=== PATIENT | female | born 1955 | race Caucasian/White ===

== ENCOUNTER 2022-10-10 07:54 | Inpatient (IN) ==
[2022-10-10] MEDS ORDERED: ONDANSETRON INJ 2 MG/ML 2 ML VIAL IV STA (08:27)
[2022-10-10] MEDS ORDERED: SODIUM CHLORIDE 0.9% 500 ML IV SCH (08:30)
--- NOTE | 2022-10-10 08:35 | Emergency Department Note ---
Impression & Plan Fall, Head injury, Weakness, Chronic right hip pain ED Provider Note INFORMANT: Patient and EMS ED PROVIDER(S): Sreekanth Begum DO CHIEF COMPLAINT: Fall, head injury, vomiting PLAN: Disposition: Admit Outpatient prescription management: none Discussion with: I spoke with the hospitalist, who will see the patient for admission/observation and further evaluation and consultation. MEDICAL DECISION MAKING: This is a 59-year-old female who presents to the ED with a chief complaint of a fall. The patient states that she fell a couple of times this morning. She states just prior to arrival. The patient reports hitting her head. She feels like she slipped on the floor while she was using her walker. She hit the back of her head. She vomited once in the emergency department. The patient did admit to drinking alcohol yesterday. She states that she drank about a half a liter of alcohol. She is using this for her chronic pain issues including her right hip. The patient is due to have surgery on her right hip later in the week. EMS reported that the patient's house was in disarray with pill bottles and pills all over the floor. Vital signs reveal a blood pressure of 90/45. The patient has a history of previous craniotomy with hematoma evacuation, total left hip arthroplasty, depression and anxiety, hypertension, seizures. Currently taking atenolol, escitalopram, Lunesta, hydrochlorothiazide/losartan, lamotrigine, omeprazole and tramadol. An EKG shows a sinus rhythm at a rate of 72. Chest x-ray was negative for acute disease. CT scan of the head and cervical spine did not show acute process. CT scan of the abdomen pelvis shows a compression fracture of T12 and a right posterior rib fracture. COVID test was negative. Troponin was negative. TSH was normal. Procalcitonin was negative. CBC did not show anemia or leukocytosis. Chemistry panel showed no electrolyte abnormality. Because of the patient's injuries, chronic pain and likelihood of more difficulty getting around and overall generalized weakness, she will be seen by the hospitalist for further evaluation and care. Likely will need to go to rehab perhaps after her hip surgery that is scheduled for later this week. Triage Nursing notes reviewed. Vital Signs: reviewed Prior /Outside records reviewed: Orthopedic note from 10/04/2022 Differential diagnosis: Skull fracture, intracranial hemorrhage, cervical spine injury, pelvis fracture, hip fracture, alcohol withdrawal, dehydration, generalized weakness, soft tissue injury, other Diagnostics, as interpreted by me: 12 lead ECG: Normal sinus rhythm rate of 72. No ST elevation. No PVCs. Normal QTc. Cardiac Monitoring ordered: Sinus rhythm in the 70s. Medical decision rules: [none] Imaging studies: Chest x-ray: No acute disease. CT scan of the brain: No intracranial hemorrhage Procedures: none. Critical care: none. HPI: See MDM above. PAST MEDICAL HISTORY: See Below PAST SURGICAL HISTORY: See Below SOCIAL HISTORY: See Below HOME MEDICATIONS: See Below ALLERGIES: See Below VITALS: See Below PHYSICAL EXAMINATION: See MDM for positive findings otherwise unremarkable. CONSTITUTIONAL/VITAL SIGNS: Reviewed GENERAL:done as appropriate INTEGUMENTARY: done as appropriate HEAD: done as appropriate EYES: done as appropriate RESPIRATORY: done as appropriate CARDIOVASCULAR:done as appropriate GI/ABDOMEN:done as appropriate EXTREMITIES: done as appropriate NEUROLOGICAL: done as appropriate PSYCHIATRIC:done as appropriate MUSCULOSKELETAL:done as appropriate TRIAGE NURSING DOCUMENTATION REVIEWED. Past Med/Surg History Medical History Anxiety and depression GERD (gastroesophageal reflux disease) controlled, stable per pt History of blood transfusion pt denies, she plans to re-check her home records Hx of subdural hematoma 2020 (s/p fall) Hypertension controlled, stable per pt Mild aortic regurgitation Mild mitral regurgitation Mild pulmonary hypertension 30 mmHg Mild pulmonary valve regurgitation Mild tricuspid regurgitation Seizure Grand mal, most recent 2000 Surgical History H/O craniotomy Hematoma evacuation (2020) History of colonoscopy History of esophagogastroduodenoscopy (EGD) History of laparoscopy History of total hip arthroplasty Left [place] teeth removed Family History Other No family history of adverse response to anesthesia Social History Smoking Status: Unknown if ever smoked Cigarettes Per Day: 1-2 CIG DAILY>ADVISED; Second Hand Exposure: Yes (IN THE PAST>15+ YEARS AGO); Hx Alcohol Use: Yes Alcohol type: wine Preferred Language: [place] Hotel Reservationist Required: No Beliefs That Will Affect Care: None Current Living Situation: Alone Feels Safe at Home: Yes Assistive Devices: Cane and Glasses Allergies Allergies Allergy/AdvReac Type Severity Reaction Status Date / Time No Known Allergies Allergy Verified 10/04/22 10:18 Home Meds Home Medications Medication Instructions Recorded Confirmed atenolol 50 mg tablet 50 mg PO BID 10/04/22 10/04/22 escitalopram oxalate 20 mg tablet 20 mg PO QAM 10/04/22 10/04/22 (Lexapro) eszopiclone 2 mg tablet (Lunesta) 2 mg PO HS 10/04/22 10/04/22 lamotrigine 150 mg tablet 150 mg PO BID 10/04/22 10/04/22 losartan 100 1 tab PO QA 10/04/22 10/04/22 mg-hydrochlorothiazide 12.5 mg tablet omeprazole 40 mg capsule,delayed 40 mg PO [facility] 10/04/22 10/04/22 release Results & Data (ED) Vital Signs Vital Signs - 24 hr 10/10/22 08:21 10/10/22 08:26 10/10/22 08:29 Temperature 36.8 C Temperature Source Axillary Pulse Rate 74 75 Pulse Rate [Apical] 68 Respiratory Rate 15 16 Blood Pressure 90/45 L Blood Pressure Mean 60 Pulse Oximetry 95 95 Oxygen Delivery Method Room Air Room Air Sepsis Recent Fever Within 48 Hours No Sepsis New/Unexplained Change in Mental Status No Sepsis Action Taken by Nursing No Action Required Laboratory Data 10/10/22 08:00 10/10/22 08:00 Lab Results 10/10/22 10/10/22 10/10/22 Range/Units 08:00 08:00 08:00 WBC 7.67 (4.8-10.8) K/ul RBC 4.31 (4.20-5.40) M/uL Hgb 13.5 (12.0-16.0) g/dl Hct 39.4 (37.0-47.0) % MCV 91.4 (80.0-100.0) fL MCH 31.3 (25.0-34.0) pg MCHC 34.3 (32.0-36.0) g/dL RDW Std Deviation 46.5 H (36.4-46.3) fL RDW Coeff of [place] 13.8 (11.5-14.5) % Plt Count 193 (130-400) K/uL MPV 9.9 (9.4-12.4) fL Immature Gran % (Auto) 0.3 % Neut % (Auto) 88.0 % Lymph % (Auto) 8.7 % [place] % (Auto) 2.5 % Eos % (Auto) 0.1 % Baso % (Auto) 0.4 % Neut # (Auto) 6.75 H (1.40-6.50) K/uL Lymph # (Auto) 0.67 L (1.2-3.4) K/uL [place] # (Auto) 0.19 (0.11-0.59) K/uL Eos # (Auto) 0.01 (0-0.50) K/uL Baso # (Auto) 0.03 (0-0.2) K/uL Immature Gran # (Auto) 0.02 (0.01-0.20) K/uL PT (9.0-12.0) Seconds INR (0.9-1.1) Sodium 140 (136-145) mmol/L Potassium 3.8 (3.5-5.1) mmol/L Chloride 102 (98-107) mmol/L Carbon Dioxide 25 (21-32) mmol/L Anion Gap 13 H (3-11) BUN 20 (6-23) mg/dl Creatinine 0.95 (0.6-1.2) mg/dl Est Cr Clr Drug Dosing 57.3 ml/min Est GFR ( Amer) 71.3 ml/min Est GFR (Non-Af Amer) 61.5 ml/min BUN/Creatinine Ratio 21.1 H (10-20) Glucose 123 H (70-99(Fasting)) mg/dl POC Glucose (70-99) mg/dl Calcium 10.0 (8.6-10.3) mg/dl Magnesium 1.6 L (1.7-2.4) mg/dl Total Bilirubin 0.5 (0.2-1.0) mg/dl AST 18 (13-39) U/L ALT 9 (7-52) U/L Alkaline Phosphatase 123 H (34-104) U/L Total Creatine Kinase 218 H (26-192) U/L Troponin I High Sens 3.6 (0-14) pg/ml Total Protein 7.0 (6.0-8.3) gm/dl Albumin 4.4 (3.4-5.0) gm/dl Globulin 2.6 (2.5-4.0) gm/dl Albumin/Globulin Ratio 1.7 (0.9-2) Lipase 5 L (11-82) U/L Procalcitonin < 0.05 (0-0.5) ng/ml TSH (0.300-4.500) uIu/ml SARS-CoV-2, RNA, NAAT (NEGATIVE) 10/10/22 10/10/22 10/10/22 Range/Units 08:00 08:00 08:07 WBC (4.8-10.8) K/ul RBC (4.20-5.40) M/uL Hgb (12.0-16.0) g/dl Hct (37.0-47.0) % MCV (80.0-100.0) fL MCH (25.0-34.0) pg MCHC (32.0-36.0) g/dL RDW Std Deviation (36.4-46.3) fL RDW Coeff of [place] (11.5-14.5) % Plt Count (130-400) K/uL MPV (9.4-12.4) fL Immature Gran % (Auto) % Neut % (Auto) % Lymph % (Auto) % [place] % (Auto) % Eos % (Auto) % Baso % (Auto) % Neut # (Auto) (1.40-6.50) K/uL Lymph # (Auto) (1.2-3.4) K/uL [place] # (Auto) (0.11-0.59) K/uL Eos # (Auto) (0-0.50) K/uL Baso # (Auto) (0-0.2) K/uL Immature Gran # (Auto) (0.01-0.20) K/uL PT 11.1 (9.0-12.0) Seconds INR 1.0 (0.9-1.1) Sodium (136-145) mmol/L Potassium (3.5-5.1) mmol/L Chloride (98-107) mmol/L Carbon Dioxide (21-32) mmol/L Anion Gap (3-11) BUN (6-23) mg/dl Creatinine (0.6-1.2) mg/dl Est Cr Clr Drug Dosing ml/min Est GFR ( Amer) ml/min Est GFR (Non-Af Amer) ml/min BUN/Creatinine Ratio (10-20) Glucose (70-99(Fasting)) mg/dl POC Glucose 134 H (70-99) mg/dl Calcium (8.6-10.3) mg/dl Magnesium (1.7-2.4) mg/dl Total Bilirubin (0.2-1.0) mg/dl AST (13-39) U/L ALT (7-52) U/L Alkaline Phosphatase (34-104) U/L Total Creatine Kinase (26-192) U/L Troponin I High Sens (0-14) pg/ml Total Protein (6.0-8.3) gm/dl Albumin (3.4-5.0) gm/dl Globulin (2.5-4.0) gm/dl Albumin/Globulin Ratio (0.9-2) Lipase (11-82) U/L Procalcitonin (0-0.5) ng/ml TSH 0.870 (0.300-4.500) uIu/ml SARS-CoV-2, RNA, NAAT (NEGATIVE) 10/10/22 Range/Units 08:30 WBC (4.8-10.8) K/ul RBC (4.20-5.40) M/uL Hgb (12.0-16.0) g/dl Hct (37.0-47.0) % MCV (80.0-100.0) fL MCH (25.0-34.0) pg MCHC (32.0-36.0) g/dL RDW Std Deviation (36.4-46.3) fL RDW Coeff of [place] (11.5-14.5) % Plt Count (130-400) K/uL MPV (9.4-12.4) fL Immature Gran % (Auto) % Neut % (Auto) % Lymph % (Auto) % [place] % (Auto) % Eos % (Auto) % Baso % (Auto) % Neut # (Auto) (1.40-6.50) K/uL Lymph # (Auto) (1.2-3.4) K/uL [place] # (Auto) (0.11-0.59) K/uL Eos # (Auto) (0-0.50) K/uL Baso # (Auto) (0-0.2) K/uL Immature Gran # (Auto) (0.01-0.20) K/uL PT (9.0-12.0) Seconds INR (0.9-1.1) Sodium (136-145) mmol/L Potassium (3.5-5.1) mmol/L Chloride (98-107) mmol/L Carbon Dioxide (21-32) mmol/L Anion Gap (3-11) BUN (6-23) mg/dl Creatinine (0.6-1.2) mg/dl Est Cr Clr Drug Dosing ml/min Est GFR ( Amer) ml/min Est GFR (Non-Af Amer) ml/min BUN/Creatinine Ratio (10-20) Glucose (70-99(Fasting)) mg/dl POC Glucose (70-99) mg/dl Calcium (8.6-10.3) mg/dl Magnesium (1.7-2.4) mg/dl Total Bilirubin (0.2-1.0) mg/dl AST (13-39) U/L ALT (7-52) U/L Alkaline Phosphatase (34-104) U/L Total Creatine Kinase (26-192) U/L Troponin I High Sens (0-14) pg/ml Total Protein (6.0-8.3) gm/dl Albumin (3.4-5.0) gm/dl Globulin (2.5-4.0) gm/dl Albumin/Globulin Ratio (0.9-2) Lipase (11-82) U/L Procalcitonin (0-0.5) ng/ml TSH (0.300-4.500) uIu/ml SARS-CoV-2, RNA, NAAT NEGATIVE (NEGATIVE) Administered Medications Discontinued Medications Sodium Chloride (Nss) 500 mls @ 999 mls/hr IV .Q31M GISELE Stop: 10/10/22 09:00 Last Admin: 10/10/22 08:38 Dose: 999 mls/hr Documented By: KV Ondansetron HCl (Ondansetron Inj 2 Mg/Ml 2 Ml Vial) 4 mg IV NOW STA Stop: 10/10/22 08:28 Last Admin: 10/10/22 08:38 Dose: 4 mg Documented By: KV Imaging Data Radiologist's Impression: Abdomen/Pelvis CT 10/10/22 08:27 CT abd pelvis wo con CLINICAL HISTORY: FALL TECHNIQUE: Helical axial images of the abdomen and pelvis were obtained. Automated dose lowering techniques and/or adjustment according to patient size were utilized for this exam. This exam was performed without intravenous contrast. COMPARISON: None available at the time of this dictation. FINDINGS: Lower chest: Bibasilar atelectasis versus scarring is seen. Liver: Unremarkable. No focal lesions are seen. Gallbladder and biliary tree: No calcified gallstones. Normal caliber wall. No intra- or extrahepatic biliary ductal dilation. Pancreas: Unremarkable, no focal lesions. Spleen: Unremarkable. Adrenals: Right lipid rich adenoma is seen. Kidneys and ureters: Unremarkable. Bladder: Unremarkable. Reproductive organs: Unremarkable. Bowel: The appendix is normal. A small hiatal hernia is seen. Lymph nodes Retroperitoneal: Unremarkable. Pelvic: Unremarkable. Mesenteric: Unremarkable. Peritoneum: Normal. Vessels: Atherosclerotic calcifications are seen. Abdominal wall: Unremarkable. Bones: Left hip total arthroplasty is seen. IMPRESSION: 1. Compression fracture of the T12 vertebral body. There is a right posterior rib fracture which also appears acute. Additional rib fractures of various chronicity is are seen as above. 2. Additional findings as above. No acute intra-abdominal injury is seen. ACT 112: Negative or not required by law. Electronically signed by: Jordan Stephen M.D. 10/10/2022 9:[address] 10/10/22 08:27 CT SCAN OF THE CERVICAL SPINE CLINICAL HISTORY: Fall. COMPARISON STUDY: No priors. TECHNIQUE: CT scan of the cervical spine is performed from the skull base to the upper thoracic spine. Images are reviewed in the axial, sagittal, and coronal planes. IV contrast was not administered for this examination. A dose lowering technique was utilized adhering to the principles of ALARA. CT DOSE: 2309.18 mGy.cm FINDINGS: Skeletal structures: The skeletal structures are osteopenic. There is no evidence of fracture or subluxation involving the cervical spine. Vertebral body height is maintained. There is minimal anterolisthesis at C3-C4 and C7-T1. Alignment is otherwise preserved. There is straightening of the cervical lordosis. Anterior osteophytes are seen throughout. There is multilevel degenerative endplate sclerosis. The odontoid process and lateral masses are intact. The atlantoaxial articulation is preserved nothing productive degenerative change. The spinous processes appear intact. There is moderate multilevel cervical spondylosis. Uncovertebral and facet arthropathy contribute to neural foraminal narrowing at several levels. Intervertebral discs: There is moderate to severe disc space narrowing at C4-C5, C5-C6, and C6-C7. Mild/moderate narrowing is seen at the remaining cervical l evels. Central canal: Posterior disc osteophyte complexes are seen at all levels between C3-C4 and C7-T1. This likely contributes to multilevel acquired compromise of the central canal. Soft tissues: The prevertebral and paraspinous soft tissues are within normal limits. Calvarium: The visualized calvarium at the skull base appears intact. Brain parenchyma: Partially visualized brain parenchyma at the skull base is within normal limits. Sinuses and mastoids: The visualized paranasal sinuses are clear. The mastoid air cells are well pneumatized. Lung apices: Clear as visualized. IMPRESSION: 1. There is no evidence of fracture or subluxation involving the cervical spine. 2. Osteopenia and spondylotic change as above. ACT 112: Negative or not required by law. Electronically signed by: Fabian Castellanos M.D. 10/10/2022 9:16 AM Chest X-Ray 10/10/22 08:27 XR chest 1V portable CLINICAL HISTORY: weakness TECHNIQUE: Single frontal radiograph of the chest was obtained. Comparison: None available at the time of this dictation. FINDINGS: No lines and tubes are seen. The cardiomediastinal silhouette is normal. The lungs are clear. No evidence of pleural effusion or pneumothorax. IMPRESSION: No acute chest disease. ACT 112: Negative or not required by law. Electronically signed by: Jordan Stephen M.D. 10/10/2022 8:[address] 10/10/22 08:27 CT SCAN OF THE BRAIN WITHOUT IV CONTRAST CLINICAL HISTORY: Fall. Head injury. COMPARISON STUDY: No priors. TECHNIQUE: Unenhanced axial CT scan of the brain is performed from the vertex to the skull base. A dose lowering technique was utilized adhering to the principles of ALARA. The patient was scanned twice due to motion artifact. FINDINGS: Brain parenchyma: The brain parenchyma is normal in appearance. There is no hemorrhage, mass effect, or evidence of acute territorial ischemia by CT criteria. Wade-white matter differentiation is preserved. No extra-axial fluid collection is seen. Ventricles, sulci, cisterns: Normal in configuration. Intracranial vasculature: There is atherosclerotic calcification of the cavernous carotid arteries. Calvarium: The skeletal structures are osteopenic. There is postsurgical change from right-sided craniotomy. No depressed calvarial fracture is identified. Sinuses and mastoids: The paranasal sinuses are clear. The mastoid air cells are well pneumatized. Orbits: The bony orbits are grossly intact. IMPRESSION: There is no hemorrhage, mass effect, or evidence of acute terr itorial ischemia by CT criteria. ACT 112: Negative or not required by law. Electronically signed by: Fabian Castellanos M.D. 10/10/2022 9:12 AM Discharge Plan Visit Data Chief Complaint: Illness Stated Complaint: DIFF. AMBULATING ED Provider: Sreekanth Begum Discharge Problem: Fall, Head injury, Weakness, Chronic right hip pain Patient Disposition: Admitted As Inpatient Forms Stand Alone Forms: [facility] Prescriptions Prescriptions: No Action lamotrigine 150 mg Tablet 150 mg PO BID omeprazole 40 mg Capsule,Delayed Release(Dr/Ec) 40 mg PO QAM atenolol 50 mg Tablet 50 mg PO BID escitalopram oxalate [Lexapro] 20 mg Tablet 20 mg PO QAM eszopiclone [Lunesta] 2 mg Tablet 2 mg PO HS losartan-hydrochlorothiazide 100-12.5 mg Tablet 1 tab PO QAM Referrals Referrals: Ashley Kay PA-C [Primary Care Provider] -
--- NOTE | 2022-10-10 08:55 | XRay Report ---
XR chest 1V portable CLINICAL HISTORY: weakness TECHNIQUE: Single frontal radiograph of the chest was obtained. Comparison: None available at the time of this dictation. FINDINGS: No lines and tubes are seen. The cardiomediastinal silhouette is normal. The lungs are clear. No evid ence of pleural effusion or pneumothorax. IMPRESSION: No acute chest disease. ACT 112: Negative or not required by law. Electronically signed by: Jordan Stephen M.D. 10/10/2022 8:53 AM
[2022-10-10 09:10] LABS: Albumin Globulin Ratio 1.7 (0.9-2); Albumin Level 4.4 gm/dl (3.4-5.0); BUN Creatinine Ratio 21.1 (10-20); Bilirubin,Total 0.5 mg/dl (0.2-1.0); Creatinine Clr Calc Pharmacy 57.3 ml/min; Est GFR (African American) 71.3 ml/min; Est GFR (Non-African American) 61.5 ml/min; Globulin 2.6 gm/dl (2.5-4.0); Magnesium 1.6 mg/dl (1.7-2.4); Potassium 3.8 mmol/L (3.5-5.1)
[2022-10-10 09:11] LABS: Basophils # (auto) 0.03 K/uL (0-0.2); Basophils % (auto) 0.4 %; Eosinophils # (auto) 0.01 K/uL (0-0.50); Eosinophils % (auto) 0.1 %; Hematocrit (blood only) 39.4 % (37.0-47.0); Hemoglobin 13.5 g/dl (12.0-16.0); Immature Granulocytes # (auto) 0.02 K/uL (0.01-0.20); Immature Granulocytes % (auto) 0.3 %; Lymphocytes # (auto) 0.67 K/uL (1.2-3.4); Lymphocytes % (auto) 8.7 %; Mean Corpuscular Hemoglobin 31.3 pg (25.0-34.0); Mean Corpuscular Hgb Conc 34.3 g/dL (32.0-36.0); Mean Corpuscular Volume 91.4 fL (80.0-100.0); Mean Platelet Volume 9.9 fL (9.4-12.4); Monocytes # (auto) 0.19 K/uL (0.11-0.59); Monocytes % (auto) 2.5 %; Neutrophils # (auto) 6.75 K/uL (1.40-6.50); Platelet Count 193 K/uL (130-400); RDW Coefficient of Variation 13.8 % (11.5-14.5); RDW Standard Deviation 46.5 fL (36.4-46.3); Red Blood Count 4.31 M/uL (4.20-5.40); White Blood Count 7.67 K/ul (4.8-10.8)
--- NOTE | 2022-10-10 09:14 | CT Scan Report ---
CT SCAN OF THE BRAIN WITHOUT IV CONTRAST CLINICAL HISTORY: Fall. Head injury. COMPARISON STUDY: No priors. TECHNIQUE: Unenhanced axial CT scan of the brain is performed from the vertex to the skull base. A d ose lowering technique was utilized adhering to the principles of ALARA. The patient was scanned twic e due to motion artifact. FINDINGS: Brain parenchyma: The brain parenchyma is normal in appearance. There is no hemorrhage, mass effect, or evidence of acute territorial ischemia by CT criteria. Wade-white matter differentiation is preser naz. No extra-axial fluid collection is seen. Ventricles, sulci, cisterns: Normal in configuration. Intracranial vasculature: There is atherosclerotic calcification of the cavernous carotid arteries. Calvarium: The skeletal structures are osteopenic. There is postsurgical change from right-sided cran iotomy. No depressed calvarial fracture is identified. Sinuses and mastoids: The paranasal sinuses are clear. The mastoid air cells are well pneumatized. Orbits: The bony orbits are grossly intact. IMPRESSION: There is no hemorrhage, mass effect, or evidence of acute territorial ischemia by CT [place] aguilar. ACT 112: Negative or not required by law. Electronically signed by: Fabian Castellanos M.D. 10/10/2022 9:12 AM
[2022-10-10 09:16] LABS: Troponin I High Sensitivity 3.6 pg/ml (0-14)
[2022-10-10 09:19] LABS: Prothrombin Time 11.1 Seconds (9.0-12.0)
--- NOTE | 2022-10-10 09:19 | CT Scan Report ---
CT SCAN OF THE CERVICAL SPINE CLINICAL HISTORY: Fall. COMPARISON STUDY: No priors. TECHNIQUE: CT scan of the cervical spine is performed from the skull base to the upper thoracic spine . Images are reviewed in the axial, sagittal, and coronal planes. IV contrast was not administered fo r this examination. A dose lowering technique was utilized adhering to the principles of ALARA. CT DOSE: 2309.18 mGy.cm FINDINGS: Skeletal structures: The skeletal structures are osteopenic. There is no evidence of fracture or subl uxation involving the cervical spine. Vertebral body height is maintained. There is minimal anterolis thesis at C3-C4 and C7-T1. Alignment is otherwise preserved. There is straightening of the cervical l ordosis. Anterior osteophytes are seen throughout. There is multilevel degenerative endplate sclerosi s. The odontoid process and lateral masses are intact. The atlantoaxial articulation is preserved not deepali productive degenerative change. The spinous processes appear intact. There is moderate multileve l cervical spondylosis. Uncovertebral and facet arthropathy contribute to neural foraminal narrowing at several levels. Intervertebral discs: There is moderate to severe disc space narrowing at C4-C5, C5-C6, and C6-C7. Mi ld/moderate narrowing is seen at the remaining cervical levels. Central canal: Posterior disc osteophyte complexes are seen at all levels between C3-C4 and C7-T1. Th is likely contributes to multilevel acquired compromise of the central canal. Soft tissues: The prevertebral and paraspinous soft tissues are within normal limits. Calvarium: The visualized calvarium at the skull base appears intact. Brain parenchyma: Partially visualized brain parenchyma at the skull base is within normal limits. Sinuses and mastoids: The visualized paranasal sinuses are clear. The mastoid air cells are well pneu matized. Lung apices: Clear as visualized. IMPRESSION: 1. There is no evidence of fracture or subluxation involving the cervical spine. 2. Osteopenia and spondylotic change as above. ACT 112: Negative or not required by law. Electronically signed by: Fabain Castellanos M.D. 10/10/2022 9:16 AM
--- NOTE | 2022-10-10 09:41 | CT Scan Report ---
CT abd pelvis wo con CLINICAL HISTORY: FALL TECHNIQUE: Helical axial images of the abdomen and pelvis were obtained. Automated dose lowering tech niques and/or adjustment according to patient size were utilized for this exam. This exam was perfor med without intravenous contrast. COMPARISON: None available at the time of this dictation. FINDINGS: Lower chest: Bibasilar atelectasis versus scarring is seen. Liver: Unremarkable. No focal lesions are seen. Gallbladder and biliary tree: No calcified gallstones. Normal caliber wall. No intra- or extrahepatic biliary ductal dilation. Pancreas: Unremarkable, no focal lesions. Spleen: Unremarkable. Adrenals: Right lipid rich adenoma is seen. Kidneys and ureters: Unremarkable. Bladder: Unremarkable. Reproductive organs: Unremarkable. Bowel: The appendix is normal. A small hiatal hernia is seen. Lymph nodes Retroperitoneal: Unremarkable. Pelvic: Unremarkable. Mesenteric: Unremarkable. Peritoneum: Normal. Vessels: Atherosclerotic calcifications are seen. Abdominal wall: Unremarkable. Bones: Left hip total arthroplasty is seen. IMPRESSION: 1. Compression fracture of the T12 vertebral body. There is a right posterior rib fracture which als o appears acute. Additional rib fractures of various chronicity is are seen as above. 2. Additional findings as above. No acute intra-abdominal injury is seen. ACT 112: Negative or not required by law. Electronically signed by: Jordan Stephen M.D. 10/10/2022 9:38 AM
[2022-10-10] MEDS: MAGNESIUM SULFATE / D5W 1 GM/100 ML BAG IV SCH ×2 (10:25→11:09)
--- NOTE | 2022-10-10 10:27 | History & Physical Report ---
Date of Service October 10, 2022 Assessment & Plan (1) Fall: Plan: reportedly fall at home, suspected 2nd to chronic hip pain in combination with alcohol use for pain control at home. CK mildly elevated, Anion gap 13 on labs, likely from alcohol use CT head/cervical spine negative on admit (hx fall/subdural hematoma/craniotomy/evacuation). CTAP without acute intraabdominal process but does note T12 compression fracture 1/2 liter vodka drinker at home for pain control, denied seizures/withdrawal history but per PCP notes listed alcohol withdrawal. TSH wnl Admit to PCU actively tremulous in ER --> checking UA/Drug profile/Ammonia/B1/B12/Folate/tylenol levels/ Checking lactic given anion gap --> elevated to 2.2, monitor on repeat Banana bag ordered x 1 NOW, continue IVF NS +20K x 1 L following. Daily B12/folate/thiamine supplementation AWSS protocol ordered, seizure precautions Mag replacement IV Checking hip imaging/pelvis to ensure no fracture -- has significant bruising to her LEFT hip (upcoming surgery for repair RIGHT hip for severe OA). Prior LEFT hip repair in 2019 in [place]. Consult w/ orthopedics pending Checking UA. CXR w/o acute process but patient does have multiple old rib fractures various stages of healing Orthotics consulted for brace/pain control Checking ECHO given murmur on exam for further eval. Trop undetectable on admission PT/OT consulted, CM to follow Monitor labs in AM/electrolyte replacement (2) T12 compression fracture: Plan: as noted on imaging, 2nd to fall checking vit d level given prior hypercalcemia pain control, will see about orthotics for brace for additional pain control utilize incentive spirometer as well given rib fractures, however nothing acute/no flail chest PT/OT consulted (3) Rib fractures: Plan: noted on imaging, likely from fall pain control/lidocaine patches/incentive spirometer no O2 use continue to monitor (4) Alcohol use: Plan: reported using for hip pain AWSS to be ordered, monitor on telemetry for any evidence for DTs (5) Weakness: Plan: 2nd to above (6) Osteoarthritis of right hip: Plan: will consult orthopedics for any possible sooner surgery, vs continued outpatient as planned pain control plan for PT/OT consultations (7) Chronic right hip pain: Plan: pain control/ortho/xrays/pt/ot consultations (8) Hypomagnesemia: Plan: 1.6-- IV replacement ordered, repeat level in AM monitor on telemetry for any arrhythmia contributing to falls, ?holiday heart/paroxysmal afib w/ her alcohol use at home contributing to falls (9) Hypertension: Plan: On Losartan-HCTZ 100mg-12.5mg daily, atenolol 50mg BID --> holding given hypotension on arrival IVF bolus 500cc in ER, placed on maintenance fluids after banana bag complete Hx SVT/PACs/palpitations per cards outpatient note, on atenolol --> continue w/ hold parameters monitor vitals/resume atenolol if needed but monitor for when able to resume diuretics. may need adjustment if issues w/ hydration status at baseline however kidney function stable at present (10) Seizure: Plan: hx grand mal, last 2000 continue home lamotrigine seizure precautions, AWSS as above given alcohol use holding her home lunesta to prevent respiratory depression, she is currently maintaining her own airway at present (11) Closed head injury: Plan: CT head negative on admission, not on blood thinners alert/oriented to person/place/time, but intermittent confusion -- likely alcohol/withdrawal suspected (12) Hx of subdural hematoma: Plan: 2020 (s/p fall) (13) GERD (gastroesophageal reflux disease): Plan: continue PPI (14) Anxiety and depression: Plan: continue home meds with lamotrigine, escitalopram Will hold fluoxetine 60mg, home lunesta 2mg for now (15) Left hip pain: Plan: s/p fall, repair/replacement in 2019 in [place] Obtaining xrays given bruising/ecchyomosis s/p fall as above History of Present Illness Chief Complaint: fall, alcohol use Primary Care Provider: Ashley Rahul 67yo female with PMHx significant for HTN, Seizure, prior craniotomy/evacuation of hematoma, anxiety/depression, GERD presented after fall at home with associated vomiting and striking the back of her head. Of note, has been seeing orthopedics and recent imaging for severe osteoarthritis for her right hip and supposed to have upcoming surgery for repair with Dr Grider this upcoming week. Patient evaluated in B9, actively attempting to get out of bed, tremulous and agitated but alert to person, knows in hospital, year 2022. Denies having any lightheaded/dizziness/syncope/BARKLEY prior to fall at present. Lab at bedside to draw labs -- overdose labs ordered/ammonia/b1/b12/folate. States tylenol/ibuprofen have done nothing for her pain and she has been using alcohol for pain control, reportedly last drink day before yesterday. Did not take any medications this morning. Denied any prior history of withdrawal seizures and reports last seizure was in 2000. She reports falling backwards but exact etiology is unknown. She denies any recent fevers/chills, chest pain, shortness of breath, abdominal pain, nausea or vomiting (however reported vomiting to ER providers/given zofran). She appears disheveled/unkept, reports working up for hip repair with Dr Grider this upcoming week. She states she has been ambulating with a walker at home. Currently able to move all extremities, follow commands. No focal deficits at present. Asked RN to provide patient with 1mg Ativan IV x 1 now, will order AWSS for active withdrawal. Will admit to monitored bed to observe for any DTs, pain control/PT/OT consultations and electrolyte replacement and further investigation of falls. ER Course: BP low on admit, given 500cc NSS by ER staff, zofran 4mg IV x 1. CT head/cervical spine negative. CT abdomen/pelvis without acute intra-abdominal injury, but does note compression fracture of T12 vertebral body as well as additional rib fractures of various chronicity. CXR without acute chest disease/consolidative process. WBC 7.6k, hgb 13.5, electrolytes acceptable, anion gap slightly elevated to 13, suspected from alcohol use. Mag low at 1.6. CK elevated to 218, ALP 123. TB wnl 0.5. Lipase 5. Procal <0.05. TSH 0.870 COVID testing negative. UA ordered but not yet obtained. Allergies Allergy/AdvReac Type Severity Reaction Status Date / Time No Known Allergies Allergy Verified 10/10/22 11:00 Home Medications Medication Instructions Recorded Confirmed Type atenolol 50 mg tablet 50 mg PO BID 10/04/22 10/10/22 History escitalopram oxalate 20 mg tablet 20 mg PO QAM 10/04/22 10/10/22 History (Lexapro) eszopiclone 2 mg tablet (Lunesta) 2 mg PO HS 10/04/22 10/10/22 History lamotrigine 150 mg tablet 150 mg PO BID 10/04/22 10/10/22 History losartan 100 1 tab PO QAM 10/04/22 10/10/22 History mg-hydrochlorothiazide 12.5 mg tablet omeprazole 40 mg capsule,delayed 40 mg PO QAM 10/04/22 10/10/22 History release Past Med/Surg History Medical History Anxiety and depression GERD (gastroesophageal reflux disease) controlled, stable per pt History of blood transfusion pt denies, she plans to re-check her home records Hx of subdural hematoma 2020 (s/p fall) Hypertension controlled, stable per pt Mild aortic regurgitation Mild mitral regurgitation Mild pulmonary hypertension 30 mmHg Mild pulmonary valve regurgitation Mild tricuspid regurgitation Seizure Grand mal, most recent 2000 Surgical History H/O craniotomy Hematoma evacuation (2020) History of colonoscopy History of esophagogastroduodenoscopy (EGD) History of laparoscopy History of total hip arthroplasty Left [place] teeth removed Family History Other No family history of adverse response to anesthesia Social History Smoking Status: Current every day smoker Cigarettes Per Day: 1-2 CIG DAILY>ADVISED; Second Hand Exposure: Yes; Hx Alcohol Use: Yes Alcohol type: wine and hard liquor Preferred Language: Burkinan Communication Ability: Unable 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 Beliefs That Will Affect Care: None Current Living Situation: Alone Feels Safe at Home: Yes Assistive Devices: Cane and Walker Physical Exam Physical Exam: General: disheveled, agitated and attempting to get out of bed initially, appear ed confused somewhat initially but answering orientation questions for name/place/year/time at present and following commands but obvious tremor noted at rest/with movement, ?asterixis HEENT: mm dry, trachea midline, pupils equal in size Chest: no obvious tenderness to palpation Resp: poor effort at times, but clear to auscultation with exception diminished in the bases, no wheezing, on room air 95% CV: regular rate/rhythm, +murmur, no rub/gallop, no pitting edema/calf tenderness, cap refill wnl : no lee MSK/Neuro: moves all extremities, able to follow commands, no facial droop. CN intact grossly Left hip with ecchymosis from fall/no large hematoma but tender to palpation, able to take through ROM without increased pain reported at present R hip w/ slight reddened appearance but no obvious bony step off appreciated sensation intact, dorsiflexion/plantar flexion intact bilaterally ?+asterixis Skin: scattered scabs/lesions from falls to LE has small area to her left posterior flank with covered by crusted bandaid, no obvious drainage at present/tenderness reported but does appear to have some fluctuance Psych: alert to person/place/time, but intermittent confusion noted at times Results & Data Results & Data Vital Signs (Past 12 Hours) Vital Signs Temp Pulse Pulse Resp BP Pulse Ox O2 Del Method 10/10/22 08:29 68 16 95 Room Air 10/10/22 08:26 75 10/10/22 08:21 36.8 C 74 15 90/45 L 95 Room Air Laboratory Results 10/10/22 10/10/22 10/10/22 Range/Units 08:30 08:07 08:00 WBC (4.8-10.8) K/ul RBC (4.20-5.40) M/uL Hgb (12.0-16.0) g/dl Hct (37.0-47.0) % MCV (80.0-100.0) fL MCH (25.0-34.0) pg MCHC (32.0-36.0) g/dL RDW Std Deviation (36.4-46.3) fL RDW Coeff of [place] (11.5-14.5) % Plt Count (130-400) K/uL MPV (9.4-12.4) fL Immature Gran % (Auto) % Neut % (Auto) % Lymph % (Auto) % [place] % (Auto) % Eos % (Auto) % Baso % (Auto) % Neut # (Auto) (1.40-6.50) K/uL Lymph # (Auto) (1.2-3.4) K/uL [place] # (Auto) (0.11-0.59) K/uL Eos # (Auto) (0-0.50) K/uL Baso # (Auto) (0-0.2) K/uL Immature Gran # (Auto) (0.01-0.20) K/uL PT (9.0-12.0) Seconds INR (0.9-1.1) Sodium (136-145) mmol/L Potassium (3.5-5.1) mmol/L Chloride (98-107) mmol/L Carbon Dioxide (21-32) mmol/L Anion Gap (3-11) BUN (6-23) mg/dl Creatinine (0.6-1.2) mg/dl Est Cr Clr Drug Dosing ml/min Est GFR ( Amer) ml/min Est GFR (Non-Af Amer) ml/min BUN/Creatinine Ratio (10-20) Glucose (70-99(Fasting)) mg/dl POC Glucose 134 H (70-99) mg/dl Calcium (8.6-10.3) mg/dl Magnesium (1.7-2.4) mg/dl Total Bilirubin (0.2-1.0) mg/dl AST (13-39) U/L ALT (7-52) U/L Alkaline Phosphatase (34-104) U/L Total Creatine Kinase (26-192) U/L Troponin I High Sens (0-14) pg/ml Total Protein (6.0-8.3) gm/dl Albumin (3.4-5.0) gm/dl Globulin (2.5-4.0) gm/dl Albumin/Globulin Ratio (0.9-2) Lipase (11-82) U/L Procalcitonin (0-0.5) ng/ml TSH 0.870 (0.300-4.500) uIu/ml SARS-CoV-2, RNA, NAAT NEGATIVE (NEGATIVE) 10/10/22 10/10/22 10/10/22 Range/Units 08:00 08:00 08:00 WBC 7.67 (4.8-10.8) K/ul RBC 4.31 (4.20-5.40) M/uL Hgb 13.5 (12.0-16.0) g/dl Hct 39.4 (37.0-47.0) % MCV 91.4 (80.0-100.0) fL MCH 31.3 (25.0-34.0) pg MCHC 34.3 (32.0-36.0) g/dL RDW Std Deviation 46.5 H (36.4-46.3) fL RDW Coeff of [place] 13.8 (11.5-14.5) % Plt Count 193 (130-400) K/uL MPV 9.9 (9.4-12.4) fL Immature Gran % (Auto) 0.3 % Neut % (Auto) 88.0 % Lymph % (Auto) 8.7 % [place] % (Auto) 2.5 % Eos % (Auto) 0.1 % Baso % (Auto) 0.4 % Neut # (Auto) 6.75 H (1.40-6.50) K/uL Lymph # (Auto) 0.67 L (1.2-3.4) K/uL [place] # (Auto) 0.19 (0.11-0.59) K/uL Eos # (Auto) 0.01 (0-0.50) K/uL Baso # (Auto) 0.03 (0-0.2) K/uL Immature Gran # (Auto) 0.02 (0.01-0.20) K/uL PT 11.1 (9.0-12.0) Seconds INR 1.0 (0.9-1.1) Sodium (136-145) mmol/L Potassium (3.5-5.1) mmol/L Chloride (98-107) mmol/L Carbon Dioxide (21-32) mmol/L Anion Gap (3-11) BUN (6-23) mg/dl Creatinine (0.6-1.2) mg/dl Est Cr Clr Drug Dosing ml/min Est GFR ( Amer) ml/min Est GFR (Non-Af Amer) ml/min BUN/Creatinine Ratio (10-20) Glucose (70-99(Fasting)) mg/dl POC Glucose (70-99) mg/dl Calcium (8.6-10.3) mg/dl Magnesium (1.7-2.4) mg/dl Total Bilirubin (0.2-1.0) mg/dl AST (13-39) U/L ALT (7-52) U/L Alkaline Phosphatase (34-104) U/L Total Creatine Kinase (26-192) U/L Troponin I High Sens (0-14) pg/ml Total Protein (6.0-8.3) gm/dl Albumin (3.4-5.0) gm/dl Globulin (2.5-4.0) gm/dl Albumin/Globulin Ratio (0.9-2) Lipase (11-82) U/L Procalcitonin < 0.05 (0-0.5) ng/ml TSH (0.300-4.500) uIu/ml SARS-CoV-2, RNA, NAAT (NEGATIVE) 10/10/22 Range/Units 08:00 WBC (4.8-10.8) K/ul RBC (4.20-5.40) M/uL Hgb (12.0-16.0) g/dl Hct (37.0-47.0) % MCV (80.0-100.0) fL MCH (25.0-34.0) pg MCHC (32.0-36.0) g/dL RDW Std Deviation (36.4-46.3) fL RDW Coeff of [place] (11.5-14.5) % Plt Count (130-400) K/uL MPV (9.4-12.4) fL Immature Gran % (Auto) % Neut % (Auto) % Lymph % (Auto) % [place] % (Auto) % Eos % (Auto) % Baso % (Auto) % Neut # (Auto) (1.40-6.50) K/uL Lymph # (Auto) (1.2-3.4) K/uL [place] # (Auto) (0.11-0.59) K/uL Eos # (Auto) (0-0.50) K/uL Baso # (Auto) (0-0.2) K/uL Immature Gran # (Auto) (0.01-0.20) K/uL PT (9.0-12.0) Seconds INR (0.9-1.1) Sodium 140 (136-145) mmol/L Potassium 3.8 (3.5-5.1) mmol/L Chloride 102 (98-107) mmol/L Carbon Dioxide 25 (21-32) mmol/L Anion Gap 13 H (3-11) BUN 20 (6-23) mg/dl Creatinine 0.95 (0.6-1.2) mg/dl Est Cr Clr Drug Dosing 57.3 ml/min Est GFR ( Amer) 71.3 ml/min Est GFR (Non-Af Amer) 61.5 ml/min BUN/Creatinine Ratio 21.1 H (10-20) Glucose 123 H (70-99(Fasting)) mg/dl POC Glucose (70-99) mg/dl Calcium 10.0 (8.6-10.3) mg/dl Magnesium 1.6 L (1.7-2.4) mg/dl Total Bilirubin 0.5 (0.2-1.0) mg/dl AST 18 (13-39) U/L ALT 9 (7-52) U/L Alkaline Phosphatase 123 H (34-104) U/L Total Creatine Kinase 218 H (26-192) U/L Troponin I High Sens 3.6 (0-14) pg/ml Total Protein 7.0 (6.0-8.3) gm/dl Albumin 4.4 (3.4-5.0) gm/dl Globulin 2.6 (2.5-4.0) gm/dl Albumin/Globulin Ratio 1.7 (0.9-2) Lipase 5 L (11-82) U/L Procalcitonin (0-0.5) ng/ml TSH (0.300-4.500) uIu/ml SARS-CoV-2, RNA, NAAT (NEGATIVE) Diagnostic Findings Abdomen/Pelvis CT 10/10/22 08:27 CT abd pelvis wo con CLINICAL HISTORY: FALL TECHNIQUE: Helical axial images of the abdomen and pelvis were obtained. Automated dose lowering techniques and/or adjustment according to patient size were utilized for this exam. This exam was performed without intravenous contrast. COMPARISON: None available at the time of this dictation. FINDINGS: Lower chest: Bibasilar atelectasis versus scarring is seen. Liver: Unremarkable. No focal lesions are seen. Gallbladder and biliary tree: No calcified gallstones. Normal caliber wall. No intra- or extrahepatic biliary ductal dilation. Pancreas: Unremarkable, no focal lesions. Spleen: Unremarkable. Adrenals: Right lipid rich adenoma is seen. Kidneys and ureters: Unremarkable. Bladder: Unremarkable. Reproductive organs: Unremarkable. Bowel: The appendix is normal. A small hiatal hernia is seen. Lymph nodes Retroperitoneal: Unremarkable. Pelvic: Unremarkable. Mesenteric: Unremarkable. Peritoneum: Normal. Vessels: Atherosclerotic calcifications are seen. Abdominal wall: Unremarkable. Bones: Left hip total arthroplasty is seen. IMPRESSION: 1. Compression fracture of the T12 vertebral body. There is a right posterior rib fracture which also appears acute. Additional rib fractures of various chronicity is are seen as above. 2. Additional findings as above. No acute intra-abdominal injury is seen. ACT 112: Negative or not required by law. Electronically signed by: Jordan Stephen M.D. 10/10/2022 9:[address] 10/10/22 08:27 CT SCAN OF THE CERVICAL SPINE CLINICAL HISTORY: Fall. COMPARISON STUDY: No priors. TECHNIQUE: CT scan of the cervical spine is performed from the skull base to the upper thoracic spine. Images are reviewed in the axial, sagittal, and coronal planes. IV contrast was not administered for this examination. A dose lowering technique was utilized adhering to the principles of ALARA. CT DOSE: 2309.18 mGy.cm FINDINGS: Skeletal structures: The skeletal structures are osteopenic. There is no evidence of fracture or subluxation involving the cervical spine. Vertebral body height is maintained. There is minimal anterolisthesis at C3-C4 and C7-T1. Alignment is otherwise preserved. There is straightening of the cervical lordosis. Anterior osteophytes are seen throughout. There is multilevel degenerative endplate sclerosis. The odontoid process and lateral masses are intact. The atlantoaxial articulation is preserved nothing productive degenerative change. The spinous processes appear intact. There is moderate multilevel cervical spondylosis. Uncovertebral and facet arthropathy contribute to neural foraminal narrowing at several levels. Intervertebral discs: There is moderate to severe disc space narrowing at C4-C5, C5-C6, and C6-C7. Mild/moderate narrowing is seen at the remaining cervical levels. Central canal: Posterior disc osteophyte complexes are seen at all levels between C3-C4 and C7-T1. This likely contributes to multilevel acquired compromise of the central canal. Soft tissues: The prevertebral and paraspinous soft tissues are within normal limits. Calvarium: The visualized calvarium at the skull base appears intact. Brain parenchyma: Partially visualized brain parenchyma at the skull base is within normal limits. Sinuses and mastoids: The visualized paranasal sinuses are clear. The mastoid air cells are well pneumatized. Lung apices: Clear as visualized. IMPRESSION: 1. There is no evidence of fracture or subluxation involving the cervical spine. 2. Osteopenia and spondylotic change as above. ACT 112: Negative or not required by law. Electronically signed by: Fabian Castellanos M.D. 10/10/2022 9:16 AM Chest X-Ray 10/10/22 08:27 XR chest 1V portable CLINICAL HISTORY: weakness TECHNIQUE: Single frontal radiograph of the chest was obtained. Comparison: None available at the time of this dictation. FINDINGS: No lines and tubes are seen. The cardiomediastinal silhouette is normal. The lungs are clear. No evidence of pleural effusion or pneumothorax. IMPRESSION: No acute chest disease. ACT 112: Negative or not required by law. Electronically signed by: Jordan Stephen M.D. 10/10/2022 8:[address] 10/10/22 08:27 CT SCAN OF THE BRAIN WITHOUT IV CONTRAST CLINICAL HISTORY: Fall. Head injury. COMPARISON STUDY: No priors. TECHNIQUE: Unenhanced axial CT scan of the brain is performed from the vertex to the skull base. A dose lowering technique was utilized adhering to the principles of ALARA. The patient was scanned twice due to motion artifact. FINDINGS: Brain parenchyma: The brain parenchyma is normal in appearance. There is no hemorrhage, mass effect, or evidence of acute territorial ischemia by CT criteria. Wade-white matter differentiation is preserved. No extra-axial fluid collection is seen. Ventricles, sulci, cisterns: Normal in configuration. Intracranial vasculature: There is atherosclerotic calcification of the cavernous carotid arteries. Calvarium: The skeletal structures are osteopenic. There is postsurgical change from right-sided craniotomy. No depressed calvarial fracture is identified. Sinuses and mastoids: The paranasal sinuses are clear. The mastoid air cells are well pneumatized. Orbits: The bony orbits are grossly intact. IMPRESSION: There is no hemorrhage, mass effect, or evidence of acute territorial ischemia by CT criteria. ACT 112: Negative or not required by law. Electronically signed by: Fabian Castellanos M.D. 10/10/2022 9:12 AM Supervising Physician Co-Signing Physician Notes I personally saw and examined the patient. I verified all reeves points and agree with Palma Davis, PA-C with the following exceptions and/or additions: 67 year old female presents to the ER with altered mental state following a fall and vomiting. Unable to get any history from the patient - just reports she wants to go home and then falls back to sleep quickly. O/E Alert to voice, not orientated x3, HS RRR, no murmurs, Chest CTAB, Abdo SNT, multiple areas of ecchymosis at varying stages of healing without any large hematoma, moving all 4 extremities equally, bilateral action tremors A/P Altered mental state - suspect alcohol withdrawal, see below, B1 level taken and thiamine treatment dose started as impossible to rule out Wernicke's encep halopathy Alcohol withdrawal - AWSS with lorazepam 1-3mg IV PRN, PA discussed with ICU [facility] and plan to continue on PCU currently unless clinically getting worse. PG Care Time/CCT Total # of Minutes Spent Total Time Spent with Patient: Total time spent is greater than 50% in coordination of care (as documented) at patient's floor/unit and/or counseling patient: Coding Level of Care Code 19313 INT INP/OBS CARE 375MIN Diagnoses Fall W19.XXXA T12 compression fracture S22.080A Rib fractures S22.49XA Alcohol use Z78.9 Weakness R53.1 Osteoarthritis of right hip M16.11 Chronic right hip pain M25.551; G89.29 Hypomagnesemia E83.42 Hypertension I10 Seizure R56.9 Closed head injury S09.90XA Hx of subdural hematoma Z86.79 GERD (gastroesophageal reflux disease) K21.9 Anxiety and depression F41.9; F32.A Left hip pain M25.552
[2022-10-10] MEDS ORDERED: LORazepam 2 MG/1 ML VIAL IV STA (10:46)
[2022-10-10 11:03] LABS: Appearance Urine Clear (Clear); Bilirubin Urine Negative (Negative); Blood Urine Negative (Negative); Color Urine Yellow; Glucose Urine UA Negative (Negative); Ketones Urine Negative (Negative); Leukocyte Esterase Urine Negative (Negative); Nitrite Urine Negative (Negative); Protein Urine Negative (Negative); Specific Gravity Urine 1.015 (1.000-1.030); Urobilinogen Urine Negative (Negative); pH Urine 6.5 (4.5-7.5)
[2022-10-10 11:25] LABS: Acetaminophen < 3 ug/ml (10-30); Salicylate < 3.0 mg/dl (3.0-30)
[2022-10-10 11:58] LABS: Amphetamines+Metham, Urine Neg (Neg); Barbiturates, Urine Neg (Neg); Benzodiazepine, Urine Neg (Neg); Cocaine, Urine Neg (Neg); MDMA (Ecstacy), Urine Neg (Neg); Methadone, Urine Neg (Neg); Opiate, Urine Neg (Neg); Phencyclidine, Urine Neg (Neg)
--- NOTE | 2022-10-10 13:36 | XRay Report ---
XR hip NATALIA 2v w pelvis CLINICAL HISTORY: fall ?# TECHNIQUE: 2 views of the bilateral hips and single frontal view of the pelvis were obtained. Comparison: None available at the time of this dictation. FINDINGS: Left hip total arthroplasty is seen. Severe right hip osteoarthritis is noted with [id number] morph ology. No acute fracture is seen. No soft tissue abnormality is seen. IMPRESSION: No evidence of acute fracture. Severe degenerative changes are seen in the right hip. ACT 112: Negative or not required by law. Electronically signed by: Jordan Stephen M.D. 10/10/2022 1:34 PM
--- NOTE | 2022-10-10 14:04 | CT Scan Report ---
CT SCAN OF THE CHEST WITHOUT IV CONTRAST CLINICAL HISTORY: Trauma. Fall. Intoxication. COMPARISON STUDY: Chest x-ray dated 10/10/2022. TECHNIQUE: CT scan of the thorax was performed from the thoracic inlet to the upper abdomen. Images are reviewed in the axial, sagittal, and coronal planes. IV contrast was not administered for this ex amination as per the referring clinician. A dose lowering technique was utilized adhering to the oskar nciallison of [place]. The skeletal structures are osteopenic. The examination is compromised by motion ar tifact, as well as by streak artifact from the arms which could not be elevated above the chest. CT DOSE: 366.88 mGycm FINDINGS: Thyroid: Imaged portions of the thyroid gland are normal in size and attenuation. Thoracic aorta: The thoracic aorta is normal in caliber and demonstrates bovine variant arch anatomy. Heart: The heart is enlargement and without pericardial effusion. Lungs and pleural spaces: Evaluation of the lung parenchyma is compromised by motion artifact. The tr achea and central airways are clear. No airspace consolidation, pleural effusion, or pneumothorax is identified. Dependent scarring/atelectasis is seen bilaterally. Mediastinum: There is no mediastinal hematoma or lymphadenopathy. Carlie: Not well assessed without IV contrast. Axillae: There is no axillary lymphadenopathy. Upper abdomen: A 2.3 cm right adrenal nodule meets criteria for a fat-containing adenoma. Partially v isualized upper abdominal viscera is within normal limits. Skeletal structures: The skeletal structures are osteopenic. There is a mild and acute to subacute ap pearing superior endplate compression fracture of T12 with associated paravertebral edema. There is a mild and age indeterminate superior endplate compression deformity of T11. There a subacute appearin g fractures of the left anterior 4th and the right anterior 7th ribs. No lytic or blastic bony lesion s are seen. There is a chronic nonunited right posterior 11th rib fracture. Additional healed rib fra ctures are seen bilaterally. IMPRESSION: 1. Significantly streak and motion degraded examination. 2. There is an acute to subacute appearing superior endplate compression fracture of T12. Correlate f or point tenderness. 3. There is a mild and age indeterminant superior plate compression deformity of T11. 4. There are subacute-appearing bilateral rib fractures as above. 5. There is no airspace consolidation, pleural effusion, or pneumothorax. 6. Cardiomegaly. 7. Additional findings as above. ACT 112: Negative or not required by law. Electronically signed by: Fabian Castellanos M.D. 10/10/2022 2:03 PM
[2022-10-10] MEDS ORDERED: CEROVITE ADV FORMULA TAB PO STA (14:44)
[2022-10-10] MEDS ORDERED: LORazepam 2 MG/1 ML VIAL IV PRN (14:44)
[2022-10-10] MEDS ORDERED: ACETAMINOPHEN 325 MG TAB PO PRN (14:44)
[2022-10-10] MEDS ORDERED: Ativan IV Alcohol Withdrawal--Active Protocol IV PRN (14:44)
[2022-10-10] MEDS ORDERED: ONDANSETRON INJ 2 MG/ML 2 ML VIAL IV PRN (14:44)
[2022-10-10] MEDS ORDERED: THIAMINE HCL 100 MG, FOLIC ACID 1 MG in SODIUM CHLORIDE 0.9% 1000ML 1,000 ML IV SCH (15:00)
--- NOTE | 2022-10-10 16:04 | Orthopedic Consultation ---
Date of Consultation October 10, 2022 Assessment & Plan (1) Osteoarthritis of right hip: -Patient is scheduled for right total hip arthroplasty on October 12, [address] Grider. After discussion of her findings with Dr. Grider and due to her recent admission, acute rib fractures and T12 compression fractures and current alcohol withdrawal we will plan to postpone her total hip arthroplasty at this time. Operating room has been notified. I can communicate with this with her tomorrow or the next day once she is more alert and coherent. She may be out of bed, weight-bear as tolerated with the assistance of a walker on her right hip. Again once more coherent may benefit from OT or PT. She can do full range of motion of her right hip as tolerated. -Continue treatment as per primary service for pain management and alcohol withdrawal. -May consider wound care consult for evaluation of left hip buttock/ wound. Will re-eval in a.m. to check on status and update her of plan for her upcoming procedure. Supervising Physician Co-Signing Physician Notes I saw and examined the patient, reviewed her chart and formulated the above plan, constituting the substantive portion of the visit. She is being treated for alcohol withdrawl. Patient was taken off the operating room schedule. She will not be placed back on the operating room schedule until she has undergone counseling and rehabilitation for her alcohol abuse. Medical management of her arthritis recommended in the interim. History of Present Illness Reason for Consultation: Post multiple falls, severe osteoarthritis right hip, plans for total hip arthroplasty on October 12, [address] Grider Attending Physician: Rivas Bella MD History of Present Illness Patient is a 67-year-old female who was admitted to [facility] after presenting to the emergency room after multiple falls at home. She states that she has had severe right hip pain. She is scheduled as an outpatient for right total hip arthroplasty with Dr. Grider on October 12, 2022. She has been self-medicating with a half a liter of vodka per day. Orthopedic consultation was placed for consideration of potentially moving up her procedure. CT scans of her brain, spine, pelvis, chest show a new right sided rib fracture and T12 compression fracture. TLSO brace has been ordered by medicine. X-rays of her pelvis were also obtained and show no acute bony abnormality or fracture. She does have end-stage osteoarthritis with [id number] changes, osteophyte formation, subchondral sclerosis of her right hip. She does have history of having a left total hip arthroplasty in the past. There is also some mention of a wound on the left buttock/thigh area suggestive of a burn or "embedded Band-Aid ". Reported by nursing. This was evaluated and shows no sign of infection. Nontender to palpation. Mildly necrotic skin. No active drainage. Patient was seen at bedside today. She is agitated and shaking. She does tell me her name. She states that she has pain in her right hip. She is moving with spastic movements and sitting up, lying down and trying to get out of bed. She is being treated for alcohol withdrawal symptoms currently. Nursing was at bedside for exam today. Allergies Allergy/AdvReac Type Severity Reaction Status Date / Time No Known Allergies Allergy Verified 10/10/22 11:00 Home Medications Medication Instructions Recorded Confirmed Type atenolol 50 mg tablet 50 mg PO BID 10/04/22 10/10/22 History escitalopram oxalate 20 mg tablet 20 mg PO QAM 10/04/22 10/10/22 History (Lexapro) eszopiclone 2 mg tablet (Lunesta) 2 mg PO HS 10/04/22 10/10/22 History lamotrigine 150 mg tablet 150 mg PO BID 10/04/22 10/10/22 History losartan 100 1 tab PO QAM 10/04/22 10/10/22 History mg-hydrochlorothiazide 12.5 mg tablet omeprazole 40 mg capsule,delayed 40 mg PO QAM 10/04/22 10/10/22 History release Patient History Medical History Anxiety and depression GERD (gastroesophageal reflux disease) controlled, stable per pt History of blood transfusion pt denies, she plans to re-check her home records Hx of subdural hematoma 2020 (s/p fall) Hypertension controlled, stable per pt Mild aortic regurgitation Mild mitral regurgitation Mild pulmonary hypertension 30 mmHg Mild pulmonary valve regurgitation Mild tricuspid regurgitation Seizure Grand mal, most recent 2000 Surgical History H/O craniotomy Hematoma evacuation (2020) History of colonoscopy History of esophagogastroduodenoscopy (EGD) History of laparoscopy History of total hip arthroplasty Left [place] teeth removed Family History Other No family history of adverse response to anesthesia Social History Smoking Status: Current every day smoker Cigarettes Per Day: 1-2 CIG DAILY>ADVISED; Second Hand Exposure: Yes; Hx Alcohol Use: Yes Alcohol type: wine and hard liquor Preferred Language: [place]ar[place] Communication Ability: Unable 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 No evidence of infection. No effusion to either knee. She tolerates active flexion and extension of both of her legs. I am unable to get her to follow commands for any type of ankle dorsiflexion, plantarflexion, inversion or eversion. Her feet are warm. Occasionally I am able to feel a pulse at the posterior tib and dorsalis pedis although difficult due to the spastic movements of her feet constantly. Her feet are nontender with palpation. No distal edema. No erythema. When asked to lift her right leg she did do that bilaterally. She was able to hold mildly against resistance. She also tolerates flexion of both of her hips without discomfort. No increased discomfort or grimacing with logrolling of either hip. No leg length discrepancy. She tolerates rolling in bed. She is able to move her left arm and does actively. She keeps her right arm straightened and stiff against her side. Her skin is healthy around her right hip. On the left buttock upper thigh area she does have a dried open wound. There is no surrounding erythema. Nontender to palpation. No active drainage. Does appear to be in the shape of a Band-Aid edge or possibly a burn. There is no blistering. No visualized or palpable foreign body. She is shaky, restless, moves with spastic movements. Occasionally opens her eyes, puffs air from her mouth. Results & Data Vital Signs (Past 12 Hours) Vital Signs Temp Pulse Pulse Resp BP BP Pulse Ox 10/10/22 13:06 70 16 99/54 L 96 10/10/22 12:16 74 16 130/70 100 10/10/22 11:27 72 16 122/66 100 10/10/22 11:18 72 20 113/63 10/10/22 08:29 68 16 95 10/10/22 08:26 75 10/10/22 08:21 36.8 C 74 15 90/45 L 95 O2 Del Method 10/10/22 13:06 Room Air 10/10/22 12:16 Room Air 10/10/22 11:27 Room Air 10/10/22 11:18 Room Air 10/10/22 08:29 Room Air 10/10/22 08:26 10/10/22 08:21 Room Air Laboratory Results 10/10/22 10/10/22 10/10/22 Range/Units Unknown 13:05 11:18 WBC (4.8-10.8) K/ul RBC (4.20-5.40) M/uL Hgb (12.0-16.0) g/dl Hct (37.0-47.0) % MCV (80.0-100.0) fL MCH (25.0-34.0) pg MCHC (32.0-36.0) g/dL RDW Std Deviation (36.4-46.3) fL RDW Coeff of [place] (11.5-14.5) % Plt Count (130-400) K/uL MPV (9.4-12.4) fL Immature Gran % (Auto) % Neut % (Auto) % Lymph % (Auto) % [place] % (Auto) % Eos % (Auto) % Baso % (Auto) % Neut # (Auto) (1.40-6.50) K/uL Lymph # (Auto) (1.2-3.4) K/uL [place] # (Auto) (0.11-0.59) K/uL Eos # (Auto) (0-0.50) K/uL Baso # (Auto) (0-0.2) K/uL Immature Gran # (Auto) (0.01-0.20) K/uL PT (9.0-12.0) Seconds INR (0.9-1.1) Sodium (136-145) mmol/L Potassium (3.5-5.1) mmol/L Chloride (98-107) mmol/L Carbon Dioxide (21-32) mmol/L Anion Gap (3-11) BUN (6-23) mg/dl Creatinine (0.6-1.2) mg/dl Est Cr Clr Drug Dosing ml/min Est GFR ( Amer) ml/min Est GFR (Non-Af Amer) ml/min BUN/Creatinine Ratio (10-20) Glucose (70-99(Fasting)) mg/dl POC Glucose (70-99) mg/dl Lactate 1.0 (0.4-2.0) mmol/L Calcium (8.6-10.3) mg/dl Phosphorus (2.5-4.9) mg/dl Magnesium (1.7-2.4) mg/dl Total Bilirubin (0.2-1.0) mg/dl AST (13-39) U/L ALT (7-52) U/L Alkaline Phosphatase (34-104) U/L Ammonia (18-72) umol/L Total Creatine Kinase (26-192) U/L Troponin I High Sens (0-14) pg/ml Total Protein (6.0-8.3) gm/dl Albumin (3.4-5.0) gm/dl Globulin (2.5-4.0) gm/dl Albumin/Globulin Ratio (0.9-2) Lipase (11-82) U/L Whole Bld Vitamin B1 Vitamin B12 (180-914) pg/ml 25-OH Vitamin D Total (30-100) ng/ml Folate (>5.38) ng/ml Procalcitonin (0-0.5) ng/ml TSH (0.300-4.500) uIu/ml Urine Color Yellow Urine Appearance Clear (Clear) Urine pH 6.5 (4.5-7.5) Ur Specific [place] 1.015 (1.000-1.030) Urine Protein Negative (Negative) Urine Glucose (UA) Negative (Negative) Urine Ketones Negative (Negative) Urine Blood Negative (Negative) Urine Nitrite Negative (Negative) Urine Bilirubin Negative (Negative) Urine Urobilinogen Negative (Negative) Ur Leukocyte Esterase Negative (Negative) Salicylates (3.0-30) mg/dl Urine Opiates Screen Neg (Neg) Ur Methadone, Qual Neg (Neg) Acetaminophen (10-30) ug/ml Urine Barbiturates Neg (Neg) Ur Phencyclidine (PCP) Neg (Neg) U Amphetamin/Meth Scrn Neg (Neg) MDMA (Ecstasy) Screen Neg (Neg) U Benzodiazepines Scrn Neg (Neg) Ur Cocaine Metabolite Neg (Neg) U Marijuana (THC) Screen Neg (Neg) Ethyl Alcohol mg/dL (<10.0) mg/dl SARS-CoV-2, RNA, NAAT (NEGATIVE) 10/10/22 10/10/22 10/10/22 Range/Units 10:56 10:50 10:49 WBC (4.8-10.8) K/ul RBC (4.20-5.40) M/uL Hgb (12.0-16.0) g/dl Hct (37.0-47.0) % MCV (80.0-100.0) fL MCH (25.0-34.0) pg MCHC (32.0-36.0) g/dL RDW Std Deviation (36.4-46.3) fL RDW Coeff of [place] (11.5-14.5) % Plt Count (130-400) K/uL MPV (9.4-12.4) fL Immature Gran % (Auto) % Neut % (Auto) % Lymph % (Auto) % [place] % (Auto) % Eos % (Auto) % Baso % (Auto) % Neut # (Auto) (1.40-6.50) K/uL Lymph # (Auto) (1.2-3.4) K/uL [place] # (Auto) (0.11-0.59) K/uL Eos # (Auto) (0-0.50) K/uL Baso # (Auto) (0-0.2) K/uL Immature Gran # (Auto) (0.01-0.20) K/uL PT (9.0-12.0) Seconds INR (0.9-1.1) Sodium (136-145) mmol/L Potassium (3.5-5.1) mmol/L Chloride (98-107) mmol/L Carbon Dioxide (21-32) mmol/L Anion Gap (3-11) BUN (6-23) mg/dl Creatinine (0.6-1.2) mg/dl Est Cr Clr Drug Dosing ml/min Est GFR ( Amer) ml/min Est GFR (Non-Af Amer) ml/min BUN/Creatinine Ratio (10-20) Glucose (70-99(Fasting)) mg/dl POC Glucose (70-99) mg/dl Lactate 2.2 H* (0.4-2.0) mmol/L Calcium (8.6-10.3) mg/dl Phosphorus (2.5-4.9) mg/dl Magnesium (1.7-2.4) mg/dl Total Bilirubin (0.2-1.0) mg/dl AST (13-39) U/L ALT (7-52) U/L Alkaline Phosphatase (34-104) U/L Ammonia 42.0 (18-72) umol/L Total Creatine Kinase (26-192) U/L Troponin I High Sens (0-14) pg/ml Total Protein (6.0-8.3) gm/dl Albumin (3.4-5.0) gm/dl Globulin (2.5-4.0) gm/dl Albumin/Globulin Ratio (0.9-2) Lipase (11-82) U/L Whole Bld Vitamin B1 Vitamin B12 273 (180-914) pg/ml 25-OH Vitamin D Total (30-100) ng/ml Folate 9.71 (>5.38) ng/ml Procalcitonin (0-0.5) ng/ml TSH (0.300-4.500) uIu/ml Urine Color Urine Appearance (Clear) Urine pH (4.5-7.5) Ur Specific [place] (1.000-1.030) Urine Protein (Negative) Urine Glucose (UA) (Negative) Urine Ketones (Negative) Urine Blood (Negative) Urine Nitrite (Negative) Urine Bilirubin (Negative) Urine Urobilinogen (Negative) Ur Leukocyte Esterase (Negative) Salicylates (3.0-30) mg/dl Urine Opiates Screen (Neg) Ur Methadone, Qual (Neg) Acetaminophen (10-30) ug/ml Urine Barbiturates (Neg) Ur Phencyclidine (PCP) (Neg) U Amphetamin/Meth Scrn (Neg) MDMA (Ecstasy) Screen (Neg) U Benzodiazepines Scrn (Neg) Ur Cocaine Metabolite (Neg) U Marijuana (THC) Screen (Neg) Ethyl Alcohol mg/dL (<10.0) mg/dl SARS-CoV-2, RNA, NAAT (NEGATIVE) 10/10/22 10/10/22 10/10/22 Range/Units 10:41 10:41 10:41 WBC (4.8-10.8) K/ul RBC (4.20-5.40) M/uL Hgb (12.0-16.0) g/dl Hct (37.0-47.0) % MCV (80.0-100.0) fL MCH (25.0-34.0) pg MCHC (32.0-36.0) g/dL RDW Std Deviation (36.4-46.3) fL RDW Coeff of [place] (11.5-14.5) % Plt Count (130-400) K/uL MPV (9.4-12.4) fL Immature Gran % (Auto) % Neut % (Auto) % Lymph % (Auto) % [place] % (Auto) % Eos % (Auto) % Baso % (Auto) % Neut # (Auto) (1.40-6.50) K/uL Lymph # (Auto) (1.2-3.4) K/uL [place] # (Auto) (0.11-0.59) K/uL Eos # (Auto) (0-0.50) K/uL Baso # (Auto) (0-0.2) K/uL Immature Gran # (Auto) (0.01-0.20) K/uL PT (9.0-12.0) Seconds INR (0.9-1.1) Sodium (136-145) mmol/L Potassium (3.5-5.1) mmol/L Chloride (98-107) mmol/L Carbon Dioxide (21-32) mmol/L Anion Gap (3-11) BUN (6-23) mg/dl Creatinine (0.6-1.2) mg/dl Est Cr Clr Drug Dosing ml/min Est GFR ( Amer) ml/min Est GFR (Non-Af Amer) ml/min BUN/Creatinine Ratio (10-20) Glucose (70-99(Fasting)) mg/dl POC Glucose (70-99) mg/dl Lactate (0.4-2.0) mmol/L Calcium (8.6-10.3) mg/dl Phosphorus (2.5-4.9) mg/dl Magnesium (1.7-2.4) mg/dl Total Bilirubin (0.2-1.0) mg/dl AST (13-39) U/L ALT (7-52) U/L Alkaline Phosphatase (34-104) U/L Ammonia (18-72) umol/L Total Creatine Kinase (26-192) U/L Troponin I High Sens (0-14) pg/ml Total Protein (6.0-8.3) gm/dl Albumin (3.4-5.0) gm/dl Globulin (2.5-4.0) gm/dl Albumin/Globulin Ratio (0.9-2) Lipase (11-82) U/L Whole Bld Vitamin B1 Pending Vitamin B12 (180-914) pg/ml 25-OH Vitamin D Total (30-100) ng/ml Folate (>5.38) ng/ml Procalcitonin (0-0.5) ng/ml TSH (0.300-4.500) uIu/ml Urine Color Urine Appearance (Clear) Urine pH (4.5-7.5) Ur Specific [place] (1.000-1.030) Urine Protein (Negative) Urine Glucose (UA) (Negative) Urine Ketones (Negative) Urine Blood (Negative) Urine Nitrite (Negative) Urine Bilirubin (Negative) Urine Urobilinogen (Negative) Ur Leukocyte Esterase (Negative) Salicylates < 3.0 L (3.0-30) mg/dl Urine Opiates Screen (Neg) Ur Methadone, Qual (Neg) Acetaminophen < 3 L (10-30) ug/ml Urine Barbiturates (Neg) Ur Phencyclidine (PCP) (Neg) U Amphetamin/Meth Scrn (Neg) MDMA (Ecstasy) Screen (Neg) U Benzodiazepines Scrn (Neg) Ur Cocaine Metabolite (Neg) U Marijuana (THC) Screen (Neg) Ethyl Alcohol mg/dL < 10.0 (<10.0) mg/dl SARS-CoV-2, RNA, NAAT (NEGATIVE) 10/10/22 10/10/22 10/10/22 Range/Units 08:30 08:07 08:00 WBC (4.8-10.8) K/ul RBC (4.20-5.40) M/uL Hgb (12.0-16.0) g/dl Hct (37.0-47.0) % MCV (80.0-100.0) fL MCH (25.0-34.0) pg MCHC (32.0-36.0) g/dL RDW Std Deviation (36.4-46.3) fL RDW Coeff of [place] (11.5-14.5) % Plt Count (130-400) K/uL MPV (9.4-12.4) fL Immature Gran % (Auto) % Neut % (Auto) % Lymph % (Auto) % [place] % (Auto) % Eos % (Auto) % Baso % (Auto) % Neut # (Auto) (1.40-6.50) K/uL Lymph # (Auto) (1.2-3.4) K/uL [place] # (Auto) (0.11-0.59) K/uL Eos # (Auto) (0-0.50) K/uL Baso # (Auto) (0-0.2) K/uL Immature Gran # (Auto) (0.01-0.20) K/uL PT (9.0-12.0) Seconds INR (0.9-1.1) Sodium (136-145) mmol/L Potassium (3.5-5.1) mmol/L Chloride (98-107) mmol/L Carbon Dioxide (21-32) mmol/L Anion Gap (3-11) BUN (6-23) mg/dl Creatinine (0.6-1.2) mg/dl Est Cr Clr Drug Dosing ml/min Est GFR ( Amer) ml/min Est GFR (Non-Af Amer) ml/min BUN/Creatinine Ratio (10-20) Glucose (70-99(Fasting)) mg/dl POC Glucose 134 H (70-99) mg/dl Lactate (0.4-2.0) mmol/L Calcium (8.6-10.3) mg/dl Phosphorus (2.5-4.9) mg/dl Magnesium (1.7-2.4) mg/dl Total Bilirubin (0.2-1.0) mg/dl AST (13-39) U/L ALT (7-52) U/L Alkaline Phosphatase (34-104) U/L Ammonia (18-72) umol/L Total Creatine Kinase (26-192) U/L Troponin I High Sens (0-14) pg/ml Total Protein (6.0-8.3) gm/dl Albumin (3.4-5.0) gm/dl Globulin (2.5-4.0) gm/dl Albumin/Globulin Ratio (0.9-2) Lipase (11-82) U/L Whole Bld Vitamin B1 Vitamin B12 (180-914) pg/ml 25-OH Vitamin D Total 40.9 (30-100) ng/ml Folate (>5.38) ng/ml Procalcitonin (0-0.5) ng/ml TSH (0.300-4.500) uIu/ml Urine Color Urine Appearance (Clear) Urine pH (4.5-7.5) Ur Specific [place] (1.000-1.030) Urine Protein (Negative) Urine Glucose (UA) (Negative) Urine Ketones (Negative) Urine Blood (Negative) Urine Nitrite (Negative) Urine Bilirubin (Negative) Urine Urobilinogen (Negative) Ur Leukocyte Esterase (Negative) Salicylates (3.0-30) mg/dl Urine Opiates Screen (Neg) Ur Methadone, Qual (Neg) Acetaminophen (10-30) ug/ml Urine Barbiturates (Neg) Ur Phencyclidine (PCP) (Neg) U Amphetamin/Meth Scrn (Neg) MDMA (Ecstasy) Screen (Neg) U Benzodiazepines Scrn (Neg) Ur Cocaine Metabolite (Neg) U Marijuana (THC) Screen (Neg) Ethyl Alcohol mg/dL (<10.0) mg/dl SARS-CoV-2, RNA, NAAT NEGATIVE (NEGATIVE) 10/10/22 10/10/22 10/10/22 Range/Units 08:00 08:00 08:00 WBC 7.67 (4.8-10.8) K/ul RBC 4.31 (4.20-5.40) M/uL Hgb 13.5 (12.0-16.0) g/dl Hct 39.4 (37.0-47.0) % MCV 91.4 (80.0-100.0) fL MCH 31.3 (25.0-34.0) pg MCHC 34.3 (32.0-36.0) g/dL RDW Std Deviation 46.5 H (36.4-46.3) fL RDW Coeff of [place] 13.8 (11.5-14.5) % Plt Count 193 (130-400) K/uL MPV 9.9 (9.4-12.4) fL Immature Gran % (Auto) 0.3 % Neut % (Auto) 88.0 % Lymph % (Auto) 8.7 % [place] % (Auto) 2.5 % Eos % (Auto) 0.1 % Baso % (Auto) 0.4 % Neut # (Auto) 6.75 H (1.40-6.50) K/uL Lymph # (Auto) 0.67 L (1.2-3.4) K/uL [place] # (Auto) 0.19 (0.11-0.59) K/uL Eos # (Auto) 0.01 (0-0.50) K/uL Baso # (Auto) 0.03 (0-0.2) K/uL Immature Gran # (Auto) 0.02 (0.01-0.20) K/uL PT 11.1 (9.0-12.0) Seconds INR 1.0 (0.9-1.1) Sodium (136-145) mmol/L Potassium (3.5-5.1) mmol/L Chloride (98-107) mmol/L Carbon Dioxide (21-32) mmol/L Anion Gap (3-11) BUN (6-23) mg/dl Creatinine (0.6-1.2) mg/dl Est Cr Clr Drug Dosing ml/min Est GFR ( Amer) ml/min Est GFR (Non-Af Amer) ml/min BUN/Creatinine Ratio (10-20) Glucose (70-99(Fasting)) mg/dl POC Glucose (70-99) mg/dl Lactate (0.4-2.0) mmol/L Calcium (8.6-10.3) mg/dl Phosphorus (2.5-4.9) mg/dl Magnesium (1.7-2.4) mg/dl Total Bilirubin (0.2-1.0) mg/dl AST (13-39) U/L ALT (7-52) U/L Alkaline Phosphatase (34-104) U/L Ammonia (18-72) umol/L Total Creatine Kinase (26-192) U/L Troponin I High Sens (0-14) pg/ml Total Protein (6.0-8.3) gm/dl Albumin (3.4-5.0) gm/dl Globulin (2.5-4.0) gm/dl Albumin/Globulin Ratio (0.9-2) Lipase (11-82) U/L Whole Bld Vitamin B1 Vitamin B12 (180-914) pg/ml 25-OH Vitamin D Total (30-100) ng/ml Folate (>5.38) ng/ml Procalcitonin (0-0.5) ng/ml TSH 0.870 (0.300-4.500) uIu/ml Urine Color Urine Appearance (Clear) Urine pH (4.5-7.5) Ur Specific [place] (1.000-1.030) Urine Protein (Negative) Urine Glucose (UA) (Negative) Urine Ketones (Negative) Urine Blood (Negative) Urine Nitrite (Negative) Urine Bilirubin (Negative) Urine Urobilinogen (Negative) Ur Leukocyte Esterase (Negative) Salicylates (3.0-30) mg/dl Urine Opiates Screen (Neg) Ur Methadone, Qual (Neg) Acetaminophen (10-30) ug/ml Urine Barbiturates (Neg) Ur Phencyclidine (PCP) (Neg) U Amphetamin/Meth Scrn (Neg) MDMA (Ecstasy) Screen (Neg) U Benzodiazepines Scrn (Neg) Ur Cocaine Metabolite (Neg) U Marijuana (THC) Screen (Neg) Ethyl Alcohol mg/dL (<10.0) mg/dl SARS-CoV-2, RNA, NAAT (NEGATIVE) 10/10/22 10/10/22 Range/Units 08:00 08:00 WBC (4.8-10.8) K/ul RBC (4.20-5.40) M/uL Hgb (12.0-16.0) g/dl Hct (37.0-47.0) % MCV (80.0-100.0) fL MCH (25.0-34.0) pg MCHC (32.0-36.0) g/dL RDW Std Deviation (36.4-46.3) fL RDW Coeff of [place] (11.5-14.5) % Plt Count (130-400) K/uL MPV (9.4-12.4) fL Immature Gran % (Auto) % Neut % (Auto) % Lymph % (Auto) % [place] % (Auto) % Eos % (Auto) % Baso % (Auto) % Neut # (Auto) (1.40-6.50) K/uL Lymph # (Auto) (1.2-3.4) K/uL [place] # (Auto) (0.11-0.59) K/uL Eos # (Auto) (0-0.50) K/uL Baso # (Auto) (0-0.2) K/uL Immature Gran # (Auto) (0.01-0.20) K/uL PT (9.0-12.0) Seconds INR (0.9-1.1) Sodium 140 (136-145) mmol/L Potassium 3.8 (3.5-5.1) mmol/L Chloride 102 (98-107) mmol/L Carbon Dioxide 25 (21-32) mmol/L Anion Gap 13 H (3-11) BUN 20 (6-23) mg/dl Creatinine 0.95 (0.6-1.2) mg/dl Est Cr Clr Drug Dosing 57.3 ml/min Est GFR ( Amer) 71.3 ml/min Est GFR (Non-Af Amer) 61.5 ml/min BUN/Creatinine Ratio 21.1 H (10-20) Glucose 123 H (70-99(Fasting)) mg/dl POC Glucose (70-99) mg/dl Lactate (0.4-2.0) mmol/L Calcium 10.0 (8.6-10.3) mg/dl Phosphorus 3.0 (2.5-4.9) mg/dl Magnesium 1.6 L (1.7-2.4) mg/dl Total Bilirubin 0.5 (0.2-1.0) mg/dl AST 18 (13-39) U/L ALT 9 (7-52) U/L Alkaline Phosphatase 123 H (34-104) U/L Ammonia (18-72) umol/L Total Creatine Kinase 218 H (26-192) U/L Troponin I High Sens 3.6 (0-14) pg/ml Total Protein 7.0 (6.0-8.3) gm/dl Albumin 4.4 (3.4-5.0) gm/dl Globulin 2.6 (2.5-4.0) gm/dl Albumin/Globulin Ratio 1.7 (0.9-2) Lipase 5 L (11-82) U/L Whole Bld Vitamin B1 Vitamin B12 (180-914) pg/ml 25-OH Vitamin D Total (30-100) ng/ml Folate (>5.38) ng/ml Procalcitonin < 0.05 (0-0.5) ng/ml TSH (0.300-4.500) uIu/ml Urine Color Urine Appearance (Clear) Urine pH (4.5-7.5) Ur Specific [place] (1.000-1.030) Urine Protein (Negative) Urine Glucose (UA) (Negative) Urine Ketones (Negative) Urine Blood (Negative) Urine Nitrite (Negative) Urine Bilirubin (Negative) Urine Urobilinogen (Negative) Ur Leukocyte Esterase (Negative) Salicylates (3.0-30) mg/dl Urine Opiates Screen (Neg) Ur Methadone, Qual (Neg) Acetaminophen (10-30) ug/ml Urine Barbiturates (Neg) Ur Phencyclidine (PCP) (Neg) U Amphetamin/Meth Scrn (Neg) MDMA (Ecstasy) Screen (Neg) U Benzodiazepines Scrn (Neg) Ur Cocaine Metabolite (Neg) U Marijuana (THC) Screen (Neg) Ethyl Alcohol mg/dL (<10.0) mg/dl SARS-CoV-2, RNA, NAAT (NEGATIVE) Diagnostic Findings CT SCAN OF THE CHEST WITHOUT IV CONTRAST: IMPRESSION: 1. Significantly streak and motion degraded examination. 2. There is an acute to subacute appearing superior endplate compression fracture of T12. Correlate for point tenderness. 3. There is a mild and age indeterminant superior plate compression deformity of T11. 4. There are subacute-appearing bilateral rib fractures as above. 5. There is no airspace consolidation, pleural effusion, or pneumothorax. 6. Cardiomegaly. 7. Additional findings as above. XR hip NATALIA 2v w pelvis: IMPRESSION: No evidence of acute fracture. Severe degenerative changes are seen in the right hip. CT SCAN OF THE BRAIN WITHOUT IV CONTRAST: IMPRESSION: There is no hemorrhage, mass effect, or evidence of acute territorial ischemia by CT criteria. XR chest 1V portable: IMPRESSION: No acute chest disease. CT SCAN OF THE CERVICAL SPINE: IMPRESSION: 1. There is no evidence of fracture or subluxation involving the cervical spine. 2. Osteopenia and spondylotic change as above. CT abd pelvis wo con: IMPRESSION: 1. Compression fracture of the T12 vertebral body. There is a right posterior rib fracture which also appears acute. Additional rib fractures of various chronicity is are seen as above. 2. Additional findings as above. No acute intra-abdominal injury is seen.
[2022-10-10] MEDS: LORazepam 2 MG/1 ML VIAL IV PRN ×4 (16:39→20:38)
[2022-10-10] MEDS: NSS + 20MEQ KCL 20 MEQ/1,000 ML BAG IV SCH (16:59)
--- NOTE | 2022-10-10 18:36 | Communication Note ---
Date of Service: October 10, 2022 Yusef this afternoon, remains agitated but maintaining airway at present. Has been given 4mg IV Ativan in the past hour and remains agitated at times. Contacting ICU to alert for possible need to transfer to ICU -- will discuss w/ Alan per discussion w/ Dr Hoang. Of note, RN spoke w/ her son -- from in March, moved here from [place]. Lives in [facility]. He will be coming in to see her tomorrow -- thought had stopped drinking in the past. Not much information able to be provided. Will also change the PO thiamine to start tomorrow 200mg PO BID to 200mg IV TID for wernicke's dosing as well as change her folate to IV daily. Already scheduled B12 IM injections daily for low levels of both, likely 2nd to alcohol use.
--- NOTE | 2022-10-10 18:59 | Communication Note ---
Date of Service: October 10, 2022 Discussed w ICU [employer], to continue IV ativan active withdrawal protocol. RN giving another 2mg IV ativan for AWSS score 8. 3mg IV available for score >10 If continued decline/airway compromise, would accept in transfer to ICU/precedex gtt Is now on thiamine 200mg IV TID for wernecke's encephalopathy tx, B1 pending from admission.
[2022-10-10] MEDS: THIAMINE HCL 200 MG in SODIUM CHLORIDE 0.9% 50 ML IV SCH (20:50)
[2022-10-10] MEDS ORDERED: THIAMINE HCL 100 MG TAB PO SCH (21:00)
[2022-10-11] MEDS: ATENOLOL 50 MG TABLET PO SCH ×2 (00:39→09:42)
[2022-10-11] MEDS: lamoTRIgine 100 MG TAB PO SCH ×3 (00:40→20:37)
[2022-10-11] MEDS: LORazepam 2 MG/1 ML VIAL IV PRN ×5 (02:10→20:50)
[2022-10-11] MEDS ORDERED: OLANZapine 10 MG/2.1 ML SDV IM STA (04:09)
[2022-10-11] MEDS: NSS + 20MEQ KCL 20 MEQ/1,000 ML BAG IV SCH (07:19)
[2022-10-11 07:49] LABS: Hematocrit (blood only) 35.4 % (37.0-47.0); Mean Corpuscular Hemoglobin 31.3 pg (25.0-34.0); Mean Corpuscular Hgb Conc 33.9 g/dL (32.0-36.0); Mean Corpuscular Volume 92.4 fL (80.0-100.0); Mean Platelet Volume 9.6 fL (9.4-12.4); Platelet Count 164 K/uL (130-400); RDW Standard Deviation 47.3 fL (36.4-46.3); Red Blood Count 3.83 M/uL (4.20-5.40); White Blood Count 6.18 K/ul (4.8-10.8)
[2022-10-11 08:07] LABS: Albumin Globulin Ratio 1.7 (0.9-2); Albumin Level 3.8 gm/dl (3.4-5.0); Bilirubin,Total 0.7 mg/dl (0.2-1.0); Calcium 9.7 mg/dl (8.6-10.3); Est GFR (African American) 77.2 ml/min; Est GFR (Non-African American) 66.6 ml/min; Globulin 2.2 gm/dl (2.5-4.0); Magnesium 1.9 mg/dl (1.7-2.4); Phosphorus 2.6 mg/dl (2.5-4.9); Potassium 3.8 mmol/L (3.5-5.1)
[2022-10-11 08:14] LABS: Estimated Average Glucose 105 mg/dl; Hemoglobin A1C 5.3 % (4.5-5.6)
[2022-10-11] MEDS ORDERED: STAT IV Infusion **Titration per Protocol STA (08:25)
--- NOTE | 2022-10-11 08:25 | Hospitalist Progress Note ---
Date of Service October 11, 2022 Assessment & Plan (1) Alcohol use: Plan: With severe withdrawal, with a h/o seizures 1/2 liter vodka drinker at home for pain control has received 14 mg of IV ativan and IM Zyprexa overnight for high AWSS scores, remains agitated, is having sonorous breath sounds and periods of apnea, with ET CO2 monitor on with elevations of 42 at times EtOH level 0 in ER, UDS neg, ASA and APAP levels negative Ammonia 42 B1 pending B12 low and replacing, Folate normal Lactic acidosis now resolved -continue IV ativan and consider precedex gtt--> transfer to ICU for airway management given apnea and possible need for precedex-d/w Wrestling Coach -continue IV thiamine, folic acid, IV protonix, and IVFs with KCl -continue AWSS monitoring (2) Acute respiratory failure with hypoxia: Plan: secondary to IV ativan for EtOH withdrawal with periods of apnea, sonorous respirations, elevated ET CO2 -now on 2LNC -continues supplemental O2 prn -check ABG -transfer to ICU (3) Fall: Plan: reportedly fall at home, suspected 2nd to chronic hip pain in combination with alcohol use for pain control at home. CK mildly elevated, Anion gap 13 on labs, likely from alcohol use CT head/cervical spine negative on admit (hx fall/subdural hematoma/craniotomy/evacuation). CTAP without acute intraabdominal process but does note T12 compression fracture Hip/pelvix xrays show left EUGENIO and Right severe OA---has significant bruising to her LEFT hip (upcoming surgery for repair RIGHT hip for severe OA on 10/12- cancelled by Ortho). Prior LEFT hip repair in 2019 in [place]. Consult w/ orthopedics appreciated UA neg for infection CXR w/o acute process but patient does have multiple old rib fractures various stages of healing CT Chest confirms right sided acute rib fracture Orthotics consulted for brace/pain control Checking ECHO given murmur on exam for further eval. Trop undetectable on admission PT/OT consulted, but not able to participate today -order CK for this AM in follow up (4) T12 compression fracture: Plan: as noted on imaging, 2nd to fall, unsure if symptomatic as is altered mentation vit d level normal pain control prn, will see about orthotics for brace for additional pain control once EtOH withdrawal improved ICS PT/OT consulted (5) Rib fractures: Plan: noted on imaging, likely from fall pain control/lidocaine patches/incentive spirometer continue to monitor (6) Osteoarthritis of right hip: Plan: will consult orthopedics for any possible sooner surgery, vs continued outpatient as planned pain control plan for PT/OT consultations once stable from EtOH withdrawal (7) Hypomagnesemia: Plan: replaced, repeat level pending (8) Hypertension: Plan: On Losartan-HCTZ 100mg-12.5mg daily, atenolol 50mg BID --> holding losartan/HCTZ but continue atenolol Hx SVT/PACs/palpitations per cards outpatient note, on atenolol --> continue w/ hold parameters (9) Seizure: Plan: hx grand mal, last 2000 may be EtOH related? 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 She would not wake up for me, was restless and moving all extremities in the bed, RR 9 at times, ETCO2 40-42, periods of apnea witnessed and loud snoring. Not responding to commands or vocalizing. Tele with NSR, 70s Physical Exam Constitutional: + ill appearing, + altered mental status and + lethargic Eyes: PERRL, conjunctivae normal, anicteric sclerae ENMT: external ear and nose normal, oropharynx normal Respiratory: + abnormal respiratory effort (periods of apnea, sonorous) Cardiovascular: RRR, no murmur, no edema Gastrointestinal (Abdomen): normal bowel sounds, soft, nontender, no hepatosplenomegaly Musculoskeletal: Extremities: + muscle atrophy Skin: a few abrasions on knees bilat, no erythema or drainage Neurologic: moves all extremities and + obtunded; + not awake Results & Data Results & Data Vital Signs (Past 12 Hours) Vital Signs Temp Pulse Resp BP Pulse Ox O2 Del Method O2 Flow Rate 10/11/22 07:29 36.8 C 73 22 155/80 H 96 Nasal Cannula 2 10/11/22 05:47 Nasal Cannula 2 10/11/22 03:17 36.6 C 77 20 150/72 H 93 Room Air 10/10/22 23:30 37.1 C 78 18 136/76 92 Room Air Laboratory Results CBC, CMP, Magnesium reviewed PG Care Time/CCT Total # of Minutes Spent Total Time Spent with Patient: Total time spent is greater than 50% in coordination of care (as documented) at patient's floor/unit and/or counseling patient: Coding Level of Care Code 20831 SUB INP/OBS CARE 3/50MIN Diagnoses Alcohol use Z78.9 Acute respiratory failure with hypoxia J96.01 Fall W19.XXXA T12 compression fracture S22.080A Rib fractures S22.49XA Osteoarthritis of right hip M16.11 Hypomagnesemia E83.42 Hypertension I10 Seizure R56.9 Closed head injury S09.90XA Hx of subdural hematoma Z86.79 GERD (gastroesophageal reflux disease) K21.9 Anxiety and depression F41.9; F32.A Left hip pain M25.552
--- NOTE | 2022-10-11 08:25 | Critical Care Consultation ---
Date of Consultation October 11, 2022 Assessment & Plan (1) Acute respiratory failure with hypoxia: (2) Rib fractures: (3) T12 compression fracture: (4) Delirium tremens: (5) Hx of subdural hematoma: (6) Hypertension: (7) GERD (gastroesophageal reflux disease): (8) Anxiety and depression: (9) Seizure: (10) Alcohol use: Plan CT chest 10/10/2022 personally reviewed: Motion degraded study with minimal dependent atelectasis bilateral lower lobes Cardiomegaly No mediastinal lymphadenopathy Reason Critically Ill: 67-year-old female past medical history of hypertension, seizure, anxiety/depression, GERD was admitted to hospital s/p fall. Patient a lso has history of alcohol use. She was withdrawing on the floor. Transferred to ICU for alcohol withdrawal. Neuro - [facility]: Positive --Delirium tremens Continue with CIWA protocol Keep RASS -1 Precedex will be started for the patient TSH within normal limit --History of seizure disorder On lamotrigine 150 mg twice daily --History of anxiety/depression On escitalopram at home We will hold whilst in the hospital Cardiac - -- Prolonged QTc Keep magnesium greater than 2, phosphorus greater than 3, potassium greater than 4 And QT prolonging medication Respiratory - -- Acute hypercapnic hypoxic respiratory failure Hypercapnia is likely secondary to benzodiazepine use along with JESUS Hypoxia could be from dependent atelectasis ABG 10/11/2022: 7.31/50/47 on 2 L GI - -- History of GERD Continue with pantoprazole RENAL/LYTES - No acute kidney issues Monitor BUNs/creatinine ENDO - Continue with ICU hypoglycemia protocol HEME - Normocytic anemia Monitor H&H ID - No clear signs of infection Urine is clean, CT chest normal, procalcitonin negative --Prophylaxis VTE: Lovenox GI: Pantoprazole Lines: Peripheral Diet: N.p.o. Plan: Start the patient on Precedex. Precedex will have no suppression of respiratory drive. Patient likely has sleep apnea as well. It would not be appropriate choice to do BiPAP in somebody who is very restless. Potassium and magnesium being replaced Patient does have prolonged QTc we will repeat an EKG in the morning to keep an eye on it. Avoid QT prolonging medication. We will hold patient's home escitalopram dose If there is any worsening in patient's respiratory status or agitation, will plan to intubate Case was discussed with Dr. Aponte I have personally spent 62 minutes of critical care time in the direct management of this patient. This is a life/limb threatening event. This includes time spent evaluating patient, direct bedside care, chart review, placing orders, interpretation of diagnostic studies, discussion with consultants, patient, and family members, as well as other required patient management activities. This time is exclusive of all separately billable procedures, and teaching time and separate from and in addition to any other critical care service time. History of Present Illness Attending Physician: Flora Aponte MD History of Present Illness 67-year-old female presents to the hospital s/p fall Past medical history: Hypertension, anxiety/depression, history of subdural hematoma s/p craniotomy and evacuation, seizure disorder on lamotrigine Patient has significant history of alcohol use. She stopped drinking to have the right osteoarthritic hip replaced. Patient on the floor was found to be in DTs. She got total 17 mg of Ativan in the last 24 hours. ICU was consulted for further management Patient was in delirium, history was obtained from the nurse and previous chart At the time of examination patient was fidgeting around, restless. Not ans wering any question. She was breathing in the high teens to low 20s. She had just had her blood gas drawn. As per the nurse overnight patient had apneic episodes with Ativan. She did get 1 dose of Zyprexa as well. Has been afebrile. Allergies Allergy/AdvReac Type Severity Reaction Status Date / Time No Known Allergies Allergy Verified 10/10/22 11:00 Home Medications Medication Instructions Recorded Confirmed Type atenolol 50 mg tablet 50 mg PO BID 10/04/22 10/10/22 History escitalopram oxalate 20 mg tablet 20 mg PO QAM 10/04/22 10/10/22 History (Lexapro) eszopiclone 2 mg tablet (Lunesta) 2 mg PO HS 10/04/22 10/10/22 History lamotrigine 150 mg tablet 150 mg PO BID 10/04/22 10/10/22 History losartan 100 1 tab PO QAM 10/04/22 10/10/22 History mg-hydrochlorothiazide 12.5 mg tablet omeprazole 40 mg capsule,delayed 40 mg PO QAM 10/04/22 10/10/22 History release Patient History Medical History Anxiety and depression GERD (gastroesophageal reflux disease) controlled, stable per pt History of blood transfusion pt denies, she plans to re-check her home records Hx of subdural hematoma 2020 (s/p fall) Hypertension controlled, stable per pt Mild aortic regurgitation Mild mitral regurgitation Mild pulmonary hypertension 30 mmHg Mild pulmonary valve regurgitation Mild tricuspid regurgitation Seizure Grand mal, most recent 2000 Surgical History H/O craniotomy Hematoma evacuation (2020) History of colonoscopy History of esophagogastroduodenoscopy (EGD) History of laparoscopy History of total hip arthroplasty Left [place] teeth removed Family History Other No family history of adverse response to anesthesia Social History Smoking Status: Current every day smoker Cigarettes Per Day: 1-2 CIG DAILY>ADVISED; Second Hand Exposure: Yes; Hx Alcohol Use: Yes Alcohol type: wine and hard liquor Preferred Language: Icelandic Communication Ability: Unable Tobacco Roller Required: No Beliefs That Will Affect Care: None Current Living Situation: Alone Feels Safe at Home: Yes Assistive Devices: Cane and Walker Review of Systems Review of Systems: Unobtainable due to mental health condition and Unobtainable due to cognitive status Physical Exam Physical Exam: Constitutional: No acute distress HEENT: PERRLA Respiratory system: Decreased air entry bilaterally, no wheeze, no rhonchi, positive crackles bilateral lower lobes CVS: S1-S2 positive, no murmurs or gallops Abdomen: Soft, nontender, nondistended, positive bowel sounds x4 Extremities: +2 pulses bilaterally radialis/ dorsalis pedis, no cyanosis, no edema Neuro: Restless Psych: Unable to assess G/U: No Moran Skin: no rashes, warm and dry Lymphatic: no cervical or axillary lymphadenopathy Results & Data Results & Data Vital Signs (Past 12 Hours) Vital Signs Temp Pulse Resp BP Pulse Ox O2 Del Method O2 Flow Rate 10/11/22 07:29 36.8 C 73 22 155/80 H 96 Nasal Cannula 2 10/11/22 05:47 Nasal Cannula 2 10/11/22 03:17 36.6 C 77 20 150/72 H 93 Room Air 10/10/22 23:30 37.1 C 78 18 136/76 92 Room Air Laboratory Results 10/11/22 07:09 10/11/22 07:09 Coding Level of Care Code 62911 CRITICAL CARE 1ST 30-74M Diagnoses Acute respiratory failure with hypoxia J96.01 Rib fractures S22.49XA T12 compression fracture S22.080A Delirium tremens F10.931 Hx of subdural hematoma Z86.79 Hypertension I10 GERD (gastroesophageal reflux disease) K21.9 Anxiety and depression F41.9; F32.A Seizure R56.9 Alcohol use Z78.9 Time Spent (min) 62
[2022-10-11 08:55] LABS: Base Excess ABG -1.7 mEq/L (-9-1.8); HCO3 ABG 25 mmol/L (19-24); PCO2 ABG 50 mmHg (35-46); PO2 ABG 47 mmHg (80-95); pH ABG 7.31 (7.35-7.45)
[2022-10-11 08:56] LABS: Allen Test Pos (Pos); Oxygen Saturation ABG 81.6 % (90-95)
[2022-10-11] MEDS ORDERED: THIAMINE HCL 100 MG TAB PO SCH (09:00)
[2022-10-11] MEDS ORDERED: FOLIC ACID 1 MG TAB PO SCH (09:00)
[2022-10-11] MEDS ORDERED: PANTOprazole 40 MG TAB PO SCH (09:00)
[2022-10-11] MEDS ORDERED: ESCITALOPRAM OXALATE 20 MG TAB PO SCH (09:00)
[2022-10-11] MEDS: dexMEDEtomidine 200 MCG/50 ML BAG IV SCH ×3 (09:13→21:40)
[2022-10-11] MEDS: THIAMINE HCL 200 MG in SODIUM CHLORIDE 0.9% 50 ML IV SCH ×3 (09:36→20:58)
[2022-10-11] MEDS: FOLIC ACID 1 MG in SYRINGE 9.8 ML IV SCH (09:36)
[2022-10-11] MEDS: CYANOCOBALAMIN 1000 MCG/ML VIAL IM SCH (09:42)
[2022-10-11] MEDS ORDERED: Flu Vaccine-High Dose (Fluzone-HD) PF 65+ 0.7mL SYR IM ONE (09:45)
[2022-10-11] MEDS: MAGNESIUM SULFATE / D5W 1 GM/100 ML BAG IV SCH ×2 (10:29→12:15)
[2022-10-11] MEDS: POTASSIUM CHLORIDE / WTR 10 MEQ/100 ML PLCT IV SCH ×2 (10:29→11:29)
[2022-10-11] MEDS: D5W AND 1/2NSS + 20MEQ KCL 20 MEQ/1,000 ML BAG IV SCH ×2 (10:30→23:10)
[2022-10-11] MEDS: PANTOprazole 40 MG in SYRINGE 0 ML IV SCH (10:30)
[2022-10-11] MEDS: ENOXAPARIN INJ 40 MG/0.4 ML SYR SQ SCH (10:30)
--- NOTE | 2022-10-11 11:04 | Orthopedic Progress Note ---
Date of Service October 11, 2022 Assessment & Plan (1) Osteoarthritis of right hip: Plan: The patient's surgery for tomorrow has been postponed. She will be rescheduled once she is medically stable and cleared. A wedge or pillow should be placed between her legs to minimize the risk of left hip prosthesis dislocation. This was discussed with the nursing staff. Will attempt to discuss postponement of surgery with her tomorrow. We will continue to follow while she is admitted. Admission and Anticipated Discharge Date Admission Date: October 10, 2022 Subjective The patient is seen today in her room in ICU. She was initially scheduled for right total hip surgery tomorrow. The patient has been experiencing alcohol withdrawal and agitation. This morning she was moved from the medical floor to ICU because of her deterioration. No new orthopedic complaints. Physical Exam Physical Exam: General: Well-developed, well-nourished, middle-aged female, who is unresponsive. She is not able to follow commands. She is repetitively yas her hips and knees attempting to lift her torso off of the bed, similar to a position. Skin: Warm and dry with fair turgor. No rashes. No ecchymosis or edema on her legs. Musculoskeletal: The patient has intact motor function to her hip, knee, and ankles. She is actively flexing and extending the lower extremities. Left hip appears to be in place. No shortening or internal rotation. I am able to passively straighten it without signs of discomfort. Neurologic: Unable to be adequately assessed as the patient cannot answer questions or confirm sensation. Results & Data Vital Signs (Past 12 Hours) Vital Signs Temp Pulse Pulse Resp BP BP Pulse Ox 10/11/22 10:00 73 15 96 10/11/22 10:00 107/73 10/11/22 09:30 74 95 10/11/22 09:29 74 14 96 10/11/22 09:29 156/85 H 10/11/22 09:18 97 10/11/22 10:05 73 10/11/22 10:18 36.6 C 10/11/22 08:00 10/11/22 07:29 36.8 C 73 22 155/80 H 96 10/11/22 05:47 10/11/22 03:17 36.6 C 77 20 150/72 H 93 10/10/22 23:30 37.1 C 78 18 136/76 92 Pulse Ox O2 Del Method O2 Del Method O2 Flow Rate 10/11/22 10:00 Oxymask 4 10/11/22 10:00 10/11/22 09:30 10/11/22 09:29 10/11/22 09:29 10/11/22 09:18 10/11/22 10:05 10/11/22 10:18 10/11/22 08:00 96 Nasal Cannula 10/11/22 07:29 Nasal Cannula 2 10/11/22 05:47 Nasal Cannula 2 10/11/22 03:17 Room Air 10/10/22 23:30 Room Air
--- NOTE | 2022-10-11 18:13 | XCELERA ---
[id number]
--- NOTE | 2022-10-12 00:01 | Electrocardiogram Report ---
Test Reason : Blood Pressure : / mmHG Vent. Rate : 072 BPM Atrial Rate : 072 BPM P-R Int : 186 ms QRS Dur : 094 ms QT Int : 464 ms P-R-T Axes : 029 002 031 degrees QTc Int : 508 ms Poor data quality, interpretation may be adversely affected Normal sinus rhythm Prolonged QT Nonspecific T wave abnormality Abnormal ECG When compared with ECG of 05-OCT-2022 15:54, QT has lengthened Confirmed by Ezio Kinney ([id number]) on 10/12/2022 12:01:08 AM Referred By: Confirmed By:Ezio Kinney
[2022-10-12] MEDS: LORazepam 2 MG/1 ML VIAL IV PRN ×3 (00:33→21:29)
[2022-10-12] MEDS: dexMEDEtomidine 200 MCG/50 ML BAG IV SCH ×5 (02:05→21:16)
[2022-10-12 05:03] LABS: Albumin Level 3.4 gm/dl (3.4-5.0); BUN Creatinine Ratio 14.1 (10-20); Bilirubin Direct 0.1 mg/dl (0-0.2); Bilirubin,Total 0.6 mg/dl (0.2-1.0); Calcium 9.3 mg/dl (8.6-10.3); Creatinine Clr Calc Pharmacy 69.5 ml/min; Est GFR (African American) 90.5 ml/min; Est GFR (Non-African American) 78.1 ml/min; Magnesium 1.7 mg/dl (1.7-2.4); Phosphorus 2.1 mg/dl (2.5-4.9); Potassium 3.7 mmol/L (3.5-5.1); Total Protein 5.5 gm/dl (6.0-8.3)
[2022-10-12 05:11] LABS: Basophils # (auto) 0.04 K/uL (0-0.2); Basophils % (auto) 0.8 %; Eosinophils % (auto) 2.1 %; Hematocrit (blood only) 33.6 % (37.0-47.0); Hemoglobin 11.2 g/dl (12.0-16.0); Immature Granulocytes # (auto) 0.02 K/uL (0.01-0.20); Immature Granulocytes % (auto) 0.4 %; Lymphocytes # (auto) 0.87 K/uL (1.2-3.4); Mean Corpuscular Hemoglobin 31.3 pg (25.0-34.0); Mean Corpuscular Hgb Conc 33.3 g/dL (32.0-36.0); Mean Corpuscular Volume 93.9 fL (80.0-100.0); Mean Platelet Volume 9.9 fL (9.4-12.4); Monocytes # (auto) 0.32 K/uL (0.11-0.59); Monocytes % (auto) 6.6 %; Neutrophils # (auto) 3.48 K/uL (1.40-6.50); Neutrophils % (auto) 72.1 %; Platelet Count 153 K/uL (130-400); RDW Coefficient of Variation 13.6 % (11.5-14.5); RDW Standard Deviation 46.8 fL (36.4-46.3); Red Blood Count 3.58 M/uL (4.20-5.40); White Blood Count 4.83 K/ul (4.8-10.8)
[2022-10-12] MEDS ORDERED: LORazepam 2 MG/1 ML VIAL IV STA ×3 (05:43→14:45)
[2022-10-12] MEDS: POTASSIUM CHLORIDE / WTR 10 MEQ/100 ML PLCT IV SCH ×2 (06:48→07:48)
[2022-10-12] MEDS: MAGNESIUM SULFATE / D5W 1 GM/100 ML BAG IV SCH ×2 (06:49→08:56)
--- NOTE | 2022-10-12 07:22 | Critical Care Progress Note ---
Date of Service October 12, 2022 Assessment & Plan (1) Acute respiratory failure with hypoxia: (2) Rib fractures: (3) T12 compression fracture: (4) Delirium tremens: (5) Hx of subdural hematoma: (6) Hypertension: (7) GERD (gastroesophageal reflux disease): (8) Anxiety and depression: (9) Seizure: (10) Alcohol use: Plan CT chest 10/10/2022 personally reviewed: Motion degraded study with minimal dependent atelectasis bilateral lower lobes Cardiomegaly No mediastinal lymphadenopathy Reason Critically Ill: 67-year-old female past medical history of hypertension, seizure, anxiety/depression, GERD was admitted to hospital s/p fall. Patient also has history of alcohol use. She was withdrawing on the floor. Transferred to ICU for alcohol withdrawal. Neuro - [facility]: Positive --Delirium tremens Continue with CIWA protocol Keep RASS -1 Precedex will be started for the patient TSH within normal limit --History of seizure disorder On lamotrigine 150 mg twice daily --History of anxiety/depression On escitalopram at home We will hold whilst in the hospital Cardiac - -- Prolonged QTc Keep magnesium greater than 2, phosphorus greater than 3, potassium greater than 4 And QT prolonging medication Respiratory - -- Acute hypercapnic hypoxic respiratory failure Hypercapnia is likely secondary to benzodiazepine use along with JESUS Hypoxia could be from dependent atelectasis patient is also everyday smoker. COPD might also be playing a role ABG 10/11/2022: 7.31/50/47 on 2 L -- Every day smoker Will need PFT as an outpatient Consider Incruse/Spiriva on discharge GI - -- History of GERD Continue with pantoprazole RENAL/LYTES - No acute kidney issues Monitor BUNs/creatinine ENDO - Continue with ICU hypoglycemia protocol HEME - Normocytic anemia Monitor H&H ID - No clear signs of infection Urine is clean, CT chest normal, procalcitonin negative --Prophylaxis VTE: Lovenox GI: Pantoprazole Lines: Peripheral Diet: N.p.o. Plan: In/Out: +944, urine output 9 and 25, patient is +3.6 L since coming to the hospital Potassium, phosphorous and magnesium being replaced Start the patient on Brovana and budesonide Start patient on standing Ativan 3mg q6hrs to keep patient RASS -1:-2 Patient is on lamotrigine at home but she is not able to tolerate anything p.o. right now Continue with Ativan [id number] right now. If we are not able to give her anything by mouth for the next 24-48 hours then will think about maybe getting her Keppra IV instead If there is any worsening in patient's respiratory status or agitation, will plan to intubate I have personally spent 42 minutes of critical care time in the direct management of this patient. This is a life/limb threatening event. This includes time spent evaluating patient, direct bedside care, chart review, placing orders, interpretation of diagnostic studies, discussion with consultants, patient, and family members, as well as other required patient management activities. This time is exclusive of all separately billable procedures, and teaching time and separate from and in addition to any other critical care service time. Admission and Anticipated Discharge Date Admission Date: October 10, 2022 Subjective Patient seen and examined at bedside. Patient on Precedex 0.4 at the time of examination. She got total of 7mg of Ativan overnight for agitation. She was RASS -2 at the time of examination. Has been afebrile. Saturating 94-95% on 2L with RR in the high teens to low 20's Review of Systems Review of Systems: All systems reviewed & are unremarkable except as noted in Subjective Physical Exam Physical Exam: Constitutional: No acute distress HEENT: PERRLA Respiratory system: Decreased air entry bilaterally, no rhonchi, positive crackles bilateral lower lobes, Mild expiratory wheeze bilaterally CVS: S1-S2 positive, no murmurs or gallops Abdomen: Soft, nontender, nondistended, positive bowel sounds x4 Extremities: +2 pulses bilaterally radialis/ dorsalis pedis, no cyanosis, no edema Neuro: RASS -2, mittens in place. Psych: Unable to assess G/U: Positive Moran Skin: no rashes, warm and dry Lymphatic: no cervical or axillary lymphadenopathy Results & Data Results & Data Vital Signs (Past 12 Hours) Vital Signs Temp Pulse Resp BP Pulse Ox Pulse Ox O2 Del Method 10/12/22 05:30 37.1 C 68 18 99 10/12/22 05:30 167/104 H 10/12/22 05:00 37.1 C 90 24 96 10/12/22 05:00 157/78 H 10/12/22 04:30 159/89 H 10/12/22 04:30 37.1 C 71 9 L 97 10/12/22 04:00 36.8 C 68 20 98 10/12/22 04:00 142/81 H 10/12/22 00:00 53 L 10/12/22 03:00 36.5 C 72 22 98 10/12/22 03:00 141/69 H 10/12/22 02:30 36.4 C L 56 L 17 98 10/12/22 02:30 131/76 10/12/22 02:00 36.4 C L 61 16 99 10/12/22 02:00 128/89 10/12/22 01:31 36.8 C 22 99 10/12/22 01:31 140/73 10/12/22 01:30 36.8 C 68 18 98 10/12/22 01:01 36.7 C 76 26 H 96 10/12/22 01:01 123/88 10/12/22 01:00 36.7 C 75 20 97 10/12/22 00:30 68 14 98 10/12/22 00:00 99 10/12/22 00:20 70 22 97 10/12/22 00:10 59 L 16 98 10/12/22 00:00 70 16 97 10/12/22 00:00 36.5 C 133/83 10/11/22 23:50 62 6 L 97 10/11/22 23:41 136/86 10/11/22 23:41 54 L 5 L 97 10/11/22 23:40 49 L 13 98 10/11/22 23:30 54 L 15 97 10/11/22 23:30 138/72 10/11/22 23:20 51 L 14 97 10/11/22 23:10 54 L 12 97 10/11/22 23:25 53 L 10/11/22 23:00 53 L 14 97 10/11/22 23:00 116/75 10/11/22 22:30 55 L 14 98 10/11/22 22:30 122/78 10/11/22 22:00 63 17 98 10/11/22 22:00 140/96 10/11/22 21:30 76 24 96 10/11/22 21:30 149/86 H 10/11/22 21:02 139/99 10/11/22 21:02 84 21 97 10/11/22 21:00 85 25 H 98 10/11/22 20:54 84 23 98 10/11/22 20:54 153/118 H 10/11/22 20:30 79 24 96 10/11/22 20:00 84 26 H 95 10/11/22 19:58 Oxymask 10/11/22 19:30 66 17 99 O2 Del Method O2 Flow Rate O2 Flow Rate 10/12/22 05:30 10/12/22 05:30 10/12/22 05:00 10/12/22 05:00 10/12/22 04:30 10/12/22 04:30 10/12/22 04:00 10/12/22 04:00 10/12/22 00:00 10/12/22 03:00 10/12/22 03:00 10/12/22 02:30 10/12/22 02:30 10/12/22 02:00 10/12/22 02:00 10/12/22 01:31 10/12/22 01:31 10/12/22 01:30 10/12/22 01:01 10/12/22 01:01 10/12/22 01:00 10/12/22 00:30 10/12/22 00:00 Oxymask 4 10/12/22 00:20 10/12/22 00:10 10/12/22 00:00 10/12/22 00:00 10/11/22 23:50 10/11/22 23:41 10/11/22 23:41 10/11/22 23:40 10/11/22 23:30 10/11/22 23:30 10/11/22 23:20 10/11/22 23:10 10/11/22 23:25 10/11/22 23:00 10/11/22 23:00 10/11/22 22:30 10/11/22 22:30 10/11/22 22:00 10/11/22 22:00 10/11/22 21:30 10/11/22 21:30 10/11/22 21:02 10/11/22 21:02 10/11/22 21:00 10/11/22 20:54 10/11/22 20:54 10/11/22 20:30 10/11/22 20:00 10/11/22 19:58 4 10/11/22 19:30 Laboratory Results 10/12/22 04:22 10/12/22 04:22 Coding Level of Care Code 38902 CRITICAL CARE 1ST 30-74M Diagnoses Acute respiratory failure with hypoxia J96.01 Rib fractures S22.49XA T12 compression fracture S22.080A Delirium tremens F10.931 Hx of subdural hematoma Z86.79 Hypertension I10 GERD (gastroesophageal reflux disease) K21.9 Anxiety and depression F41.9; F32.A Seizure R56.9 Alcohol use Z78.9 Time Spent (min) 42
[2022-10-12] MEDS ORDERED: POTASSIUM PHOS 3 MMOL/1 ML INFUSION IV STA (07:41)
[2022-10-12] MEDS ORDERED: POTASSIUM PHOSPHATE 24 MMOL in SODIUM CHLORIDE 0.9% 500 ML IV ONE (08:00)
[2022-10-12] MEDS: ENOXAPARIN INJ 40 MG/0.4 ML SYR SQ SCH (09:13)
[2022-10-12] MEDS: FOLIC ACID 1 MG in SYRINGE 9.8 ML IV SCH (09:14)
[2022-10-12] MEDS: CYANOCOBALAMIN 1000 MCG/ML VIAL IM SCH (09:14)
[2022-10-12] MEDS: THIAMINE HCL 200 MG in SODIUM CHLORIDE 0.9% 50 ML IV SCH ×3 (09:15→21:21)
--- NOTE | 2022-10-12 09:34 | Orthopedic Progress Note ---
Date of Service October 12, 2022 Assessment & Plan (1) Osteoarthritis of right hip: Plan: Patient remains unresponsive. I was unable to discuss her surgical postponement secondary to her cognitive status. We will attempt again tomorrow. Continue with hip precautions for left total hip prosthesis. (2) Alcohol withdrawal: Admission and Anticipated Discharge Date Admission Date: October 10, 2022 Subjective This 67-year-old female seen today in her room. She remains unresponsive. There is been no change in her condition since yesterday. She continues to receive Ativan for her alcohol withdrawal. Physical Exam Physical Exam: General: Well-developed elderly female, who remains unresponsive. Sonorous breathing at this time with oxygen in place. Skin: Warm and dry with good turgor. No significant bruising or erythema on her legs. Musculoskeletal: Left hip prosthesis appears to be in place. No leg length shortening or internal rotation. Currently has her knees flexed with a pillow between her knees. Results & Data Vital Signs (Past 12 Hours) Vital Signs Temp Pulse Resp BP Pulse Ox Pulse Ox O2 Del Method 10/12/22 07:53 67 10/12/22 05:30 37.1 C 68 18 99 10/12/22 05:30 167/104 H 10/12/22 05:00 37.1 C 90 24 96 10/12/22 05:00 157/78 H 10/12/22 04:30 159/89 H 10/12/22 04:30 37.1 C 71 9 L 97 10/12/22 04:00 36.8 C 68 20 98 10/12/22 04:00 142/81 H 10/12/22 00:00 53 L 10/12/22 03:00 36.5 C 72 22 98 10/12/22 03:00 141/69 H 10/12/22 02:30 36.4 C L 56 L 17 98 10/12/22 02:30 131/76 10/12/22 02:00 36.4 C L 61 16 99 10/12/22 02:00 128/89 10/12/22 01:31 36.8 C 22 99 10/12/22 01:31 140/73 10/12/22 01:30 36.8 C 68 18 98 10/12/22 01:01 36.7 C 76 26 H 96 10/12/22 01:01 123/88 10/12/22 01:00 36.7 C 75 20 97 10/12/22 00:30 68 14 98 10/12/22 00:00 99 Oxymask 10/12/22 00:20 70 22 97 10/12/22 00:10 59 L 16 98 10/12/22 00:00 70 16 97 10/12/22 00:00 36.5 C 133/83 10/11/22 23:50 62 6 L 97 10/11/22 23:41 136/86 10/11/22 23:41 54 L 5 L 97 10/11/22 23:40 49 L 13 98 10/11/22 23:30 54 L 15 97 10/11/22 23:30 138/72 10/11/22 23:20 51 L 14 97 10/11/22 23:10 54 L 12 97 10/11/22 23:25 53 L 10/11/22 23:00 53 L 14 97 10/11/22 23:00 116/75 10/11/22 22:30 55 L 14 98 10/11/22 22:30 122/78 10/11/22 22:00 63 17 98 10/11/22 22:00 140/96 10/11/22 21:30 76 24 96 10/11/22 21:30 149/86 H O2 Flow Rate 10/12/22 07:53 10/12/22 05:30 10/12/22 05:30 10/12/22 05:00 10/12/22 05:00 10/12/22 04:30 10/12/22 04:30 10/12/22 04:00 10/12/22 04:00 10/12/22 00:00 10/12/22 03:00 10/12/22 03:00 10/12/22 02:30 10/12/22 02:30 10/12/22 02:00 10/12/22 02:00 10/12/22 01:31 10/12/22 01:31 10/12/22 01:30 10/12/22 01:01 10/12/22 01:01 10/12/22 01:00 10/12/22 00:30 10/12/22 00:00 4 10/12/22 00:20 10/12/22 00:10 10/12/22 00:00 10/12/22 00:00 10/11/22 23:50 10/11/22 23:41 10/11/22 23:41 10/11/22 23:40 10/11/22 23:30 10/11/22 23:30 10/11/22 23:20 10/11/22 23:10 10/11/22 23:25 10/11/22 23:00 10/11/22 23:00 10/11/22 22:30 10/11/22 22:30 10/11/22 22:00 10/11/22 22:00 10/11/22 21:30 10/11/22 21:30
[2022-10-12] MEDS: FORMOTEROL 20 MCG/2 ML VIAL INH SCH ×2 (09:45→20:30)
[2022-10-12] MEDS: lamoTRIgine 100 MG TAB PO SCH ×2 (09:45→21:00)
[2022-10-12] MEDS: PANTOprazole 40 MG in SYRINGE 0 ML IV SCH (10:16)
[2022-10-12] MEDS ORDERED: LORazepam 2 MG/1 ML VIAL IV SCH ×2 (10:30→12:00)
[2022-10-12] MEDS: D5W AND 1/2NSS + 20MEQ KCL 20 MEQ/1,000 ML BAG IV SCH (11:22)
[2022-10-12] MEDS: LORazepam 2 MG/1 ML VIAL IV SCH (18:10)
[2022-10-12] MEDS ORDERED: ARFORMOTEROL TART 15MCG/2ML VIAL INH SCH (19:00)
--- NOTE | 2022-10-12 20:01 | Hospitalist Progress Note ---
Date of Service October 12, 2022 Assessment & Plan (1) Alcohol use: Plan: With severe withdrawal, with a h/o seizures 1/2 liter vodka drinker at home for pain control Initially admitted to PCU and received 14 mg of IV ativan and IM Zyprexa overnight for high AWSS scores, remained agitated, was having sonorous breath sounds and periods of apnea, with ET CO2 monitor on with elevations of 42 at times Transferred to ICU on 10/11 and placed on Precedex drip, scheduled Ativan EtOH level 0 in ER, UDS neg, ASA and APAP levels negative Ammonia 42 B1 pending B12 low and replacing, Folate normal Lactic acidosis now resolved Remains obtunded and actively withdrawing -continue IV ativan scheduled and continue precedex gtt -continue IV thiamine, folic acid, IV protonix, and IVFs with KCl -continue AWSS monitoring (2) Acute respiratory failure with hypoxia: Plan: secondary to IV ativan for EtOH withdrawal with periods of apnea, sonorous respirations, elevated ET CO2 ABG with evidence of respiratory acidosis Now [id number] CO2's in the 20s -now on 3LNC -continue supplemental O2 prn -Pulmonary added on Pulmicort and Perforomist twice daily -Continued stay in ICU (3) Fall: Plan: reportedly fall at home, suspected 2nd to chronic hip pain in combination with alcohol use for pain control at home. CK mildly elevated, Anion gap 13 on labs, likely from alcohol use CT head/cervical spine negative on admit (hx fall/subdural hematoma/craniotomy/evacuation). CTAP without acute intraabdominal process but does note T12 compression fracture Hip/pelvix xrays show left EUGENIO and Right severe OA---has significant bruising to her LEFT hip (upcoming surgery for repair RIGHT hip for severe OA on 10/12- cancelled by Ortho). Prior LEFT hip repair in 2019 in [place]. Consult w/ orthopedics appreciated UA neg for infection CK 900-mild rhabdomyolysis-continue IV fluids CXR w/o acute process but patient does have multiple old rib fractures various stages of healing CT Chest confirms right sided acute rib fracture Orthotics consulted for brace/pain control Echo normal PT/OT consulted, but not able to participate today (4) T12 compression fracture: Plan: as noted on imaging, 2nd to fall, unsure if symptomatic as is altered mentation vit d level normal pain control prn, will see about orthotics for brace for additional pain control once EtOH withdrawal improved ICS PT/OT consulted (5) Rib fractures: Plan: Multiple fractures of ribs, BILATERAL noted on imaging, likely from fall pain control/lidocaine patches/incentive spirometer continue to monitor (6) Osteoarthritis of right hip: Plan: consult orthopedics apprecaited-delaying previously planned EUGENIO pain control plan for PT/OT consultations once stable from EtOH withdrawal (7) Hypertension: Plan: On Losartan-HCTZ 100mg-12.5mg daily, atenolol 50mg BID at home-holding home p.o. meds for altered mental status Does have a history of SVT/PACs/palpitations per cards outpatient note-monitor on telemetry (8) Seizure: Plan: On Lamictal at home but not able to take care Continue scheduled Ativan May need to add IV Keppra if remains n.p.o. Seizure precautions (9) Closed head injury: Plan: CT head negative on admission, not on blood thinners (10) Hx of subdural hematoma: Plan: 2020 (s/p fall) (11) GERD (gastroesophageal reflux disease): Plan: continue PPI IV (12) Anxiety and depression: Plan: Holding home Lexapro for prolonged QT Unable to take Lamictal due to being altered, unable to take p.o. Plan DVT prophylaxis-Lovenox Disposition-continued stay in ICU Admission and Anticipated Discharge Date Admission Date: October 10, 2022 Subjective Patient remains obtunded, on Precedex drip and receiving scheduled Ativan Physical Exam Constitutional: + ill appearing, + altered mental status and + lethargic Respiratory: normal respiratory effort, lungs clear to auscultation Cardiovascular: RRR, no murmur, no edema Gastrointestinal (Abdomen): normal bowel sounds, soft, nontender, no hepatosplenomegaly Musculoskeletal: Extremities: + muscle atrophy Neurologic: + obtunded Results & Data Results & Data Vital Signs (Past 12 Hours) Vital Signs Temp Pulse Pulse Resp BP Pulse Ox Pulse Ox 10/12/22 18:00 36.7 C 66 15 90 10/12/22 18:00 159/87 H 10/12/22 17:00 36.5 C 65 94 10/12/22 17:00 159/86 H 10/12/22 16:00 95 10/12/22 16:29 36.8 C 70 17 95 10/12/22 16:01 36.7 C 66 20 10/12/22 16:00 36.7 C 64 18 95 10/12/22 15:14 126/97 10/12/22 15:14 36.5 C 103 H 26 H 10/12/22 15:00 36.4 C L 86 25 H 10/12/22 14:00 94 10/12/22 14:00 35.8 C L 68 18 98 10/12/22 14:00 162/79 H 10/12/22 13:21 150/73 H 10/12/22 13:21 35.8 C L 63 97 10/12/22 13:00 36.0 C L 60 14 99 10/12/22 12:00 36.6 C 72 20 91 10/12/22 12:00 147/76 H 10/12/22 11:31 36.4 C L 71 20 10/12/22 11:01 170/68 H 10/12/22 11:01 36.3 C L 69 19 10/12/22 11:00 36.3 C L 26 H 92 10/12/22 10:21 123/80 10/12/22 10:21 36.1 C L 26 H 87 L 10/12/22 10:00 35.8 C L 63 14 94 10/12/22 09:31 35.9 C L 59 L 18 96 10/12/22 09:31 139/75 10/12/22 09:00 36.2 C L 61 16 93 10/12/22 09:00 129/63 10/12/22 08:31 36.4 C L 59 L 16 94 10/12/22 08:31 134/66 10/12/22 09:45 60 22 94 O2 Del Method O2 Del Method O2 Flow Rate O2 Flow Rate 10/12/22 18:00 10/12/22 18:00 10/12/22 17:00 Oxymask 4 10/12/22 17:00 10/12/22 16:00 Oxymask 4 10/12/22 16:29 Oxymask 4 10/12/22 16:01 10/12/22 16:00 10/12/22 15:14 10/12/22 15:14 10/12/22 15:00 10/12/22 14:00 Oxymask 4 10/12/22 14:00 10/12/22 14:00 10/12/22 13:21 10/12/22 13:21 10/12/22 13:00 10/12/22 12:00 Oxymask 4 10/12/22 12:00 10/12/22 11:31 10/12/22 11:01 10/12/22 11:01 10/12/22 11:00 10/12/22 10:21 10/12/22 10:21 10/12/22 10:00 10/12/22 09:31 10/12/22 09:31 10/12/22 09:00 10/12/22 09:00 10/12/22 08:31 10/12/22 08:31 10/12/22 09:45 Oxymask 3 Laboratory Results CBC, CMP, magnesium, phosphorus reviewed PG Care Time/CCT Total # of Minutes Spent Total Time Spent with Patient: Total time spent is greater than 50% in coordination of care (as documented) at patient's floor/unit and/or counseling patient: Coding Level of Care Code 32237 SUB INP/OBS CARE 2/35MIN Diagnoses Alcohol use Z78.9 Acute respiratory failure with hypoxia J96.01 Fall W19.XXXA T12 compression fracture S22.080A Rib fractures S22.49XA Osteoarthritis of right hip M16.11 Hypertension I10 Seizure R56.9 Closed head injury S09.90XA Hx of subdural hematoma Z86.79 GERD (gastroesophageal reflux disease) K21.9 Anxiety and depression F41.9; F32.A
[2022-10-12] MEDS: BUDESONIDE 0.25 MG/2 ML VIAL (PULMICORT) NEB SCH (20:30)
[2022-10-13] MEDS: dexMEDEtomidine 200 MCG/50 ML BAG IV SCH ×8 (00:21→22:57)
[2022-10-13] MEDS: D5W AND 1/2NSS + 20MEQ KCL 20 MEQ/1,000 ML BAG IV SCH ×2 (00:45→12:44)
[2022-10-13] MEDS: LORazepam 2 MG/1 ML VIAL IV SCH ×4 (01:12→17:17)
[2022-10-13 05:19] LABS: Basophils # (auto) 0.04 K/uL (0-0.2); Basophils % (auto) 0.8 %; Eosinophils # (auto) 0.11 K/uL (0-0.50); Eosinophils % (auto) 2.2 %; Hematocrit (blood only) 36.3 % (37.0-47.0); Hemoglobin 12.8 g/dl (12.0-16.0); Immature Granulocytes # (auto) 0.02 K/uL (0.01-0.20); Immature Granulocytes % (auto) 0.4 %; Lymphocytes # (auto) 0.76 K/uL (1.2-3.4); Lymphocytes % (auto) 14.9 %; Mean Corpuscular Hemoglobin 31.8 pg (25.0-34.0); Mean Corpuscular Hgb Conc 35.3 g/dL (32.0-36.0); Mean Corpuscular Volume 90.3 fL (80.0-100.0); Mean Platelet Volume 9.5 fL (9.4-12.4); Monocytes # (auto) 0.37 K/uL (0.11-0.59); Monocytes % (auto) 7.3 %; Neutrophils % (auto) 74.4 %; Platelet Count 146 K/uL (130-400); RDW Coefficient of Variation 13.1 % (11.5-14.5); RDW Standard Deviation 43.3 fL (36.4-46.3); Red Blood Count 4.02 M/uL (4.20-5.40)
[2022-10-13 05:31] LABS: BUN Creatinine Ratio 5.5 (10-20); Calcium 9.8 mg/dl (8.6-10.3); Creatinine Clr Calc Pharmacy 75.2 ml/min; Est GFR (African American) 98.1 ml/min; Est GFR (Non-African American) 84.6 ml/min; Magnesium 1.5 mg/dl (1.7-2.4); Phosphorus 2.5 mg/dl (2.5-4.9); Potassium 3.8 mmol/L (3.5-5.1)
[2022-10-13] MEDS ORDERED: POTASSIUM PHOS 3 MMOL/1 ML INFUSION IV STA (07:21)
[2022-10-13] MEDS ORDERED: FUROSEMIDE INJ 20 MG/2 ML VIAL IV ONE (07:21)
[2022-10-13] MEDS ORDERED: POTASSIUM PHOSPHATE 30 MMOL in SODIUM CHLORIDE 0.9% 500 ML IV ONE (07:30)
[2022-10-13] MEDS: MAGNESIUM SULFATE / D5W 1 GM/100 ML BAG IV SCH ×3 (07:34→11:09)
[2022-10-13] MEDS: BUDESONIDE 0.25 MG/2 ML VIAL (PULMICORT) NEB SCH ×2 (07:42→20:29)
[2022-10-13] MEDS: FORMOTEROL 20 MCG/2 ML VIAL INH SCH ×2 (07:42→20:29)
[2022-10-13] MEDS: LORazepam 2 MG/1 ML VIAL IV PRN ×7 (07:48→21:10)
[2022-10-13] MEDS: lamoTRIgine 100 MG TAB PO SCH ×2 (08:33→22:15)
[2022-10-13] MEDS: FOLIC ACID 1 MG in SYRINGE 9.8 ML IV SCH (08:33)
[2022-10-13] MEDS: CYANOCOBALAMIN 1000 MCG/ML VIAL IM SCH (08:34)
[2022-10-13] MEDS: ENOXAPARIN INJ 40 MG/0.4 ML SYR SQ SCH (08:34)
--- NOTE | 2022-10-13 09:16 | Orthopedic Progress Note ---
Date of Service October 13, 2022 Assessment & Plan (1) Osteoarthritis of right hip: Plan: Wanted to discuss with the patient that her total hip arthroplasty was canceled due to her current condition. However, she was unresponsive to any verbal stimuli. Will most likely have her follow-up in our clinic a few weeks after discharge from the hospital to discuss rescheduling her surgery. -Continue treatment as per primary service for pain management and alcohol wit hdrawal. -May consider wound care consult for evaluation of left hip buttock/ wound. Will re-eval in a.m. to check on status and update her of plan for her upcoming procedure. Admission and Anticipated Discharge Date Admission Date: October 10, 2022 Subjective This 67-year-old female seen in the ICU this morning. She was scheduled to undergo total hip arthroplasty however her surgery was canceled due to her current state patient remains obtunded, on Precedex drip and receiving scheduled Ativan. I was unable to arouse her this morning. She is somnolent. Review of Systems Review of Systems: Unobtainable due to reduced consciousness Physical Exam Physical Exam: Musculoskeletal: Left hip prosthesis appears to be in place. No leg length shortening or internal rotation. Currently has her knees flexed with a pillow between her knees. Results & Data Vital Signs (Past 12 Hours) Vital Signs Temp Pulse Pulse Resp BP Pulse Ox Pulse Ox 10/13/22 07:44 71 22 94 10/13/22 05:45 36.6 C 66 18 96 10/13/22 05:32 194/98 H 10/13/22 05:32 36.6 C 64 14 96 10/13/22 05:31 180/103 H 10/13/22 05:31 36.6 C 65 18 95 10/13/22 05:30 36.6 C 65 8 L 95 10/13/22 05:15 36.7 C 63 19 92 10/13/22 05:01 143/85 H 10/13/22 05:01 36.5 C 71 24 95 10/13/22 05:00 36.5 C 72 30 H 93 10/13/22 04:45 36.8 C 24 91 10/13/22 04:31 164/86 H 10/13/22 04:31 36.8 C 71 20 90 10/13/22 04:30 36.8 C 75 21 90 10/13/22 04:15 36.8 C 65 17 95 10/13/22 04:00 36.7 C 69 22 92 10/13/22 04:00 181/99 H 10/13/22 03:45 36.7 C 69 16 90 10/13/22 03:30 36.7 C 69 14 89 L 10/13/22 03:30 186/108 H 10/13/22 03:15 36.6 C 66 13 91 10/13/22 03:00 36.6 C 67 13 90 10/13/22 03:00 180/97 H 10/13/22 02:45 36.6 C 66 16 90 10/13/22 02:30 36.6 C 67 8 L 89 L 10/13/22 02:30 176/104 H 10/13/22 02:15 36.6 C 66 19 90 10/13/22 02:01 153/86 H 10/13/22 02:01 36.5 C 18 93 10/13/22 02:00 36.5 C 64 8 L 91 10/13/22 01:45 36.4 C L 108 H 21 88 L 10/13/22 01:34 149/89 H 10/13/22 01:34 36.4 C L 64 18 83 L 10/13/22 01:30 36.4 C L 65 14 90 10/13/22 01:18 150/93 H 10/13/22 01:18 36.3 C L 64 15 90 10/13/22 01:15 36.3 C L 66 14 92 10/13/22 01:05 164/85 H 10/13/22 01:05 36.3 C L 65 2 L 93 10/13/22 01:00 36.3 C L 66 5 L 93 10/13/22 01:00 189/94 H 10/13/22 00:45 36.2 C L 64 2 L 93 10/13/22 00:30 36.1 C L 65 7 L 93 10/13/22 00:30 159/104 H 10/13/22 00:15 36.1 C L 63 13 93 10/13/22 00:01 36.0 C L 64 16 92 10/13/22 00:01 173/104 H 10/13/22 00:00 36.0 C L 65 18 92 10/12/22 23:45 36.0 C L 65 13 92 10/12/22 23:30 35.9 C L 64 17 93 10/13/22 00:00 64 10/13/22 00:00 95 O2 Del Method O2 Del Method O2 Flow Rate O2 Flow Rate 10/13/22 07:44 Oxymask 3 10/13/22 05:45 10/13/22 05:32 10/13/22 05:32 10/13/22 05:31 10/13/22 05:31 10/13/22 05:30 10/13/22 05:15 10/13/22 05:01 10/13/22 05:01 10/13/22 05:00 10/13/22 04:45 10/13/22 04:31 10/13/22 04:31 10/13/22 04:30 10/13/22 04:15 10/13/22 04:00 10/13/22 04:00 10/13/22 03:45 10/13/22 03:30 10/13/22 03:30 10/13/22 03:15 10/13/22 03:00 10/13/22 03:00 10/13/22 02:45 10/13/22 02:30 10/13/22 02:30 10/13/22 02:15 10/13/22 02:01 10/13/22 02:01 10/13/22 02:00 10/13/22 01:45 10/13/22 01:34 10/13/22 01:34 10/13/22 01:30 10/13/22 01:18 10/13/22 01:18 10/13/22 01:15 10/13/22 01:05 10/13/22 01:05 10/13/22 01:00 10/13/22 01:00 10/13/22 00:45 10/13/22 00:30 10/13/22 00:30 10/13/22 00:15 10/13/22 00:01 10/13/22 00:01 10/13/22 00:00 10/12/22 23:45 10/12/22 23:30 10/13/22 00:00 10/13/22 00:00 Oxymask 4
--- NOTE | 2022-10-13 09:21 | Critical Care Progress Note ---
Date of Service October 13, 2022 Assessment & Plan (1) Acute respiratory failure with hypoxia: (2) Rib fractures: (3) T12 compression fracture: (4) Delirium tremens: (5) Hx of subdural hematoma: (6) Hypertension: (7) GERD (gastroesophageal reflux disease): (8) Anxiety and depression: (9) Seizure: (10) Alcohol use: Plan CT chest 10/10/2022 personally reviewed: Motion degraded study with minimal dependent atelectasis bilateral lower lobes Cardiomegaly No mediastinal lymphadenopathy Reason Critically Ill: 67-year-old female past medical history of hypertension, seizure, anxiety/depression, GERD was admitted to hospital s/p fall. Patient also has history of alcohol use. She was withdrawing on the floor. Transferred to ICU for alcohol withdrawal. Neuro - [facility]: Positive --Delirium tremens Continue with CIWA protocol Keep RASS -1 Continue with Precedex TSH within normal limit --History of seizure disorder On lamotrigine 150 mg twice daily, which is on hold currently --History of anxiety/depression On escitalopram at home We will hold whilst in the hospital Cardiac - -- Prolonged QTc Keep magnesium greater than 2, phosphorus greater than 3, potassium greater than 4 And QT prolonging medication Respiratory - -- Acute hypercapnic hypoxic respiratory failure Hypercapnia is likely secondary to benzodiazepine use along with JESUS Hypoxia could be from dependent atelectasis patient is also everyday smoker. COPD might also be playing a role ABG 10/11/2022: 7.31/50/47 on 2 L -- Every day smoker Will need PFT as an outpatient On budesonide and Brovana nebulized in the hospital Consider Incruse/Spiriva on discharge GI - -- History of GERD Continue with pantoprazole RENAL/LYTES - No acute kidney issues Monitor BUNs/creatinine ENDO - Continue with ICU hypoglycemia protocol HEME - Normocytic anemia Monitor H&H ID - No clear signs of infection Urine is clean, CT chest normal, procalcitonin negative --Prophylaxis VTE: Lovenox GI: Pantoprazole Lines: Peripheral Diet: N.p.o. Plan: In/Out: +6059, urine output 2500 mL, patient is +3.8 L since coming to the hospital Potassium and magnesium being replaced Give another dose of Lasix today Continue with Ativan [id number] along with Precedex If there is any worsening in patient's respiratory status or agitation, will plan to intubate I have personally spent 40 minutes of critical care time in the direct management of this patient. This is a life/limb threatening event. This includes time spent evaluating patient, direct bedside care, chart review, placing orders, interpretation of diagnostic studies, discussion with consultants, patient, and family members, as well as other required patient management activities. This time is exclusive of all separately billable procedures, and teaching time and separate from and in addition to any other critical care service time. Admission and Anticipated Discharge Date Admission Date: October 10, 2022 Subjective Patient seen and examined at bedside. No acute distress. Patient was on 1 of Precedex. She got overnight 2 mg of Ativan on top of 4 mg every 6. Systolic blood pressure was in the 150s heart rate in the mid 60s. Has been afebrile She was saturating 94-95% on 3 L oxy mask Review of Systems Review of Systems: Unobtainable due to mental health condition Physical Exam Physical Exam: Constitutional: No acute distress HEENT: PERRLA Respiratory system: Decreased air entry bilaterally, no rhonchi, positive crackles bilateral lower lobes, no wheeze CVS: S1-S2 positive, no murmurs or gallops Abdomen: Soft, nontender, nondistended, positive bowel sounds x4 Extremities: +2 pulses bilaterally radialis/ dorsalis pedis, no cyanosis, no edema Neuro: RASS -2, mittens in place. Psych: Unable to assess G/U: Positive Moran Skin: no rashes, warm and dry Lymphatic: no cervical or axillary lymphadenopathy Results & Data Results & Data Vital Signs (Past 12 Hours) Vital Signs Temp Pulse Pulse Resp BP Pulse Ox Pulse Ox 10/13/22 07:44 71 22 94 10/13/22 05:45 36.6 C 66 18 96 10/13/22 05:32 194/98 H 10/13/22 05:32 36.6 C 64 14 96 10/13/22 05:31 180/103 H 10/13/22 05:31 36.6 C 65 18 95 10/13/22 05:30 36.6 C 65 8 L 95 10/13/22 05:15 36.7 C 63 19 92 10/13/22 05:01 143/85 H 10/13/22 05:01 36.5 C 71 24 95 04/14/23 05:00 36.5 C 72 30 H 93 10/13/22 04:45 36.8 C 24 91 10/13/22 04:31 164/86 H 10/13/22 04:31 36.8 C 71 20 90 10/13/22 04:30 36.8 C 75 21 90 10/13/22 04:15 36.8 C 65 17 95 10/13/22 04:00 36.7 C 69 22 92 10/13/22 04:00 181/99 H 10/13/22 03:45 36.7 C 69 16 90 10/13/22 03:30 36.7 C 69 14 89 L 10/13/22 03:30 186/108 H 10/13/22 03:15 36.6 C 66 13 91 10/13/22 03:00 36.6 C 67 13 90 10/13/22 03:00 180/97 H 10/13/22 02:45 36.6 C 66 16 90 10/13/22 02:30 36.6 C 67 8 L 89 L 10/13/22 02:30 176/104 H 10/13/22 02:15 36.6 C 66 19 90 10/13/22 02:01 153/86 H 10/13/22 02:01 36.5 C 18 93 10/13/22 02:00 36.5 C 64 8 L 91 10/13/22 01:45 36.4 C L 108 H 21 88 L 10/13/22 01:34 149/89 H 10/13/22 01:34 36.4 C L 64 18 83 L 10/13/22 01:30 36.4 C L 65 14 90 10/13/22 01:18 150/93 H 10/13/22 01:18 36.3 C L 64 15 90 10/13/22 01:15 36.3 C L 66 14 92 10/13/22 01:05 164/85 H 10/13/22 01:05 36.3 C L 65 2 L 93 10/13/22 01:00 36.3 C L 66 5 L 93 10/13/22 01:00 189/94 H 10/13/22 00:45 36.2 C L 64 2 L 93 10/13/22 00:30 36.1 C L 65 7 L 93 10/13/22 00:30 159/104 H 10/13/22 00:15 36.1 C L 63 13 93 10/13/22 00:01 36.0 C L 64 16 92 10/13/22 00:01 173/104 H 10/13/22 00:00 36.0 C L 65 18 92 10/12/22 23:45 36.0 C L 65 13 92 10/12/22 23:30 35.9 C L 64 17 93 10/13/22 00:00 64 10/13/22 00:00 95 O2 Del Method O2 Del Method O2 Flow Rate O2 Flow Rate 10/13/22 07:44 Oxymask 3 10/13/22 05:45 10/13/22 05:32 10/13/22 05:32 10/13/22 05:31 10/13/22 05:31 10/13/22 05:30 10/13/22 05:15 10/13/22 05:01 10/13/22 05:01 10/13/22 05:00 10/13/22 04:45 10/13/22 04:31 10/13/22 04:31 10/13/22 04:30 10/13/22 04:15 10/13/22 04:00 10/13/22 04:00 10/13/22 03:45 10/13/22 03:30 10/13/22 03:30 10/13/22 03:15 10/13/22 03:00 10/13/22 03:00 10/13/22 02:45 10/13/22 02:30 10/13/22 02:30 10/13/22 02:15 10/13/22 02:01 10/13/22 02:01 10/13/22 02:00 10/13/22 01:45 10/13/22 01:34 10/13/22 01:34 10/13/22 01:30 10/13/22 01:18 10/13/22 01:18 10/13/22 01:15 10/13/22 01:05 10/13/22 01:05 10/13/22 01:00 10/13/22 01:00 10/13/22 00:45 10/13/22 00:30 10/13/22 00:30 10/13/22 00:15 10/13/22 00:01 10/13/22 00:01 10/13/22 00:00 10/12/22 23:45 10/12/22 23:30 10/13/22 00:00 10/13/22 00:00 Oxymask 4 Laboratory Results 10/13/22 04:42 10/13/22 04:42 Coding Level of Care Code 61789 CRITICAL CARE 1ST 30-74M Diagnoses Acute respiratory failure with hypoxia J96.01 Rib fractures S22.49XA T12 compression fracture S22.080A Delirium tremens F10.931 Hx of subdural hematoma Z86.79 Hypertension I10 GERD (gastroesophageal reflux disease) K21.9 Anxiety and depression F41.9; F32.A Seizure R56.9 Alcohol use Z78.9 Time Spent (min) 40
[2022-10-13] MEDS: THIAMINE HCL 200 MG in SODIUM CHLORIDE 0.9% 50 ML IV SCH ×3 (11:07→22:15)
[2022-10-13] MEDS: PANTOprazole 40 MG in SYRINGE 0 ML IV SCH (11:08)
[2022-10-13 15:43] LABS: BUN Creatinine Ratio 5.5 (10-20); Calcium 9.3 mg/dl (8.6-10.3); Creatinine Clr Calc Pharmacy 75.5 ml/min; Est GFR (African American) 98.1 ml/min; Est GFR (Non-African American) 84.6 ml/min; Potassium 3.8 mmol/L (3.5-5.1)
[2022-10-13 15:46] LABS: Phosphorus 4.2 mg/dl (2.5-4.9)
[2022-10-13] MEDS: POTASSIUM CHLORIDE / WTR 10 MEQ/100 ML PLCT IV SCH ×3 (17:03→19:33)
--- NOTE | 2022-10-13 19:13 | Electrocardiogram Report ---
Test Reason : Blood Pressure : / mmHG Vent. Rate : 078 BPM Atrial Rate : 300 BPM P-R Int : 000 ms QRS Dur : 090 ms QT Int : 400 ms P-R-T Axes : 000 181 163 degrees QTc Int : 456 ms Poor data quality, interpretation may be adversely affected Unclear rhythm due to artifact Abnormal ECG When compared with ECG of 10-OCT-2022 08:07, Significant artifact is now present Confirmed by Ezio Kinney ([id number]) on 10/13/2022 7:13:01 PM Referred By: REFERRED SELF Confirmed By:Ezio Kinney
--- NOTE | 2022-10-13 20:00 | XRay Report ---
XR chest 1V portable HISTORY: evaluate lung woodard for aspiration COMPARISON: Chest CT 10/10/2022. FINDINGS: No pneumothorax.. The cardiac silhouette is mildly enlarged. There are low lung volumes. No evidence for pulmonary edema. No new focal lung consolidations to suggest pneumonia. Left basilar li near densities favor subsegmental atelectasis. IMPRESSION: Left basilar linear densities favor subsegmental atelectasis. Otherwise, no focal lung consolidations to suggest a pneumonia. ACT 112: Negative or not required by law. Electronically signed by: Nam Richmond M.D. 10/13/2022 7:59 PM
--- NOTE | 2022-10-13 22:02 | Hospitalist Progress Note ---
Date of Service October 13, 2022 Assessment & Plan (1) Alcohol use: Plan: With severe withdrawal, with a h/o seizures Drinks 1/2 liter vodka daily at home Initially admitted to PCU and received 14 mg of IV ativan and IM Zyprexa overnight for high AWSS scores, remained agitated, was having sonorous breath sounds and periods of apnea, with ET CO2 monitor on with elevations of 42 at times Transferred to ICU on 10/11 and placed on Precedex drip, scheduled Ativan EtOH level 0 in ER, UDS neg, ASA and APAP levels negative Ammonia 42 B1 pending B12 low and replaced with 3 doses of IM B12; folate normal Lactic acidosis now resolved Was able to answer some orientation questions and have some conversation although remains confused and hallucinating on the evening of 10/13 Appreciate marketing reps sports and entertainment management -continue IV ativan scheduled and continue precedex gtt, wean off as able to -continue IV thiamine, folic acid, IV protonix -Remains n.p.o. due to encephalopathy -Now being diuresed with Lasix for volume overload but remains on maintenance IV fluids as per marketing reps sports and entertainment -continue AWSS monitoring -replace K, Mag, phos (2) Acute respiratory failure with hypoxia: Plan: secondary to IV ativan for EtOH withdrawal with periods of apnea, sonorous respirations, elevated ET CO2 initially, now improving ABG with evidence of respiratory acidosis -Remains on 4 LNC -continue supplemental O2 prn -Pulmonary added on Pulmicort and Perforomist twice daily -Continued stay in ICU -diuresing occasionally (3) Fever: Plan: Spiked a fever on the evening of 10/13 Chest x-ray negative except atelectasis Blood cultures drawn-follow No leukocytosis-follow CBC Could be from atelectasis Consider urinalysis (4) Fall: Plan: With multiple falls at home, suspected 2nd to chronic hip pain in combination with alcohol use for pain control at home. CK mildly elevated, Anion gap 13 on labs, likely from alcohol use CT head/cervical spine negative on admit (hx fall/subdural hematoma/craniotomy/evacuation). CTAP without acute intraabdominal process but does note T12 compression fracture Hip/pelvix xrays show left EUGENIO and Right severe OA---has significant bruising to her LEFT hip (upcoming surgery for repair RIGHT hip for severe OA on 10/12- cancelled by Ortho). Prior LEFT hip repair in 2019 in [place]. Consult w/ orthopedics appreciated UA neg for infection CK 900-mild rhabdomyolysis-continue IV fluids and check CK in the morning CXR w/o acute process but patient does have multiple old rib fractures various stages of healing CT Chest confirms right sided acute rib fracture Echo normal PT/OT consulted, but not able to participate yet due to encephalopathy (5) T12 compression fracture: Plan: as noted on imaging, 2nd to fall, unsure if symptomatic as is altered mentation vit d level normal pain control prn, will see about orthotics for brace for additional pain control once EtOH withdrawal improved PT/OT consulted (6) Rib fractures: Plan: Multiple fractures of ribs, BILATERAL noted on imaging, likely from fall continue to monitor (7) Osteoarthritis of right hip: Plan: consult orthopedics apprecaited-delaying previously planned EUGENIO pain control plan for PT/OT consultations once stable from EtOH withdrawal (8) Hypertension: Plan: On Losartan-HCTZ 100mg-12.5mg daily, atenolol 50mg BID at home-holding home p.o. meds for altered mental status Does have a history of SVT/PACs/palpitations per cards outpatient note-monitor on telemetry (9) Seizure: Plan: On Lamictal at home but not able to take here do to AMS Continue scheduled Ativan May need to add IV Keppra if remains n.p.o. Seizure precautions (10) Closed head injury: Plan: CT head negative on admission, not on blood thinners (11) Hx of subdural hematoma: Plan: 2020 (s/p fall) (12) GERD (gastroesophageal reflux disease): Plan: continue PPI IV (13) Anxiety and depression: Plan: Holding home Lexapro for prolonged QT Unable to take Lamictal due to being altered, unable to take p.o. Plan DVT prophylaxis-Lovenox Disposition-continued stay in ICU but finally with some slight improvement on 10/13 Admission and Anticipated Discharge Date Admission Date: October 10, 2022 Subjective Patient remained on Precedex and scheduled Ativan throughout the day. I saw her later in the evening and she was able to tell me her name and what town she was in. This was the most alert and oriented she has been in 3 days. Nursing reports she remains significantly agitated when Ativan wears off. Spiked a low-grade fever in the evening. Physical Exam Constitutional: + ill appearing, + altered mental status and + lethargic ENMT: Mouth: + oropharynx abnormality (Severely dry lips and tongue) Respiratory: normal respiratory effort Auscultation: + rhonchi; no wheezes Cardiovascular: RRR, no murmur, no edema Gastrointestinal (Abdomen): normal bowel sounds, soft, nontender, no hepatosplenomegaly Musculoskeletal: Extremities: + muscle atrophy Neurologic: moves all extremities and + confused Psychiatric: Orientation: oriented to person and oriented to place Results & Data Results & Data Vital Signs (Past 12 Hours) Vital Signs Temp Pulse Pulse Resp BP Pulse Ox O2 Del Method 10/13/22 20:30 72 20 98 Oxymask 10/13/22 18:00 38 C H 77 16 162/96 H 94 10/13/22 17:00 37.6 C H 32 H 150/92 H 95 10/13/22 16:00 36.8 C 72 18 151/90 H 95 Oxymask 10/13/22 15:00 36.4 C L 23 137/88 94 10/13/22 14:00 36.7 C 66 17 146/93 H 95 Oxymask 10/13/22 13:31 36.7 C 67 19 144/84 H 95 Oxymask 10/13/22 13:00 36.6 C 67 18 124/70 95 Oxymask 10/13/22 12:00 36.6 C 67 22 123/69 93 10/13/22 11:00 36.6 C 67 21 138/85 94 10/13/22 10:30 36.6 C 68 22 110/84 93 Oxymask 10/13/22 10:27 Oxymask O2 Flow Rate 10/13/22 20:30 4 10/13/22 18:00 10/13/22 17:00 10/13/22 16:00 2 10/13/22 15:00 10/13/22 14:00 2 10/13/22 13:31 2 10/13/22 13:00 2 10/13/22 12:00 10/13/22 11:00 10/13/22 10:30 2 10/13/22 10:27 2 Laboratory Results CBC, BMP, magnesium, phosphorus all reviewed PG Care Time/CCT Total # of Minutes Spent Total Time Spent with Patient: Total time spent is greater than 50% in coordination of care (as documented) at patient's floor/unit and/or counseling patient: Coding Level of Care Code 63647 SUB INP/OBS CARE 235MIN Diagnoses Alcohol use Z78.9 Acute respiratory failure with hypoxia J96.01 Fever R50.9 Fall W19.XXXA T12 compression fracture S22.080A Rib fractures S22.49XA Osteoarthritis of right hip M16.11 Hypertension I10 Seizure R56.9 Closed head injury S09.90XA Hx of subdural hematoma Z86.79 GERD (gastroesophageal reflux disease) K21.9 Anxiety and depression F41.9; F32.A
[2022-10-14] MEDS: LORazepam 2 MG/1 ML VIAL IV SCH ×4 (00:22→17:06)
[2022-10-14] MEDS: D5W AND 1/2NSS + 20MEQ KCL 20 MEQ/1,000 ML BAG IV SCH ×2 (00:50→13:37)
[2022-10-14] MEDS: dexMEDEtomidine 200 MCG/50 ML BAG IV SCH ×6 (00:51→19:34)
[2022-10-14 05:07] LABS: Basophils # (auto) 0.03 K/uL (0-0.2); Basophils % (auto) 0.7 %; Eosinophils # (auto) 0.09 K/uL (0-0.50); Eosinophils % (auto) 2.1 %; Hematocrit (blood only) 36.5 % (37.0-47.0); Immature Granulocytes # (auto) 0.01 K/uL (0.01-0.20); Immature Granulocytes % (auto) 0.2 %; Lymphocytes # (auto) 0.72 K/uL (1.2-3.4); Lymphocytes % (auto) 16.6 %; Mean Corpuscular Hemoglobin 31.7 pg (25.0-34.0); Mean Corpuscular Hgb Conc 35.6 g/dL (32.0-36.0); Mean Platelet Volume 9.9 fL (9.4-12.4); Monocytes # (auto) 0.36 K/uL (0.11-0.59); Monocytes % (auto) 8.3 %; Neutrophils # (auto) 3.14 K/uL (1.40-6.50); Neutrophils % (auto) 72.1 %; Platelet Count 159 K/uL (130-400); RDW Coefficient of Variation 13.1 % (11.5-14.5); RDW Standard Deviation 42.4 fL (36.4-46.3); White Blood Count 4.35 K/ul (4.8-10.8)
[2022-10-14 05:25] LABS: BUN Creatinine Ratio 6.3 (10-20); Calcium 9.6 mg/dl (8.6-10.3); Creatinine Clr Calc Pharmacy 86.1 ml/min; Est GFR (African American) 106.3 ml/min; Est GFR (Non-African American) 91.7 ml/min; Magnesium 1.7 mg/dl (1.7-2.4)
--- NOTE | 2022-10-14 06:06 | Electrocardiogram Report ---
Test Reason : Blood Pressure : / mmHG Vent. Rate : 065 BPM Atrial Rate : 065 BPM P-R Int : 186 ms QRS Dur : 088 ms QT Int : 468 ms P-R-T Axes : 045 -13 036 degrees QTc Int : 486 ms Normal sinus rhythm Prolonged QT When compared with ECG of 11-OCT-2022 19:34, previous ECG had significant artifact Confirmed by Ezio Kinney ([id number]) on 10/14/2022 6:06:04 AM Referred By: REFERRED SELF Confirmed By:Ezio Kinney
--- NOTE | 2022-10-14 07:30 | Hospitalist Progress Note ---
Date of Service October 14, 2022 Assessment & Plan (1) Alcohol use: Plan: Patient is a 67 yo F who was admitted after a fall, found to be in severe etoh withdrawal on arrival. Currently in ICU on precedex drip. With severe withdrawal, with a h/o seizures Drinks 1/2 liter vodka daily at home Initially admitted to PCU and received 14 mg of IV ativan and IM Zyprexa overnight for high AWSS scores, remained agitated, was having sonorous breath sounds and periods of apnea, with ET CO2 monitor on with elevations of 42 at times Transferred to ICU on 10/11 and placed on Precedex drip, scheduled Ativan EtOH level 0 in ER, UDS neg, ASA and APAP levels negative Ammonia 42 B1 pending B12 low and replaced with 3 doses of IM B12; folate normal Lactic acidosis now resolved Was able to answer some orientation questions and have some conversation although remains confused Appreciate ping pong table assembler management -continue IV ativan scheduled and continue precedex gtt, wean off as able to -continue IV thiamine, folic acid, IV protonix -Remains n.p.o. due to encephalopathy -Now being diuresed with Lasix for volume overload but remains on maintenance IV fluids as per ping pong table assembler -continue AWSS monitoring -replace K, Mag, phos (2) Acute respiratory failure with hypoxia: Plan: secondary to IV ativan for EtOH withdrawal with periods of apnea, sonorous respirations, elevated ET CO2 initially, now improving ABG with evidence of respiratory acidosis -Remains on 4 LNC -continue supplemental O2 prn -Pulmonary added on Pulmicort and Perforomist twice daily -Continued stay in ICU -diuresing occasionally (3) Fever: Plan: Spiked a fever on the evening of 10/13 Chest x-ray negative except atelectasis Blood cultures drawn-follow No leukocytosis-follow CBC Could be from atelectasis Consider urinalysis neg on 10/10/22 (4) Fall: Plan: With multiple falls at home, suspected 2nd to chronic hip pain in combination with alcohol use for pain control at home. CK mildly elevated, Anion gap 13 on labs, likely from alcohol use CT head/cervical spine negative on admit (hx fall/subdural hematoma/craniotomy/evacuation). CTAP without acute intraabdominal process but does note T12 compression fracture Hip/pelvix xrays show left EUGENIO and Right severe OA---has significant bruising to her LEFT hip (upcoming surgery for repair RIGHT hip for severe OA on 10/12- cancelled by Ortho). Prior LEFT hip repair in 2019 in [place]. Consult w/ orthopedics appreciated UA neg for infection CK 900-mild rhabdomyolysis-continue IV fluids and check CK in the morning CXR w/o acute process but patient does have multiple old rib fractures various stages of healing CT Chest confirms right sided acute rib fracture Echo normal PT/OT consulted, but not able to participate yet due to encephalopathy (5) T12 compression fracture: Plan: as noted on imaging, 2nd to fall, unsure if symptomatic as is altered mentation vit d level normal pain control prn, will see about orthotics for brace for additional pain control once EtOH withdrawal improved PT/OT consulted (6) Rib fractures: Plan: Multiple fractures of ribs, BILATERAL noted on imaging, likely from fall continue to monitor (7) Osteoarthritis of right hip: Plan: consult orthopedics apprecaited-delaying previously planned EUGENIO pain control plan for PT/OT consultations once stable from EtOH withdrawal (8) Hypertension: Plan: On Losartan-HCTZ 100mg-12.5mg daily, atenolol 50mg BID at home-holding home p.o. meds for altered mental status Does have a history of SVT/PACs/palpitations per cards outpatient note-monitor on telemetry (9) Seizure: Plan: On Lamictal at home but not able to take here do to AMS Continue scheduled Ativan May need to add IV Keppra if remains n.p.o. Seizure precautions (10) Closed head injury: Plan: CT head negative on admission, not on blood thinners (11) Hx of subdural hematoma: Plan: 2020 (s/p fall) (12) GERD (gastroesophageal reflux disease): Plan: continue PPI IV (13) Anxiety and depression: Plan: Holding home Lexapro for prolonged QT Unable to take Lamictal due to being altered, unable to take p.o. Plan DVT prophylaxis-Lovenox Disposition-continued stay in ICU but finally with continued improvement Admission and Anticipated Discharge Date Admission Date: October 10, 2022 Subjective still in icu -- drowsy but arousable to voice Review of Systems Review of Systems: Unobtainable due to cognitive status Physical Exam Physical Exam: Constitutional:I + ill appearing, + altered mental st atus and + letharg ic but arousable t o voice ENMT: Mouth: + oropharyn x abnormality (Sev erely dry lips and tongue) Respiratory: normal respiratory effort Cardiovascular:I RRR, no murmur, no edema Gastrointestinal ( Abdomen): normal bowel sound s, soft, nontender , no hepatosplenom egaly Musculoskeletal: Extremities: + mus robert atrophy Neurologic: moves all extremit ies and + confused Results & Data Results & Data Vital Signs (Past 12 Hours) Vital Signs Temp Pulse Pulse Resp BP Pulse Ox O2 Del Method 10/14/22 07:00 36.3 C L 65 13 100 10/14/22 06:50 36.2 C L 64 19 96 10/14/22 06:49 36.2 C L 66 17 96 10/14/22 06:49 137/88 10/14/22 06:40 36.2 C L 64 0 L 97 10/14/22 06:31 36.1 C L 65 0 L 97 10/14/22 06:31 167/95 H 10/14/22 06:30 36.1 C L 67 0 L 98 10/14/22 06:20 36.1 C L 67 0 L 98 10/14/22 06:10 36.0 C L 64 0 L 98 10/14/22 06:00 36.0 C L 63 0 L 99 10/14/22 06:00 188/96 H 10/14/22 05:50 35.9 C L 64 0 L 99 10/14/22 05:40 35.9 C L 64 0 L 98 10/14/22 05:31 184/99 H 10/14/22 05:31 35.9 C L 64 0 L 99 10/14/22 05:30 35.8 C L 65 0 L 100 10/14/22 05:20 35.8 C L 64 0 L 100 10/14/22 05:10 35.8 C L 64 0 L 99 10/14/22 05:02 178/89 H 10/14/22 05:02 35.7 C L 58 L 0 L 99 10/14/22 05:00 35.7 C L 57 L 0 L 100 10/14/22 04:45 35.7 C L 57 L 0 L 98 10/14/22 04:30 35.6 C L 56 L 0 L 98 10/14/22 04:30 166/94 H 10/14/22 04:15 35.6 C L 57 L 0 L 98 10/14/22 04:01 202/117 H 10/14/22 04:01 35.6 C L 61 0 L 98 10/14/22 04:00 35.6 C L 61 0 L 99 10/14/22 03:45 35.6 C L 61 0 L 97 10/14/22 03:32 155/94 H 10/14/22 03:32 35.6 C L 65 0 L 97 10/14/22 03:30 35.6 C L 66 0 L 97 10/14/22 03:15 35.5 C L 60 0 L 99 10/14/22 03:01 172/109 H 10/14/22 03:01 35.5 C L 61 0 L 97 10/14/22 03:00 35.5 C L 60 0 L 96 10/14/22 02:45 35.6 C L 60 0 L 97 10/14/22 02:30 35.6 C L 62 0 L 96 10/14/22 02:15 35.6 C L 62 0 L 96 10/14/22 02:00 35.7 C L 66 0 L 97 10/14/22 02:00 170/93 H 10/14/22 01:45 35.8 C L 64 0 L 99 10/14/22 01:31 35.8 C L 59 L 0 L 98 10/14/22 01:31 162/96 H 10/14/22 01:30 35.8 C L 57 L 0 L 98 10/14/22 01:15 35.9 C L 61 0 L 98 10/14/22 01:01 36.0 C L 60 0 L 99 10/14/22 01:01 172/102 H 10/14/22 01:00 36.0 C L 64 0 L 98 10/14/22 00:45 36.0 C L 64 0 L 97 10/14/22 00:31 176/98 H 10/14/22 00:31 36.1 C L 66 0 L 98 10/14/22 00:30 36.1 C L 63 0 L 99 10/14/22 00:15 36.2 C L 65 0 L 98 10/14/22 00:00 36.2 C L 70 0 L 97 10/14/22 00:00 170/108 H 10/13/22 23:45 36.3 C L 67 0 L 98 10/13/22 23:30 36.5 C 64 0 L 99 10/13/22 23:30 178/103 H 10/13/22 23:15 36.6 C 69 0 L 99 10/13/22 23:00 36.7 C 71 0 L 99 10/13/22 23:00 177/107 H 10/13/22 22:45 36.8 C 75 0 L 98 10/13/22 22:31 158/93 H 10/13/22 22:31 37.0 C 74 0 L 99 10/13/22 22:30 37.0 C 73 0 L 99 10/13/22 22:15 37.1 C 73 0 L 99 10/13/22 22:00 37.2 C 76 0 L 98 10/14/22 00:00 69 10/13/22 20:30 72 20 98 Oxymask O2 Flow Rate 10/14/22 07:00 10/14/22 06:50 10/14/22 06:49 10/14/22 06:49 10/14/22 06:40 10/14/22 06:31 10/14/22 06:31 10/14/22 06:30 10/14/22 06:20 10/14/22 06:10 10/14/22 06:00 10/14/22 06:00 10/14/22 05:50 10/14/22 05:40 10/14/22 05:31 10/14/22 05:31 10/14/22 05:30 10/14/22 05:20 10/14/22 05:10 10/14/22 05:02 10/14/22 05:02 10/14/22 05:00 10/14/22 04:45 10/14/22 04:30 10/14/22 04:30 10/14/22 04:15 10/14/22 04:01 10/14/22 04:01 10/14/22 04:00 10/14/22 03:45 10/14/22 03:32 10/14/22 03:32 10/14/22 03:30 10/14/22 03:15 10/14/22 03:01 10/14/22 03:01 10/14/22 03:00 10/14/22 02:45 10/14/22 02:30 10/14/22 02:15 10/14/22 02:00 10/14/22 02:00 10/14/22 01:45 10/14/22 01:31 10/14/22 01:31 10/14/22 01:30 10/14/22 01:15 10/14/22 01:01 10/14/22 01:01 10/14/22 01:00 10/14/22 00:45 10/14/22 00:31 10/14/22 00:31 10/14/22 00:30 10/14/22 00:15 10/14/22 00:00 10/14/22 00:00 10/13/22 23:45 10/13/22 23:30 10/13/22 23:30 10/13/22 23:15 10/13/22 23:00 10/13/22 23:00 10/13/22 22:45 10/13/22 22:31 10/13/22 22:31 10/13/22 22:30 10/13/22 22:15 10/13/22 22:00 10/14/22 00:00 10/13/22 20:30 4 PG Care Time/CCT Total # of Minutes Spent Total Time Spent with Patient: Total time spent is greater than 50% in coordination of care (as documented) at patient's floor/unit and/or counseling patient: Coding [place] [address] SUB INP/OBS CARE 2/35MIN Patient Type Established Diagnoses Alcohol use Z78.9 Acute respiratory failure with hypoxia J96.01 Fever R50.9 Fall W19.XXXA T12 compression fracture S22.080A Rib fractures S22.49XA Osteoarthritis of right hip M16.11 Hypertension I10 Seizure R56.9 Closed head injury S09.90XA Hx of subdural hematoma Z86.79 GERD (gastroesophageal reflux disease) K21.9 Anxiety and depression F41.9; F32.A
[2022-10-14] MEDS: BUDESONIDE 0.25 MG/2 ML VIAL (PULMICORT) NEB SCH ×2 (07:59→20:14)
[2022-10-14] MEDS: FORMOTEROL 20 MCG/2 ML VIAL INH SCH ×2 (08:00→20:13)
[2022-10-14] MEDS: lamoTRIgine 100 MG TAB PO SCH ×2 (08:33→21:13)
[2022-10-14] MEDS: FOLIC ACID 1 MG in SYRINGE 9.8 ML IV SCH (08:33)
[2022-10-14] MEDS: ENOXAPARIN INJ 40 MG/0.4 ML SYR SQ SCH (08:33)
[2022-10-14] MEDS: THIAMINE HCL 200 MG in SODIUM CHLORIDE 0.9% 50 ML IV SCH ×3 (08:34→21:15)
[2022-10-14] MEDS ORDERED: FUROSEMIDE 40 MG/4 ML VIAL IV ONE (08:44)
[2022-10-14] MEDS: MAGNESIUM SULFATE / D5W 1 GM/100 ML BAG IV SCH ×3 (09:16→12:37)
[2022-10-14] MEDS: LORazepam 2 MG/1 ML VIAL IV PRN ×3 (09:16→21:15)
--- NOTE | 2022-10-14 10:50 | Critical Care Progress Note ---
Date of Service October 14, 2022 Assessment & Plan (1) Acute respiratory failure with hypoxia: (2) Rib fractures: (3) T12 compression fracture: (4) Delirium tremens: (5) Hx of subdural hematoma: (6) Hypertension: (7) GERD (gastroesophageal reflux disease): (8) Anxiety and depression: (9) Seizure: (10) Alcohol use: Plan CT chest 10/10/2022 personally reviewed: Motion degraded study with minimal dependent atelectasis bilateral lower lobes Cardiomegaly No mediastinal lymphadenopathy Reason Critically Ill: 67-year-old female past medical history of hypertension, seizure, anxiety/depression, GERD was admitted to hospital s/p fall. Patient also has history of alcohol use. She was withdrawing on the floor. Transferred to ICU for alcohol withdrawal. Neuro - [facility]: Positive --Delirium tremens Continue with CIWA protocol Keep RASS -1 Continue with Precedex TSH within normal limit --History of seizure disorder On lamotrigine 150 mg twice daily, which is on hold currently --History of anxiety/depression On escitalopram at home We will hold whilst in the hospital Cardiac - -- Prolonged QTc Keep magnesium greater than 2, phosphorus greater than 3, potassium greater than 4 And QT prolonging medication Respiratory - -- Acute hypercapnic hypoxic respiratory failure Hypercapnia is likely secondary to benzodiazepine use along with JESUS Hypoxia could be from dependent atelectasis patient is also everyday smoker. COPD might also be playing a role ABG 10/11/2022: 7.31/50/47 on 2 L -- Every day smoker Will need PFT as an outpatient On budesonide and Brovana nebulized in the hospital Consider Incruse/Spiriva on discharge GI - -- History of GERD Continue with pantoprazole RENAL/LYTES - No acute kidney issues Monitor BUNs/creatinine ENDO - Continue with ICU hypoglycemia protocol HEME - Normocytic anemia Monitor H&H ID - --New onset fever Tmax 38.4 10/13/22 Blood culture negative to date We will give empiric Rocephin for 48 hours Urine is clean, CT chest normal, procalcitonin negative at presentation --Prophylaxis VTE: Lovenox GI: Pantoprazole Lines: Peripheral Diet: N.p.o. Plan: In/Out: + 1 L, urine output 2375 mL, patient is +5 L since coming to the hospital Tmax 38.4 Magnesium being replaced CPK trending down, will give 40 mg of Lasix today Patient was asking for water today. Will try to see if we are able to go down on the Precedex and may be give her some water/clear liquid diet if possible. Continue with Ativan [id number] along with Precedex I have personally spent 36 minutes of critical care time in the direct management of this patient. This is a life/limb threatening event. This includes time spent evaluating patient, direct bedside care, chart review, placing orders, interpretation of diagnostic studies, discussion with consultants, patient, and family members, as well as other required patient management activities. This time is exclusive of all separately billable procedures, and teaching time and separate from and in addition to any other critical care service time. Admission and Anticipated Discharge Date Admission Date: October 10, 2022 Subjective Patient seen and examined at bedside. Overnight patient got 4 mg of Ativan on top of 5 mg Q6 standing. She was on Precedex 0.6 She is more alert now. Able to answer simple questions. Still restless Spiked new fever of 38.4 Review of Systems Review of Systems: All systems reviewed & are unremarkable except as noted in Subjective and Unobtainable due to mental health condition Physical Exam Physical Exam: Constitutional: No acute distress HEENT: PERRLA Respiratory system: Decreased air entry bilaterally, no rhonchi, positive crackles bilateral lower lobes, no wheeze CVS: S1-S2 positive, no murmurs or gallops Abdomen: Soft, nontender, nondistended, positive bowel sounds x4 Extremities: +2 pulses bilaterally radialis/ dorsalis pedis, no cyanosis, no edema Neuro: RASS -1, oriented to self, mittens in place. Psych: Bouts of restlessness G/U: Positive Moran Skin: no rashes, warm and dry Lymphatic: no cervical or axillary lymphadenopathy Results & Data Results & Data Vital Signs (Past 12 Hours) Vital Signs Temp Pulse Pulse Resp BP Pulse Ox O2 Del Method 10/14/22 10:00 36.3 C L 88 18 104/76 94 Room Air 10/14/22 09:00 36.4 C L 67 14 136/81 95 Room Air 10/14/22 08:00 66 18 91 Room Air 10/14/22 07:01 36.4 C L 65 5 L 186/106 H 99 10/14/22 07:46 Room Air 10/14/22 07:00 36.3 C L 65 13 100 10/14/22 06:50 36.2 C L 64 19 96 10/14/22 06:49 36.2 C L 66 17 96 10/14/22 06:49 137/88 10/14/22 06:40 36.2 C L 64 0 L 97 10/14/22 06:31 36.1 C L 65 0 L 97 10/14/22 06:31 167/95 H 10/14/22 06:30 36.1 C L 67 0 L 98 10/14/22 06:20 36.1 C L 67 0 L 98 10/14/22 06:10 36.0 C L 64 0 L 98 10/14/22 06:00 36.0 C L 63 0 L 99 10/14/22 06:00 188/96 H 10/14/22 05:50 35.9 C L 64 0 L 99 10/14/22 05:40 35.9 C L 64 0 L 98 10/14/22 05:31 184/99 H 10/14/22 05:31 35.9 C L 64 0 L 99 10/14/22 05:30 35.8 C L 65 0 L 100 10/14/22 05:20 35.8 C L 64 0 L 100 10/14/22 05:10 35.8 C L 64 0 L 99 10/14/22 05:02 178/89 H 10/14/22 05:02 35.7 C L 58 L 0 L 99 10/14/22 05:00 35.7 C L 57 L 0 L 100 10/14/22 04:45 35.7 C L 57 L 0 L 98 10/14/22 04:30 35.6 C L 56 L 0 L 98 10/14/22 04:30 166/94 H 10/14/22 04:15 35.6 C L 57 L 0 L 98 10/14/22 04:01 202/117 H 10/14/22 04:01 35.6 C L 61 0 L 98 10/14/22 04:00 35.6 C L 61 0 L 99 10/14/22 03:45 35.6 C L 61 0 L 97 10/14/22 03:32 155/94 H 10/14/22 03:32 35.6 C L 65 0 L 97 10/14/22 03:30 35.6 C L 66 0 L 97 10/14/22 03:15 35.5 C L 60 0 L 99 10/14/22 03:01 172/109 H 10/14/22 03:01 35.5 C L 61 0 L 97 10/14/22 03:00 35.5 C L 60 0 L 96 10/14/22 02:45 35.6 C L 60 0 L 97 10/14/22 02:30 35.6 C L 62 0 L 96 10/14/22 02:15 35.6 C L 62 0 L 96 10/14/22 02:00 35.7 C L 66 0 L 97 10/14/22 02:00 170/93 H 10/14/22 01:45 35.8 C L 64 0 L 99 10/14/22 01:31 35.8 C L 59 L 0 L 98 10/14/22 01:31 162/96 H 10/14/22 01:30 35.8 C L 57 L 0 L 98 10/14/22 01:15 35.9 C L 61 0 L 98 10/14/22 01:01 36.0 C L 60 0 L 99 10/14/22 01:01 172/102 H 10/14/22 01:00 36.0 C L 64 0 L 98 10/14/22 00:45 36.0 C L 64 0 L 97 10/14/22 00:31 176/98 H 10/14/22 00:31 36.1 C L 66 0 L 98 10/14/22 00:30 36.1 C L 63 0 L 99 10/14/22 00:15 36.2 C L 65 0 L 98 10/14/22 00:00 36.2 C L 70 0 L 97 10/14/22 00:00 170/108 H 10/13/22 23:45 36.3 C L 67 0 L 98 10/13/22 23:30 36.5 C 64 0 L 99 10/13/22 23:30 178/103 H 10/13/22 23:15 36.6 C 69 0 L 99 10/13/22 23:00 36.7 C 71 0 L 99 10/13/22 23:00 177/107 H 10/13/22 22:45 36.8 C 75 0 L 98 10/14/22 00:00 69 Laboratory Results 10/14/22 04:16 10/14/22 04:16 Coding Level of Care Code 48886 CRITICAL CARE 1ST 30-74M Diagnoses Acute respiratory failure with hypoxia J96.01 Rib fractures S22.49XA T12 compression fracture S22.080A Delirium tremens F10.931 Hx of subdural hematoma Z86.79 Hypertension I10 GERD (gastroesophageal reflux disease) K21.9 Anxiety and depression F41.9; F32.A Seizure R56.9 Alcohol use Z78.9 Time Spent (min) 36
[2022-10-14] MEDS: PANTOprazole 40 MG in SYRINGE 0 ML IV SCH (11:27)
[2022-10-14] MEDS: cefTRIAXone SODIUM 2,000 MG in DEXTROSE 5% 50 ML IV SCH (12:13)
[2022-10-14] MEDS ORDERED: STAT IV Infusion **Titration per Protocol STA (19:25)
[2022-10-15] MEDS: dexMEDEtomidine 200 MCG/50 ML BAG IV SCH ×7 (00:52→23:25)
[2022-10-15] MEDS: LORazepam 2 MG/1 ML VIAL IV SCH ×4 (00:55→17:38)
[2022-10-15] MEDS: D5W AND 1/2NSS + 20MEQ KCL 20 MEQ/1,000 ML BAG IV SCH ×2 (01:41→14:27)
[2022-10-15] MEDS: LORazepam 2 MG/1 ML VIAL IV PRN ×4 (04:30→23:26)
[2022-10-15 04:47] LABS: Basophils # (auto) 0.03 K/uL (0-0.2); Basophils % (auto) 0.6 %; Eosinophils # (auto) 0.11 K/uL (0-0.50); Eosinophils % (auto) 2.2 %; Hematocrit (blood only) 35.8 % (37.0-47.0); Hemoglobin 12.5 g/dl (12.0-16.0); Immature Granulocytes # (auto) 0.02 K/uL (0.01-0.20); Immature Granulocytes % (auto) 0.4 %; Lymphocytes # (auto) 0.94 K/uL (1.2-3.4); Lymphocytes % (auto) 18.8 %; Mean Corpuscular Hemoglobin 30.7 pg (25.0-34.0); Mean Corpuscular Hgb Conc 34.9 g/dL (32.0-36.0); Mean Platelet Volume 9.7 fL (9.4-12.4); Monocytes # (auto) 0.51 K/uL (0.11-0.59); Monocytes % (auto) 10.2 %; Neutrophils % (auto) 67.8 %; Platelet Count 143 K/uL (130-400); RDW Coefficient of Variation 13.5 % (11.5-14.5); RDW Standard Deviation 43.4 fL (36.4-46.3); Red Blood Count 4.07 M/uL (4.20-5.40); White Blood Count 5.01 K/ul (4.8-10.8)
[2022-10-15 05:01] LABS: BUN Creatinine Ratio 7.6 (10-20); Calcium 9.8 mg/dl (8.6-10.3); Creatinine Clr Calc Pharmacy 70.4 ml/min; Est GFR (African American) 89.1 ml/min; Est GFR (Non-African American) 76.9 ml/min; Magnesium 1.8 mg/dl (1.7-2.4); Phosphorus 2.9 mg/dl (2.5-4.9); Potassium 3.7 mmol/L (3.5-5.1)
[2022-10-15] MEDS: BUDESONIDE 0.25 MG/2 ML VIAL (PULMICORT) NEB SCH ×2 (07:24→20:31)
[2022-10-15] MEDS: FORMOTEROL 20 MCG/2 ML VIAL INH SCH ×2 (07:25→20:31)
--- NOTE | 2022-10-15 07:25 | Critical Care Progress Note ---
Date of Service October 15, 2022 Assessment & Plan (1) Acute respiratory failure with hypoxia: (2) Rib fractures: (3) T12 compression fracture: (4) Delirium tremens: (5) Hx of subdural hematoma: (6) Hypertension: (7) GERD (gastroesophageal reflux disease): (8) Anxiety and depression: (9) Seizure: (10) Alcohol use: Plan CT chest 10/10/2022 personally reviewed: Motion degraded study with minimal dependent atelectasis bilateral lower lobes Cardiomegaly No mediastinal lymphadenopathy Reason Critically Ill: 67-year-old female past medical history of hypertension, seizure, anxiety/depression, GERD was admitted to hospital s/p fall. Patient also has history of alcohol use. She was withdrawing on the floor. Transferred to ICU for alcohol withdrawal. Neuro - [facility]: Positive --Delirium tremens Continue with CIWA protocol Keep RASS -1 Continue with Precedex TSH within normal limit --History of seizure disorder On lamotrigine 150 mg twice daily, which is on hold currently --History of anxiety/depression On escitalopram at home We will hold whilst in the hospital Cardiac - -- Prolonged QTc latest QTc 486 10/13/2022 Keep magnesium greater than 2, phosphorus greater than 3, potassium greater than 4 And QT prolonging medication Respiratory - -- Acute hypercapnic hypoxic respiratory failure Hypercapnia is likely secondary to benzodiazepine use along with JESUS Hypoxia could be from dependent atelectasis patient is also everyday smoker. COPD might also be playing a role ABG 10/11/2022: 7.31/50/47 on 2 L -- Every day smoker Will need PFT as an outpatient On budesonide and Brovana nebulized in the hospital Consider Incruse/Spiriva on discharge GI - -- History of GERD Continue with pantoprazole RENAL/LYTES - No acute kidney issues Monitor BUNs/creatinine ENDO - Continue with ICU hypoglycemia protocol HEME - Normocytic anemia Monitor H&H ID - --New onset fever Tmax 38.4 10/13/22 Blood culture negative to date We will give empiric Rocephin for 48 hours Urine is clean, CT chest normal, procalcitonin negative at presentation --Prophylaxis VTE: Lovenox GI: Pantoprazole Lines: Peripheral Diet: N.p.o. Plan: In/Out: +1.3 L, urine output 1250, patient is +6 L since coming to the hospital Tmax 38.1 Patient got total 8 mg of Ativan in the last 24 hours on top of the 20 mg standing dose Continue with Precedex Continue with D5 half NS with 20 of KCl Magnesium and potassium being replaced Give 40 mg of Lasix today I have personally spent 37 minutes of critical care time in the direct management of this patient. This is a life/limb threatening event. This includes time spent evaluating patient, direct bedside care, chart review, placing orders, interpretation of diagnostic studies, discussion with consultants, patient, and family members, as well as other required patient management activities. This time is exclusive of all separately billable procedures, and teaching time and separate from and in addition to any other critical care service time. Admission and Anticipated Discharge Date Admission Date: October 10, 2022 Subjective Patient seen and examined at bedside. No acute distress She was on Precedex 0.6 at the time of examination. She is on 4 mg of Ativan extra overnight. Patient pulled out Moran given that she was in mittens x2. It was placed back in Tmax 38.1 Review of Systems Review of Systems: All systems reviewed & are unremarkable except as noted in Subjective and Unobtainable due to cognitive status Physical Exam Physical Exam: Constitutional: No acute distress HEENT: PERRLA Respiratory system: Decreased air entry bilaterally, no rhonchi, positive crackles bilateral lower lobes, no wheeze CVS: S1-S2 positive, no murmurs or gallops Abdomen: Soft, nontender, nondistended, positive bowel sounds x4 Extremities: +2 pulses bilaterally radialis/ dorsalis pedis, no cyanosis, no edema Neuro: RASS -1: -2, oriented to self, mittens in place, moving all extremities actively Psych: Bouts of restlessness G/U: Positive Moran Skin: no rashes, warm and dry Lymphatic: no cervical or axillary lymphadenopathy Results & Data Results & Data Vital Signs (Past 12 Hours) Vital Signs Temp Pulse Pulse Resp BP Pulse Ox O2 Del Method 10/15/22 06:00 68 20 133/75 100 10/15/22 05:00 66 23 97/61 L 10/15/22 04:00 36.6 C 92 H 26 H 126/89 88 L 10/15/22 03:00 36.7 C 136 H 21 131/77 96 10/15/22 02:00 36.6 C 85 16 120/76 97 10/15/22 01:45 79 10/15/22 01:00 36.8 C 86 23 119/87 93 10/15/22 00:00 36.7 C 82 20 118/66 88 L 10/14/22 23:00 37.2 C 80 24 121/82 89 L 10/14/22 22:00 37.6 C H 87 29 H 93/73 L 94 10/14/22 21:00 37.9 C H 101 H 23 121/81 90 10/14/22 20:00 38.0 C H 105 H 21 125/81 94 10/14/22 19:37 38.1 C H 122 H 23 151/103 H 94 10/14/22 20:16 107 H 20 92 Room Air Laboratory Results 10/15/22 04:36 10/15/22 04:36 Coding Level of Care Code 06781 CRITICAL CARE 1ST 30-74M Diagnoses Acute respiratory failure with hypoxia J96.01 Rib fractures S22.49XA T12 compression fracture S22.080A Delirium tremens F10.931 Hx of subdural hematoma Z86.79 Hypertension I10 GERD (gastroesophageal reflux disease) K21.9 Anxiety and depression F41.9; F32.A Seizure R56.9 Alcohol use Z78.9 Time Spent (min) 37
[2022-10-15] MEDS ORDERED: FUROSEMIDE 40 MG/4 ML VIAL IV ONE (07:32)
[2022-10-15] MEDS: POTASSIUM CHLORIDE / WTR 10 MEQ/100 ML PLCT IV SCH ×3 (07:48→10:00)
[2022-10-15] MEDS: MAGNESIUM SULFATE / D5W 1 GM/100 ML BAG IV SCH ×3 (07:48→11:52)
[2022-10-15] MEDS: lamoTRIgine 100 MG TAB PO SCH ×2 (07:49→20:27)
[2022-10-15] MEDS: ENOXAPARIN INJ 40 MG/0.4 ML SYR SQ SCH (07:49)
[2022-10-15] MEDS: THIAMINE HCL 200 MG in SODIUM CHLORIDE 0.9% 50 ML IV SCH ×3 (07:50→20:37)
[2022-10-15] MEDS: FOLIC ACID 1 MG in SYRINGE 9.8 ML IV SCH (07:53)
[2022-10-15] MEDS: PANTOprazole 40 MG in SYRINGE 0 ML IV SCH (11:23)
[2022-10-15] MEDS: cefTRIAXone SODIUM 2,000 MG in DEXTROSE 5% 50 ML IV SCH (11:23)
--- NOTE | 2022-10-15 17:36 | Hospitalist Progress Note ---
Date of Service October 15, 2022 Assessment & Plan (1) Alcohol use: Plan: Patient is a 67 yo F who was admitted after a fall, found to be in severe etoh withdrawal on arrival. Currently in ICU on precedex drip. With severe withdrawal, with a h/o seizures Drinks 1/2 liter vodka daily at home Initially admitted to PCU and received 14 mg of IV ativan and IM Zyprexa overnight for high AWSS scores, remained agitated, was having sonorous breath sounds and periods of apnea, with ET CO2 monitor on with elevations of 42 at times Transferred to ICU on 10/11 and placed on Precedex drip, scheduled Ativan EtOH level 0 in ER, UDS neg, ASA and APAP levels negative Ammonia 42 B1 pending B12 low and replaced with 3 doses of IM B12; folate normal Lactic acidosis now resolved Appreciate boiler repairman management -continue IV ativan scheduled and continue precedex gtt, wean off as able to -continue IV thiamine, folic acid, IV protonix -Remains n.p.o. due to encephalopathy -Now being diuresed with Lasix for volume overload but remains on maintenance IV fluids as per boiler repairman -continue AWSS monitoring -replace K, Mag, phos (2) Acute respiratory failure with hypoxia: Plan: secondary to IV ativan for EtOH withdrawal with periods of apnea, sonorous respirations, elevated ET CO2 initially, now improving ABG with evidence of respiratory acidosis - now on room air -Pulmonary added on Pulmicort and Perforomist twice daily -Continued stay in ICU -diuresing occasionally (3) Fever: Plan: Spiked a fever on the evening of 10/13 Chest x-ray negative except atelectasis Blood cultures drawn-follow No leukocytosis-follow CBC Could be from atelectasis Consider urinalysis --> neg on 10/10/22 (4) Fall: Plan: With multiple falls at home, suspected 2nd to chronic hip pain in combination with alcohol use for pain control at home. CK mildly elevated, Anion gap 13 on l abs, likely from alcohol use CT head/cervical spine negative on admit (hx fall/subdural hematoma/craniotomy/evacuation). CTAP without acute intraabdominal process but does note T12 compression fracture Hip/pelvix xrays show left EUGENIO and Right severe OA---has significant bruising to her LEFT hip (upcoming surgery for repair RIGHT hip for severe OA on 10/12- cancelled by Ortho). Prior LEFT hip repair in 2019 in [place]. Consult w/ orthopedics appreciated UA neg for infection CK 900-mild rhabdomyolysis-continue IV fluids and check CK in the morning CXR w/o acute process but patient does have multiple old rib fractures various stages of healing CT Chest confirms right sided acute rib fracture Echo normal PT/OT consulted, but not able to participate yet due to encephalopathy (5) T12 compression fracture: Plan: as noted on imaging, 2nd to fall, unsure if symptomatic as is altered mentation vit d level normal pain control prn, will see about orthotics for brace for additional pain control once EtOH withdrawal improved PT/OT consulted (6) Rib fractures: Plan: Multiple fractures of ribs, BILATERAL noted on imaging, likely from fall continue to monitor (7) Osteoarthritis of right hip: Plan: consult orthopedics apprecaited-delaying previously planned EUGENIO pain control plan for PT/OT consultations once stable from EtOH withdrawal (8) Hypertension: Plan: On Losartan-HCTZ 100mg-12.5mg daily, atenolol 50mg BID at home-holding home p.o. meds for altered mental status Does have a history of SVT/PACs/palpitations per cards outpatient note-monitor on telemetry (9) Seizure: Plan: On Lamictal at home but not able to take here do to AMS Continue scheduled Ativan May need to add IV Keppra if remains n.p.o. Seizure precautions (10) Closed head injury: Plan: CT head negative on admission, not on blood thinners (11) Hx of subdural hematoma: Plan: 2020 (s/p fall) (12) GERD (gastroesophageal reflux disease): Plan: continue PPI IV (13) Anxiety and depression: Plan: Holding home Lexapro for prolonged QT Unable to take Lamictal due to being altered, unable to take p.o. Plan DVT prophylaxis-Lovenox Disposition-continued stay in ICU but finally with continued improvement Admission and Anticipated Discharge Date Admission Date: October 10, 2022 Subjective Patient still in the ICU --- precedex had been weaned overnight but had to be resumed this am Review of Systems Review of Systems: Unobtainable due to cognitive status Physical Exam Constitutional: WD/WN, vitals as above + lethargic (patient moaning but does not answer questions or open eyes ) ENMT: external ear and nose normal, oropharynx normal Mucous membranes appear much less dry today Neck: trachea midline, no thyromegaly Respiratory: normal respiratory effort; no respiratory distress Cardiovascular: RRR, no murmur, no edema Musculoskeletal: Head/Neck/Chest: normocephalic and head atraumatic Skin: no rashes, warm and dry Genitourinary: Moran catheter in place, draining yellow urine without visible blood clots Results & Data Results & Data Vital Signs (Past 12 Hours) Vital Signs Temp Pulse Pulse Resp BP Pulse Ox O2 Del Method 10/15/22 17:00 67 17 103/74 94 Room Air 10/15/22 16:00 65 16 109/71 94 Room Air 10/15/22 15:00 64 15 89/61 L 93 Room Air 10/15/22 15:11 36.5 C 10/15/22 14:00 68 16 102/58 L 91 Room Air 10/15/22 13:00 19 125/80 96 Room Air 10/15/22 12:00 60 24 89/53 L 94 Room Air 10/15/22 11:47 36.4 C L 10/15/22 11:00 63 16 97/68 L 97 Room Air 10/15/22 10:00 65 19 96/74 L 93 Room Air 10/15/22 09:00 62 19 103/69 94 Room Air 10/15/22 08:00 66 24 102/63 96 Room Air 10/15/22 07:00 56 L 15 171/91 H 100 Room Air 10/15/22 07:25 65 18 96 Room Air 10/15/22 06:00 68 20 133/75 100 PG Care Time/CCT Total # of Minutes Spent Total Time Spent with Patient: Total time spent is greater than 50% in coordination of care (as documented) at patient's floor/unit and/or counseling patient: Coding Level of Care Code 10392 SUB INP/OBS CARE 2/35MIN Diagnoses Alcohol use Z78.9 Acute respiratory failure with hypoxia J96.01 Fever R50.9 Fall W19.XXXA T12 compression fracture S22.080A Rib fractures S22.49XA Osteoarthritis of right hip M16.11 Hypertension I10 Seizure R56.9 Closed head injury S09.90XA Hx of subdural hematoma Z86.79 GERD (gastroesophageal reflux disease) K21.9 Anxiety and depression F41.9; F32.A
[2022-10-16] MEDS: LORazepam 2 MG/1 ML VIAL IV SCH ×2 (00:41→05:37)
[2022-10-16] MEDS: dexMEDEtomidine 200 MCG/50 ML BAG IV SCH ×3 (02:18→19:45)
[2022-10-16] MEDS: D5W AND 1/2NSS + 20MEQ KCL 20 MEQ/1,000 ML BAG IV SCH ×2 (03:27→17:51)
[2022-10-16 05:02] LABS: Basophils # (auto) 0.03 K/uL (0-0.2); Basophils % (auto) 0.7 %; Eosinophils # (auto) 0.15 K/uL (0-0.50); Eosinophils % (auto) 3.3 %; Hemoglobin 12.8 g/dl (12.0-16.0); Immature Granulocytes # (auto) 0.01 K/uL (0.01-0.20); Immature Granulocytes % (auto) 0.2 %; Lymphocytes # (auto) 0.85 K/uL (1.2-3.4); Lymphocytes % (auto) 18.5 %; Mean Corpuscular Hemoglobin 31.4 pg (25.0-34.0); Mean Corpuscular Hgb Conc 34.6 g/dL (32.0-36.0); Mean Corpuscular Volume 90.7 fL (80.0-100.0); Mean Platelet Volume 9.7 fL (9.4-12.4); Monocytes # (auto) 0.44 K/uL (0.11-0.59); Monocytes % (auto) 9.6 %; Neutrophils # (auto) 3.11 K/uL (1.40-6.50); Neutrophils % (auto) 67.7 %; Platelet Count 162 K/uL (130-400); RDW Coefficient of Variation 13.8 % (11.5-14.5); Red Blood Count 4.08 M/uL (4.20-5.40); White Blood Count 4.59 K/ul (4.8-10.8)
[2022-10-16 05:06] LABS: BUN Creatinine Ratio 6.3 (10-20); Calcium 9.9 mg/dl (8.6-10.3); Creatinine Clr Calc Pharmacy 65.7 ml/min; Est GFR (African American) 89.1 ml/min; Est GFR (Non-African American) 76.9 ml/min; Magnesium 1.9 mg/dl (1.7-2.4); Phosphorus 3.4 mg/dl (2.5-4.9); Potassium 3.9 mmol/L (3.5-5.1)
[2022-10-16] MEDS: FORMOTEROL 20 MCG/2 ML VIAL INH SCH ×2 (07:06→19:49)
[2022-10-16] MEDS: BUDESONIDE 0.25 MG/2 ML VIAL (PULMICORT) NEB SCH ×2 (07:06→19:49)
[2022-10-16] MEDS: ENOXAPARIN INJ 40 MG/0.4 ML SYR SQ SCH (07:57)
[2022-10-16] MEDS: FOLIC ACID 1 MG in SYRINGE 9.8 ML IV SCH (07:57)
[2022-10-16] MEDS: THIAMINE HCL 200 MG in SODIUM CHLORIDE 0.9% 50 ML IV SCH ×3 (07:58→20:37)
[2022-10-16] MEDS: lamoTRIgine 100 MG TAB PO SCH ×2 (08:14→20:38)
--- NOTE | 2022-10-16 09:40 | Critical Care Progress Note ---
Date of Service October 16, 2022 Assessment & Plan (1) Acute respiratory failure with hypoxia: (2) Rib fractures: (3) T12 compression fracture: (4) Delirium tremens: (5) Hx of subdural hematoma: (6) Hypertension: (7) GERD (gastroesophageal reflux disease): (8) Anxiety and depression: (9) Seizure: (10) Alcohol use: Plan CT chest 10/10/2022 personally reviewed: Motion degraded study with minimal dependent atelectasis bilateral lower lobes Cardiomegaly No mediastinal lymphadenopathy Reason Critically Ill: 67-year-old female past medical history of hypertension, seizure, anxiety/depression, GERD was admitted to hospital s/p fall. Patient also has history of alcohol use. She was withdrawing on the floor. Transferred to ICU for alcohol withdrawal. Neuro - [facility]: Positive --Delirium tremens Transition to phenobarb discontinue with Precedex TSH within normal limit --History of seizure disorder On lamotrigine 150 mg twice daily --History of anxiety/depression On escitalopram at home - 20 mg daily, start tomorrow Cardiac - -- Prolonged QTc latest QTc 486 10/13/2022 Keep magnesium greater than 2, phosphorus greater than 3, potassium greater than 4 And QT prolonging medication Respiratory - -- Acute hypercapnic hypoxic respiratory failure: Improved Hypercapnia is likely secondary to benzodiazepine use along with JESUS Hypoxia could be from dependent atelectasis patient is also everyday smoker. COPD might also be playing a role -- Every day smoker Will need PFT as an outpatient On budesonide and Brovana nebulized in the hospital GI - -- History of GERD Continue with pantoprazole RENAL/LYTES - No acute kidney issues Monitor BUNs/creatinine ENDO - Continue with ICU hypoglycemia protocol HEME - Normocytic anemia Monitor H&H ID - --New onset fever: currently afebrile Blood culture negative to date Empiric Rocephin for 48 hours completed --Prophylaxis VTE: Lovenox GI: Pantoprazole Lines: Peripheral Diet: N.p.o. I have personally spent 45 minutes of critical care time in the direct management of this patient. This is a life/limb threatening event. This includes time spent evaluating patient, direct bedside care, chart review, placing orders, interpretation of diagnostic studies, discussion with consultants, patient, and family members, as well as other required patient management activities. This time is exclusive of all separately billable procedures, and teaching time and separate from and in addition to any other critical care service time. Admission and Anticipated Discharge Date Admission Date: October 10, 2022 Subjective No overnight events still requiring liberal amounts of Ativan for breakthrough. Review of Systems Review of Systems: Unobtainable due to cognitive status Physical Exam Physical Exam: General: Alert. nontoxic. Skin: Warm, dry, Head: Atraumatic Ears, nose, mouth and throat: airway patent Cardiovascular: Normal peripheral perfusion Respiratory: no respiratory distress Gastrointestinal: Non distended Musculoskeletal: No deformity Results & Data Results & Data Vital Signs (Past 12 Hours) Vital Signs Temp Pulse Pulse Resp BP Pulse Ox O2 Del Method 10/16/22 08:00 51 L 12 95 Nasal Cannula 10/16/22 08:00 128/70 10/16/22 07:00 51 L 13 91 10/16/22 07:00 135/74 10/16/22 08:40 Nasal Cannula 10/16/22 08:10 35.6 C L 10/16/22 07:07 48 L 15 91 Nasal Cannula 10/16/22 06:00 52 L 13 152/88 H 93 Nasal Cannula 10/16/22 05:50 63 24 91 10/16/22 05:40 52 L 15 96 10/16/22 05:30 54 L 15 96 10/16/22 05:20 53 L 19 95 10/16/22 05:10 53 L 16 134/83 96 10/16/22 05:00 56 L 24 97 Nasal Cannula 10/16/22 05:00 134/83 10/16/22 04:00 54 L 14 92 10/16/22 04:00 36.2 C L 154/84 H 10/16/22 03:00 59 L 15 94 10/16/22 03:00 127/89 10/16/22 02:01 62 17 94 10/16/22 02:01 166/90 H 10/16/22 02:00 63 17 95 10/16/22 01:30 62 15 94 10/16/22 01:20 63 15 94 10/16/22 01:10 64 15 95 10/16/22 01:00 63 16 94 10/16/22 01:00 128/92 10/16/22 00:50 63 15 94 Nasal Cannula 10/16/22 00:40 64 18 94 10/16/22 00:30 65 15 94 Nasal Cannula 10/16/22 00:00 66 15 87 L 10/16/22 00:00 158/89 H 10/16/22 00:23 76 10/15/22 23:30 69 23 94 10/15/22 23:00 73 15 95 10/15/22 23:00 36.8 C 129/104 H 10/15/22 22:30 81 19 93 10/15/22 22:00 76 19 91 10/15/22 22:00 133/78 10/15/22 21:50 114 H 28 H 94 10/15/22 21:40 90 21 96 O2 Flow Rate 10/16/22 08:00 2 10/16/22 08:00 10/16/22 07:00 10/16/22 07:00 10/16/22 08:40 2 10/16/22 08:10 10/16/22 07:07 2.5 10/16/22 06:00 2 10/16/22 05:50 10/16/22 05:40 10/16/22 05:30 10/16/22 05:20 10/16/22 05:10 10/16/22 05:00 2 10/16/22 05:00 10/16/22 04:00 10/16/22 04:00 10/16/22 03:00 10/16/22 03:00 10/16/22 02:01 10/16/22 02:01 10/16/22 02:00 10/16/22 01:30 10/16/22 01:20 10/16/22 01:10 10/16/22 01:00 10/16/22 01:00 10/16/22 00:50 2 10/16/22 00:40 10/16/22 00:30 2 10/16/22 00:00 10/16/22 00:00 10/16/22 00:23 10/15/22 23:30 10/15/22 23:00 10/15/22 23:00 10/15/22 22:30 10/15/22 22:00 10/15/22 22:00 10/15/22 21:50 10/15/22 21:40 Critical Care Results & Data Vital Signs (Past 12 Hours) Vital Signs Temp Pulse Pulse Resp BP Pulse Ox O2 Del Method 10/16/22 12:02 69 18 95 Nasal Cannula 10/16/22 12:02 120/83 10/16/22 12:00 68 15 97 10/16/22 11:01 53 L 11 L 97 10/16/22 11:01 92/66 L 10/16/22 11:00 54 L 14 97 10/16/22 10:00 51 L 13 97 10/16/22 10:00 132/70 10/16/22 09:00 50 L 13 97 10/16/22 09:00 127/72 10/16/22 08:00 51 L 12 95 Nasal Cannula 10/16/22 08:00 128/70 10/16/22 07:00 51 L 13 91 10/16/22 07:00 135/74 10/16/22 08:40 Nasal Cannula 10/16/22 08:10 35.6 C L 10/16/22 07:07 48 L 15 91 Nasal Cannula 10/16/22 06:00 52 L 13 152/88 H 93 Nasal Cannula 10/16/22 05:50 63 24 91 10/16/22 05:40 52 L 15 96 10/16/22 05:30 54 L 15 96 10/16/22 05:20 53 L 19 95 10/16/22 05:10 53 L 16 134/83 96 10/16/22 05:00 56 L 24 97 Nasal Cannula 10/16/22 05:00 134/83 10/16/22 04:00 54 L 14 92 10/16/22 04:00 36.2 C L 154/84 H O2 Flow Rate 10/16/22 12:02 2 10/16/22 12:02 10/16/22 12:00 10/16/22 11:01 10/16/22 11:01 10/16/22 11:00 10/16/22 10:00 10/16/22 10:00 10/16/22 09:00 10/16/22 09:00 10/16/22 08:00 2 10/16/22 08:00 10/16/22 07:00 10/16/22 07:00 10/16/22 08:40 2 10/16/22 08:10 10/16/22 07:07 2.5 10/16/22 06:00 2 10/16/22 05:50 10/16/22 05:40 10/16/22 05:30 10/16/22 05:20 10/16/22 05:10 10/16/22 05:00 2 10/16/22 05:00 10/16/22 04:00 10/16/22 04:00 Lab & Micro Results (Past 24 Hours) RBC 4.08 M/uL (4.20-5.40) L 10/16/22 WBC 4.59 K/ul (4.8-10.8) L 10/16/22 Hgb 12.8 g/dl (12.0-16.0) 10/16/22 Hct 37.0 % (37.0-47.0) 10/16/22 MCV 90.7 fL (80.0-100.0) 10/16/22 MCH 31.4 pg (25.0-34.0) 10/16/22 MCHC 34.6 g/dL (32.0-36.0) 10/16/22 RDW Standard Deviation 46.0 fL (36.4-46.3) 10/16/22 RDW Coefficient of Variation 13.8 % (11.5-14.5) 10/16/22 Plt Count 162 K/uL (130-400) 10/16/22 MPV 9.7 fL (9.4-12.4) 10/16/22 Neutrophils (%) (Auto) 67.7 % 10/16/22 Lymphocytes (%) (Auto) 18.5 % 10/16/22 Monocytes # (Auto) 0.44 K/uL (0.11-0.59) 10/16/22 Eosinophils # (Auto) 0.15 K/uL (0-0.50) 10/16/22 Immature Granulocyte % (Auto) 0.2 % 10/16/22 Neutrophils # (Auto) 3.11 K/uL (1.40-6.50) 10/16/22 Lymphocytes # (Auto) 0.85 K/uL (1.2-3.4) L 10/16/22 Monocytes # (Auto) 0.44 K/uL (0.11-0.59) 10/16/22 Eosinophils # (Auto) 0.15 K/uL (0-0.50) 10/16/22 Basophils # (Auto) 0.03 K/uL (0-0.2) 10/16/22 Immature Granulocyte # (Auto) 0.01 K/uL (0.01-0.20) 3 Na 138 mmol/L (136-145) 10/16/22 K 3.9 mmol/L (3.5-5.1) 10/16/22 Cl 107 mmol/L (98-107) 10/16/22 CO2 26 mmol/L (21-32) 10/16/22 Anion Gap 5 (3-11) 10/16/22 BUN 5 mg/dl (6-23) L 10/16/22 Creatinine 0.79 mg/dl (0.6-1.2) 10/16/22 Estimated GFR ( Amer) 89.1 ml/min 10/16/22 Estimated GFR (Non-Af Amer) 76.9 ml/min 10/16/22 BUN/Creatinine Ratio 6.3 (10-20) L 10/16/22 Glu 126 mg/dl (70-99(Fasting)) H 10/16/22 Ca 9.9 mg/dl (8.6-10.3) 10/16/22 Phosphorus Level 3.4 mg/dl (2.5-4.9) 10/16/22 Mg 1.9 mg/dl (1.7-2.4) 10/16/22 04:37 Calcium Level 9.9 mg/dl (8.6-10.3) 10/16/22 04:37 Microbiology 10/13/22 18:53 Aerobic Blood Culture - Preliminary Blood No growth in Aerobic bottle after 48 hours. Anaerobic Blood Culture - Preliminary No growth in Anaerobic bottle after 48 hours. 10/13/22 19:04 Aerobic Blood Culture - Preliminary Blood No growth in Aerobic bottle after 48 hours. Anaerobic Blood Culture - Preliminary No growth in Anaerobic bottle after 48 hours. I & O Totals 24 Hours 10/15/22 10/16/22 10/17/22 06:59 06:59 06:59 Intake Total 2600.616 / 2600.616 3035.696 / 3035.696 144.320 / 144.320 Output Total 1250 / 1250 1610 / 1610 275 / 275 Balance 1350.616 / 2042.623 8907.696 / 1425.696 -130.680 / -130.680 Cumulative 10/10/22 07:40 thru 10/16/22 14:48 Intake Total 22394.291 Output Total 9285 Balance 7571.291 RT Ventilator Mngmt (Last Documented) Ventilator Ordered Settings Respiratory Rate 18 10/16/22 12:02 Ventilator - PT Measurements Respiratory Rate 18 End-Tidal CO2 24 Coding Level of Care Code 35151 CRITICAL CARE 1ST 30-74M Diagnoses Acute respiratory failure with hypoxia J96.01 Rib fractures S22.49XA T12 compression fracture S22.080A Delirium tremens F10.931 Hx of subdural hematoma Z86.79 Hypertension I10 GERD (gastroesophageal reflux disease) K21.9 Anxiety and depression F41.9; F32.A Seizure R56.9 Alcohol use Z78.9
[2022-10-16] MEDS ORDERED: PHENobarbital sodium 130 MG/ML VIAL IV STA (10:29)
[2022-10-16] MEDS: PANTOprazole 40 MG in SYRINGE 0 ML IV SCH (11:14)
[2022-10-16] MEDS: PHENobarbital sodium 65 MG/ML VIAL IV SCH ×2 (13:51→17:24)
[2022-10-16] MEDS: PHENobarbital sodium 65 MG/ML VIAL IV PRN ×2 (14:38→20:40)
--- NOTE | 2022-10-16 18:11 | Hospitalist Progress Note ---
Date of Service October 16, 2022 Assessment & Plan (1) Alcohol use: Plan: With severe withdrawal, with a h/o seizures Drinks 1/2 liter vodka daily at home Initially admitted to PCU and received 14 mg of IV ativan and IM Zyprexa overnight for high AWSS scores, remained agitated, was having sonorous breath sounds and periods of apnea, with ET CO2 monitor on with elevations of 42 at times Transferred to ICU on 10/11 and placed on Precedex drip, scheduled Ativan. Today Precedex drip was switched to phenobarb by pattern worker. Per nurse, the patient is more restless today. EtOH level 0 in ER, UDS neg, ASA and APAP levels negative Ammonia 42 B1 pending B12 low and replaced with 3 doses of IM B12; folate normal Lactic acidosis now resolved Appreciate pattern worker management -continue IV phenobarbital, wean off as able -continue IV thiamine, folic acid, IV protonix -Remains n.p.o. due to encephalopathy -continue AWSS monitoring (2) Acute respiratory failure with hypoxia: Plan: Now on 2 L of oxygen Most likely secondary to IV Ativan for alcohol withdrawal IV Ativan discontinued -continue supplemental O2 prn -Continued stay in ICU -diuresing occasionally (3) Fever: Plan: Spiked a fever on the evening of 10/13 Chest x-ray negative except atelectasis Blood cultures drawn-follow No leukocytosis-follow CBC Could be from atelectasis Consider urinalysis (4) Fall: Plan: With multiple falls at home, suspected 2nd to chronic hip pain in combination with alcohol use for pain control at home. CK mildly elevated, Anion gap 13 on labs, likely from alcohol use CT head/cervical spine negative on admit (hx fall/subdural hematoma/craniotomy/evacuation). CTAP without acute intraabdominal process but does note T12 compression fracture Hip/pelvix xrays show left EUGENIO and Right severe OA---has significant bruising to her LEFT hip (upcoming surgery for repair RIGHT hip for severe OA on 10/12- cancelled by Ortho). Prior LEFT hip repair in 2019 in [place]. Consult w/ orthopedics appreciated UA neg for infection CK 900-mild rhabdomyolysis-continue IV fluids and check CK in the morning CXR w/o acute process but patient does have multiple old rib fractures various stages of healing CT Chest confirms right sided acute rib fracture Echo normal PT/OT consulted, but not able to participate yet due to encephalopathy (5) T12 compression fracture: Plan: as noted on imaging, 2nd to fall, unsure if symptomatic as is altered mentation vit d level normal pain control prn, will see about orthotics for brace for additional pain control once EtOH withdrawal improved PT/OT consulted (6) Rib fractures: Plan: Multiple fractures of ribs, BILATERAL noted on imaging, likely from fall continue to monitor (7) Osteoarthritis of right hip: Plan: consult orthopedics apprecaited-delaying previously planned EUGENIO pain control plan for PT/OT consultations once stable from EtOH withdrawal (8) Hypertension: Plan: On Losartan-HCTZ 100mg-12.5mg daily, atenolol 50mg BID at home-holding home p.o. meds for altered mental status Does have a history of SVT/PACs/palpitations per cards outpatient note-monitor on telemetry (9) Seizure: Plan: On Lamictal Continue scheduled Ativan May need to add IV Keppra if remains n.p.o. Seizure precautions (10) Closed head injury: Plan: CT head negative on admission, not on blood thinners (11) Hx of subdural hematoma: Plan: 2020 (s/p fall) (12) GERD (gastroesophageal reflux disease): Plan: continue PPI IV (13) Anxiety and depression: Plan: Holding home Lexapro for prolonged QT On Lamictal . Plan DVT prophylaxis-Lovenox Disposition-continued stay in ICU Admission and Anticipated Discharge Date Admission Date: October 10, 2022 Subjective Patient was switched to phenobarbital from Precedex drip. Per nurse patient is more agitated today. Physical Exam Physical Exam: General: Restless in bed Heart: S1, S2/regular rate and rhythm, no murmur rubs or gallops Lungs: Clear to auscultation bilaterally. Normal effort Abdomen: Soft/nontender/nondistended. No hepatosplenomegaly Extremities: No clubbing/cyanosis. No edema Behavior: Unable to assess due to delirium Results & Data Results & Data Vital Signs (Past 12 Hours) Vital Signs Temp Pulse Pulse Resp BP Pulse Ox O2 Del Method 10/16/22 16:00 104 H 100 10/16/22 16:00 133/86 10/16/22 15:00 88 23 100 10/16/22 14:02 74 15 98 10/16/22 14:02 124/73 10/16/22 14:00 74 12 91 10/16/22 13:01 127/70 10/16/22 13:01 72 13 98 10/16/22 13:00 72 17 96 10/16/22 12:02 69 18 95 Nasal Cannula 10/16/22 12:02 120/83 10/16/22 12:00 68 15 97 10/16/22 11:01 53 L 11 L 97 10/16/22 11:01 92/66 L 10/16/22 11:00 54 L 14 97 10/16/22 10:00 51 L 13 97 10/16/22 10:00 132/70 10/16/22 09:00 50 L 13 97 10/16/22 09:00 127/72 10/16/22 08:00 51 L 12 95 Nasal Cannula 10/16/22 08:00 128/70 10/16/22 07:00 51 L 13 91 10/16/22 07:00 135/74 10/16/22 08:40 Nasal Cannula 10/16/22 08:10 35.6 C L 10/16/22 07:07 48 L 15 91 Nasal Cannula O2 Flow Rate 10/16/22 16:00 10/16/22 16:00 10/16/22 15:00 10/16/22 14:02 10/16/22 14:02 10/16/22 14:00 10/16/22 13:01 10/16/22 13:01 10/16/22 13:00 10/16/22 12:02 2 10/16/22 12:02 10/16/22 12:00 10/16/22 11:01 10/16/22 11:01 10/16/22 11:00 10/16/22 10:00 10/16/22 10:00 10/16/22 09:00 10/16/22 09:00 10/16/22 08:00 2 10/16/22 08:00 10/16/22 07:00 10/16/22 07:00 10/16/22 08:40 2 10/16/22 08:10 10/16/22 07:07 2.5 Laboratory Results Abnormal lab results 10/16/22 10/16/22 10/16/22 Range/Units 04:37 04:37 11:32 WBC 4.59 L (4.8-10.8) K/ul RBC 4.08 L (4.20-5.40) M/uL Lymph # (Auto) 0.85 L (1.2-3.4) K/uL BUN 5 L (6-23) mg/dl BUN/Creatinine Ratio 6.3 L (10-20) Glucose 126 H (70-99(Fasting)) mg/dl POC Glucose 100 H (70-99) mg/dl 10/16/22 Range/Units 17:44 WBC (4.8-10.8) K/ul RBC (4.20-5.40) M/uL Lymph # (Auto) (1.2-3.4) K/uL BUN (6-23) mg/dl BUN/Creatinine Ratio (10-20) Glucose (70-99(Fasting)) mg/dl POC Glucose 101 H (70-99) mg/dl PG Care Time/CCT Total # of Minutes Spent Total Time Spent with Patient: Total time spent is greater than 50% in coordination of care (as documented) at patient's floor/unit and/or counseling patient: Coding Level of Care Code 10034 SUB INP/OBS CARE 2/35MIN Diagnoses Alcohol use Z78.9 Acute respiratory failure with hypoxia J96.01 Fever R50.9 Fall W19.XXXA T12 compression fracture S22.080A Rib fractures S22.49XA Osteoarthritis of right hip M16.11 Hypertension I10 Seizure R56.9 Closed head injury S09.90XA Hx of subdural hematoma Z86.79 GERD (gastroesophageal reflux disease) K21.9 Anxiety and depression F41.9; F32.A
[2022-10-16] MEDS: PHENobarbitaL 30 MG TAB PO SCH (20:43)
[2022-10-16] MEDS ORDERED: LORazepam 2 MG/1 ML VIAL ONE (22:17)
[2022-10-16] MEDS ORDERED: LORazepam 2 MG/1 ML VIAL IV STA (22:19)
[2022-10-17] MEDS: PHENobarbital sodium 65 MG/ML VIAL IV PRN ×2 (02:01→17:21)
[2022-10-17] MEDS: hydrALAZINE HCL 20 MG/ML VIAL IV PRN (02:01)
[2022-10-17] MEDS ORDERED: LORazepam 2 MG/1 ML VIAL IV STA (02:25)
[2022-10-17] MEDS ORDERED: STAT IV Infusion **Titration per Protocol STA (03:45)
[2022-10-17] MEDS: dexMEDEtomidine 200 MCG/50 ML BAG IV SCH ×6 (03:59→21:56)
[2022-10-17] MEDS: FORMOTEROL 20 MCG/2 ML VIAL INH SCH ×2 (07:22→19:50)
[2022-10-17] MEDS: BUDESONIDE 0.25 MG/2 ML VIAL (PULMICORT) NEB SCH ×2 (07:23→19:50)
[2022-10-17] MEDS ORDERED: PHENobarbitaL sodium 130 MG in SYRINGE 0 ML IV ONE (07:30)
[2022-10-17] MEDS ORDERED: PHENobarbital sodium 130 MG/ML VIAL IV ONE (07:45)
[2022-10-17] MEDS: ENOXAPARIN INJ 40 MG/0.4 ML SYR SQ SCH (08:46)
[2022-10-17] MEDS: THIAMINE HCL 200 MG in SODIUM CHLORIDE 0.9% 50 ML IV SCH ×3 (08:47→20:26)
[2022-10-17] MEDS: FOLIC ACID 1 MG in SYRINGE 9.8 ML IV SCH (08:47)
[2022-10-17] MEDS: D5W AND 1/2NSS + 20MEQ KCL 20 MEQ/1,000 ML BAG IV SCH ×2 (09:12→21:55)
--- NOTE | 2022-10-17 09:36 | Critical Care Progress Note ---
Date of Service October 17, 2022 Assessment & Plan (1) Acute respiratory failure with hypoxia: (2) Rib fractures: (3) T12 compression fracture: (4) Delirium tremens: (5) Hx of subdural hematoma: (6) Hypertension: (7) GERD (gastroesophageal reflux disease): (8) Anxiety and depression: (9) Seizure: (10) Alcohol use: Plan CT chest 10/10/2022 personally reviewed: Motion degraded study with minimal dependent atelectasis bilateral lower lobes Cardiomegaly No mediastinal lymphadenopathy Reason Critically Ill: 67-year-old female past medical history of hypertension, seizure, anxiety/depression, GERD was admitted to hospital s/p fall. Patient also has history of alcohol use. She was withdrawing on the floor. Transferred to ICU for alcohol withdrawal. Neuro - [facility]: Positive --Delirium tremens Additional phenobarb IV Precedex was restarted TSH within normal limit --History of seizure disorder On lamotrigine 150 mg twice daily --History of anxiety/depression On escitalopram at home - 20 mg daily: Holding secondary to poor mental status, unable to safely take p.o. Cardiac - -- Prolonged QTc latest QTc 486 10/13/2022 Keep magnesium greater than 2, phosphorus greater than 3, potassium greater than 4 And QT prolonging medication Respiratory - -- Acute hypercapnic hypoxic respiratory failure: Improved Hypercapnia is likely secondary to benzodiazepine use along with JESUS Hypoxia could be from dependent atelectasis patient is also everyday smoker. COPD might also be playing a role -- Every day smoker Will need PFT as an outpatient On budesonide and Brovana nebulized in the hospital GI - -- History of GERD Continue with pantoprazole RENAL/LYTES - No acute kidney issues Monitor BUNs/creatinine ENDO - Continue with ICU hypoglycemia protocol HEME - Normocytic anemia Monitor H&H ID - --New onset fever: currently afebrile Blood culture negative to date Empiric Rocephin for 48 hours completed --Prophylaxis VTE: Lovenox GI: Pantoprazole Lines: Peripheral Diet: N.p.o. I have personally spent 40 minutes of critical care time in the direct management of this patient. This is a life/limb threatening event. This includes time spent evaluating patient, direct bedside care, chart review, placing orders, interpretation of diagnostic studies, discussion with consultants, patient, and family members, as well as other required patient management activities. This time is exclusive of all separately billable procedures, and teaching time and separate from and in addition to any other critical care service time. Admission and Anticipated Discharge Date Admission Date: October 10, 2022 Subjective Increased agitation Physical Exam Physical Exam: General: Disoriented Skin: Warm, dry, Head: Atraumatic Ears, nose, mouth and throat: airway patent Cardiovascular: Normal peripheral perfusion Respiratory: no respiratory distress Gastrointestinal: Non distended Musculoskeletal: No deformity Results & Data Results & Data Vital Signs (Past 12 Hours) Vital Signs Temp Pulse Pulse Resp BP Pulse Ox O2 Del Method 10/17/22 09:00 68 15 118/72 96 10/17/22 08:00 73 15 112/62 94 10/17/22 07:00 90 15 118/76 96 Nasal Cannula 10/17/22 08:35 36.3 C L 10/17/22 07:22 93 H 16 94 Nasal Cannula 10/17/22 07:00 93 H 16 97 10/17/22 06:50 99 H 18 97 10/17/22 06:40 100 H 28 H 97 10/17/22 06:30 100 H 12 98 10/17/22 06:20 98 H 18 97 10/17/22 06:10 104 H 20 96 10/17/22 06:00 108 H 20 97 10/17/22 06:00 162/94 H 10/17/22 05:50 114 H 26 H 96 10/17/22 05:40 110 H 18 96 10/17/22 05:30 120 H 16 96 10/17/22 05:20 116 H 17 97 10/17/22 05:10 118 H 28 H 95 10/17/22 05:00 118 H 21 95 10/17/22 05:00 152/106 H 10/17/22 04:50 120 H 17 93 10/17/22 04:40 122 H 24 97 10/17/22 04:30 126 H 20 98 10/17/22 04:20 121 H 20 94 10/17/22 04:10 129 H 21 96 10/17/22 04:01 37.5 C 182/97 H 10/17/22 04:01 129 H 16 96 10/17/22 04:00 128 H 24 97 10/17/22 03:50 129 H 22 96 10/17/22 03:40 128 H 16 96 10/17/22 03:30 130 H 18 96 10/17/22 03:20 126 H 18 96 10/17/22 03:10 126 H 29 H 96 10/17/22 03:00 128 H 18 97 10/17/22 03:00 167/98 H 10/17/22 02:50 126 H 21 96 10/17/22 02:40 126 H 27 H 95 Nasal Cannula 10/17/22 02:30 132 H 15 93 10/17/22 02:20 121 H 15 94 10/17/22 02:10 123 H 17 93 10/17/22 02:00 116 H 12 175/125 H 93 10/17/22 01:50 116 H 24 181/139 H 93 10/17/22 01:40 119 H 24 93 10/17/22 01:30 120 H 18 95 10/17/22 01:20 126 H 28 H 93 10/17/22 01:10 123 H 19 94 10/17/22 01:00 123 H 27 H 92 10/17/22 00:50 119 H 20 95 10/17/22 00:40 116 H 28 H 94 10/17/22 00:30 122 H 15 93 10/17/22 00:20 121 H 19 94 10/17/22 00:10 119 H 16 167/94 H 94 10/17/22 00:00 116 H 18 95 10/17/22 00:00 167/94 H 10/16/22 23:40 122 H 13 95 10/16/22 23:20 120 H 18 100 10/16/22 23:00 119 H 15 95 10/16/22 23:00 161/107 H 10/16/22 23:37 120 H 10/16/22 22:40 119 H 13 96 10/16/22 22:30 118 H 18 95 10/16/22 22:20 120 H 25 H 95 10/16/22 22:10 119 H 21 95 Nasal Cannula 10/16/22 22:01 36.6 C 154/107 H 10/16/22 22:01 122 H 16 95 10/16/22 22:00 115 H 27 H 96 O2 Flow Rate 10/17/22 09:00 10/17/22 08:00 10/17/22 07:00 3 10/17/22 08:35 10/17/22 07:22 3 10/17/22 07:00 10/17/22 06:50 10/17/22 06:40 10/17/22 06:30 10/17/22 06:20 10/17/22 06:10 10/17/22 06:00 10/17/22 06:00 10/17/22 05:50 10/17/22 05:40 10/17/22 05:30 10/17/22 05:20 10/17/22 05:10 10/17/22 05:00 10/17/22 05:00 10/17/22 04:50 10/17/22 04:40 10/17/22 04:30 10/17/22 04:20 10/17/22 04:10 10/17/22 04:01 10/17/22 04:01 10/17/22 04:00 10/17/22 03:50 10/17/22 03:40 10/17/22 03:30 10/17/22 03:20 10/17/22 03:10 10/17/22 03:00 10/17/22 03:00 10/17/22 02:50 10/17/22 02:40 3 10/17/22 02:30 10/17/22 02:20 10/17/22 02:10 10/17/22 02:00 10/17/22 01:50 10/17/22 01:40 10/17/22 01:30 10/17/22 01:20 10/17/22 01:10 10/17/22 01:00 10/17/22 00:50 10/17/22 00:40 10/17/22 00:30 10/17/22 00:20 10/17/22 00:10 10/17/22 00:00 10/17/22 00:00 10/16/22 23:40 10/16/22 23:20 10/16/22 23:00 10/16/22 23:00 10/16/22 23:37 10/16/22 22:40 10/16/22 22:30 10/16/22 22:20 10/16/22 22:10 3 10/16/22 22:01 10/16/22 22:01 10/16/22 22:00 Coding Level of Care Code 43814 CRITICAL CARE 1ST 30-74M Diagnoses Acute respiratory failure with hypoxia J96.01 Rib fractures S22.49XA T12 compression fracture S22.080A Delirium tremens F10.931 Hx of subdural hematoma Z86.79 Hypertension I10 GERD (gastroesophageal reflux disease) K21.9 Anxiety and depression F41.9; F32.A Seizure R56.9 Alcohol use Z78.9
--- NOTE | 2022-10-17 10:02 | Orthopedic Progress Note ---
Date of Service October 17, 2022 Assessment & Plan (1) Osteoarthritis of right hip: Plan: I attempted to discuss surgical delay with the patient today. I have been unsuccessful due to her cognitive impairment related to a alcohol withdrawal. We will continue attempts at discussing delay and educating her on potential reschedule in the future. Admission and Anticipated Discharge Date Admission Date: October 10, 2022 Subjective This 67-year-old female is seen today in her room. She remains obtunded. Reportedly did not sleep much last night and was quite agitated. She received Precedex and phenobarbital last evening and this morning, and is now sleeping. Physical Exam Physical Exam: Patient is sleeping in a position in her bed. She does not arouse to verbal or physical stimulus. Unable to straighten her legs manually, but she contracts them into the position. Results & Data Vital Signs (Past 12 Hours) Vital Signs Temp Pulse Pulse Resp BP Pulse Ox O2 Del Method 10/17/22 09:00 68 15 118/72 96 10/17/22 08:00 73 15 112/62 94 10/17/22 07:00 90 15 118/76 96 Nasal Cannula 10/17/22 08:35 97.3 F L 10/17/22 07:22 93 H 16 94 Nasal Cannula 10/17/22 07:00 93 H 16 97 10/17/22 06:50 99 H 18 97 10/17/22 06:40 100 H 28 H 97 10/17/22 06:30 100 H 12 98 10/17/22 06:20 98 H 18 97 10/17/22 06:10 104 H 20 96 10/17/22 06:00 108 H 20 97 10/17/22 06:00 162/94 H 10/17/22 05:50 114 H 26 H 96 10/17/22 05:40 110 H 18 96 10/17/22 05:30 120 H 16 96 10/17/22 05:20 116 H 17 97 10/17/22 05:10 118 H 28 H 95 10/17/22 05:00 118 H 21 95 10/17/22 05:00 152/106 H 10/17/22 04:50 120 H 17 93 10/17/22 04:40 122 H 24 97 10/17/22 04:30 126 H 20 98 10/17/22 04:20 121 H 20 94 10/17/22 04:10 129 H 21 96 10/17/22 04:01 99.5 F 182/97 H 10/17/22 04:01 129 H 16 96 10/17/22 04:00 128 H 24 97 10/17/22 03:50 129 H 22 96 10/17/22 03:40 128 H 16 96 10/17/22 03:30 130 H 18 96 10/17/22 03:20 126 H 18 96 10/17/22 03:10 126 H 29 H 96 10/17/22 03:00 128 H 18 97 10/17/22 03:00 167/98 H 10/17/22 02:50 126 H 21 96 10/17/22 02:40 126 H 27 H 95 Nasal Cannula 10/17/22 02:30 132 H 15 93 10/17/22 02:20 121 H 15 94 10/17/22 02:10 123 H 17 93 10/17/22 02:00 116 H 12 175/125 H 93 10/17/22 01:50 116 H 24 181/139 H 93 10/17/22 01:40 119 H 24 93 10/17/22 01:30 120 H 18 95 10/17/22 01:20 126 H 28 H 93 10/17/22 01:10 123 H 19 94 10/17/22 01:00 123 H 27 H 92 10/17/22 00:50 119 H 20 95 10/17/22 00:40 116 H 28 H 94 10/17/22 00:30 122 H 15 93 10/17/22 00:20 121 H 19 94 10/17/22 00:10 119 H 16 167/94 H 94 10/17/22 00:00 116 H 18 95 10/17/22 00:00 167/94 H 10/16/22 23:40 122 H 13 95 10/16/22 23:20 120 H 18 100 10/16/22 23:00 119 H 15 95 10/16/22 23:00 161/107 H 10/16/22 23:37 120 H 10/16/22 22:40 119 H 13 96 10/16/22 22:30 118 H 18 95 10/16/22 22:20 120 H 25 H 95 10/16/22 22:10 119 H 21 95 Nasal Cannula 10/16/22 22:01 97.9 F 154/107 H 10/16/22 22:01 122 H 16 95 10/16/22 22:00 115 H 27 H 96 O2 Flow Rate 10/17/22 09:00 10/17/22 08:00 10/17/22 07:00 3 10/17/22 08:35 10/17/22 07:22 3 10/17/22 07:00 10/17/22 06:50 10/17/22 06:40 10/17/22 06:30 10/17/22 06:20 10/17/22 06:10 10/17/22 06:00 10/17/22 06:00 10/17/22 05:50 10/17/22 05:40 10/17/22 05:30 10/17/22 05:20 10/17/22 05:10 10/17/22 05:00 10/17/22 05:00 10/17/22 04:50 10/17/22 04:40 10/17/22 04:30 10/17/22 04:20 10/17/22 04:10 10/17/22 04:01 10/17/22 04:01 10/17/22 04:00 10/17/22 03:50 10/17/22 03:40 10/17/22 03:30 10/17/22 03:20 10/17/22 03:10 10/17/22 03:00 10/17/22 03:00 10/17/22 02:50 10/17/22 02:40 3 10/17/22 02:30 10/17/22 02:20 10/17/22 02:10 10/17/22 02:00 10/17/22 01:50 10/17/22 01:40 10/17/22 01:30 10/17/22 01:20 10/17/22 01:10 10/17/22 01:00 10/17/22 00:50 10/17/22 00:40 10/17/22 00:30 10/17/22 00:20 10/17/22 00:10 10/17/22 00:00 10/17/22 00:00 10/16/22 23:40 10/16/22 23:20 10/16/22 23:00 10/16/22 23:00 10/16/22 23:37 10/16/22 22:40 10/16/22 22:30 10/16/22 22:20 10/16/22 22:10 3 10/16/22 22:01 10/16/22 22:01 10/16/22 22:00
[2022-10-17] MEDS: PHENobarbitaL 30 MG TAB PO SCH ×2 (10:18→20:26)
[2022-10-17] MEDS: ESCITALOPRAM OXALATE 20 MG TAB PO SCH (10:18)
[2022-10-17] MEDS: lamoTRIgine 100 MG TAB PO SCH ×2 (10:18→20:23)
[2022-10-17] MEDS: PANTOprazole 40 MG in SYRINGE 0 ML IV SCH (11:20)
--- NOTE | 2022-10-17 17:45 | Hospitalist Progress Note ---
Date of Service October 17, 2022 Assessment & Plan (1) Alcohol use: Plan: With severe withdrawal, with a h/o seizures Drinks 1/2 liter vodka daily at home Initially admitted to PCU and received 14 mg of IV ativan and IM Zyprexa overnight for high AWSS scores, remained agitated, was having sonorous breath sounds and periods of apnea, with ET CO2 monitor on with elevations of 42 at times Transferred to ICU on 10/11 and placed on Precedex drip, scheduled Ativan. Today Precedex drip was switched to phenobarb by pin inserter. Per nurse, the patient is more restless today. EtOH level 0 in ER, UDS neg, ASA and APAP levels negative Ammonia 42 B1 pending B12 low and replaced with 3 doses of IM B12; folate normal Lactic acidosis now resolved Appreciate pin inserter management -continue IV phenobarbital, Precedex drip. Wean off as able -continue IV thiamine, folic acid, IV protonix -Remains n.p.o. due to encephalopathy -continue AWSS monitoring (2) Acute respiratory failure with hypoxia: Plan: Now on 2 L of oxygen Most likely secondary to IV Ativan for alcohol withdrawal IV Ativan discontinued -continue supplemental O2 prn -Continued stay in ICU -diuresing occasionally (3) Fever: Plan: Spiked a fever on the evening of 10/13 Chest x-ray negative except atelectasis Blood cultures drawn-follow No leukocytosis-follow CBC Could be from atelectasis Consider urinalysis (4) Fall: Plan: With multiple falls at home, suspected 2nd to chronic hip pain in combination with alcohol use for pain control at home. CK mildly elevated, Anion gap 13 on labs, likely from alcohol use CT head/cervical spine negative on admit (hx fall/subdural hematoma/craniotomy/ evacuation). CTAP without acute intraabdominal process but does note T12 compression fracture Hip/pelvix xrays show left EUGENIO and Right severe OA---has significant bruising to her LEFT hip (upcoming surgery for repair RIGHT hip for severe OA on 10/12- cancelled by Ortho). Prior LEFT hip repair in 2019 in [place]. Consult w/ orthopedics appreciated UA neg for infection CK 900-mild rhabdomyolysis CXR w/o acute process but patient does have multiple old rib fractures various stages of healing CT Chest confirms right sided acute rib fracture Echo normal PT/OT consulted, but not able to participate yet due to encephalopathy (5) T12 compression fracture: Plan: as noted on imaging, 2nd to fall, unsure if symptomatic as is altered mentation vit d level normal pain control prn, will see about orthotics for brace for additional pain control once EtOH withdrawal improved PT/OT consulted (6) Rib fractures: Plan: Multiple fractures of ribs, BILATERAL noted on imaging, likely from fall continue to monitor (7) Osteoarthritis of right hip: Plan: consult orthopedics apprecaited-delaying previously planned EUGENIO pain control plan for PT/OT consultations once stable from EtOH withdrawal (8) Hypertension: Plan: On Losartan-HCTZ 100mg-12.5mg daily, atenolol 50mg BID at home-holding home p.o. meds for altered mental status Does have a history of SVT/PACs/palpitations per cards outpatient note-monitor on telemetry (9) Seizure: Plan: On Lamictal On phenobarb Seizure precautions (10) Closed head injury: Plan: CT head negative on admission, not on blood thinners (11) Hx of subdural hematoma: Plan: 2020 (s/p fall) (12) GERD (gastroesophageal reflux disease): Plan: continue PPI IV (13) Anxiety and depression: Plan: Holding home Lexapro for prolonged QT On Lamictal . Plan DVT prophylaxis-Lovenox Disposition-continued stay in ICU Admission and Anticipated Discharge Date Admission Date: October 10, 2022 Subjective Patient is on phenobarb and back on Precedex drip as well. She is quite obtunded but still agitated Review of Systems Review of Systems: All systems reviewed & are unremarkable except as noted in Subjective Physical Exam Physical Exam: General: Restless in bed, obtunded Heart: S1, S2/regular rate and rhythm, no murmur rubs or gallops Lungs: Clear to auscultation bilaterally. Normal effort Abdomen: Soft/nontender/nondistended. No hepatosplenomegaly Extremities: No clubbing/cyanosis. No edema Behavior: Unable to assess due to delirium Results & Data Results & Data Vital Signs (Past 12 Hours) Vital Signs Temp Pulse Pulse Resp BP Pulse Ox O2 Del Method 10/17/22 14:00 56 L 19 146/92 H 100 10/17/22 13:00 48 L 11 L 127/85 100 10/17/22 12:00 53 L 14 103/67 98 10/17/22 11:00 56 L 13 120/70 97 10/17/22 08:00 Nasal Cannula 10/17/22 08:00 93 H 10/17/22 10:00 60 14 114/69 97 10/17/22 09:00 68 15 118/72 96 10/17/22 08:00 73 15 112/62 94 10/17/22 07:00 90 15 118/76 96 Nasal Cannula 10/17/22 08:35 36.3 C L 10/17/22 07:22 93 H 16 94 Nasal Cannula 10/17/22 07:00 93 H 16 97 10/17/22 06:50 99 H 18 97 10/17/22 06:40 100 H 28 H 97 10/17/22 06:30 100 H 12 98 10/17/22 06:20 98 H 18 97 10/17/22 06:10 104 H 20 96 10/17/22 06:00 108 H 20 97 10/17/22 06:00 162/94 H 10/17/22 05:50 114 H 26 H 96 10/17/22 05:40 110 H 18 96 O2 Flow Rate 10/17/22 14:00 10/17/22 13:00 10/17/22 12:00 10/17/22 11:00 10/17/22 08:00 3 10/17/22 08:00 10/17/22 10:00 10/17/22 09:00 10/17/22 08:00 10/17/22 07:00 3 10/17/22 08:35 10/17/22 07:22 3 10/17/22 07:00 10/17/22 06:50 10/17/22 06:40 10/17/22 06:30 10/17/22 06:20 10/17/22 06:10 10/17/22 06:00 10/17/22 06:00 10/17/22 05:50 10/17/22 05:40 PG Care Time/CCT Total # of Minutes Spent Total Time Spent with Patient: Total time spent is greater than 50% in coordination of care (as documented) at patient's floor/unit and/or counseling patient: Coding Level of Care Code 33014 SUB INP/OBS CARE 2/35MIN Diagnoses Alcohol use Z78.9 Acute respiratory failure with hypoxia J96.01 Fever R50.9 Fall W19.XXXA T12 compression fracture S22.080A Rib fractures S22.49XA Osteoarthritis of right hip M16.11 Hypertension I10 Seizure R56.9 Closed head injury S09.90XA Hx of subdural hematoma Z86.79 GERD (gastroesophageal reflux disease) K21.9 Anxiety and depression F41.9; F32.A
[2022-10-17] MEDS ORDERED: ACETAMINOPHEN 1,000 MG/100 ML VIAL IV PRN (19:39)
[2022-10-17] MEDS: LIDOCAINE 5% 1 PATCH TD SCH (21:00)
[2022-10-18] MEDS: dexMEDEtomidine 200 MCG/50 ML BAG IV SCH ×5 (01:03→20:51)
[2022-10-18] MEDS: hydrALAZINE HCL 20 MG/ML VIAL IV PRN ×3 (02:04→16:32)
[2022-10-18] MEDS: PHENobarbital sodium 65 MG/ML VIAL IV PRN ×2 (03:40→11:59)
[2022-10-18 05:35] LABS: Basophils # (auto) 0.03 K/uL (0-0.2); Basophils % (auto) 0.5 %; Eosinophils # (auto) 0.13 K/uL (0-0.50); Eosinophils % (auto) 2.2 %; Hematocrit (blood only) 37.4 % (37.0-47.0); Hemoglobin 12.8 g/dl (12.0-16.0); Immature Granulocytes # (auto) 0.02 K/uL (0.01-0.20); Immature Granulocytes % (auto) 0.3 %; Lymphocytes # (auto) 0.61 K/uL (1.2-3.4); Lymphocytes % (auto) 10.4 %; Mean Corpuscular Hemoglobin 31.1 pg (25.0-34.0); Mean Corpuscular Hgb Conc 34.2 g/dL (32.0-36.0); Mean Corpuscular Volume 90.8 fL (80.0-100.0); Mean Platelet Volume 9.8 fL (9.4-12.4); Monocytes # (auto) 0.54 K/uL (0.11-0.59); Monocytes % (auto) 9.2 %; Neutrophils # (auto) 4.51 K/uL (1.40-6.50); Neutrophils % (auto) 77.4 %; Platelet Count 165 K/uL (130-400); RDW Coefficient of Variation 13.5 % (11.5-14.5); RDW Standard Deviation 45.1 fL (36.4-46.3); Red Blood Count 4.12 M/uL (4.20-5.40); White Blood Count 5.84 K/ul (4.8-10.8)
[2022-10-18 06:39] LABS: Albumin Level 3.3 gm/dl (3.4-5.0); BUN Creatinine Ratio 7.9 (10-20); Bilirubin Direct 0.2 mg/dl (0-0.2); Bilirubin,Total 0.6 mg/dl (0.2-1.0); Calcium 9.9 mg/dl (8.6-10.3); Creatinine Clr Calc Pharmacy 80.8 ml/min; Est GFR (African American) 106.8 ml/min; Est GFR (Non-African American) 92.2 ml/min; Magnesium 1.4 mg/dl (1.7-2.4); Phosphorus 2.7 mg/dl (2.5-4.9); Potassium 4.1 mmol/L (3.5-5.1)
[2022-10-18] MEDS: BUDESONIDE 0.25 MG/2 ML VIAL (PULMICORT) NEB SCH ×2 (07:27→21:57)
[2022-10-18] MEDS: FORMOTEROL 20 MCG/2 ML VIAL INH SCH ×2 (07:28→19:24)
[2022-10-18] MEDS: ENOXAPARIN INJ 40 MG/0.4 ML SYR SQ SCH (08:42)
[2022-10-18] MEDS: THIAMINE HCL 200 MG in SODIUM CHLORIDE 0.9% 50 ML IV SCH ×3 (08:42→21:13)
[2022-10-18] MEDS: lamoTRIgine 100 MG TAB PO SCH (08:43)
[2022-10-18] MEDS: PHENobarbitaL 30 MG TAB PO SCH ×2 (08:43→21:13)
[2022-10-18] MEDS: FOLIC ACID 1 MG in SYRINGE 9.8 ML IV SCH (08:44)
[2022-10-18] MEDS: ESCITALOPRAM OXALATE 20 MG TAB PO SCH (08:44)
[2022-10-18] MEDS ORDERED: RAPID SEQUENCE INDUCTION BAG ONE (09:26)
[2022-10-18] MEDS: MAGNESIUM SULFATE / D5W 1 GM/100 ML BAG IV SCH ×4 (10:46→17:43)
[2022-10-18] MEDS: PANTOprazole 40 MG in SYRINGE 0 ML IV SCH (10:47)
[2022-10-18] MEDS: D5W AND 1/2NSS + 20MEQ KCL 20 MEQ/1,000 ML BAG IV SCH (11:34)
[2022-10-18] MEDS ORDERED: VECURONIUM BROMIDE 10 MG VIAL IV ONE ×2 (17:51→17:57)
[2022-10-18] MEDS ORDERED: STAT IV Infusion **Titration per Protocol STA (17:52)
--- NOTE | 2022-10-18 17:53 | Hospitalist Progress Note ---
Date of Service October 18, 2022 Assessment & Plan (1) Fall: Plan: With multiple falls at home, suspected 2nd to chronic hip pain in combination with alcohol use for pain control at home. CK mildly elevated, Anion gap 13 on labs, likely from alcohol use CT head/cervical spine negative on admit (hx fall/subdural hematoma/craniotomy/evacuation). CTAP without acute intraabdominal process but does note T12 compression fracture Hip/pelvix xrays show left EUGENIO and Right severe OA---has significant bruising to her LEFT hip (upcoming surgery for repair RIGHT hip for severe OA on 10/12- cancelled by Ortho). Prior LEFT hip repair in 2019 in [place]. Consult w/ orthopedics appreciated UA neg for infection CK 900-mild rhabdomyolysis CXR w/o acute process but patient does have multiple old rib fractures various stages of healing CT Chest confirms right sided acute rib fracture Echo normal PT/OT consulted, but not able to participate yet due to encephalopathy (2) T12 compression fracture: Plan: as noted on imaging, 2nd to fall, unsure if symptomatic as is altered mentation vit d level normal pain control prn, will see about orthotics for brace for additional pain control once EtOH withdrawal improved PT/OT consulted (3) Rib fractures: Plan: Multiple fractures of ribs, BILATERAL noted on imaging, likely from fall continue to monitor (4) Alcohol use: Plan: With severe withdrawal, with a h/o seizures Drinks 1/2 liter vodka daily at home Initially admitted to PCU and received 14 mg of IV ativan and IM Zyprexa overnight for high AWSS scores, remained agitated, was having sonorous breath sounds and periods of apnea, with ET CO2 monitor on with elevations of 42 at times Transferred to ICU on 10/11 and placed on Precedex drip, scheduled Ativan. Today Precedex drip was switched to phenobarb by glass grinder. Per nurse, the patient is more restless today. EtOH level 0 in ER, UDS neg, ASA and APAP levels negative Ammonia 42 B1 pending B12 low and replaced with 3 doses of IM B12; folate normal Lactic acidosis now resolved Appreciate glass grinder management -continue IV phenobarbital, Precedex drip. Wean off as able May consider brain imaging if no improvement -continue IV thiamine, folic acid, IV protonix -Remains n.p.o. due to encephalopathy -continue AWSS monitoring (5) Weakness: Plan: 2nd to above (6) Osteoarthritis of right hip: Plan: consult orthopedics apprecaited-delaying previously planned EUGENIO pain control plan for PT/OT consultations once stable from EtOH withdrawal (7) Chronic right hip pain: Plan: pain control/ortho/xrays/pt/ot consultations (8) Hypomagnesemia: Plan: 1.6-- IV replacement ordered, repeat level in AM monitor on telemetry for any arrhythmia contributing to falls, ?holiday heart/paroxysmal afib w/ her alcohol use at home contributing to falls (9) Hypertension: Plan: On Losartan-HCTZ 100mg-12.5mg daily, atenolol 50mg BID at home-holding home p.o. meds for altered mental status Does have a history of SVT/PACs/palpitations per cards outpatient note-monitor on telemetry (10) Seizure: Plan: On Lamictal On phenobarb Seizure precautions (11) Closed head injury: Plan: CT head negative on admission, not on blood thinners (12) Hx of subdural hematoma: Plan: 2020 (s/p fall) (13) GERD (gastroesophageal reflux disease): Plan: continue PPI IV (14) Anxiety and depression: Plan: Holding home Lexapro for prolonged QT On Lamictal . (15) Left hip pain: Plan: s/p fall, repair/replacement in 2019 in [place] Obtaining xrays given bruising/ecchyomosis s/p fall as above (16) Acute respiratory failure with hypoxia: Plan: Now on 2 L of oxygen Most likely secondary to IV Ativan for alcohol withdrawal IV Ativan discontinued -continue supplemental O2 prn -Continued stay in ICU -diuresing occasionally (17) Fever: Plan: Spiked a fever on the evening of 10/13 Chest x-ray negative except atelectasis Blood cultures drawn-follow No leukocytosis-follow CBC Could be from atelectasis Consider urinalysis Plan DVT prophylaxis-Lovenox Disposition-continued stay in ICU Admission and Anticipated Discharge Date Admission Date: October 10, 2022 Subjective Patient continues to be agitated on phenobarb and Precedex drip Physical Exam Physical Exam: General: Restless in bed, obtunded Heart: S1, S2/regular rate and rhythm, no murmur rubs or gallops Lungs: Clear to auscultation bilaterally. Normal effort Abdomen: Soft/nontender/nondistended. No hepatosplenomegaly Extremities: No clubbing/cyanosis. No edema Behavior: Unable to assess due to delirium Results & Data Results & Data Vital Signs (Past 12 Hours) Vital Signs Temp Pulse Pulse Resp BP Pulse Ox O2 Del Method 10/18/22 16:06 167/96 H 10/18/22 16:06 101 H 22 96 10/18/22 16:00 100 H 20 95 10/18/22 15:30 99 H 18 96 10/18/22 15:00 95 H 18 97 10/18/22 15:00 149/76 H 10/18/22 14:30 99 H 20 96 10/18/22 14:00 102 H 16 95 10/18/22 13:30 96 H 20 92 10/18/22 15:56 37.2 C 10/18/22 14:16 96 H 10/18/22 13:04 97 H 20 94 10/18/22 13:04 131/87 10/18/22 13:00 100 H 18 94 10/18/22 12:30 100 H 20 95 10/18/22 12:00 106 H 16 90 10/18/22 12:00 163/93 H 10/18/22 11:30 102 H 18 94 10/18/22 11:02 105 H 20 95 10/18/22 11:02 148/94 H 10/18/22 11:00 104 H 18 94 10/18/22 10:30 109 H 16 93 10/18/22 10:22 111 H 18 94 10/18/22 10:22 141/89 H 10/18/22 10:00 107 H 20 93 10/18/22 10:00 155/102 H 10/18/22 12:21 36.5 C 10/18/22 09:30 109 H 18 94 10/18/22 09:00 105 H 18 90 10/18/22 09:00 146/93 H 10/18/22 08:30 106 H 20 91 10/18/22 08:01 107 H 17 92 10/18/22 08:01 141/81 H 10/18/22 08:00 110 H 20 91 10/18/22 07:30 104 H 18 93 10/18/22 07:01 96 H 22 96 10/18/22 07:01 178/129 H 04/19/23 07:00 92 H 16 95 10/18/22 06:30 91 H 18 98 10/18/22 07:48 108 H 10/18/22 07:37 Room Air 10/18/22 07:31 99 H 18 95 Room Air 10/18/22 06:00 100 H 0 L 152/91 H 92 PG Care Time/CCT Total # of Minutes Spent Total Time Spent with Patient: Total time spent is greater than 50% in coordination of care (as documented) at patient's floor/unit and/or counseling patient: Coding Level of Care Code 17145 SUB INP/OBS CARE 2/35MIN Diagnoses Fall W19.XXXA T12 compression fracture S22.080A Rib fractures S22.49XA Alcohol use Z78.9 Weakness R53.1 Osteoarthritis of right hip M16.11 Chronic right hip pain M25.551; G89.29 Hypomagnesemia E83.42 Hypertension I10 Seizure R56.9 Closed head injury S09.90XA Hx of subdural hematoma Z86.79 GERD (gastroesophageal reflux disease) K21.9 Anxiety and depression F41.9; F32.A Left hip pain M25.552 Acute respiratory failure with hypoxia J96.01 Fever R50.9
[2022-10-18] MEDS ORDERED: VECURONIUM BROMIDE 10 MG VIAL IV STA (17:56)
[2022-10-18] MEDS ORDERED: LIDOCAINE 1% LOCAL 20 ML VIAL ONE (18:26)
--- NOTE | 2022-10-18 18:54 | Procedure Note ---
Procedure Note Date of Service October 18, 2022 Note Procedure Date: Noted above Procedure: Lumbar puncture Pre-procedure Diagnosis: Acute encephalopathy Post-procedure Diagnosis: same as above Prior to Procedure: Informed Consent: The risks, benefits, indications, potential complications, and alternatives were explained to the patient's family and informed consent obtained. Attending Staff: Amalia Pozo DO Resident/Physician Specialties Operator: Don Indications: Patient is a 67-year-old female with extended acute encephalopathy presumptive secondary to alcohol withdrawal The identity of the patient was confirmed and a bedside time out was performed. Description of Procedure: Patient was positioned in the left lateral decubitus position, prepped and draped in usual sterile fashion. The L4-5 space located with bilateral iliac crests as landmarks. 1% Lidocaine without epinephrine was used to anesthetize the area. A 20 gauge spinal needle was introduced into the subarachnoid space. Stylet was removed with appropriate fluid return. Needle removed after adequate fluid collected and sterile bandage placed at puncture site. 5 mL of CSF fluid collected. Fluid was initially pink-tinged which cleared. Specimen(s): sent for Gram Stain, culture, cell count, glucose, protein, bio fire meningitis/encephalitis panel Complications: Mild difficulty with an initial location of space, required for needle passes: I anticipate this would be a traumatic tap Findings: 5 mL of fluid which readily cleared Estimated Blood Loss: trace C[place] [facility] [place]odes (Charges) Lumbar Puncture Lumbar Puncture, Diagnostic: 64421 Lumbar Puncture, Anesthesia, Lumbar Region; Diagnostic/Therap
--- NOTE | 2022-10-18 19:03 | Procedure Note ---
Procedure Note Date of Service October 18, 2022 Note INTUBATION PROCEDURE NOTE: Proceduralist: Unruly JIMENEZ ([facility]) Attending: Dr. Pozo A time-out was completed verifying correct patient, procedure, site, positioning. Patient was evaluated and required intubation for continued worsening mental status- need for sedation for lumbar puncture and obtaining advanced imaging of brain. Sedative agent used: Etomidate- 30 mg IV- Fentanyl 100mcg Paralysis agent used: Rocuronium 40mg IV [x] Consent was obtained by Dr. Pozo via phone with the patient's brother (Beck Rogers). Risks and benefits were explained fully. Need for procedure was explained. x Consent signed and placed on chart per physician supervising procedure. The patient was prepared in the appropriate fashion. Sedation was achieved utilizing Etomidate and Rocuronium, per Dr. Pozo administration. The patient was easily ventilated using [id number] to achieve adequate oxygenation. A 7.5 Singaporean endotracheal tube was placed under 23 to 23 cm at the lip. The stylette was removed and balloon was inflated with 10mL of air. Appropriate Colorimetric change was appreciated. Bilateral breath sounds were heard without air sounds in the abdomen. Dr. Pozo was present for the entire procedure. [x]Post Intubation Chest X-ray confirms adequate placement and positioning without pneumothorax. Patient tolerated the procedure well and there were no immediate complications. Coding
--- NOTE | 2022-10-18 19:06 | Critical Care Progress Note ---
Date of Service October 18, 2022 Assessment & Plan (1) Acute respiratory failure with hypoxia: (2) Rib fractures: (3) T12 compression fracture: (4) Delirium tremens: (5) Hx of subdural hematoma: (6) Hypertension: (7) GERD (gastroesophageal reflux disease): (8) Anxiety and depression: (9) Seizure: (10) Alcohol use: Plan CT chest 10/10/2022 personally reviewed: Motion degraded study with minimal dependent atelectasis bilateral lower lobes Cardiomegaly No mediastinal lymphadenopathy Reason Critically Ill: 67-year-old female past medical history of hypertension, seizure, anxiety/depression, GERD was admitted to hospital s/p fall. Patient also has history of alcohol use. She was withdrawing on the floor. Transferred to ICU for alcohol withdrawal. Neuro - [facility] ICU: Positive --Delirium tremens phenobarb & Precedex -Discussed with family that she has not had significant improvement over the last several days, I think it is prudent to obtain advanced imaging as well as perform a lumbar puncture to exclude rare causes of ongoing encephalopathy. At this point we will obtain a contrast MRI, lumbar puncture has been performed. She has remained ever febrile there is no leukocytosis I think infection is remote. She has not had an arrhythmia to make me very concerned about possible embolic phenomenon however this will be further evaluated with an MRI. TSH within normal limit --History of seizure disorder On lamotrigine 150 mg twice daily -Ordering repeat level, holding at this time as this could theoretically contribute to continued encephalopathy --History of anxiety/depression On escitalopram at home - 20 mg daily: Holding secondary to poor mental status, unable to safely take p.o. Cardiac - -- Prolonged QTc latest QTc 486 10/13/2022 Keep magnesium greater than 2, phosphorus greater than 3, potassium greater than 4 Respiratory - Intubated to facilitate encephalopathy work-up as patient would not be still for MRI and to safely perform lumbar puncture -- Acute hypercapnic hypoxic respiratory failure: Improved -- Every day smoker Will need PFT as an outpatient On budesonide and Brovana nebulized in the hospital GI - -Start trickle feed -- History of GERD Continue with pantoprazole RENAL/LYTES - No acute kidney issues Monitor BUNs/creatinine ENDO - Continue with ICU hypoglycemia protocol HEME - Normocytic anemia Monitor H&H ID - --New onset fever: currently afebrile Blood culture negative to date Empiric Rocephin for 48 hours completed --Prophylaxis VTE: Lovenox GI: Pantoprazole Lines: Peripheral I have personally spent 60 minutes of critical care time in the direct management of this patient. This is a life/limb threatening event. This includes time spent evaluating patient, direct bedside care, chart review, placing orders, interpretation of diagnostic studies, discussion with consultants, patient, and family members, as well as other required patient management activities. This time is exclusive of all separately billable procedures, and teaching time and separate from and in addition to any other critical care service time. Admission and Anticipated Discharge Date Admission Date: October 10, 2022 Subjective No overnight events. I discussed the case with the patient's brother Beck via telephone. He informed me that her parents are still alive however they are 93 and 89 lives in a group home community and Beck functions as there medical and financial power of java websphere developer. They reported do not have the capacity to understand complex medical decisions. He had drawn up in a formal medical power of java websphere developer for his sister however she has not formally signed it and had it notarized. There are additional brothers and sisters they have been remotely involved but he has largely functioned as the spokesperson. She was previously however has been formally and has no children. Physical Exam Physical Exam: General: Arousable but encephalopathic Skin: Warm, dry, Head: Atraumatic Ears, nose, mouth and throat: airway patent Cardiovascular: Normal peripheral perfusion Respiratory: no respiratory distress Gastrointestinal: Non distended Musculoskeletal: No deformity Results & Data Results & Data Vital Signs (Past 12 Hours) Vital Signs Temp Pulse Pulse Resp BP Pulse Ox O2 Del Method 10/18/22 07:48 108 H 10/18/22 07:37 Room Air 10/18/22 07:31 99 H 18 95 Room Air 10/18/22 06:00 100 H 0 L 152/91 H 92 10/18/22 05:00 70 0 L 120/92 91 10/18/22 04:00 71 0 L 125/72 93 10/18/22 03:00 88 0 L 153/110 H 93 10/18/22 02:00 69 9 L 188/128 H 95 10/18/22 00:00 36.5 C 10/18/22 01:00 57 L 16 149/90 H 94 10/18/22 00:00 62 16 170/102 H 92 10/18/22 00:00 70 10/17/22 23:00 73 16 166/100 H 98 10/17/22 22:00 164/96 H 10/17/22 21:01 75 14 153/100 H 97 Critical Care Results & Data Vital Signs (Past 12 Hours) Vital Signs Temp Pulse Pulse Resp BP Pulse Ox O2 Del Method 10/18/22 18:29 81 16 100 10/18/22 16:06 167/96 H 10/18/22 16:06 101 H 22 96 10/18/22 16:00 100 H 20 95 10/18/22 15:30 99 H 18 96 10/18/22 15:00 95 H 18 97 10/18/22 15:00 149/76 H 10/18/22 14:30 99 H 20 96 10/18/22 14:00 102 H 16 95 10/18/22 13:30 96 H 20 92 10/18/22 15:56 37.2 C 10/18/22 14:16 96 H 10/18/22 13:04 97 H 20 94 10/18/22 13:04 131/87 10/18/22 13:00 100 H 18 94 10/18/22 12:30 100 H 20 95 10/18/22 12:00 106 H 16 90 10/18/22 12:00 163/93 H 10/18/22 11:30 102 H 18 94 10/18/22 11:02 105 H 20 95 10/18/22 11:02 148/94 H 10/18/22 11:00 104 H 18 94 10/18/22 10:30 109 H 16 93 10/18/22 10:22 111 H 18 94 10/18/22 10:22 141/89 H 10/18/22 10:00 107 H 20 93 10/18/22 10:00 155/102 H 10/18/22 12:21 36.5 C 10/18/22 09:30 109 H 18 94 10/18/22 09:00 105 H 18 90 10/18/22 09:00 146/93 H 10/18/22 08:30 106 H 20 91 10/18/22 08:01 107 H 17 92 10/18/22 08:01 141/81 H 10/18/22 08:00 110 H 20 91 10/18/22 07:30 104 H 18 93 10/18/22 07:01 96 H 22 96 10/18/22 07:01 178/129 H 10/18/22 07:00 92 H 16 95 10/18/22 07:48 108 H 10/18/22 07:37 Room Air 10/18/22 07:31 99 H 18 95 Room Air FiO2 10/18/22 18:29 100 10/18/22 16:06 10/18/22 16:06 10/18/22 16:00 10/18/22 15:30 10/18/22 15:00 10/18/22 15:00 10/18/22 14:30 10/18/22 14:00 10/18/22 13:30 10/18/22 15:56 10/18/22 14:16 10/18/22 13:04 10/18/22 13:04 10/18/22 13:00 10/18/22 12:30 10/18/22 12:00 10/18/22 12:00 10/18/22 11:30 10/18/22 11:02 10/18/22 11:02 10/18/22 11:00 10/18/22 10:30 10/18/22 10:22 10/18/22 10:22 10/18/22 10:00 10/18/22 10:00 10/18/22 12:21 10/18/22 09:30 10/18/22 09:00 10/18/22 09:00 10/18/22 08:30 10/18/22 08:01 10/18/22 08:01 10/18/22 08:00 10/18/22 07:30 10/18/22 07:01 10/18/22 07:01 10/18/22 07:00 10/18/22 07:48 10/18/22 07:37 10/18/22 07:31 Lab & Micro Results (Past 24 Hours) RBC 4.12 M/uL (4.20-5.40) L 10/18/22 WBC 5.84 K/ul (4.8-10.8) 10/18/22 Hgb 12.8 g/dl (12.0-16.0) 10/18/22 Hct 37.4 % (37.0-47.0) 10/18/22 MCV 90.8 fL (80.0-100.0) 10/18/22 MCH 31.1 pg (25.0-34.0) 10/18/22 MCHC 34.2 g/dL (32.0-36.0) 10/18/22 RDW Standard Deviation 45.1 fL (36.4-46.3) 10/18/22 RDW Coefficient of Variation 13.5 % (11.5-14.5) 10/18/22 Plt Count 165 K/uL (130-400) 10/18/22 MPV 9.8 fL (9.4-12.4) 10/18/22 Neutrophils (%) (Auto) 77.4 % 10/18/22 Lymphocytes (%) (Auto) 10.4 % 10/18/22 Monocytes # (Auto) 0.54 K/uL (0.11-0.59) 10/18/22 Eosinophils # (Auto) 0.13 K/uL (0-0.50) 10/18/22 Immature Granulocyte % (Auto) 0.3 % 10/18/22 Neutrophils # (Auto) 4.51 K/uL (1.40-6.50) 10/18/22 Lymphocytes # (Auto) 0.61 K/uL (1.2-3.4) L 10/18/22 Monocytes # (Auto) 0.54 K/uL (0.11-0.59) 10/18/22 Eosinophils # (Auto) 0.13 K/uL (0-0.50) 10/18/22 Basophils # (Auto) 0.03 K/uL (0-0.2) 10/18/22 Immature Granulocyte # (Auto) 0.02 K/uL (0.01-0.20) 3 Na 135 mmol/L (136-145) L 10/18/22 K 4.1 mmol/L (3.5-5.1) 10/18/22 Cl 107 mmol/L (98-107) 10/18/22 CO2 25 mmol/L (21-32) 10/18/22 Anion Gap 3 (3-11) 10/18/22 BUN 5 mg/dl (6-23) L 10/18/22 Creatinine 0.63 mg/dl (0.6-1.2) 10/18/22 Estimated GFR ( Amer) 106.8 ml/min 10/18/22 Estimated GFR (Non-Af Amer) 92.2 ml/min 10/18/22 BUN/Creatinine Ratio 7.9 (10-20) L 10/18/22 Glu 99 mg/dl (70-99(Fasting)) 10/18/22 Ca 9.9 mg/dl (8.6-10.3) 10/18/22 Phosphorus Level 2.7 mg/dl (2.5-4.9) 10/18/22 Total Bilirubin 0.6 mg/dl (0.2-1.0) 10/18/22 Direct Bilirubin 0.2 mg/dl (0-0.2) 10/18/22 AST 23 U/L (13-39) 10/18/22 ALT 15 U/L (7-52) 10/18/22 Alkaline Phosphatase 99 U/L (34-104) 10/18/22 TP 6.0 gm/dl (6.0-8.3) 10/18/22 Albumin 3.3 gm/dl (3.4-5.0) L 10/18/22 Mg 1.4 mg/dl (1.7-2.4) L 10/18/22 04:55 Calcium Level 9.9 mg/dl (8.6-10.3) 10/18/22 04:55 I & O Totals 24 Hours 10/17/22 10/18/22 10/19/22 06:59 06:59 06:59 Intake Total 1232.095 / 5311.354 6784.549 / 2416.549 1472.473 / 1472.473 Output Total 1175 / 1175 1175 / 1175 550 / 550 Balance 57.095 / 57.095 1241.549 / 1241.549 922.473 / 922.473 Cumulative 10/10/22 07:40 thru 10/18/22 17:04 Intake Total 84362.088 Output Total 42168 Balance 9923.088 RT Ventilator Mngmt (Last Documented) Ventilator Ordered Settings Ventilator Support Mode Assist Control 10/18/22 18:29 Respiratory Rate 16 04/19/23 18:29 Ventilator Tidal Volume 450 10/18/22 18:29 Setting Minute Ventilation 7 10/18/22 18:29 Positive End Expiratory 5 10/18/22 18:29 Pressure Fraction of Inspired Oxygen 100 10/18/22 18:29 Ventilator - PT Measurements Respiratory Rate 16 Exhaled Tidal Volume 450 Minute Ventilation 7 Peak Inspiratory Airway 15 Pressure Respiratory Cycle Inspiratory: 1:3.2 Expiratory Ratio Inspiratory Phase Time 1 End-Tidal CO2 17 Dynamic Lung Compliance 45.00 Normal Static Lung Compliance 48.00 Coding Level of Care Code 81436 CRITICAL CARE 1ST 30-74M Diagnoses Acute respiratory failure with hypoxia J96.01 Rib fractures S22.49XA T12 compression fracture S22.080A Delirium tremens F10.931 Hx of subdural hematoma Z86.79 Hypertension I10 GERD (gastroesophageal reflux disease) K21.9 Anxiety and depression F41.9; F32.A Seizure R56.9 Alcohol use Z78.9
[2022-10-18] MEDS: PROPOFOL BOLUS FROM BAG IV PRN ×4 (19:08→22:49)
[2022-10-18] MEDS: propofoL 1,000 MG/100 ML VIAL IV SCH ×2 (19:08→22:49)
[2022-10-18] MEDS: NOREPINEPHRINE/D5W 4 MG/250 ML PLCT IV SCH ×2 (19:20→23:35)
[2022-10-18 19:34] LABS: Total Protein CSF 86.7 mg/dl (15-45)
[2022-10-18 20:15] LABS: Appearance CSF Clear; CSF Count Tube # 3; CSF Xanthrochromic No xanthochromia; Color CSF Colorless
[2022-10-18 20:27] LABS: Cryptococcus neoformans/ga PCR Not Detected (NotDetected); Cytomegalovirus PCR Not Detected (NotDetected); Enterovirus PCR Not Detected (NotDetected); Escherichia coli K1 PCR Not Detected (NotDetected); Haemophilius influenzae PCR Not Detected (NotDetected); Herpes Simplex Virus 1 PCR Not Detected (NotDetected); Herpes Simplex Virus 2 PCR Not Detected (NotDetected); Human Herpes Virus 6 PCR Not Detected (NotDetected); Human Parechovirus PCR Not Detected (NotDetected); Listeria monocytogenes PCR Not Detected (NotDetected); Neisseria meningitidis PCR Not Detected (NotDetected); Streptococcus agalactiae PCR Not Detected (NotDetected); Streptococcus pneumoniae PCR Not Detected (NotDetected); Varicella Zoster Virus PCR Not Detected (NotDetected)
[2022-10-18] MEDS ORDERED: ROCURONIUM BROMIDE 10 MG/ML 5 ML VIAL IV ONE (20:40)
[2022-10-18] MEDS ORDERED: fentaNYL citrate 100 MCG/2 ML CARP IV ONE (20:40)
[2022-10-18] MEDS ORDERED: ETOMIDATE 2 MG/ML 20 ML VIAL IV ONE (20:40)
[2022-10-18] MEDS: LIDOCAINE 5% 1 PATCH TD SCH (20:46)
[2022-10-18] MEDS ORDERED: PEPTAMEN 1.5 CAL 1,000 ML BAG NG SCH (21:00)
[2022-10-18] MEDS: TUBE FEEDING WATER FLUSH GT SCH (21:14)
[2022-10-18] MEDS: fentaNYL citrate PF 100 MCG/2 ML VIAL IV PRN (23:03)
[2022-10-19] MEDS: PROPOFOL BOLUS FROM BAG IV PRN ×3 (00:08→04:38)
[2022-10-19] MEDS: TUBE FEEDING WATER FLUSH GT SCH ×3 (02:14→09:20)
[2022-10-19] MEDS: D5W AND 1/2NSS + 20MEQ KCL 20 MEQ/1,000 ML BAG IV SCH (03:04)
[2022-10-19 04:21] LABS: iSTAT Allen Test Pass; iSTAT Art Bld Gas pCO2 Correct 38 mmHg (35-46); iSTAT Art Bld Gas pH Corrected 7.415 (7.35-7.45); iSTAT Arterial Blood Gas HCO3 24 meg/L (19-24); iSTAT Arterial Blood Gas pCO2 37 mmHg (35-46); iSTAT Arterial Blood Gas pH 7.42 (7.35-7.45); iSTAT Arterial Blood Gas pO2 82 mmHg (80-95); iSTAT Arterial Blood Gas pO2 C 83; iSTAT Carbon Dioxide 25 mmol/L (24-31); iSTAT FiO2 30 %; iSTAT Hematocrit 37 % (37-47); iSTAT Hemoglobin 12.6 g/dl (12.0-16.0); iSTAT Potassium 3.6 mmol/L (3.3-5.0); iSTAT Site R Brachial; iSTAT Sodium 133 mmol/L (135-144)
[2022-10-19] MEDS: propofoL 1,000 MG/100 ML VIAL IV SCH ×5 (04:37→18:55)
[2022-10-19 05:46] LABS: Basophils # (auto) 0.03 K/uL (0-0.2); Basophils % (auto) 0.4 %; Eosinophils # (auto) 0.12 K/uL (0-0.50); Eosinophils % (auto) 1.5 %; Hematocrit (blood only) 35.6 % (37.0-47.0); Hemoglobin 12.3 g/dl (12.0-16.0); Immature Granulocytes # (auto) 0.04 K/uL (0.01-0.20); Immature Granulocytes % (auto) 0.5 %; Lymphocytes # (auto) 0.81 K/uL (1.2-3.4); Lymphocytes % (auto) 10.1 %; Mean Corpuscular Hemoglobin 31.5 pg (25.0-34.0); Mean Corpuscular Hgb Conc 34.6 g/dL (32.0-36.0); Mean Platelet Volume 9.9 fL (9.4-12.4); Monocytes # (auto) 0.83 K/uL (0.11-0.59); Monocytes % (auto) 10.3 %; Neutrophils # (auto) 6.21 K/uL (1.40-6.50); Neutrophils % (auto) 77.2 %; Platelet Count 199 K/uL (130-400); RDW Coefficient of Variation 13.9 % (11.5-14.5); RDW Standard Deviation 46.5 fL (36.4-46.3); Red Blood Count 3.91 M/uL (4.20-5.40); White Blood Count 8.04 K/ul (4.8-10.8)
[2022-10-19 06:02] LABS: Calcium 9.8 mg/dl (8.6-10.3); Magnesium 1.9 mg/dl (1.7-2.4); Potassium 3.3 mmol/L (3.5-5.1)
[2022-10-19 06:07] LABS: BUN Creatinine Ratio 7.7 (10-20); Est GFR (African American) 90.5 ml/min; Est GFR (Non-African American) 78.1 ml/min; Phosphorus 2.7 mg/dl (2.5-4.9)
--- NOTE | 2022-10-19 07:14 | XRay Report ---
SINGLE VIEW CHEST CLINICAL HISTORY: Respiratory failure. FINDINGS: An AP, portable, upright chest radiograph is compared to study dated 10/18/2022 and correlat ed with chest CT dated 10/10/2022. The examination is degraded by portable technique and patient rotat ion. An endotracheal tube and enteric tube are unchanged in position. The heart is enlarged. The pul monary vasculature is noncongested. Dependent airspace opacities likely represent atelectasis. Trace pleural effusions are suspected. No pneumothorax is seen. The skeletal structures are osteopenic. The bony thorax is grossly intact. IMPRESSION: 1. Stable lines and tubes. 2. Cardiomegaly without radiographic evidence of congestive failure. 3. Suspect trace pleural effusions. 4. Dependent airspace opacities likely represent atelectasis. Clinical correlation will be required t here ACT 112: Negative or not required by law. Electronically signed by: Fabian Castellanos M.D. 10/19/2022 7:12 AM
[2022-10-19] MEDS: FORMOTEROL 20 MCG/2 ML VIAL INH SCH ×2 (07:39→19:51)
[2022-10-19] MEDS: BUDESONIDE 0.25 MG/2 ML VIAL (PULMICORT) NEB SCH ×2 (07:40→19:50)
--- NOTE | 2022-10-19 07:43 | XRay Report ---
SINGLE VIEW CHEST CLINICAL HISTORY: Respiratory failure. FINDINGS: An AP, portable, upright chest radiograph is compared to study dated 10/13/2022. The examina tion is degraded by portable technique and patient rotation. An endotracheal tube has been placed. Th e tip projects approximately 3.5 cm above the lyle. An enteric tube has been placed. The tip projec ts below the diaphragm and is not visualized. The heart is mildly enlarged. The pulmonary vasculature is noncongested. Dependent airspace opacities likely represent atelectasis. Question trace pleural e ffusion. No pneumothorax is seen. The skeletal structures are osteopenic. The bony thorax is grossly intact. IMPRESSION: 1. Endotracheal and enteric tubes have been placed as above. 2. Cardiomegaly without radiographic evidence of congestive failure. 3. Suspect trace pleural effusions. ACT 112: Negative or not required by law. Electronically signed by: Fabian Castellanos M.D. 10/19/2022 7:41 AM
[2022-10-19] MEDS: ENOXAPARIN INJ 40 MG/0.4 ML SYR SQ SCH (08:34)
[2022-10-19] MEDS: ESCITALOPRAM OXALATE 20 MG TAB PO SCH (08:34)
[2022-10-19] MEDS: PHENobarbitaL 30 MG TAB PO SCH ×2 (08:34→20:17)
[2022-10-19] MEDS: FOLIC ACID 1 MG in SYRINGE 9.8 ML IV SCH (08:35)
[2022-10-19] MEDS: THIAMINE HCL 200 MG in SODIUM CHLORIDE 0.9% 50 ML IV SCH ×3 (08:35→20:17)
[2022-10-19] MEDS: NOREPINEPHRINE/D5W 4 MG/250 ML PLCT IV SCH (09:17)
--- NOTE | 2022-10-19 10:19 | Electrocardiogram Report ---
Test Reason : Blood Pressure : / mmHG Vent. Rate : 083 BPM Atrial Rate : 083 BPM P-R Int : 168 ms QRS Dur : 084 ms QT Int : 402 ms P-R-T Axes : 031 -04 036 degrees QTc Int : 472 ms Poor data quality, interpretation may be adversely affected Normal sinus rhythm Normal ECG When compared with ECG of 13-OCT-2022 10:12, No significant change was found Confirmed by Heron Mahmood ([id number]) on 10/19/2022 10:18:28 AM Referred By: REFERRED SELF Confirmed By:Rakesh Mahmood
--- NOTE | 2022-10-19 10:27 | Orthopedic Progress Note ---
Date of Service October 19, 2022 Assessment & Plan Admission and Anticipated Discharge Date Admission Date: October 10, 2022 Subjective Attempted to see this patient this morning to discuss her postponement in total joint surgery. She was intubated overnight and remains so currently. No discussions were held today. Lumbar puncture was performed overnight. She is scheduled for MRI imaging later today. Results & Data Vital Signs (Past 12 Hours) Vital Signs Temp Pulse Resp BP Pulse Ox O2 Del Method FiO2 10/19/22 09:00 21 10/19/22 09:30 86 16 97 10/19/22 09:30 132/73 10/19/22 09:25 128/71 10/19/22 09:25 89 16 97 10/19/22 09:20 116/74 10/19/22 09:20 88 17 97 10/19/22 09:15 90 16 97 10/19/22 09:15 114/68 10/19/22 09:10 110/66 10/19/22 09:10 92 H 16 97 10/19/22 09:05 103/58 L 10/19/22 09:05 94 H 17 96 10/19/22 09:00 98 H 16 99 10/19/22 09:00 79/45 L 10/19/22 08:55 92/50 L 10/19/22 08:55 97 H 16 98 10/19/22 08:51 98 H 17 98 10/19/22 08:51 83/42 L 10/19/22 08:45 94 H 16 98 10/19/22 08:44 83/44 L 10/19/22 08:44 95 H 17 97 10/19/22 08:37 85/43 L 10/19/22 08:37 94 H 16 96 10/19/22 08:30 95 H 16 97 10/19/22 08:30 89/50 L 10/19/22 08:15 95 H 16 96 10/19/22 08:00 92 H 17 96 10/19/22 08:00 113/66 10/19/22 07:45 82 17 100 10/19/22 07:30 85 19 97 10/19/22 07:30 182/86 H 10/19/22 07:15 81 16 97 10/19/22 07:00 80 15 97 10/19/22 07:00 159/79 H 10/19/22 06:45 82 16 97 10/19/22 07:45 81 17 100 30 10/19/22 07:51 86 10/19/22 07:37 Mechanical Vent 30 10/19/22 06:30 83 17 97 10/19/22 06:30 178/81 H 10/19/22 06:20 81 17 97 10/19/22 06:10 81 17 97 10/19/22 06:00 81 17 97 10/19/22 06:00 176/88 H 10/19/22 05:50 80 17 97 10/19/22 05:40 82 16 97 10/19/22 05:30 84 17 97 10/19/22 05:30 193/86 H 10/19/22 05:20 80 18 98 10/19/22 05:10 82 17 97 10/19/22 05:00 81 17 98 10/19/22 05:00 165/82 H 10/19/22 04:50 85 17 97 10/19/22 05:00 30 10/19/22 04:40 84 17 97 10/19/22 04:30 83 18 97 Mechanical Vent 30 10/19/22 04:30 36.9 C 175/81 H 10/19/22 04:20 87 18 96 10/19/22 04:10 91 H 17 97 10/19/22 04:00 93 H 19 95 10/19/22 04:00 218/101 H 10/19/22 03:30 90 21 94 10/19/22 03:00 90 16 98 10/19/22 03:00 83/46 L 10/19/22 02:30 99 H 14 99 10/19/22 02:30 168/83 H 10/19/22 02:00 98 H 14 99 10/19/22 02:00 179/82 H 10/19/22 02:31 94 H 22 99 30 10/19/22 01:50 95 H 14 99 10/19/22 01:40 95 H 15 99 10/19/22 01:30 88 16 99 10/19/22 01:30 171/93 H 10/19/22 01:20 93 H 17 98 10/19/22 01:10 96 H 14 99 10/19/22 01:00 90 16 99 10/19/22 01:00 167/89 H 10/19/22 00:50 90 14 99 10/19/22 00:45 90 15 98 10/19/22 00:31 87 16 99 10/19/22 00:31 173/94 H 10/19/22 00:30 90 17 99 10/19/22 00:15 86 16 99 10/19/22 00:06 190/89 H 10/19/22 00:06 83 15 99 10/19/22 00:01 81 15 98 10/19/22 00:01 194/83 H 10/19/22 00:00 79 17 99 10/18/22 23:50 103/53 L 10/18/22 23:50 73 16 98 10/18/22 23:45 73 16 98 10/18/22 23:41 84/57 L 10/18/22 23:41 70 16 94 10/18/22 23:40 57/28 L 10/18/22 23:40 68 14 94 10/18/22 23:37 57/28 L 10/18/22 23:37 67 11 L 94 10/18/22 23:35 54/30 L 10/18/22 23:35 65 16 94 10/18/22 23:32 48/22 L 10/18/22 23:32 57 L 16 93 10/18/22 23:31 47/26 L 10/18/22 23:31 59 L 14 92 10/18/22 23:30 62 16 93 10/18/22 23:15 76 16 100 10/18/22 23:00 84 15 100 10/18/22 23:00 185/92 H 10/18/22 22:45 83 19 100 10/18/22 22:30 80 16 100 10/18/22 22:30 161/79 H 10/19/22 00:35 88 10/19/22 00:33 40 10/18/22 23:05 80 16 99 40
[2022-10-19] MEDS: TUBE FEEDING WATER FLUSH NG SCH ×4 (10:59→22:05)
[2022-10-19] MEDS: fentaNYL citrate PF 100 MCG/2 ML VIAL IV PRN (11:10)
[2022-10-19] MEDS: PANTOprazole 40 MG in SYRINGE 0 ML IV SCH (11:25)
--- NOTE | 2022-10-19 11:48 | Critical Care Progress Note ---
Date of Service October 19, 2022 Assessment & Plan (1) Acute respiratory failure with hypoxia: (2) Rib fractures: (3) T12 compression fracture: (4) Delirium tremens: (5) Hx of subdural hematoma: (6) Hypertension: (7) GERD (gastroesophageal reflux disease): (8) Anxiety and depression: (9) Seizure: (10) Alcohol use: Plan CT chest 10/10/2022 personally reviewed: Motion degraded study with minimal dependent atelectasis bilateral lower lobes Cardiomegaly No mediastinal lymphadenopathy Reason Critically Ill: 67-year-old female past medical history of hypertension, seizure, anxiety/depression, GERD was admitted to hospital s/p fall. Patient also has history of alcohol use. She was withdrawing on the floor. Transferred to ICU for alcohol withdrawal. Neuro - [facility]: Positive Acute encephalopathy -History of alcohol dependency Most consistent with Delirium tremens: Continue phenobarb - elevated protein on CSF analysis, this was a traumatic tap and chemistry performed on tube 1, -MRI pending -History of craniotomy --History of seizure disorder lamotrigine 150 mg twice daily -Could contribute to encephalopathy -Repeat level pending, I would anticipate this level would be decreased given prior holding of the medication --History of anxiety/depression On escitalopram at home -Restart 20 mg daily -Withdraw this medication could induce encephalopathy Cardiac - -- Prolonged QTc: Resolved Respiratory - Intubated to facilitate encephalopathy work-up as patient would not be still for MRI and to safely perform lumbar puncture -- Acute hypercapnic hypoxic respiratory failure: Improved -- Every day smoker Will need PFT as an outpatient On budesonide and Brovana nebulized in the hospital GI - -Tolerating tube feeding -- History of GERD Continue with pantoprazole RENAL/LYTES - No acute kidney issues Monitor BUNs/creatinine ENDO - Continue with ICU hypoglycemia protocol HEME - Normocytic anemia Monitor H&H ID - fever: Resolved, last elevated temp recorded 10/14 -Blood culture negative to date -Empiric Rocephin for 48 hours completed Musculoskeletal Degenerative joint disease of hip T12 compression fracture -Orthopedics following --Prophylaxis VTE: Lovenox GI: Pantoprazole Lines: Peripheral I have personally spent 45 minutes of critical care time in the direct management of this patient. This is a life/limb threatening event. This includes time spent evaluating patient, direct bedside care, chart review, placing orders, interpretation of diagnostic studies, discussion with consultants, patient, and family members, as well as other required patient management activities. This time is exclusive of all separately billable procedures, and teaching time and separate from and in addition to any other critical care service time. Admission and Anticipated Discharge Date Admission Date: October 10, 2022 Subjective Labile blood pressures overnight vacillating from elevated to possible hypotension. Lumbar puncture obtained yesterday, undergoing MRI today Review of Systems Review of Systems: Unobtainable due to endotracheal tube Physical Exam Physical Exam: General: Sedated. nontoxic. Skin: Warm, dry, Head: Atraumatic Ears, nose, mouth and throat: airway obscured by endotracheal tube Cardiovascular: Normal peripheral perfusion Respiratory: Ventilator settings reviewed Gastrointestinal: Non distended Musculoskeletal: No deformity Results & Data Results & Data Vital Signs (Past 12 Hours) Vital Signs Temp Pulse Resp BP Pulse Ox O2 Del Method FiO2 10/19/22 10:00 83 16 98 21 10/19/22 10:50 90 14 96 10/19/22 10:50 166/92 H 10/19/22 10:45 88 15 97 10/19/22 10:45 167/97 H 10/19/22 10:40 86 21 97 10/19/22 10:40 175/91 H 10/19/22 10:35 81 16 97 10/19/22 10:35 145/74 H 10/19/22 10:30 85 14 97 10/19/22 10:30 128/73 10/19/22 10:25 85 16 98 10/19/22 10:25 131/74 10/19/22 10:20 86 14 97 10/19/22 10:20 128/70 10/19/22 10:15 126/70 10/19/22 10:15 88 15 97 10/19/22 10:10 88 14 97 10/19/22 10:10 125/71 10/19/22 10:05 88 15 97 10/19/22 10:05 129/70 10/19/22 10:00 86 14 97 10/19/22 10:00 133/75 10/19/22 09:55 130/74 10/19/22 09:55 87 16 98 10/19/22 09:50 85 17 98 10/19/22 09:50 144/74 H 10/19/22 09:45 85 16 97 10/19/22 09:45 136/74 10/19/22 09:40 87 16 97 10/19/22 09:40 131/77 10/19/22 09:35 130/74 10/19/22 09:35 86 17 97 10/19/22 10:31 Mechanical Vent 21 10/19/22 09:00 21 10/19/22 09:30 86 16 97 10/19/22 09:30 132/73 10/19/22 09:25 128/71 10/19/22 09:25 89 16 97 10/19/22 09:20 116/74 10/19/22 09:20 88 17 97 10/19/22 09:15 90 16 97 10/19/22 09:15 114/68 10/19/22 09:10 110/66 10/19/22 09:10 92 H 16 97 10/19/22 09:05 103/58 L 10/19/22 09:05 94 H 17 96 10/19/22 09:00 98 H 16 99 10/19/22 09:00 79/45 L 10/19/22 08:55 92/50 L 10/19/22 08:55 97 H 16 98 10/19/22 08:51 98 H 17 98 10/19/22 08:51 83/42 L 10/19/22 08:45 94 H 16 98 10/19/22 08:44 83/44 L 10/19/22 08:44 95 H 17 97 10/19/22 08:37 85/43 L 10/19/22 08:37 94 H 16 96 10/19/22 08:30 95 H 16 97 10/19/22 08:30 89/50 L 10/19/22 08:15 95 H 16 96 10/19/22 08:00 92 H 17 96 10/19/22 08:00 113/66 10/19/22 07:45 82 17 100 10/19/22 07:30 85 19 97 10/19/22 07:30 182/86 H 10/19/22 07:15 81 16 97 10/19/22 07:00 80 15 97 10/19/22 07:00 159/79 H 10/19/22 06:45 82 16 97 10/19/22 07:45 81 17 100 30 10/19/22 07:51 86 10/19/22 07:37 Mechanical Vent 30 10/19/22 06:30 83 17 97 10/19/22 06:30 178/81 H 10/19/22 06:20 81 17 97 10/19/22 06:10 81 17 97 10/19/22 06:00 81 17 97 10/19/22 06:00 176/88 H 10/19/22 05:50 80 17 97 10/19/22 05:40 82 16 97 10/19/22 05:30 84 17 97 10/19/22 05:30 193/86 H 10/19/22 05:20 80 18 98 10/19/22 05:10 82 17 97 10/19/22 05:00 81 17 98 10/19/22 05:00 165/82 H 10/19/22 04:50 85 17 97 10/19/22 05:00 30 10/19/22 04:40 84 17 97 10/19/22 04:30 83 18 97 Mechanical Vent 30 10/19/22 04:30 36.9 C 175/81 H 10/19/22 04:20 87 18 96 10/19/22 04:10 91 H 17 97 10/19/22 04:00 93 H 19 95 10/19/22 04:00 218/101 H 10/19/22 03:30 90 21 94 10/19/22 03:00 90 16 98 10/19/22 03:00 83/46 L 10/19/22 02:30 99 H 14 99 10/19/22 02:30 168/83 H 10/19/22 02:00 98 H 14 99 10/19/22 02:00 179/82 H 10/19/22 02:31 94 H 22 99 30 10/19/22 01:50 95 H 14 99 10/19/22 01:40 95 H 15 99 10/19/22 01:30 88 16 99 10/19/22 01:30 171/93 H 10/19/22 01:20 93 H 17 98 10/19/22 01:10 96 H 14 99 10/19/22 01:00 90 16 99 10/19/22 01:00 167/89 H 10/19/22 00:50 90 14 99 10/19/22 00:45 90 15 98 10/19/22 00:31 87 16 99 10/19/22 00:31 173/94 H 10/19/22 00:30 90 17 99 10/19/22 00:15 86 16 99 10/19/22 00:06 190/89 H 10/19/22 00:06 83 15 99 10/19/22 00:01 81 15 98 10/19/22 00:01 194/83 H 10/19/22 00:00 79 17 99 10/18/22 23:50 103/53 L 10/18/22 23:50 73 16 98 10/18/22 23:45 73 16 98 10/18/22 23:41 84/57 L 10/18/22 23:41 70 16 94 10/18/22 23:40 57/28 L 10/18/22 23:40 68 14 94 10/19/22 00:35 88 10/19/22 00:33 40 Critical Care Results & Data Vital Signs (Past 12 Hours) Vital Signs Temp Pulse Resp BP Pulse Ox O2 Del Method FiO2 10/19/22 10:00 83 16 98 21 10/19/22 10:50 90 14 96 10/19/22 10:50 166/92 H 10/19/22 10:45 88 15 97 10/19/22 10:45 167/97 H 10/19/22 10:40 86 21 97 10/19/22 10:40 175/91 H 10/19/22 10:35 81 16 97 10/19/22 10:35 145/74 H 10/19/22 10:30 85 14 97 10/19/22 10:30 128/73 10/19/22 10:25 85 16 98 10/19/22 10:25 131/74 10/19/22 10:20 86 14 97 10/19/22 10:20 128/70 10/19/22 10:15 126/70 10/19/22 10:15 88 15 97 10/19/22 10:10 88 14 97 10/19/22 10:10 125/71 10/19/22 10:05 88 15 97 10/19/22 10:05 129/70 10/19/22 10:00 86 14 97 10/19/22 10:00 133/75 10/19/22 09:55 130/74 10/19/22 09:55 87 16 98 10/19/22 09:50 85 17 98 10/19/22 09:50 144/74 H 10/19/22 09:45 85 16 97 10/19/22 09:45 136/74 10/19/22 09:40 87 16 97 10/19/22 09:40 131/77 10/19/22 09:35 130/74 10/19/22 09:35 86 17 97 10/19/22 10:31 Mechanical Vent 21 10/19/22 09:00 21 10/19/22 09:30 86 16 97 10/19/22 09:30 132/73 10/19/22 09:25 128/71 10/19/22 09:25 89 16 97 10/19/22 09:20 116/74 10/19/22 09:20 88 17 97 10/19/22 09:15 90 16 97 10/19/22 09:15 114/68 10/19/22 09:10 110/66 10/19/22 09:10 92 H 16 97 10/19/22 09:05 103/58 L 10/19/22 09:05 94 H 17 96 10/19/22 09:00 98 H 16 99 10/19/22 09:00 79/45 L 10/19/22 08:55 92/50 L 10/19/22 08:55 97 H 16 98 10/19/22 08:51 98 H 17 98 10/19/22 08:51 83/42 L 10/19/22 08:45 94 H 16 98 10/19/22 08:44 83/44 L 10/19/22 08:44 95 H 17 97 10/19/22 08:37 85/43 L 10/19/22 08:37 94 H 16 96 10/19/22 08:30 95 H 16 97 10/19/22 08:30 89/50 L 10/19/22 08:15 95 H 16 96 10/19/22 08:00 92 H 17 96 10/19/22 08:00 113/66 10/19/22 07:45 82 17 100 10/19/22 07:30 85 19 97 10/19/22 07:30 182/86 H 10/19/22 07:15 81 16 97 10/19/22 07:00 80 15 97 10/19/22 07:00 159/79 H 10/19/22 06:45 82 16 97 10/19/22 07:45 81 17 100 30 10/19/22 07:51 86 10/19/22 07:37 Mechanical Vent 30 10/19/22 06:30 83 17 97 10/19/22 06:30 178/81 H 10/19/22 06:20 81 17 97 10/19/22 06:10 81 17 97 10/19/22 06:00 81 17 97 10/19/22 06:00 176/88 H 10/19/22 05:50 80 17 97 10/19/22 05:40 82 16 97 10/19/22 05:30 84 17 97 10/19/22 05:30 193/86 H 10/19/22 05:20 80 18 98 10/19/22 05:10 82 17 97 10/19/22 05:00 81 17 98 10/19/22 05:00 165/82 H 10/19/22 04:50 85 17 97 10/19/22 05:00 30 10/19/22 04:40 84 17 97 10/19/22 04:30 83 18 97 Mechanical Vent 30 10/19/22 04:30 36.9 C 175/81 H 10/19/22 04:20 87 18 96 10/19/22 04:10 91 H 17 97 10/19/22 04:00 93 H 19 95 10/19/22 04:00 218/101 H 10/19/22 03:30 90 21 94 10/19/22 03:00 90 16 98 10/19/22 03:00 83/46 L 10/19/22 02:30 99 H 14 99 10/19/22 02:30 168/83 H 10/19/22 02:00 98 H 14 99 10/19/22 02:00 179/82 H 10/19/22 02:31 94 H 22 99 30 10/19/22 01:50 95 H 14 99 10/19/22 01:40 95 H 15 99 10/19/22 01:30 88 16 99 10/19/22 01:30 171/93 H 10/19/22 01:20 93 H 17 98 10/19/22 01:10 96 H 14 99 10/19/22 01:00 90 16 99 10/19/22 01:00 167/89 H 10/19/22 00:50 90 14 99 10/19/22 00:45 90 15 98 10/19/22 00:31 87 16 99 10/19/22 00:31 173/94 H 10/19/22 00:30 90 17 99 10/19/22 00:15 86 16 99 10/19/22 00:06 190/89 H 10/19/22 00:06 83 15 99 10/19/22 00:01 81 15 98 10/19/22 00:01 194/83 H 10/19/22 00:00 79 17 99 10/18/22 23:50 103/53 L 10/18/22 23:50 73 16 98 10/18/22 23:45 73 16 98 10/18/22 23:41 84/57 L 10/18/22 23:41 70 16 94 10/19/22 00:35 88 10/19/22 00:33 40 Lab & Micro Results (Past 24 Hours) RBC 3.91 M/uL (4.20-5.40) L 10/19/22 WBC 8.04 K/ul (4.8-10.8) 10/19/22 Hgb 12.3 g/dl (12.0-16.0) 10/19/22 Hct 35.6 % (37.0-47.0) L 10/19/22 MCV 91.0 fL (80.0-100.0) 10/19/22 MCH 31.5 pg (25.0-34.0) 10/19/22 MCHC 34.6 g/dL (32.0-36.0) 10/19/22 RDW Standard Deviation 46.5 fL (36.4-46.3) H 10/19/22 RDW Coefficient of Variation 13.9 % (11.5-14.5) 10/19/22 Plt Count 199 K/uL (130-400) 10/19/22 MPV 9.9 fL (9.4-12.4) 10/19/22 Neutrophils (%) (Auto) 77.2 % 10/19/22 Lymphocytes (%) (Auto) 10.1 % 10/19/22 Monocytes # (Auto) 0.83 K/uL (0.11-0.59) H 10/19/22 Eosinophils # (Auto) 0.12 K/uL (0-0.50) 10/19/22 Immature Granulocyte % (Auto) 0.5 % 10/19/22 Neutrophils # (Auto) 6.21 K/uL (1.40-6.50) 10/19/22 Lymphocytes # (Auto) 0.81 K/uL (1.2-3.4) L 10/19/22 Monocytes # (Auto) 0.83 K/uL (0.11-0.59) H 10/19/22 Eosinophils # (Auto) 0.12 K/uL (0-0.50) 10/19/22 Basophils # (Auto) 0.03 K/uL (0-0.2) 10/19/22 Immature Granulocyte # (Auto) 0.04 K/uL (0.01-0.20) 3 Na 132 mmol/L (136-145) L 10/19/22 K 3.3 mmol/L (3.5-5.1) L 10/19/22 Cl 103 mmol/L (98-107) 10/19/22 CO2 23 mmol/L (21-32) 10/19/22 Anion Gap 6 (3-11) 10/19/22 BUN 6 mg/dl (6-23) 10/19/22 Creatinine 0.78 mg/dl (0.6-1.2) 10/19/22 Estimated GFR ( Amer) 90.5 ml/min 10/19/22 Estimated GFR (Non-Af Amer) 78.1 ml/min 10/19/22 BUN/Creatinine Ratio 7.7 (10-20) L 10/19/22 Glu 132 mg/dl (70-99(Fasting)) H 10/19/22 Ca 9.8 mg/dl (8.6-10.3) 10/19/22 Phosphorus Level 2.7 mg/dl (2.5-4.9) 10/19/22 Mg 1.9 mg/dl (1.7-2.4) 10/19/22 05:00 Calcium Level 9.8 mg/dl (8.6-10.3) 10/19/22 05:00 [place] Test Pass 10/19/22 04:07 Microbiology 10/13/22 18:53 Aerobic Blood Culture - Final Blood No growth in Aerobic bottle after 5 days. Anaerobic Blood Culture - Final No growth in Anaerobic bottle after 5 days. 10/13/22 19:04 Aerobic Blood Culture - Final Blood No growth in Aerobic bottle after 5 days. Anaerobic Blood Culture - Final No growth in Anaerobic bottle after 5 days. 10/18/22 Unknown Gram Stain - Final Cerebral Spinal Fluid Diagnostic Findings (Past 24 Hours) Chest X-Ray 10/18/22 19:01 SINGLE VIEW CHEST CLINICAL HISTORY: Respiratory failure. FINDINGS: An AP, portable, upright chest radiograph is compared to study dated 10/13/2022. The examination is degraded by portable technique and patient rotation. An endotracheal tube has been placed. The tip projects approximately 3.5 cm above the lyle. An enteric tube has been placed. The tip projects below the diaphragm and is not visualized. The heart is mildly enlarged. The pulmonary vasculature is noncongested. Dependent airspace opacities likely represent atelectasis. Question trace pleural effusion. No pneumothorax is seen. The skeletal structures are osteopenic. The bony thorax is grossly intact. IMPRESSION: 1. Endotracheal and enteric tubes have been placed as above. 2. Cardiomegaly without radiographic evidence of congestive failure. 3. Suspect trace pleural effusions. ACT 112: Negative or not required by law. Electronically signed by: Fabian Castellanos M.D. 10/19/2022 7:41 AM Chest X-Ray 10/19/22 06:00 SINGLE VIEW CHEST CLINICAL HISTORY: Respiratory failure. FINDINGS: An AP, portable, upright chest radiograph is compared to study dated 10/18/2022 and correlated with chest CT dated 10/10/2022. The examination is degraded by portable technique and patient rotation. An endotracheal tube and enteric tube are unchanged in position. The heart is enlarged. The pulmonary vasculature is noncongested. Dependent airspace opacities likely represent atelectasis. Trace pleural effusions are suspected. No pneumothorax is seen. The skeletal structures are osteopenic. The bony thorax is grossly intact. IMPRESSION: 1. Stable lines and tubes. 2. Cardiomegaly without radiographic evidence of congestive failure. 3. Suspect trace pleural effusions. 4. Dependent airspace opacities likely represent atelectasis. Clinical correlation will be required there ACT 112: Negative or not required by law. Electronically signed by: Fabian Castellanos M.D. 10/19/2022 7:12 AM I & O Totals 24 Hours 10/18/22 10/19/22 10/20/22 06:59 06:59 06:59 Intake Total 2416.549 / 2416.549 3210.285 / 3210.285 167.656 / 167.656 Output Total 1175 / 1175 1550 / 1550 Balance 1241.549 / 6416.795 7751.285 / 1660.285 167.656 / 167.656 Cumulative 10/10/22 07:40 thru 10/19/22 10:58 Intake Total 65340.556 Output Total 46055 Balance 91760.556 RT Ventilator Mngmt (Last Documented) Ventilator Ordered Settings Ventilator Support Mode Assist Control 10/19/22 10:31 Respiratory Rate 14 10/19/22 10:50 Ventilator Tidal Volume 350 10/19/22 10:31 Setting Minute Ventilation 5.6 10/19/22 10:00 Positive End Expiratory 5 10/19/22 10:31 Pressure Fraction of Inspired Oxygen 21 10/19/22 10:31 Machine Comment weaned to 21% 10/19/22 07:45 Ventilator - PT Measurements Respiratory Rate 14 Exhaled Tidal Volume 356 Minute Ventilation 5.6 Peak Inspiratory Airway 13 Pressure Plateau Pressure 11 Respiratory Cycle Inspiratory: 1:2.8 Expiratory Ratio Inspiratory Phase Time 1.0 End-Tidal CO2 35 Static Lung Compliance 59.33 Dynamic Lung Compliance 44.50 Normal Static Lung Compliance 48.00 Patient Measurements Comment tidal volume changed to 6ml/kg IBW per SHANK RANDER Arsenio Ochoa Coding Level of Care Code 38589 CRITICAL CARE 1ST 30-74M Diagnoses Acute respiratory failure with hypoxia J96.01 Rib fractures S22.49XA T12 compression fracture S22.080A Delirium tremens F10.931 Hx of subdural hematoma Z86.79 Hypertension I10 GERD (gastroesophageal reflux disease) K21.9 Anxiety and depression F41.9; F32.A Seizure R56.9 Alcohol use Z78.9
[2022-10-19] MEDS ORDERED: GADOBUTROL 65ML VIAL IV ONE (12:57)
--- NOTE | 2022-10-19 13:36 | Magnetic Resonance Report ---
MRI OF THE BRAIN COMBO CLINICAL HISTORY: Encephalitis. COMPARISON STUDY: CT of the brain dated 10/10/2022. TECHNIQUE: MRI of the brain was performed utilizing various T1 and T2-weighted sequences in the axial , sagittal, and coronal planes. Contrast-enhanced sequences were acquired following the administratio n of 6.5 cc of Gadavist. The examination is degraded by motion artifact. FINDINGS: Brain parenchyma: There is age-related conclusion mild change noting minimal microangiopathic disease . There is no hemorrhage or mass effect. There is no restricted diffusion to suggest acute ischemia. No enhancing mass lesion is identified on the postcontrast images. Wade-white matter differentiation is preserved. No extra-axial fluid collection is seen. The cerebellar tonsils are normal in configura tion. Ventricles, sulci, and cisterns: Prominent secondary to positional change. Pituitary and sella: Unremarkable. Intracranial vasculature: Normal flow voids are maintained at the skull base. Orbits: The bony orbits are grossly intact. Orbital contents are normal in appearance. Sinuses and mastoids: There is trace mucosal thickening in the left maxillary antrum, ethmoid sinuses , mastoid sinuses. There are bilateral mastoid effusions. Layering secretions are seen in the pharynx . Calvarium: There is evidence of previous right-sided craniotomy. No destructive calvarial lesion is i dentified. Cervical cord: Partially visualized cervical spinal cord is normal in morphology and signal intensity . IMPRESSION: No acute intracranial abnormality. ACT 112: Negative or not required by law. Electronically signed by: Fabian Castellanos M.D. 10/19/2022 1:33 PM
[2022-10-19] MEDS ORDERED: STAT IV Infusion **Titration per Protocol STA (14:10)
[2022-10-19] MEDS: dexMEDEtomidine 200 MCG/50 ML BAG IV SCH ×3 (14:25→23:54)
[2022-10-19] MEDS: PHENobarbital sodium 65 MG/ML VIAL IV PRN (15:09)
[2022-10-19] MEDS: PEPTAMEN INTENSE VHP 1.0 CAL 1,000 ML BAG GT SCH (15:55)
--- NOTE | 2022-10-19 18:17 | Hospitalist Progress Note ---
Date of Service October 19, 2022 Assessment & Plan (1) Fall: Plan: With multiple falls at home, suspected 2nd to chronic hip pain in combination with alcohol use for pain control at home. CK mildly elevated, Anion gap 13 on labs, likely from alcohol use CT head/cervical spine negative on admit (hx fall/subdural hematoma/craniotomy/evacuation). CTAP without acute intraabdominal process but does note T12 compression fracture Hip/pelvix xrays show left EUGENIO and Right severe OA---has significant bruising to her LEFT hip (upcoming surgery for repair RIGHT hip for severe OA on 10/12- cancelled by Ortho). Prior LEFT hip repair in 2019 in [place]. Consult w/ orthopedics appreciated UA neg for infection CK 900-mild rhabdomyolysis CXR w/o acute process but patient does have multiple old rib fractures various stages of healing CT Chest confirms right sided acute rib fracture Echo normal PT/OT consulted, but not able to participate yet due to encephalopathy (2) T12 compression fracture: Plan: as noted on imaging, 2nd to fall, unsure if symptomatic as is altered mentation vit d level normal pain control prn, will see about orthotics for brace for additional pain control once EtOH withdrawal improved PT/OT consulted (3) Rib fractures: Plan: Multiple fractures of ribs, BILATERAL noted on imaging, likely from fall continue to monitor (4) Alcohol use: Plan: With severe withdrawal, with a h/o seizures Drinks 1/2 liter vodka daily at home Initially admitted to PCU and received 14 mg of IV ativan and IM Zyprexa overnight for high AWSS scores, remained agitated, was having sonorous breath sounds and periods of apnea, with ET CO2 monitor on with elevations of 42 at times Transferred to ICU on 10/11 and placed on Precedex drip, scheduled Ativan. Today Precedex drip was switched to phenobarb by tank inspector. Per nurse, the patient is more restless today. EtOH level 0 in ER, UDS neg, ASA and APAP levels negative Ammonia 42 B1 pending B12 low and replaced with 3 doses of IM B12; folate normal Lactic acidosis now resolved Appreciate tank inspector management Ongoing delirium tremens MRI negative LP studies fairly unremarkable -continue phenobarbital, Precedex drip per tank inspector. Wean off as able -continue IV thiamine, folic acid, IV protonix -Remains n.p.o. due to encephalopathy -continue AWSS monitoring (5) Weakness: Plan: 2nd to above (6) Osteoarthritis of right hip: Plan: consult orthopedics apprecaited-delaying previously planned EUGENIO pain control plan for PT/OT consultations once stable from EtOH withdrawal (7) Chronic right hip pain: Plan: pain control/ortho/xrays/pt/ot consultations (8) Hypomagnesemia: Plan: Replaced monitor on telemetry for any arrhythmia contributing to falls, ?holiday heart/paroxysmal afib w/ her alcohol use at home contributing to falls (9) Hypertension: Plan: On Losartan-HCTZ 100mg-12.5mg daily, atenolol 50mg BID at home-holding home p.o. meds for altered mental status Does have a history of SVT/PACs/palpitations per cards outpatient note-monitor on telemetry (10) Seizure: Plan: On Lamictal On phenobarb Seizure precautions (11) Closed head injury: Plan: CT head negative on admission, not on blood thinners (12) Hx of subdural hematoma: Plan: 2020 (s/p fall) (13) GERD (gastroesophageal reflux disease): Plan: continue PPI IV (14) Anxiety and depression: Plan: On Lamictal On escitalopram. (15) Left hip pain: Plan: s/p fall, repair/replacement in 2019 in [place] Obtaining xrays given bruising/ecchyomosis s/p fall as above (16) Acute respiratory failure with hypoxia: Plan: Now on oxygen Most likely secondary to IV Ativan for alcohol withdrawal IV Ativan discontinued -continue supplemental O2 prn -Continued stay in ICU -diuresing occasionally (17) Fever: Plan: Spiked a fever on the evening of 10/13 Chest x-ray negative except atelectasis Blood cultures drawn-follow No leukocytosis-follow CBC Could be from atelectasis Consider urinalysis Plan DVT prophylaxis-Lovenox Disposition-continued stay in ICU Admission and Anticipated Discharge Date Admission Date: October 10, 2022 Subjective Patient was intubated for the purpose of getting an LP and MRI done yesterday. Currently extubated again. Review of Systems Review of Systems: Unobtainable due to reduced consciousness Physical Exam Physical Exam: General: Sleeping, obtunded. Not restless today. Heart: S1, S2/regular rate and rhythm, no murmur rubs or gallops Lungs: Clear to auscultation bilaterally. Normal effort Abdomen: Soft/nontender/nondistended. No hepatosplenomegaly Extremities: No clubbing/cyanosis. No edema Behavior: Unable to assess due to delirium Results & Data Results & Data Vital Signs (Past 12 Hours) Vital Signs Temp Pulse Resp BP Pulse Ox O2 Del Method FiO2 10/19/22 18:08 93 H 10/19/22 13:30 94 H 13 92 21 10/19/22 16:30 104 H 17 94 10/19/22 16:30 124/77 10/19/22 16:15 100 H 20 93 10/19/22 16:15 125/78 10/19/22 16:00 103 H 17 93 10/19/22 16:00 126/65 10/19/22 15:45 105 H 19 93 10/19/22 15:45 120/79 10/19/22 15:30 105 H 20 93 10/19/22 15:30 145/81 H 10/19/22 15:15 105 H 22 92 10/19/22 15:15 141/94 H 10/19/22 15:00 112 H 27 H 91 10/19/22 15:00 145/81 H 10/19/22 14:45 105 H 21 94 10/19/22 14:45 176/85 H 10/19/22 14:30 109 H 18 92 10/19/22 14:30 152/82 H 10/19/22 14:15 106 H 16 93 10/19/22 14:15 164/94 H 10/19/22 14:00 98 H 13 92 10/19/22 14:00 192/99 H 10/19/22 13:45 93 H 14 92 10/19/22 13:45 174/92 H 10/19/22 13:37 178/94 H 10/19/22 13:37 92 H 15 92 10/19/22 13:30 95 H 15 10/19/22 13:18 86 19 10/19/22 12:00 91 H 17 97 10/19/22 12:00 129/75 10/19/22 11:45 98 H 17 93 10/19/22 11:45 115/66 10/19/22 11:35 124/66 10/19/22 11:35 100 H 16 95 10/19/22 11:30 103 H 16 95 10/19/22 11:30 109/66 10/19/22 11:25 126/70 10/19/22 11:25 103 H 16 95 10/19/22 11:20 119/70 10/19/22 11:20 103 H 16 96 10/19/22 11:15 103 H 17 94 10/19/22 11:15 146/80 H 10/19/22 11:10 175/88 H 10/19/22 11:10 95 H 13 96 10/19/22 11:05 181/102 H 10/19/22 11:05 94 H 13 94 10/19/22 11:00 89 17 97 10/19/22 11:00 184/95 H 10/19/22 10:55 173/93 H 10/19/22 10:55 87 16 97 10/19/22 15:21 37.1 C 10/19/22 13:00 21 10/19/22 08:00 36.8 C 10/19/22 13:30 95 H 21 93 21 10/19/22 10:00 83 16 98 21 10/19/22 10:50 90 14 96 10/19/22 10:50 166/92 H 10/19/22 10:45 88 15 97 10/19/22 10:45 167/97 H 10/19/22 10:40 86 21 97 10/19/22 10:40 175/91 H 10/19/22 10:35 81 16 97 10/19/22 10:35 145/74 H 10/19/22 10:30 85 14 97 10/19/22 10:30 128/73 10/19/22 10:25 85 16 98 10/19/22 10:25 131/74 10/19/22 10:20 86 14 97 10/19/22 10:20 128/70 10/19/22 10:15 126/70 10/19/22 10:15 88 15 97 10/19/22 10:10 88 14 97 10/19/22 10:10 125/71 10/19/22 10:05 88 15 97 10/19/22 10:05 129/70 10/19/22 10:00 86 14 97 10/19/22 10:00 133/75 10/19/22 09:55 130/74 10/19/22 09:55 87 16 98 10/19/22 09:50 85 17 98 10/19/22 09:50 144/74 H 10/19/22 09:45 85 16 97 10/19/22 09:45 136/74 10/19/22 09:40 87 16 97 10/19/22 09:40 131/77 10/19/22 09:35 130/74 10/19/22 09:35 86 17 97 10/19/22 10:31 Mechanical Vent 21 10/19/22 09:00 21 10/19/22 09:30 86 16 97 10/19/22 09:30 132/73 10/19/22 09:25 128/71 10/19/22 09:25 89 16 97 10/19/22 09:20 116/74 10/19/22 09:20 88 17 97 10/19/22 09:15 90 16 97 10/19/22 09:15 114/68 10/19/22 09:10 110/66 10/19/22 09:10 92 H 16 97 10/19/22 09:05 103/58 L 10/19/22 09:05 94 H 17 96 10/19/22 09:00 98 H 16 99 10/19/22 09:00 79/45 L 10/19/22 08:55 92/50 L 10/19/22 08:55 97 H 16 98 10/19/22 08:51 98 H 17 98 10/19/22 08:51 83/42 L 10/19/22 08:45 94 H 16 98 10/19/22 08:44 83/44 L 10/19/22 08:44 95 H 17 97 10/19/22 08:37 85/43 L 10/19/22 08:37 94 H 16 96 10/19/22 08:30 95 H 16 97 10/19/22 08:30 89/50 L 10/19/22 08:15 95 H 16 96 10/19/22 08:00 92 H 17 96 10/19/22 08:00 113/66 10/19/22 07:45 82 17 100 10/19/22 07:30 85 19 97 10/19/22 07:30 182/86 H 10/19/22 07:15 81 16 97 10/19/22 07:00 80 15 97 04/20/23 07:00 159/79 H 10/19/22 06:45 82 16 97 10/19/22 07:45 81 17 100 30 10/19/22 07:51 86 10/19/22 07:37 Mechanical Vent 30 10/19/22 06:30 83 17 97 10/19/22 06:30 178/81 H 10/19/22 06:20 81 17 97 Laboratory Results Abnormal lab results 10/18/22 10/19/22 10/19/22 Range/Units Unknown 00:05 04:07 RBC (4.20-5.40) M/uL Hct (37.0-47.0) % RDW Std Deviation (36.4-46.3) fL Lymph # (Auto) (1.2-3.4) K/uL [place] # (Auto) (0.11-0.59) K/uL POC ABG O2 Sat 96.0 H (90-95) % POC Sodium 133 L (135-144) mmol/L Sodium (136-145) mmol/L Potassium (3.5-5.1) mmol/L BUN/Creatinine Ratio (10-20) Glucose (70-99(Fasting)) mg/dl POC Glucose 123 H (70-99) mg/dl CSF Total Protein 86.7 H (15-45) mg/dl 10/19/22 10/19/22 Range/Units 05:00 05:00 RBC 3.91 L (4.20-5.40) M/uL Hct 35.6 L (37.0-47.0) % RDW Std Deviation 46.5 H (36.4-46.3) fL Lymph # (Auto) 0.81 L (1.2-3.4) K/uL [place] # (Auto) 0.83 H (0.11-0.59) K/uL POC ABG O2 Sat (90-95) % POC Sodium (135-144) mmol/L Sodium 132 L (136-145) mmol/L Potassium 3.3 L (3.5-5.1) mmol/L BUN/Creatinine Ratio 7.7 L (10-20) Glucose 132 H (70-99(Fasting)) mg/dl POC Glucose (70-99) mg/dl CSF Total Protein (15-45) mg/dl Diagnostic Findings Chest X-Ray 10/18/22 19:01 SINGLE VIEW CHEST CLINICAL HISTORY: Respiratory failure. FINDINGS: An AP, portable, upright chest radiograph is compared to study dated 10/13/2022. The examination is degraded by portable technique and patient rotation. An endotracheal tube has been placed. The tip projects approximately 3.5 cm above the lyle. An enteric tube has been placed. The tip projects below the diaphragm and is not visualized. The heart is mildly enlarged. The pulmonary vasculature is noncongested. Dependent airspace opacities likely represent atelectasis. Question trace pleural effusion. No pneumothorax is seen. The skeletal structures are osteopenic. The bony thorax is grossly intact. IMPRESSION: 1. Endotracheal and enteric tubes have been placed as above. 2. Cardiomegaly without radiographic evidence of congestive failure. 3. Suspect trace pleural effusions. ACT 112: Negative or not required by law. Electronically signed by: Fabian Castellanos M.D. 10/19/2022 7:41 AM Chest X-Ray 10/19/22 06:00 SINGLE VIEW CHEST CLINICAL HISTORY: Respiratory failure. FINDINGS: An AP, portable, upright chest radiograph is compared to study dated 10/18/2022 and correlated with chest CT dated 10/10/2022. The examination is degraded by portable technique and patient rotation. An endotracheal tube and enteric tube are unchanged in position. The heart is enlarged. The pulmonary vasculature is noncongested. Dependent airspace opacities likely represent atelectasis. Trace pleural effusions are suspected. No pneumothorax is seen. The skeletal structures are osteopenic. The bony thorax is grossly intact. IMPRESSION: 1. Stable lines and tubes. 2. Cardiomegaly without radiographic evidence of congestive failure. 3. Suspect trace pleural effusions. 4. Dependent airspace opacities likely represent atelectasis. Clinical correlation will be required there ACT 112: Negative or not required by law. Electronically signed by: Fabian Castellanos M.D. 10/19/2022 7:12 AM Brain MRI 10/19/22 07:51 MRI OF THE BRAIN COMBO CLINICAL HISTORY: Encephalitis. COMPARISON STUDY: CT of the brain dated 10/10/2022. TECHNIQUE: MRI of the brain was performed utilizing various T1 and T2-weighted sequences in the axial, sagittal, and coronal planes. Contrast-enhanced sequences were acquired following the administration of 6.5 cc of Gadavist. The examination is degraded by motion artifact. FINDINGS: Brain parenchyma: There is age-related conclusion mild change noting minimal microangiopathic disease. There is no hemorrhage or mass effect. There is no restricted diffusion to suggest acute ischemia. No enhancing mass lesion is identified on the postcontrast images. Wade-white matter differentiation is preserved. No extra-axial fluid collection is seen. The cerebellar tonsils are normal in configuration. Ventricles, sulci, and cisterns: Prominent secondary to positional change. Pituitary and sella: Unremarkable. Intracranial vasculature: Normal flow voids are maintained at the skull base. Orbits: The bony orbits are grossly intact. Orbital contents are normal in appearance. Sinuses and mastoids: There is trace mucosal thickening in the left maxillary antrum, ethmoid sinuses, mastoid sinuses. There are bilateral mastoid effusions. Layering secretions are seen in the pharynx. Calvarium: There is evidence of previous right-sided craniotomy. No destructive calvarial lesion is identified. Cervical cord: Partially visualized cervical spinal cord is normal in morphology and signal intensity. IMPRESSION: No acute intracranial abnormality. ACT 112: Negative or not required by law. Electronically signed by: Fabian Castellanos M.D. 10/19/2022 1:33 PM PG Care Time/CCT Total # of Minutes Spent Total Time Spent with Patient: Total time spent is greater than 50% in coordination of care (as documented) at patient's floor/unit and/or counseling patient: Coding Level of Care Code 70849 SUB INP/OBS CARE 2/35MIN Diagnoses Fall W19.XXXA T12 compression fracture S22.080A Rib fractures S22.49XA Alcohol use Z78.9 Weakness R53.1 Osteoarthritis of right hip M16.11 Chronic right hip pain M25.551; G89.29 Hypomagnesemia E83.42 Hypertension I10 Seizure R56.9 Closed head injury S09.90XA Hx of subdural hematoma Z86.79 GERD (gastroesophageal reflux disease) K21.9 Anxiety and depression F41.9; F32.A Left hip pain M25.552 Acute respiratory failure with hypoxia J96.01 Fever R50.9
[2022-10-19] MEDS: LIDOCAINE 5% 1 PATCH TD SCH (20:09)
[2022-10-20] MEDS: TUBE FEEDING WATER FLUSH NG SCH ×6 (03:56→23:57)
[2022-10-20] MEDS: dexMEDEtomidine 200 MCG/50 ML BAG IV SCH ×4 (04:50→23:56)
[2022-10-20 06:11] LABS: Basophils # (auto) 0.03 K/uL (0-0.2); Basophils % (auto) 0.4 %; Eosinophils # (auto) 0.12 K/uL (0-0.50); Eosinophils % (auto) 1.7 %; Hematocrit (blood only) 34.1 % (37.0-47.0); Hemoglobin 11.8 g/dl (12.0-16.0); Immature Granulocytes # (auto) 0.02 K/uL (0.01-0.20); Immature Granulocytes % (auto) 0.3 %; Lymphocytes # (auto) 1.07 K/uL (1.2-3.4); Lymphocytes % (auto) 14.8 %; Mean Corpuscular Hemoglobin 31.2 pg (25.0-34.0); Mean Corpuscular Hgb Conc 34.6 g/dL (32.0-36.0); Mean Corpuscular Volume 90.2 fL (80.0-100.0); Mean Platelet Volume 9.8 fL (9.4-12.4); Monocytes # (auto) 0.79 K/uL (0.11-0.59); Monocytes % (auto) 10.9 %; Neutrophils % (auto) 71.9 %; Platelet Count 186 K/uL (130-400); RDW Coefficient of Variation 14.1 % (11.5-14.5); RDW Standard Deviation 46.6 fL (36.4-46.3); Red Blood Count 3.78 M/uL (4.20-5.40); White Blood Count 7.23 K/ul (4.8-10.8)
[2022-10-20 06:22] LABS: BUN Creatinine Ratio 14.7 (10-20); Calcium 9.7 mg/dl (8.6-10.3); Creatinine Clr Calc Pharmacy 68.6 ml/min; Est GFR (African American) 94.9 ml/min; Est GFR (Non-African American) 81.9 ml/min; Magnesium 1.8 mg/dl (1.7-2.4); Phosphorus 3.1 mg/dl (2.5-4.9); Potassium 3.8 mmol/L (3.5-5.1)
[2022-10-20] MEDS: BUDESONIDE 0.25 MG/2 ML VIAL (PULMICORT) NEB SCH ×2 (07:42→19:31)
[2022-10-20] MEDS: FORMOTEROL 20 MCG/2 ML VIAL INH SCH ×2 (07:42→19:31)
[2022-10-20] MEDS: MAGNESIUM SULFATE / D5W 1 GM/100 ML BAG IV SCH ×2 (07:57→10:00)
[2022-10-20] MEDS: POTASSIUM CHLORIDE / WTR 10 MEQ/100 ML PLCT IV SCH ×2 (07:57→08:55)
[2022-10-20] MEDS: MULTI VIT W/MINERALS LIQUID 15 ML UDP NG SCH (08:03)
[2022-10-20] MEDS: ENOXAPARIN INJ 40 MG/0.4 ML SYR SQ SCH (08:03)
[2022-10-20] MEDS: ESCITALOPRAM OXALATE 20 MG TAB PO SCH (08:04)
[2022-10-20] MEDS: FOLIC ACID 1 MG in SYRINGE 9.8 ML IV SCH (08:04)
[2022-10-20] MEDS: THIAMINE HCL 200 MG in SODIUM CHLORIDE 0.9% 50 ML IV SCH ×3 (08:07→20:52)
[2022-10-20] MEDS: PHENobarbitaL 30 MG TAB PO SCH ×2 (08:07→20:52)
--- NOTE | 2022-10-20 08:22 | XRay Report ---
XR chest 1V portable HISTORY: 67 years-old Female intubation acute respiratory failure COMPARISON: 10/19/2022 TECHNIQUE: AP view of the chest FINDINGS: Status post extubation. There is an enteric tube which courses below the diaphragm with distal tip ou tside the [id number]. Cardiomegaly. No pneumothorax. Small pleural effusions with mild bibasilar d ensities suggestive of atelectasis. Degenerative changes of the shoulders and spine. IMPRESSION: 1. Status post extubation. 2. Enteric tube courses below the diaphragm with distal tip outside the [id number]. 3. Cardiomegaly without overt pulmonary edema. 4. Suspected small pleural effusions with mild bibasilar atelectasis. ACT 112: Negative or not required by law. The above report was generated using voice recognition software. It may contain grammatical, syntax o r spelling errors. Electronically signed by: Yung Rodriguez M.D. 10/20/2022 8:21 AM
--- NOTE | 2022-10-20 09:32 | Critical Care Progress Note ---
Date of Service October 20, 2022 Assessment & Plan (1) Acute respiratory failure with hypoxia: (2) Rib fractures: (3) T12 compression fracture: (4) Delirium tremens: (5) Hx of subdural hematoma: (6) Hypertension: (7) GERD (gastroesophageal reflux disease): (8) Anxiety and depression: (9) Seizure: (10) Alcohol use: Plan CT chest 10/10/2022 personally reviewed: Motion degraded study with minimal dependent atelectasis bilateral lower lobes Cardiomegaly No mediastinal lymphadenopathy Reason Critically Ill: 67-year-old female past medical history of hypertension, seizure, anxiety/depression, GERD was admitted to hospital s/p fall. Patient also has history of alcohol use. She was withdrawing on the floor. Transferred to ICU for alcohol withdrawal. Neuro - [facility]: Positive Acute encephalopathy -History of alcohol dependency Most consistent with Delirium tremens: additional phenobarb 30mg po bid x 2 days - elevated protein on CSF analysis, this was a traumatic tap and chemistry performed on tube 1, -MRI: no acute findings -History of craniotomy Ordered EEG to r/o seizure; however, I consider this unlikely. --History of seizure disorder lamotrigine 150 mg twice daily -Could contribute to encephalopathy -Repeat level pending, I would anticipate this level would be decreased given prior holding of the medication --History of anxiety/depression On escitalopram at home -20 mg daily Cardiac - -- Prolonged QTc: Resolved Respiratory - Extuabted yesterday -- Acute hypercapnic hypoxic respiratory failure: resolved -- Every day smoker Will need PFT as an outpatient On budesonide and Brovana nebulized in the hospital GI - -Tolerating tube feeding: increase to goal -- History of GERD Continue with pantoprazole RENAL/LYTES - No acute kidney issues Monitor BUNs/creatinine ENDO - Continue with ICU hypoglycemia protocol HEME - Normocytic anemia Monitor H&H ID - fever: Resolved, last elevated temp recorded 10/14 -Blood culture negative to date -Empiric Rocephin for 48 hours completed Musculoskeletal Degenerative joint disease of hip T12 compression fracture -Orthopedics following --Prophylaxis VTE: Lovenox GI: Pantoprazole Lines: Peripheral I have updated the patient's brother. Admission and Anticipated Discharge Date Admission Date: October 10, 2022 Subjective No overnights events Review of Systems Review of Systems: Unobtainable due to cognitive status Physical Exam Physical Exam: General: Glascow Coma Scale: Eyes: 4, Verbal 2, Motor 5, Total 12 Skin: Warm, dry, Head: Atraumatic Ears, nose, mouth and throat: airway patent Cardiovascular: Normal peripheral perfusion Respiratory: No respiratory distress Gastrointestinal: Non distended Musculoskeletal: No deformity Results & Data Results & Data Vital Signs (Past 12 Hours) Vital Signs Pulse Pulse Resp BP Pulse Ox O2 Del Method 10/20/22 08:15 100 H 21 91 10/20/22 08:15 129/83 10/20/22 08:00 105 H 19 91 10/20/22 08:00 158/107 H 10/20/22 07:30 170/81 H 10/20/22 07:30 100 H 20 92 10/20/22 07:15 152/117 H 10/20/22 07:15 98 H 26 H 91 10/20/22 07:00 96 H 22 91 10/20/22 07:00 150/81 H 10/20/22 07:42 100 H 22 91 Room Air 10/20/22 08:00 Room Air 10/20/22 05:46 144/82 H 10/20/22 05:46 98 H 21 92 10/20/22 05:30 138/117 H 10/20/22 05:30 92 H 23 92 10/20/22 05:15 135/86 10/20/22 05:15 95 H 20 92 10/20/22 05:00 95 H 21 90 10/20/22 05:00 142/92 H 10/20/22 04:30 150/76 H 10/20/22 04:30 96 H 21 92 10/20/22 04:15 145/86 H 10/20/22 04:15 94 H 23 92 10/20/22 00:00 77 10/20/22 04:00 93 H 20 92 10/20/22 04:00 141/79 H 10/20/22 03:30 135/83 10/20/22 03:30 92 H 20 93 10/20/22 02:45 134/82 10/20/22 02:45 91 H 19 93 10/20/22 01:15 118/76 10/20/22 01:15 83 23 91 10/20/22 00:30 74 15 91 10/20/22 00:30 100/60 04/21/23 00:00 83 17 91 10/19/22 23:45 95/61 L 10/19/22 23:45 77 16 91 10/19/22 23:30 107/66 10/19/22 23:30 83 15 89 L 10/19/22 23:00 79 15 91 10/19/22 23:00 115/62 10/19/22 22:30 78 17 91 10/19/22 22:30 91/57 L Critical Care Results & Data Vital Signs (Past 12 Hours) Vital Signs Temp Pulse Pulse Resp BP Pulse Ox O2 Del Method 10/20/22 11:01 102 H 22 91 10/20/22 11:01 139/80 10/20/22 11:00 105 H 21 92 10/20/22 10:00 97 H 19 94 10/20/22 09:00 99 H 15 91 10/20/22 08:45 134/75 10/20/22 08:45 105 H 28 H 89 L 10/20/22 07:46 37.3 C 10/20/22 08:15 100 H 21 91 10/20/22 08:15 129/83 10/20/22 08:00 105 H 19 91 10/20/22 08:00 158/107 H 10/20/22 07:30 170/81 H 10/20/22 07:30 100 H 20 92 10/20/22 07:15 152/117 H 10/20/22 07:15 98 H 26 H 91 10/20/22 07:00 96 H 22 91 10/20/22 07:00 150/81 H 10/20/22 07:42 100 H 22 91 Room Air 10/20/22 08:00 Room Air 10/20/22 05:46 144/82 H 10/20/22 05:46 98 H 21 92 10/20/22 05:30 138/117 H 10/20/22 05:30 92 H 23 92 10/20/22 05:15 135/86 10/20/22 05:15 95 H 20 92 10/20/22 05:00 95 H 21 90 10/20/22 05:00 142/92 H 10/20/22 04:30 150/76 H 10/20/22 04:30 96 H 21 92 10/20/22 04:15 145/86 H 10/20/22 04:15 94 H 23 92 10/20/22 04:00 93 H 20 92 10/20/22 04:00 141/79 H 10/20/22 03:30 135/83 10/20/22 03:30 92 H 20 93 10/20/22 02:45 134/82 10/20/22 02:45 91 H 19 93 10/20/22 01:15 118/76 10/20/22 01:15 83 23 91 10/20/22 00:30 74 15 91 10/20/22 00:30 100/60 Lab & Micro Results (Past 24 Hours) RBC 3.78 M/uL (4.20-5.40) L 10/20/22 WBC 7.23 K/ul (4.8-10.8) 10/20/22 Hgb 11.8 g/dl (12.0-16.0) L 10/20/22 Hct 34.1 % (37.0-47.0) L 10/20/22 MCV 90.2 fL (80.0-100.0) 10/20/22 MCH 31.2 pg (25.0-34.0) 10/20/22 MCHC 34.6 g/dL (32.0-36.0) 10/20/22 RDW Standard Deviation 46.6 fL (36.4-46.3) H 10/20/22 RDW Coefficient of Variation 14.1 % (11.5-14.5) 10/20/22 Plt Count 186 K/uL (130-400) 10/20/22 MPV 9.8 fL (9.4-12.4) 10/20/22 Neutrophils (%) (Auto) 71.9 % 10/20/22 Lymphocytes (%) (Auto) 14.8 % 10/20/22 Monocytes # (Auto) 0.79 K/uL (0.11-0.59) H 10/20/22 Eosinophils # (Auto) 0.12 K/uL (0-0.50) 10/20/22 Immature Granulocyte % (Auto) 0.3 % 10/20/22 Neutrophils # (Auto) 5.20 K/uL (1.40-6.50) 10/20/22 Lymphocytes # (Auto) 1.07 K/uL (1.2-3.4) L 10/20/22 Monocytes # (Auto) 0.79 K/uL (0.11-0.59) H 10/20/22 Eosinophils # (Auto) 0.12 K/uL (0-0.50) 10/20/22 Basophils # (Auto) 0.03 K/uL (0-0.2) 10/20/22 Immature Granulocyte # (Auto) 0.02 K/uL (0.01-0.20) 3 Na 135 mmol/L (136-145) L 10/20/22 K 3.8 mmol/L (3.5-5.1) 10/20/22 Cl 104 mmol/L (98-107) 10/20/22 CO2 24 mmol/L (21-32) 10/20/22 Anion Gap 7 (3-11) 10/20/22 BUN 11 mg/dl (6-23) 10/20/22 Creatinine 0.75 mg/dl (0.6-1.2) 10/20/22 Estimated GFR ( Amer) 94.9 ml/min 10/20/22 Estimated GFR (Non-Af Amer) 81.9 ml/min 10/20/22 BUN/Creatinine Ratio 14.7 (10-20) 10/20/22 Glu 85 mg/dl (70-99(Fasting)) 10/20/22 Ca 9.7 mg/dl (8.6-10.3) 10/20/22 Phosphorus Level 3.1 mg/dl (2.5-4.9) 10/20/22 Mg 1.8 mg/dl (1.7-2.4) 10/20/22 05:28 Calcium Level 9.7 mg/dl (8.6-10.3) 10/20/22 05:28 Microbiology 10/18/22 Unknown Gram Stain - Final Cerebral Spinal Fluid CSF Culture - Preliminary No growth to date. Diagnostic Findings (Past 24 Hours) Brain MRI 10/19/22 07:51 MRI OF THE BRAIN COMBO CLINICAL HISTORY: Encephalitis. COMPARISON STUDY: CT of the brain dated 10/10/2022. TECHNIQUE: MRI of the brain was performed utilizing various T1 and T2-weighted sequences in the axial, sagittal, and coronal planes. Contrast-enhanced sequences were acquired following the administration of 6.5 cc of Gadavist. The examination is degraded by motion artifact. FINDINGS: Brain parenchyma: There is age-related conclusion mild change noting minimal microangiopathic disease. There is no hemorrhage or mass effect. There is no restricted diffusion to suggest acute ischemia. No enhancing mass lesion is identified on the postcontrast images. Wade-white matter differentiation is preserved. No extra-axial fluid collection is seen. The cerebellar tonsils are normal in configuration. Ventricles, sulci, and cisterns: Prominent secondary to positional change. Pituitary and sella: Unremarkable. Intracranial vasculature: Normal flow voids are maintained at the skull base. Orbits: The bony orbits are grossly intact. Orbital contents are normal in appearance. Sinuses and mastoids: There is trace mucosal thickening in the left maxillary antrum, ethmoid sinuses, mastoid sinuses. There are bilateral mastoid effusions. Layering secretions are seen in the pharynx. Calvarium: There is evidence of previous right-sided craniotomy. No destructive calvarial lesion is identified. Cervical cord: Partially visualized cervical spinal cord is normal in morphology and signal intensity. IMPRESSION: No acute intracranial abnormality. ACT 112: Negative or not required by law. Electronically signed by: Fabian Castellanos M.D. 10/19/2022 1:33 PM Chest X-Ray 10/20/22 06:00 XR chest 1V portable HISTORY: 67 years-old Female intubation acute respiratory failure COMPARISON: 10/19/2022 TECHNIQUE: AP view of the chest FINDINGS: Status post extubation. There is an enteric tube which courses below the diaphragm with distal tip outside the [id number]. Cardiomegaly. No pneumothorax. Small pleural effusions with mild bibasilar densities suggestive of atelectasis. Degenerative changes of the shoulders and spine. IMPRESSION: 1. Status post extubation. 2. Enteric tube courses below the diaphragm with distal tip outside the [id number]. 3. Cardiomegaly without overt pulmonary edema. 4. Suspected small pleural effusions with mild bibasilar atelectasis. ACT 112: Negative or not required by law. The above report was generated using voice recognition software. It may contain grammatical, syntax or spelling errors. Electronically signed by: Yung Rodriguez M.D. 10/20/2022 8:21 AM I & O Totals 24 Hours 10/19/22 10/20/22 10/21/22 06:59 06:59 06:59 Intake Total 3210.285 / 3210.285 1801.077 / 1801.077 246.667 / 246.667 Output Total 1550 / 1550 1300 / 1300 Balance 1660.285 / 1660.285 501.077 / 501.077 246.667 / 246.667 Cumulative 10/10/22 07:40 thru 10/20/22 10:16 Intake Total 33922.644 Output Total 78596 Balance 29604.644 RT Ventilator Mngmt (Last Documented) Ventilator Ordered Settings Ventilator Support Mode CPAP 10/19/22 13:30 Respiratory Rate 22 10/20/22 11:01 Ventilator Tidal Volume 350 10/19/22 13:30 Setting Minute Ventilation 7.3 10/19/22 13:30 Ventilator Positive Pressure 10 10/19/22 13:30 Support Setting Positive End Expiratory 5 10/19/22 13:30 Pressure Fraction of Inspired Oxygen 21 10/19/22 13:30 Machine Comment placed back on vent from MRI 10/19/22 13:30 Ventilator - PT Measurements Respiratory Rate 22 Exhaled Tidal Volume 723 Minute Ventilation 7.3 Peak Inspiratory Airway 17 Pressure Plateau Pressure 16 Respiratory Cycle Inspiratory: 1:2.6 Expiratory Ratio Inspiratory Phase Time 1.25 End-Tidal CO2 40 Static Lung Compliance 33.45 Dynamic Lung Compliance 60.25 Normal Static Lung Compliance 49.00 Patient Measurements Comment Patient extubated to room air, SPO2 92% Coding Level of Care Code 05441 SUB INP/OBS CARE 3/50MIN Diagnoses Acute respiratory failure with hypoxia J96.01 Rib fractures S22.49XA T12 compression fracture S22.080A Delirium tremens F10.931 Hx of subdural hematoma Z86.79 Hypertension I10 GERD (gastroesophageal reflux disease) K21.9 Anxiety and depression F41.9; F32.A Seizure R56.9 Alcohol use Z78.9
[2022-10-20] MEDS: PANTOprazole 40 MG in SYRINGE 0 ML IV SCH (11:30)
--- NOTE | 2022-10-20 15:51 | Hospitalist Progress Note ---
Date of Service October 20, 2022 Assessment & Plan (1) Alcohol use: Plan: With severe withdrawal, with a h/o seizures Drinks 1/2 liter vodka daily at home Initially admitted to PCU and received 14 mg of IV ativan and IM Zyprexa overnight for high AWSS scores, remained agitated, was having sonorous breath sounds and periods of apnea, with ET CO2 monitor on with elevations of 42 at times Transferred to ICU on 10/11 and placed on Precedex drip, scheduled Ativan. Today Precedex drip was switched to phenobarb by surface supply breathing apparatus. Per nurse, the patient is more restless today. EtOH level 0 in ER, UDS neg, ASA and APAP levels negative Ammonia 42 B1 pending B12 low and replaced with 3 doses of IM B12; folate normal Lactic acidosis now resolved Appreciate surface supply breathing apparatus management Ongoing delirium tremens MRI negative LP studies fairly unremarkable EEG ordered for today -continue phenobarbital, Precedex drip per surface supply breathing apparatus. Wean off as able -continue IV thiamine, folic acid, IV protonix -Remains n.p.o. due to encephalopathy -continue AWSS monitoring (2) Fall: Plan: With multiple falls at home, suspected 2nd to chronic hip pain in combination with alcohol use for pain control at home. CK mildly elevated, Anion gap 13 on labs, likely from alcohol use CT head/cervical spine negative on admit (hx fall/subdural hematoma/craniotomy/evacuation). CTAP without acute intraabdominal process but does note T12 compression fracture Hip/pelvix xrays show left EUGENIO and Right severe OA---has significant bruising to her LEFT hip (upcoming surgery for repair RIGHT hip for severe OA on 10/12-[facility] by Ortho). Prior LEFT hip repair in 2019 in [place]. Consult w/ orthopedics appreciated UA neg for infection CK 900-mild rhabdomyolysis CXR w/o acute process but patient does have multiple old rib fractures various stages of healing CT Chest confirms right sided acute rib fracture Echo normal PT/OT consulted, but not able to participate yet due to encephalopathy (3) T12 compression fracture: Plan: as noted on imaging, 2nd to fall, unsure if symptomatic as is altered mentation vit d level normal pain control prn, will see about orthotics for brace for additional pain control once EtOH withdrawal improved PT/OT consulted (4) Rib fractures: Plan: Multiple fractures of ribs, BILATERAL noted on imaging, likely from fall continue to monitor (5) Weakness: Plan: 2nd to above (6) Osteoarthritis of right hip: Plan: consult orthopedics apprecaited-delaying previously planned EUGENIO pain control plan for PT/OT consultations once stable from EtOH withdrawal (7) Chronic right hip pain: Plan: pain control/ortho/xrays/pt/ot consultations (8) Hypomagnesemia: Plan: Replaced monitor on telemetry for any arrhythmia contributing to falls, ?holiday heart/paroxysmal afib w/ her alcohol use at home contributing to falls (9) Hypertension: Plan: On Losartan-HCTZ 100mg-12.5mg daily, atenolol 50mg BID at home-holding home p.o. meds for altered mental status Does have a history of SVT/PACs/palpitations per cards outpatient note-monitor on telemetry (10) Seizure: Plan: On Lamictal On phenobarb Seizure precautions (11) Closed head injury: Plan: CT head negative on admission, not on blood thinners (12) Hx of subdural hematoma: Plan: 2020 (s/p fall) (13) GERD (gastroesophageal reflux disease): Plan: continue PPI IV (14) Anxiety and depression: Plan: On Lamictal On escitalopram. (15) Left hip pain: Plan: s/p fall, repair/replacement in 2019 in [place] Obtaining xrays given bruising/ecchyomosis s/p fall as above (16) Acute respiratory failure with hypoxia: Plan: Now on oxygen Most likely secondary to IV Ativan for alcohol withdrawal IV Ativan discontinued -continue supplemental O2 prn -Continued stay in ICU -diuresing occasionally (17) Fever: Plan: Spiked a fever on the evening of 10/13 Chest x-ray negative except atelectasis Blood cultures drawn-follow No leukocytosis-follow CBC Could be from atelectasis Consider urinalysis (18) Metabolic encephalopathy: Plan: Likely secondary to delirium tremens Plan DVT prophylaxis-Lovenox Disposition-continued stay in ICU Admission and Anticipated Discharge Date Admission Date: October 10, 2022 Subjective Patient seems to be still withdrawing. No acute events overnight. Remains on Precedex drip Review of Systems Review of Systems: Unobtainable due to cognitive status Physical Exam Physical Exam: General: Obtunded, restless Heart: S1, S2/regular rate and rhythm, no murmur rubs or gallops Lungs: Clear to auscultation bilaterally. Normal effort Abdomen: Soft/nontender/nondistended. No hepatosplenomegaly Extremities: No clubbing/cyanosis. No edema Behavior: Unable to assess due to delirium Results & Data Results & Data Vital Signs (Past 12 Hours) Vital Signs Temp Pulse Pulse Resp BP Pulse Ox O2 Del Method 10/20/22 13:00 100 H 23 90 10/20/22 12:00 101 H 14 92 10/20/22 12:00 168/92 H 10/20/22 11:49 37.2 C 10/20/22 11:01 102 H 22 91 10/20/22 11:01 139/80 10/20/22 11:00 105 H 21 92 10/20/22 10:00 97 H 19 94 10/20/22 09:00 99 H 15 91 10/20/22 08:45 134/75 10/20/22 08:45 105 H 28 H 89 L 10/20/22 07:46 37.3 C 10/20/22 08:15 100 H 21 91 10/20/22 08:15 129/83 10/20/22 08:00 105 H 19 91 10/20/22 08:00 158/107 H 10/20/22 07:30 170/81 H 10/20/22 07:30 100 H 20 92 10/20/22 07:15 152/117 H 10/20/22 07:15 98 H 26 H 91 10/20/22 07:00 96 H 22 91 10/20/22 07:00 150/81 H 10/20/22 07:42 100 H 22 91 Room Air 10/20/22 08:00 Room Air 10/20/22 05:46 144/82 H 10/20/22 05:46 98 H 21 92 10/20/22 05:30 138/117 H 10/20/22 05:30 92 H 23 92 10/20/22 05:15 135/86 10/20/22 05:15 95 H 20 92 10/20/22 05:00 95 H 21 90 10/20/22 05:00 142/92 H 10/20/22 04:30 150/76 H 10/20/22 04:30 96 H 21 92 10/20/22 04:15 145/86 H 10/20/22 04:15 94 H 23 92 10/20/22 04:00 93 H 20 92 10/20/22 04:00 141/79 H PG Care Time/CCT Total # of Minutes Spent Total Time Spent with Patient: Total time spent is greater than 50% in coordination of care (as documented) at patient's floor/unit and/or counseling patient: Coding Level of Care Code 35047 SUB INP/OBS CARE 2/35MIN Diagnoses Alcohol use Z78.9 Fall W19.XXXA T12 compression fracture S22.080A Rib fractures S22.49XA Weakness R53.1 Osteoarthritis of right hip M16.11 Chronic right hip pain M25.551; G89.29 Hypomagnesemia E83.42 Hypertension I10 Seizure R56.9 Closed head injury S09.90XA Hx of subdural hematoma Z86.79 GERD (gastroesophageal reflux disease) K21.9 Anxiety and depression F41.9; F32.A Left hip pain M25.552 Acute respiratory failure with hypoxia J96.01 Fever R50.9 Metabolic encephalopathy G93.41
[2022-10-20] MEDS: PHENobarbital sodium 65 MG/ML VIAL IV PRN (19:14)
[2022-10-20] MEDS: LIDOCAINE 5% 1 PATCH TD SCH (20:52)
[2022-10-20] MEDS: hydrALAZINE HCL 20 MG/ML VIAL IV PRN (21:07)
[2022-10-20] MEDS: fentaNYL citrate PF 100 MCG/2 ML VIAL IV PRN (23:12)
[2022-10-21] MEDS: PEPTAMEN INTENSE VHP 1.0 CAL 1,000 ML BAG GT SCH (03:17)
[2022-10-21] MEDS: TUBE FEEDING WATER FLUSH NG SCH ×5 (03:56→18:15)
[2022-10-21] MEDS: fentaNYL citrate PF 100 MCG/2 ML VIAL IV PRN (04:12)
[2022-10-21] MEDS: FORMOTEROL 20 MCG/2 ML VIAL INH SCH ×2 (07:50→19:41)
[2022-10-21] MEDS: BUDESONIDE 0.25 MG/2 ML VIAL (PULMICORT) NEB SCH ×2 (07:50→19:40)
--- NOTE | 2022-10-21 07:50 | XRay Report ---
XR chest 1V portable HISTORY: 67 years-old Female intubation acute respiratory failure COMPARISON: Chest radiograph 10/20/2022 TECHNIQUE: Semierect AP view of the chest FINDINGS: Cardiac silhouette is enlarged. An enteric tube is present coursing below the diaphragm outside the f [id number]. Cardiomegaly. No pneumothorax, large pleural effusion, airspace consolidation or pulmon daniel edema. Questioned trace pleural effusions. Improved aeration of the lung bases. No endotracheal t ube is present. IMPRESSION: 1. Cardiomegaly without pulmonary edema. 2. Mildly improved aeration of the lung bases. ACT 112: Negative or not required by law. The above report was generated using voice recognition software. It may contain grammatical, syntax o r spelling errors. Electronically signed by: Yung Rodriguez M.D. 10/21/2022 7:49 AM
[2022-10-21] MEDS: dexMEDEtomidine 200 MCG/50 ML BAG IV SCH ×2 (08:20→15:40)
[2022-10-21] MEDS: ENOXAPARIN INJ 40 MG/0.4 ML SYR SQ SCH (08:21)
[2022-10-21] MEDS: ESCITALOPRAM OXALATE 20 MG TAB PO SCH (08:21)
[2022-10-21] MEDS: MULTI VIT W/MINERALS LIQUID 15 ML UDP NG SCH (08:22)
[2022-10-21] MEDS: PHENobarbitaL 30 MG TAB PO SCH ×2 (08:23→19:46)
[2022-10-21] MEDS: THIAMINE HCL 200 MG in SODIUM CHLORIDE 0.9% 50 ML IV SCH (08:24)
[2022-10-21] MEDS: FOLIC ACID 1 MG in SYRINGE 9.8 ML IV SCH (09:06)
[2022-10-21] MEDS: hydrALAZINE HCL 20 MG/ML VIAL IV PRN ×2 (10:05→19:45)
--- NOTE | 2022-10-21 10:20 | Critical Care Progress Note ---
Date of Service October 21, 2022 Assessment & Plan (1) Acute respiratory failure with hypoxia: (2) Rib fractures: (3) T12 compression fracture: (4) Delirium tremens: (5) Hx of subdural hematoma: (6) Hypertension: (7) GERD (gastroesophageal reflux disease): (8) Anxiety and depression: (9) Seizure: (10) Alcohol use: Plan CT chest 10/10/2022 personally reviewed: Motion degraded study with minimal dependent atelectasis bilateral lower lobes Cardiomegaly No mediastinal lymphadenopathy Reason Critically Ill: 67-year-old female past medical history of hypertension, seizure, anxiety/depression, GERD was admitted to hospital s/p fall. Patient also has history of alcohol use. She was withdrawing on the floor. Transferred to ICU for alcohol withdrawal. Neuro - [facility]: Positive Acute encephalopathy: mildly improved compared to yesterday -History of alcohol dependency Most consistent with Delirium tremens: finishing phenobarb oral -Attempting to discontinue Precedex today, one-to-one sitter -MRI: no acute findings -History of craniotomy Ordered EEG to r/o seizure; however, I consider this unlikely. --History of seizure disorder lamotrigine 150 mg twice daily -Could contribute to encephalopathy -Repeat level pending, I would anticipate this level would be decreased given prior holding of the medication --History of anxiety/depression On escitalopram at home -20 mg daily Cardiac - -- Prolonged QTc: Resolved Respiratory - Extuabted yesterday -- Acute hypercapnic hypoxic respiratory failure: resolved -- Every day smoker Will need PFT as an outpatient On budesonide and Brovana nebulized in the hospital GI - -Tolerating tube feeding -- History of GERD Continue with pantoprazole as this is a home med RENAL/LYTES - No acute kidney issues Monitor BUNs/creatinine ENDO - Continue with ICU hypoglycemia protocol HEME - Normocytic anemia Monitor H&H ID - fever: Resolved, last elevated temp recorded 10/14 -Blood culture negative to date -Empiric Rocephin for 48 hours completed Musculoskeletal Degenerative joint disease of hip T12 compression fracture -Orthopedics following --Prophylaxis VTE: Lovenox GI: Pantoprazole Lines: Peripheral If patient can remain off Precedex she would be appropriate for downgrade out of ICU Admission and Anticipated Discharge Date Admission Date: October 10, 2022 Subjective No overnight events, mildly improved mental status somewhat compliant with commands Review of Systems Review of Systems: Unobtainable due to cognitive status Physical Exam Physical Exam: General: Glascow Coma Scale: Eyes: 4, Verbal 4, Motor 6, Total 14 Skin: Warm, dry, Head: Atraumatic Ears, nose, mouth and throat: airway patent Cardiovascular: Normal peripheral perfusion Respiratory: No respiratory distress Gastrointestinal: Non distended Musculoskeletal: No deformity Results & Data Results & Data Vital Signs (Past 12 Hours) Vital Signs Temp Pulse Pulse Resp BP Pulse Ox O2 Del Method 10/21/22 10:02 97 H 17 170/95 H 94 Room Air 10/21/22 10:00 101 H 20 185/88 H 95 Room Air 10/21/22 08:00 37.1 C 10/21/22 09:00 101 H 14 157/102 H 95 Room Air 10/21/22 08:00 87 16 149/93 H 92 Room Air 10/21/22 07:50 93 H 20 94 Room Air 10/21/22 07:00 93 H 20 160/108 H 98 Room Air 10/21/22 07:00 Room Air 10/21/22 06:00 101 H 18 96 10/21/22 06:00 177/111 H 10/21/22 05:00 36.9 C 89 15 93 10/21/22 05:00 159/87 H 10/21/22 00:00 109 H 10/21/22 04:00 102 H 20 97 10/21/22 04:00 174/139 H 10/21/22 03:00 100 H 18 171/117 H 96 10/21/22 02:00 98 H 21 93 10/21/22 02:00 176/89 H 10/21/22 01:00 106 H 23 100 10/21/22 01:00 179/146 H 10/21/22 00:00 103 H 20 94 10/21/22 00:00 36.8 C 163/97 H 10/20/22 23:24 107 H 14 94 10/20/22 23:24 187/101 H 10/20/22 23:00 104 H 25 H 91 10/20/22 23:00 205/90 H Coding Level of Care Code 29291 SUB INP/OBS CARE 3/50MIN Diagnoses Acute respiratory failure with hypoxia J96.01 Rib fractures S22.49XA T12 compression fracture S22.080A Delirium tremens F10.931 Hx of subdural hematoma Z86.79 Hypertension I10 GERD (gastroesophageal reflux disease) K21.9 Anxiety and depression F41.9; F32.A Seizure R56.9 Alcohol use Z78.9
[2022-10-21] MEDS: PANTOprazole 40 MG in SYRINGE 0 ML IV SCH (11:01)
[2022-10-21] MEDS: PHENobarbital sodium 65 MG/ML VIAL IV PRN ×2 (11:27→18:07)
[2022-10-21] MEDS: NICOTINE 21 MG/24 HR TDSY TD SCH (13:03)
--- NOTE | 2022-10-21 16:30 | Hospitalist Progress Note ---
Date of Service October 21, 2022 Assessment & Plan (1) Alcohol use: Plan: With severe withdrawal, with a h/o seizures Drinks 1/2 liter vodka daily at home Initially admitted to PCU and received 14 mg of IV ativan and IM Zyprexa overnight for high AWSS scores, remained agitated, was having sonorous breath sounds and periods of apnea, with ET CO2 monitor on with elevations of 42 at times Transferred to ICU on 10/11 and placed on Precedex drip, scheduled Ativan. Today Precedex drip was switched to phenobarb by face painter. Per nurse, the patient is more restless today. EtOH level 0 in ER, UDS neg, ASA and APAP levels negative Ammonia 42 B1 pending B12 low and replaced with 3 doses of IM B12; folate normal Lactic acidosis now resolved Appreciate face painter management Ongoing delirium tremens MRI negative LP studies fairly unremarkable EEG ordered for today -continue phenobarbital Precedex drip has been discontinued per face painter Per nurse, she is more restless since the Precedex drip was discontinued. Sitter in the room -continue IV thiamine, folic acid, IV protonix -Remains n.p.o. due to encephalopathy -continue AWSS monitoring (2) Fall: Plan: With multiple falls at home, suspected 2nd to chronic hip pain in combination with alcohol use for pain control at home. CK mildly elevated, Anion gap 13 on labs, likely from alcohol use CT head/cervical spine negative on admit (hx fall/subdural hematoma/craniotomy/evacuation). CTAP without acute intraabdominal process but does note T12 compression fracture Hip/pelvix xrays show left EUGENIO and Right severe OA---has significant bruising to her LEFT hip (upcoming surgery for repair RIGHT hip for severe OA on 10/12- cancelled by Ortho). Prior LEFT hip repair in 2019 in [place]. Consult w/ orthopedics appreciated UA neg for infection CK 900-mild rhabdomyolysis CXR w/o acute process but patient does have multiple old rib fractures various stages of healing CT Chest confirms right sided acute rib fracture Echo normal PT/OT consulted, but not able to participate yet due to encephalopathy (3) T12 compression fracture: Plan: as noted on imaging, 2nd to fall, unsure if symptomatic as is altered mentation vit d level normal pain control prn, will see about orthotics for brace for additional pain control once EtOH withdrawal improved PT/OT consulted (4) Rib fractures: Plan: Multiple fractures of ribs, BILATERAL noted on imaging, likely from fall continue to monitor (5) Weakness: Plan: 2nd to above (6) Osteoarthritis of right hip: Plan: consult orthopedics apprecaited-delaying previously planned EUGENIO pain control plan for PT/OT consultations once stable from EtOH withdrawal (7) Chronic right hip pain: Plan: pain control/ortho/xrays/pt/ot consultations (8) Hypomagnesemia: Plan: Replaced monitor on telemetry for any arrhythmia contributing to falls, ?holiday heart/paroxysmal afib w/ her alcohol use at home contributing to falls (9) Hypertension: Plan: On Losartan-HCTZ 100mg-12.5mg daily, atenolol 50mg BID at home-holding home p.o. meds for altered mental status Does have a history of SVT/PACs/palpitations per cards outpatient note-monitor on telemetry (10) Seizure: Plan: On Lamictal On phenobarb Seizure precautions (11) Closed head injury: Plan: CT head negative on admission, not on blood thinners (12) Hx of subdural hematoma: Plan: 2020 (s/p fall) (13) GERD (gastroesophageal reflux disease): Plan: continue PPI IV (14) Anxiety and depression: Plan: On Lamictal On escitalopram. (15) Left hip pain: Plan: s/p fall, repair/replacement in 2019 in [place] Obtaining xrays given bruising/ecchyomosis s/p fall as above (16) Acute respiratory failure with hypoxia: Plan: Now on oxygen Most likely secondary to IV Ativan for alcohol withdrawal IV Ativan discontinued -continue supplemental O2 prn -Continued stay in ICU -diuresing occasionally (17) Fever: Plan: Spiked a fever on the evening of 10/13 Chest x-ray negative except atelectasis Blood cultures drawn-follow No leukocytosis-follow CBC Could be from atelectasis Consider urinalysis (18) Metabolic encephalopathy: Plan: Likely secondary to delirium tremens Plan DVT prophylaxis-Lovenox Disposition-continued stay in ICU Admission and Anticipated Discharge Date Admission Date: October 10, 2022 Subjective Patient has been taken off of Precedex. Restlessness has worsened since off of Precedex, per nurse. Review of Systems Review of Systems: Unobtainable due to cognitive status Physical Exam Physical Exam: General: Obtunded, restless Heart: S1, S2/regular rate and rhythm, no murmur rubs or gallops Lungs: Clear to auscultation bilaterally. Normal effort Abdomen: Soft/nontender/nondistended. No hepatosplenomegaly Extremities: No clubbing/cyanosis. No edema Behavior: Unable to assess due to delirium Results & Data Results & Data Vital Signs (Past 12 Hours) Vital Signs Temp Pulse Pulse Resp BP Pulse Ox O2 Del Method 10/21/22 16:01 119 H 23 133/97 95 Nasal Cannula 10/21/22 15:00 113 H 21 159/91 H 95 Room Air 10/21/22 14:06 107 H 16 160/87 H 97 Room Air 10/21/22 14:02 110 H 24 183/107 H 97 Room Air 10/21/22 14:01 117 H 21 180/100 H 96 Room Air 10/21/22 13:10 113 H 24 172/111 H 93 Nasal Cannula 10/21/22 13:19 37.1 C 10/21/22 12:01 113 H 16 155/94 H 95 Nasal Cannula 10/21/22 12:00 112 H 16 185/87 H 95 Nasal Cannula 10/21/22 11:00 101 H 17 170/92 H 91 Room Air 10/21/22 10:32 99 H 18 140/97 95 Room Air 10/21/22 10:02 97 H 17 170/95 H 94 Room Air 10/21/22 10:00 101 H 20 185/88 H 95 Room Air 10/21/22 08:00 37.1 C 10/21/22 09:00 101 H 14 157/102 H 95 Room Air 10/21/22 08:00 87 16 149/93 H 92 Room Air 10/21/22 07:50 93 H 20 94 Room Air 10/21/22 07:00 93 H 20 160/108 H 98 Room Air 10/21/22 07:00 Room Air 10/21/22 06:00 101 H 18 96 10/21/22 06:00 177/111 H 10/21/22 05:00 36.9 C 89 15 93 10/21/22 05:00 159/87 H O2 Flow Rate 10/21/22 16:01 2 10/21/22 15:00 10/21/22 14:06 10/21/22 14:02 10/21/22 14:01 10/21/22 13:10 2 10/21/22 13:19 10/21/22 12:01 2 10/21/22 12:00 2 10/21/22 11:00 10/21/22 10:32 10/21/22 10:02 10/21/22 10:00 10/21/22 08:00 10/21/22 09:00 10/21/22 08:00 10/21/22 07:50 10/21/22 07:00 10/21/22 07:00 10/21/22 06:00 10/21/22 06:00 10/21/22 05:00 10/21/22 05:00 PG Care Time/CCT Total # of Minutes Spent Total Time Spent with Patient: Total time spent is greater than 50% in coordination of care (as documented) at patient's floor/unit and/or counseling patient: Coding Level of Care Code 50975 SUB INP/OBS CARE 2/35MIN Diagnoses Alcohol use Z78.9 Fall W19.XXXA T12 compression fracture S22.080A Rib fractures S22.49XA Weakness R53.1 Osteoarthritis of right hip M16.11 Chronic right hip pain M25.551; G89.29 Hypomagnesemia E83.42 Hypertension I10 Seizure R56.9 Closed head injury S09.90XA Hx of subdural hematoma Z86.79 GERD (gastroesophageal reflux disease) K21.9 Anxiety and depression F41.9; F32.A Left hip pain M25.552 Acute respiratory failure with hypoxia J96.01 Fever R50.9 Metabolic encephalopathy G93.41
[2022-10-21] MEDS: LIDOCAINE 5% 1 PATCH TD SCH (19:45)
[2022-10-22] MEDS: TUBE FEEDING WATER FLUSH NG SCH ×7 (00:28→20:03)
[2022-10-22 06:33] LABS: Basophils # (auto) 0.05 K/uL (0-0.2); Basophils % (auto) 0.7 %; Eosinophils # (auto) 0.14 K/uL (0-0.50); Eosinophils % (auto) 1.9 %; Hematocrit (blood only) 34.4 % (37.0-47.0); Hemoglobin 11.9 g/dl (12.0-16.0); Immature Granulocytes # (auto) 0.02 K/uL (0.01-0.20); Immature Granulocytes % (auto) 0.3 %; Lymphocytes # (auto) 0.92 K/uL (1.2-3.4); Lymphocytes % (auto) 12.3 %; Mean Corpuscular Hemoglobin 31.2 pg (25.0-34.0); Mean Corpuscular Hgb Conc 34.6 g/dL (32.0-36.0); Mean Corpuscular Volume 90.3 fL (80.0-100.0); Mean Platelet Volume 10.1 fL (9.4-12.4); Monocytes # (auto) 0.74 K/uL (0.11-0.59); Monocytes % (auto) 9.9 %; Neutrophils # (auto) 5.62 K/uL (1.40-6.50); Neutrophils % (auto) 74.9 %; Platelet Count 243 K/uL (130-400); RDW Coefficient of Variation 13.7 % (11.5-14.5); RDW Standard Deviation 45.8 fL (36.4-46.3); Red Blood Count 3.81 M/uL (4.20-5.40); White Blood Count 7.49 K/ul (4.8-10.8)
[2022-10-22 06:56] LABS: BUN Creatinine Ratio 34.5 (10-20); Calcium 10.3 mg/dl (8.6-10.3); Est GFR (African American) 111.7 ml/min; Est GFR (Non-African American) 96.4 ml/min; Magnesium 1.6 mg/dl (1.7-2.4); Phosphorus 2.5 mg/dl (2.5-4.9); Potassium 3.3 mmol/L (3.5-5.1)
[2022-10-22] MEDS: BUDESONIDE 0.25 MG/2 ML VIAL (PULMICORT) NEB SCH (08:04)
[2022-10-22] MEDS: FORMOTEROL 20 MCG/2 ML VIAL INH SCH (08:04)
[2022-10-22] MEDS: NICOTINE 21 MG/24 HR TDSY TD SCH (08:37)
[2022-10-22] MEDS: ESCITALOPRAM OXALATE 20 MG TAB PO SCH (08:38)
[2022-10-22] MEDS: ENOXAPARIN INJ 40 MG/0.4 ML SYR SQ SCH (08:38)
[2022-10-22] MEDS: FOLIC ACID 1 MG in SYRINGE 9.8 ML IV SCH (08:39)
[2022-10-22] MEDS: MULTI VIT W/MINERALS LIQUID 15 ML UDP NG SCH (08:39)
[2022-10-22] MEDS: PHENobarbitaL 30 MG TAB PO SCH ×2 (08:44→20:03)
[2022-10-22] MEDS: lamoTRIgine 100 MG TAB PO SCH ×2 (09:04→20:00)
[2022-10-22] MEDS ORDERED: POTASSIUM CHLORIDE 20 MEQ/15 ML UDC PO STA (11:06)
[2022-10-22] MEDS ORDERED: LORazepam 2 MG/1 ML VIAL IV PRN ×3 (11:10→11:16)
[2022-10-22] MEDS ORDERED: Ativan IV Alcohol Withdrawal--Active Protocol IV PRN (11:10)
[2022-10-22] MEDS ORDERED: MULTIVITAMINS W/MINERALS LIQUID PO STA (11:16)
[2022-10-22] MEDS ORDERED: THIAMINE HCL 100 MG, FOLIC ACID 1 MG in SODIUM CHLORIDE 0.9% 1000ML 1,000 ML IV SCH (11:30)
[2022-10-22] MEDS: MAGNESIUM SULFATE / D5W 1 GM/100 ML BAG IV SCH ×2 (11:45→13:13)
[2022-10-22] MEDS: PANTOprazole 40 MG in SYRINGE 0 ML IV SCH (11:45)
[2022-10-22] MEDS ORDERED: THIAMINE HCL IV SCH (12:00)
[2022-10-22] MEDS ORDERED: SODIUM CHLORIDE 0.9% IV SCH (12:00)
[2022-10-22] MEDS ORDERED: PEPTAMEN 1.5 CAL 1,000 ML BAG NG SCH (13:00)
--- NOTE | 2022-10-22 14:23 | Hospitalist Progress Note ---
Date of Service October 22, 2022 Assessment & Plan (1) Alcohol use: Plan: With severe withdrawal, with a h/o seizures Drinks 1/2 liter vodka daily at home Initially admitted to PCU and received 14 mg of IV ativan and IM Zyprexa overnight for high AWSS scores, remained agitated, was having sonorous breath sounds and periods of apnea, with ET CO2 monitor on with elevations of 42 at times Transferred to ICU on 10/11 and placed on Precedex drip, scheduled Ativan. Today Precedex drip was switched to phenobarb by systems coordinator. Per nurse, the patient is more restless today. EtOH level 0 in ER, UDS neg, ASA and APAP levels negative Ammonia 42 B1 pending B12 low and replaced with 3 doses of IM B12; folate normal Lactic acidosis now resolved Appreciate systems coordinator management Ongoing delirium tremens MRI negative LP studies fairly unremarkable EEG ordered, pending Precedex drip has been discontinued per systems coordinator Discontinue phenobarbital IV Patient will complete p.o. phenobarbital tonight Sitter in the room. Continue IV thiamine folic acid Protonix Continue n.p.o. Continue RENE S monitoring IV Ativan symptom triggered (2) Fall: Plan: With multiple falls at home, suspected 2nd to chronic hip pain in combination with alcohol use for pain control at home. CK mildly elevated, Anion gap 13 on labs, likely from alcohol use CT head/cervical spine negative on admit (hx fall/subdural hematoma/craniotomy/evacuation). CTAP without acute intraabdominal process but does note T12 compression fracture Hip/pelvix xrays show left EUGENIO and Right severe OA---has significant bruising to her LEFT hip (upcoming surgery for repair RIGHT hip for severe OA on 10/12- cancelled by Ortho). Prior LEFT hip repair in 2019 in [place]. Consult w/ orthopedics appreciated UA neg for infection CK 900-mild rhabdomyolysis CXR w/o acute process but patient does have multiple old rib fractures various stages of healing CT Chest confirms right sided acute rib fracture Echo normal PT/OT consulted, but not able to participate yet due to encephalopathy (3) T12 compression fracture: Plan: as noted on imaging, 2nd to fall, unsure if symptomatic as is altered mentation vit d level normal pain control prn, will see about orthotics for brace for additional pain control once EtOH withdrawal improved PT/OT consulted (4) Rib fractures: Plan: Multiple fractures of ribs, BILATERAL noted on imaging, likely from fall continue to monitor (5) Weakness: Plan: 2nd to above (6) Osteoarthritis of right hip: Plan: consult orthopedics apprecaited-delaying previously planned EUGENIO pain control plan for PT/OT consultations once stable from EtOH withdrawal (7) Chronic right hip pain: Plan: pain control/ortho/xrays/pt/ot consultations (8) Hypomagnesemia: Plan: Replaced monitor on telemetry for any arrhythmia contributing to falls, ?holiday heart/paroxysmal afib w/ her alcohol use at home contributing to falls (9) Hypertension: Plan: On Losartan-HCTZ 100mg-12.5mg daily, atenolol 50mg BID at home-holding home p.o. meds for altered mental status Does have a history of SVT/PACs/palpitations per cards outpatient note-monitor on telemetry (10) Seizure: Plan: On Lamictal On phenobarb Seizure precautions (11) Closed head injury: Plan: CT head negative on admission, not on blood thinners (12) Hx of subdural hematoma: Plan: 2020 (s/p fall) (13) GERD (gastroesophageal reflux disease): Plan: continue PPI IV (14) Anxiety and depression: Plan: On Lamictal On escitalopram. (15) Left hip pain: Plan: s/p fall, repair/replacement in 2019 in [place] Obtaining xrays given bruising/ecchyomosis s/p fall as above (16) Acute respiratory failure with hypoxia: Plan: Now on oxygen Most likely secondary to IV Ativan for alcohol withdrawal IV Ativan discontinued -continue supplemental O2 prn -Continued stay in ICU -diuresing occasionally (17) Fever: Plan: Spiked a fever on the evening of 10/13 Chest x-ray negative except atelectasis Blood cultures drawn-follow No leukocytosis-follow CBC Could be from atelectasis Consider urinalysis (18) Metabolic encephalopathy: Plan: Likely secondary to delirium tremens Plan DVT prophylaxis-Lovenox Disposition-continued stay in ICU Admission and Anticipated Discharge Date Admission Date: October 10, 2022 Subjective Patient relates delirious and restless, in restraints Review of Systems Review of Systems: Unobtainable due to cognitive status Physical Exam Physical Exam: General: restless Heart: S1, S2/regular rate and rhythm, no murmur rubs or gallops Lungs: Clear to auscultation bilaterally. Normal effort Abdomen: Soft/nontender/nondistended. No hepatosplenomegaly Extremities: No clubbing/cyanosis. No edema Behavior: Unable to assess due to delirium Results & Data Results & Data Vital Signs (Past 12 Hours) Vital Signs Temp Pulse Pulse Pulse Resp BP Pulse Ox 10/22/22 08:00 36.9 C 99 H 22 155/80 H 96 10/22/22 11:01 36.9 C 106 H 18 138/82 97 10/22/22 10:00 105 H 10/22/22 10:00 10/22/22 08:00 10/22/22 08:00 36.9 C 96 H 22 155/80 H 94 10/22/22 08:05 18 93 10/22/22 03:48 36.9 C 104 H 18 137/83 96 O2 Del Method 10/22/22 08:00 Room Air 10/22/22 11:01 Room Air 10/22/22 10:00 10/22/22 10:00 Room Air 10/22/22 08:00 Room Air 10/22/22 08:00 Room Air 10/22/22 08:05 Room Air 10/22/22 03:48 Room Air Laboratory Results Abnormal lab results 10/22/22 10/22/22 Range/Units 05:41 05:41 RBC 3.81 L (4.20-5.40) M/uL Hgb 11.9 L (12.0-16.0) g/dl Hct 34.4 L (37.0-47.0) % Lymph # (Auto) 0.92 L (1.2-3.4) K/uL [place] # (Auto) 0.74 H (0.11-0.59) K/uL Potassium 3.3 L (3.5-5.1) mmol/L Creatinine 0.55 L (0.6-1.2) mg/dl BUN/Creatinine Ratio 34.5 H (10-20) Glucose 106 H (70-99(Fasting)) mg/dl Magnesium 1.6 L (1.7-2.4) mg/dl PG Care Time/CCT Total # of Minutes Spent Total Time Spent with Patient: Total time spent is greater than 50% in coordination of care (as documented) at patient's floor/unit and/or counseling patient: Coding Level of Care Code 20385 SUB INP/OBS CARE 2/35MIN Diagnoses Alcohol use Z78.9 Fall W19.XXXA T12 compression fracture S22.080A Rib fractures S22.49XA Weakness R53.1 Osteoarthritis of right hip M16.11 Chronic right hip pain M25.551; G89.29 Hypomagnesemia E83.42 Hypertension I10 Seizure R56.9 Closed head injury S09.90XA Hx of subdural hematoma Z86.79 GERD (gastroesophageal reflux disease) K21.9 Anxiety and depression F41.9; F32.A Left hip pain M25.552 Acute respiratory failure with hypoxia J96.01 Fever R50.9 Metabolic encephalopathy G93.41
[2022-10-22] MEDS: LORazepam 2 MG/1 ML VIAL IV PRN (15:28)
[2022-10-22] MEDS: hydrALAZINE HCL 20 MG/ML VIAL IV PRN (16:11)
[2022-10-22] MEDS: LIDOCAINE 5% 1 PATCH TD SCH (19:59)
[2022-10-23] MEDS: TUBE FEEDING WATER FLUSH NG SCH ×6 (01:00→21:13)
[2022-10-23] MEDS: LORazepam 2 MG/1 ML VIAL IV PRN (01:56)
[2022-10-23 06:47] LABS: Basophils # (auto) 0.06 K/uL (0-0.2); Basophils % (auto) 0.8 %; Eosinophils # (auto) 0.16 K/uL (0-0.50); Eosinophils % (auto) 2.1 %; Hematocrit (blood only) 32.4 % (37.0-47.0); Hemoglobin 11.3 g/dl (12.0-16.0); Immature Granulocytes # (auto) 0.02 K/uL (0.01-0.20); Immature Granulocytes % (auto) 0.3 %; Lymphocytes # (auto) 0.98 K/uL (1.2-3.4); Lymphocytes % (auto) 12.8 %; Mean Corpuscular Hemoglobin 31.6 pg (25.0-34.0); Mean Corpuscular Hgb Conc 34.9 g/dL (32.0-36.0); Mean Corpuscular Volume 90.5 fL (80.0-100.0); Monocytes % (auto) 10.4 %; Neutrophils # (auto) 5.64 K/uL (1.40-6.50); Neutrophils % (auto) 73.6 %; Platelet Count 265 K/uL (130-400); RDW Coefficient of Variation 13.5 % (11.5-14.5); RDW Standard Deviation 45.4 fL (36.4-46.3); Red Blood Count 3.58 M/uL (4.20-5.40); White Blood Count 7.66 K/ul (4.8-10.8)
[2022-10-23 07:03] LABS: BUN Creatinine Ratio 36.8 (10-20); Creatinine Clr Calc Pharmacy 81.6 ml/min; Est GFR (African American) 110.4 ml/min; Est GFR (Non-African American) 95.3 ml/min; Potassium 3.7 mmol/L (3.5-5.1)
[2022-10-23] MEDS: NICOTINE 21 MG/24 HR TDSY TD SCH (08:21)
[2022-10-23] MEDS: ENOXAPARIN INJ 40 MG/0.4 ML SYR SQ SCH (08:23)
[2022-10-23] MEDS: lamoTRIgine 100 MG TAB PO SCH ×2 (08:24→21:12)
[2022-10-23] MEDS: FOLIC ACID 1 MG in SYRINGE 9.8 ML IV SCH (08:25)
[2022-10-23] MEDS: ESCITALOPRAM OXALATE 20 MG TAB PO SCH (08:25)
[2022-10-23] MEDS: MULTI VIT W/MINERALS LIQUID 15 ML UDP NG SCH (08:26)
[2022-10-23] MEDS: hydrALAZINE HCL 20 MG/ML VIAL IV PRN (08:29)
[2022-10-23] MEDS: PANTOprazole 40 MG in SYRINGE 0 ML IV SCH (11:12)
--- NOTE | 2022-10-23 13:34 | Hospitalist Progress Note ---
Date of Service October 23, 2022 Assessment & Plan (1) Alcohol use: Plan: With severe withdrawal, with a h/o seizures Drinks 1/2 liter vodka daily at home Initially admitted to PCU and received 14 mg of IV ativan and IM Zyprexa overnight for high AWSS scores, remained agitated, was having sonorous breath sounds and periods of apnea, with ET CO2 monitor on with elevations of 42 at times Transferred to ICU on 10/11 and placed on Precedex drip, scheduled Ativan. Today Precedex drip was switched to phenobarb by forming roll operator heavy duty. Per nurse, the patient is more restless today. EtOH level 0 in ER, UDS neg, ASA and APAP levels negative Ammonia 42 B1 pending B12 low and replaced with 3 doses of IM B12; folate normal Lactic acidosis now resolved Appreciate forming roll operator heavy duty management Ongoing delirium tremens MRI negative LP studies fairly unremarkable EEG ordered, pending as the patient is not able to stay still for the EEG Precedex drip has been discontinued per forming roll operator heavy duty Discontinued phenobarbital IV Patient completed p.o. phenobarb Sitter in the room. Continue IV thiamine folic acid Protonix Continue n.p.o. Continue RENE S monitoring On IV Ativan symptom triggered (2) Fall: Plan: With multiple falls at home, suspected 2nd to chronic hip pain in combination with alcohol use for pain control at home. CK mildly elevated, Anion gap 13 on labs, likely from alcohol use CT head/cervical spine negative on admit (hx fall/subdural hematoma/craniotomy/evacuation). CTAP without acute intraabdominal process but does note T12 compression fracture Hip/pelvix xrays show left EUGENIO and Right severe OA---has significant bruising to her LEFT hip (upcoming surgery for repair RIGHT hip for severe OA on 10/12- cancelled by Ortho). Prior LEFT hip repair in 2019 in [place]. Consult w/ orthopedics appreciated UA neg for infection CK 900-mild rhabdomyolysis CXR w/o acute process but patient does have multiple old rib fractures various stages of healing CT Chest confirms right sided acute rib fracture Echo normal PT/OT consulted, but not able to participate yet due to encephalopathy (3) T12 compression fracture: Plan: as noted on imaging, 2nd to fall, unsure if symptomatic as is altered mentation vit d level normal pain control prn, will see about orthotics for brace for additional pain control once EtOH withdrawal improved PT/OT consulted (4) Rib fractures: Plan: Multiple fractures of ribs, BILATERAL noted on imaging, likely from fall continue to monitor (5) Weakness: Plan: 2nd to above (6) Osteoarthritis of right hip: Plan: consult orthopedics apprecaited-delaying previously planned EUGENIO pain control plan for PT/OT consultations once stable from EtOH withdrawal (7) Chronic right hip pain: Plan: pain control/ortho/xrays/pt/ot consultations (8) Hypomagnesemia: Plan: Replaced monitor on telemetry for any arrhythmia contributing to falls, ?holiday heart/paroxysmal afib w/ her alcohol use at home contributing to falls (9) Hypertension: Plan: On Losartan-HCTZ 100mg-12.5mg daily, atenolol 50mg BID at home-holding home p.o. meds for altered mental status Does have a history of SVT/PACs/palpitations per cards outpatient note-monitor on telemetry (10) Seizure: Plan: On Lamictal Seizure precautions (11) Closed head injury: Plan: CT head negative on admission, not on blood thinners (12) Hx of subdural hematoma: Plan: 2020 (s/p fall) (13) GERD (gastroesophageal reflux disease): Plan: continue PPI IV (14) Anxiety and depression: Plan: On Lamictal On escitalopram. (15) Left hip pain: Plan: s/p fall, repair/replacement in 2019 in [place] Obtaining xrays given bruising/ecchyomosis s/p fall as above (16) Acute respiratory failure with hypoxia: Plan: Resolved Not on oxygen anymore (17) Fever: Plan: Spiked a fever on the evening of 10/13 Chest x-ray negative except atelectasis Blood cultures drawn-follow No leukocytosis-follow CBC Could be from atelectasis (18) Metabolic encephalopathy: Plan: Likely secondary to delirium tremens Plan DVT prophylaxis-Lovenox Wound care on board. Wound noted. No leukocytosis or fever to suggest infection. Continue wound care. Admission and Anticipated Discharge Date Admission Date: October 10, 2022 Subjective Patient relates delirious and restless, in restraints Review of Systems Review of Systems: Unobtainable due to cognitive status Physical Exam Physical Exam: General: restless Heart: S1, S2/regular rate and rhythm, no murmur rubs or gallops Lungs: Clear to auscultation bilaterally. Normal effort Abdomen: Soft/nontender/nondistended. No hepatosplenomegaly Extremities: No clubbing/cyanosis. No edema Behavior: Unable to assess due to delirium Results & Data Results & Data Vital Signs (Past 12 Hours) Vital Signs Temp Pulse Pulse Resp BP Pulse Ox Pulse Ox 10/23/22 12:15 36.7 C 104 H 18 140/70 96 10/23/22 10:28 110 H 10/23/22 08:00 95 10/23/22 09:25 36.6 C 101 H 18 136/77 95 10/23/22 06:57 36.8 C 105 H 18 167/84 H 94 10/23/22 04:30 36.9 C 115 H 20 154/81 H 92 10/23/22 04:02 37 C 115 H 20 154/88 H 92 10/23/22 01:52 36.7 C 105 H 22 158/85 H 93 O2 Del Method O2 Del Method 10/23/22 12:15 Room Air 10/23/22 10:28 10/23/22 08:00 Room Air 10/23/22 09:25 Room Air 10/23/22 06:57 Room Air 10/23/22 04:30 Room Air 10/23/22 04:02 Room Air 10/23/22 01:52 Room Air Laboratory Results Abnormal lab results 10/23/22 10/23/22 Range/Units 06:09 06:09 RBC 3.58 L (4.20-5.40) M/uL Hgb 11.3 L (12.0-16.0) g/dl Hct 32.4 L (37.0-47.0) % Lymph # (Auto) 0.98 L (1.2-3.4) K/uL [place] # (Auto) 0.80 H (0.11-0.59) K/uL Creatinine 0.57 L (0.6-1.2) mg/dl BUN/Creatinine Ratio 36.8 H (10-20) Glucose 104 H (70-99(Fasting)) mg/dl PG Care Time/CCT Total # of Minutes Spent Total Time Spent with Patient: Total time spent is greater than 50% in coordination of care (as documented) at patient's floor/unit and/or counseling patient: Coding Level of Care Code 33195 SUB INP/OBS CARE 35MIN Diagnoses Alcohol use Z78.9 Fall W19.XXXA T12 compression fracture S22.080A Rib fractures S22.49XA Weakness R53.1 Osteoarthritis of right hip M16.11 Chronic right hip pain M25.551; G89.29 Hypomagnesemia E83.42 Hypertension I10 Seizure R56.9 Closed head injury S09.90XA Hx of subdural hematoma Z86.79 GERD (gastroesophageal reflux disease) K21.9 Anxiety and depression F41.9; F32.A Left hip pain M25.552 Acute respiratory failure with hypoxia J96.01 Fever R50.9 Metabolic encephalopathy G93.41
[2022-10-23] MEDS: LIDOCAINE 5% 1 PATCH TD SCH (21:12)
[2022-10-24] MEDS: TUBE FEEDING WATER FLUSH NG SCH ×6 (01:10→21:28)
--- NOTE | 2022-10-24 09:12 | Orthopedic Progress Note ---
Date of Service October 24, 2022 Assessment & Plan (1) Osteoarthritis of right hip: Plan: I did discuss with her that her surgical procedure was postponed and she will be seen in the office upon discharge to discuss setting this up in the future. Patient would open and close her eyes during the visit today however I am not sure how much she comprehended due to cognitive status. At this point we will sign off. If her condition substantially changes or if any orthopedic concerns please reach out to our services. Present on Admission?: Yes Admission and Anticipated Discharge Date Admission Date: October 10, 2022 Subjective Patient is a 67-year-old female who is a known patient Dr. Grider. She was planned to have a right total hip arthroplasty however this was delayed due to cognitive status and alcohol withdrawal syndrome. She was seen this a.m. bedside with LIAISON PLANNER present. When approached and spoken to she was open to open her eyes. She did say good morning. She did not verbalize any pain or interact beyond this. Review of Systems Review of Systems: Unobtainable due to cognitive status Physical Exam Physical Exam: General: Opening eyes and closing when talking to her. Able to say good morning No acute distress, soft mittens on bilateral hands and NG tube in place Results & Data Vital Signs (Past 12 Hours) Vital Signs Temp Pulse Pulse Resp BP Pulse Ox O2 Del Method 10/24/22 07:00 91 H 10/24/22 02:30 37 C 90 16 122/69 93 Room Air 10/24/22 00:46 99 H
[2022-10-24] MEDS: lamoTRIgine 100 MG TAB PO SCH ×2 (09:35→21:09)
[2022-10-24] MEDS: ESCITALOPRAM OXALATE 20 MG TAB PO SCH (09:37)
[2022-10-24] MEDS: NICOTINE 21 MG/24 HR TDSY TD SCH (09:43)
[2022-10-24] MEDS: ENOXAPARIN INJ 40 MG/0.4 ML SYR SQ SCH (09:44)
[2022-10-24] MEDS: MULTI VIT W/MINERALS LIQUID 15 ML UDP NG SCH (09:45)
[2022-10-24] MEDS: FOLIC ACID 1 MG in SYRINGE 9.8 ML IV SCH (09:46)
[2022-10-24] MEDS: PANTOprazole 40 MG in SYRINGE 0 ML IV SCH (11:54)
[2022-10-24 15:22] LABS: CSF, LDH 14 U/L (<=25); VDRL Qualitative CSF Nonreactive (Nonreactive)
--- NOTE | 2022-10-24 15:24 | Hospitalist Progress Note ---
Date of Service October 24, 2022 Assessment & Plan (1) Alcohol use: Plan: With severe withdrawal and DTs s/p admission to ICU for Precedex infusion & supportive care completed phenobarbital taper Drinks 1/2 liter vodka daily at home by report We are about 2 weeks out from the time of her admission Hopefully her withdrawal will be wrapping up shortly Cont symptom triggered ativan prn due to ongoing nystagmus - despite the normal vitamin B1 level - will restart thiamine IV recent B12, ammonia level, etc noted will ask speech therapy to re-eval her to see if safe for PO intake (2) Delirium tremens: Plan: as above resolving (3) Fall: Plan: multiple falls at home pre-admission likely 2nd to etoh intoxication in setting of chronic hip pain and advanced OA of various joints PT/OT when able injuries from her falls -- T12 compression fracture, multiple old/subacute rib fractures b/l no pain reported during the visit (4) T12 compression fracture: Plan: patient denies back pain today monitor recent 25-OH vit D level wnl (5) Rib fractures: Plan: subacute left anterior 4th and the right anterior 7th ribs. 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 Additional healed rib fractures are seen bilaterally. no pain reported by patient today. (6) Weakness: Plan: 2nd to #2 PT, OT when able (7) Osteoarthritis of right hip: Plan: was to have right THR soon but this will be delayed of course due to this prolonged hospitalization (8) Chronic right hip pain: Plan: 2nd to advanced OA (9) Hypomagnesemia: Plan: Replaced repeat level am (10) Hypertension: Plan: on Losartan-HCTZ 100mg-12.5mg daily and atenolol 50mg BID at home all meds on hold and BPs acceptable cont to monitor carefully (11) Seizure: Plan: history of such cont Lamictal cont seizure precautions (12) Closed head injury: Plan: CT head negative on admission CT cervical spine w/o fractures (13) Hx of subdural hematoma: Plan: 2020 (s/p fall) required surgery/evacuation by report (14) GERD (gastroesophageal reflux disease): Plan: continue PPI (15) Anxiety and depression: Plan: Cont escitalopram. (16) Left hip pain: Plan: 2nd fall pre-admission replacement in 2019 in [place] hardware intact on recent imaging (17) Acute respiratory failure with hypoxia: Plan: Resolved (18) Fever: Plan: 10/13/22 none since no evidence of any infectious process (19) Metabolic encephalopathy: Plan: 2nd DTs cannot exclude Wernicke's although B1 level was wnl cont supportive care restart IV thiamine (20) Tobacco abuse: Plan: cont nicoderm patch Plan DVT prophylaxis-Lovenox ask speech to re-eval swallow function now that mentation is improved Admission and Anticipated Discharge Date Admission Date: October 10, 2022 Subjective patient still requiring the use of soft mitts on both hands due to pulling at NG tube and IV, etc remains with a 1:1 sitter for safety yesterday she was very agitated often throwing her legs off the bed, confused, etc staff report she is more calm & cooperative than yesterday during the visit she was awake and following commands she c/o feeling hungry and asks for food NG tube remains with feedings at goal of 50cc/hr she thought she was at "[employer] [facility] she knew it was 2022 she surprisingly knew it was September denied any pain in her back or chest Review of Systems Review of Systems: cv - denies chest pain pulm - denies dyspnea GI - denies pain or Nausea Physical Exam Physical Exam: gen - mildly altered, but calm & cooperative eyes - horizontal nystagmus present, PERRL neck - no JVD mouth - MM dry heart - RRR, s1 s2, no murmur lungs - minimal dry rales bases b/l abd - soft, liver edge palpable, BS+, NT ext - no edema, pulses 2+ b/l neuro - strength 5/5 x 4 exts; no facial droop Results & Data Results & Data Vital Signs (Past 12 Hours) Vital Signs Temp Pulse Pulse Resp BP Pulse Ox O2 Del Method 10/24/22 07:00 36.9 C 85 16 121/71 94 Room Air 10/24/22 07:00 91 H Laboratory Results Laboratory Results - last 24 hr 10/18/22 Unknown CSF LDH 14 CSF VDRL Nonreactive PG Care Time/CCT Total # of Minutes Spent Total Time Spent with Patient: Total time spent is greater than 50% in coordination of care (as documented) at patient's floor/unit and/or counseling patient: Coding Level of Care Code 92412 SUB INP/OBS CARE 2/35MIN Diagnoses Alcohol use Z78.9 Delirium tremens F10.931 Fall W19.XXXA T12 compression fracture S22.080A Rib fractures S22.49XA Weakness R53.1 Osteoarthritis of right hip M16.11 Chronic right hip pain M25.551; G89.29 Hypomagnesemia E83.42 Hypertension I10 Seizure R56.9 Closed head injury S09.90XA Hx of subdural hematoma Z86.79 GERD (gastroesophageal reflux disease) K21.9 Anxiety and depression F41.9; F32.A Left hip pain M25.552 Acute respiratory failure with hypoxia J96.01 Fever R50.9 Metabolic encephalopathy G93.41 Tobacco abuse Z72.0
[2022-10-24] MEDS ORDERED: THIAMINE HCL 200 MG in SODIUM CHLORIDE 0.9% 50 ML IV STA (15:27)
[2022-10-24] MEDS: LIDOCAINE 5% 1 PATCH TD SCH (21:09)
[2022-10-24] MEDS: THIAMINE HCL 200 MG in SODIUM CHLORIDE 0.9% 50 ML IV SCH (21:29)
[2022-10-25] MEDS: TUBE FEEDING WATER FLUSH NG SCH ×3 (01:12→09:24)
[2022-10-25 08:39] LABS: BUN Creatinine Ratio 44.8 (10-20); Calcium 9.8 mg/dl (8.6-10.3); Creatinine Clr Calc Pharmacy 86.8 ml/min; Est GFR (African American) 109.8 ml/min; Est GFR (Non-African American) 94.7 ml/min; Magnesium 1.7 mg/dl (1.7-2.4); Potassium 4.3 mmol/L (3.5-5.1)
[2022-10-25] MEDS: ENOXAPARIN INJ 40 MG/0.4 ML SYR SQ SCH (09:19)
[2022-10-25] MEDS: ESCITALOPRAM OXALATE 20 MG TAB PO SCH (09:20)
[2022-10-25] MEDS: THIAMINE HCL 200 MG in SODIUM CHLORIDE 0.9% 50 ML IV SCH ×2 (09:20→20:23)
[2022-10-25] MEDS: NICOTINE 21 MG/24 HR TDSY TD SCH (09:20)
[2022-10-25] MEDS: lamoTRIgine 100 MG TAB PO SCH ×2 (09:22→19:57)
[2022-10-25] MEDS: FOLIC ACID 1 MG in SYRINGE 9.8 ML IV SCH (09:22)
[2022-10-25] MEDS: MULTI VIT W/MINERALS LIQUID 15 ML UDP NG SCH (09:23)
[2022-10-25] MEDS: PANTOprazole 40 MG in SYRINGE 0 ML IV SCH (11:43)
[2022-10-25] MEDS ORDERED: MELATONIN 3 MG TAB PO PRN (19:17)
--- NOTE | 2022-10-25 19:43 | Hospitalist Progress Note ---
Date of Service October 25, 2022 Assessment & Plan (1) Alcohol use: Plan: With severe withdrawal and DTs s/p admission to ICU for Precedex infusion & supportive care completed phenobarbital taper DTs resolved she is markedly better over the last 48 hours recent B12, ammonia level, etc noted passed swallow eval - ok for diet NG tube discontinued remove lee in am tomorrow have social work discuss with her options for her alcoholism PT, OT needed (2) Delirium tremens: Plan: as above resolved MUCH improved today (3) Fall: Plan: multiple falls at home pre-admission likely 2nd to etoh intoxication in setting of chronic hip pain and advanced OA of various joints PT/OT when able injuries from her falls -- T12 compression fracture, multiple old/subacute rib fractures b/l add scheduled tylenol for pain (4) T12 compression fracture: Plan: schedule tylenol 1gm TID lidoderm patches TLSO brace when up and walking PT, OT recent 25-OH vit D level wnl (5) Rib fractures: Plan: subacute left anterior 4th and the right anterior 7th ribs. 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 Additional healed rib fractures are seen bilaterally on imaging earlier this admission no rib pain reported by patient today. (6) Weakness: Plan: 2nd to #2 and prolonged hospital stay PT, OT when able (7) Osteoarthritis of right hip: Plan: was to have right THR soon but this will be delayed due to this prolonged hospitalization (8) Chronic right hip pain: Plan: 2nd to advanced OA (9) Hypomagnesemia: Plan: Replaced resolved (10) Hypertension: Plan: on Losartan-HCTZ 100mg-12.5mg daily and atenolol 50mg BID at home all meds on hold and BPs acceptable without the above anti-hypertensives cont to monitor carefully (11) Seizure: Plan: history of such cont Lamictal cont seizure precautions no seizures while here (12) Closed head injury: Plan: CT head negative on admission CT cervical spine w/o fractures (13) Hx of subdural hematoma: Plan: 2020 (s/p fall) required surgery/evacuation by report (14) GERD (gastroesophageal reflux disease): Plan: continue PPI can make this by mouth starting tomorrow (15) Anxiety and depression: Plan: Cont escitalopram. (16) Left hip pain: Plan: 2nd fall pre-admission replacement in 2019 in [place] hardware intact on recent imaging (17) Acute respiratory failure with hypoxia: Plan: Resolved (18) Fever: Plan: 10/13/22 none since no evidence of any infectious process (19) Metabolic encephalopathy: Plan: 2nd DTs cannot exclude Wernicke's although B1 level was wnl mental status much improved today cont supportive care cont additional thiamine supplementation (20) Tobacco abuse: Plan: cont nicoderm patch Plan DVT prophylaxis-Lovenox can likely d/c telemetry tomorrow pt's brother updated by phone this evening remove lee in am tomorrow initiate PT/OT since MS is better, NG tube is out, etc Admission and Anticipated Discharge Date Admission Date: October 10, 2022 Subjective patient passed her swallow eval by speech this am at lunch she ate well and tolerated such without difficulty thus, tube feedings stopped and NG tube removed patient's mitts removed today and 1:1 stopped as well - patient has been calm, more oriented, not agitated, following commands, etc during bedside rounds patient states she is feeling "much better" she admits to heavy etoh use prior to admission she has little recollection, if any, of the prior 2 weeks we discussed she had gone through severe DTs/etoh withdrawal when asked if she wanted to talk with someone about options for Rx of her alcoholism she confirmed she is ok with such tele overnight wnl Review of Systems Review of Systems: cv - no chest pain pulm - no dyspnea GI - no abd pain; had multiple bowel movements today after lunch (she states "diarrhea") musculo - low back pain Physical Exam Physical Exam: gen - awake, alert, calm, oriented to person/place/time eyes - horizontal nystagmus much improved neck - no JVD mouth - MMM today nose - NG tube absent heart - RRR, s1 s2, no murmur lungs - minimal dry rales bases b/l abd - soft, liver edge palpable, BS+, NT ext - no edema, pulses 2+ b/l neuro - strength 5/5 x 4 exts; speech clear/fluent Results & Data Results & Data Vital Signs (Past 12 Hours) Vital Signs Temp Pulse Resp BP Pulse Ox O2 Del Method 10/25/22 19:19 36.4 C L 84 18 123/66 94 Room Air 10/25/22 15:48 36.6 C 81 18 147/65 H 95 Room Air 10/25/22 10:45 36.7 C 74 19 136/75 95 Room Air Laboratory Results Laboratory Results - last 24 hr 10/25/22 05:45 Sodium 136 Potassium 4.3 Chloride 102 Carbon Dioxide 29 Anion Gap 5 BUN 26 H Creatinine 0.58 L Est Cr Clr Drug Dosing 86.8 Est GFR ( Amer) 109.8 Est GFR (Non-Af Amer) 94.7 BUN/Creatinine Ratio 44.8 H Glucose 103 H Calcium 9.8 Magnesium 1.7 PG Care Time/CCT Total # of Minutes Spent Total Time Spent with Patient: Total time spent is greater than 50% in coordination of care (as documented) at patient's floor/unit and/or counseling patient: Coding Level of Care Code 84765 SUB INP/OBS CARE 3/50MIN Diagnoses Alcohol use Z78.9 Delirium tremens F10.931 Fall W19.XXXA T12 compression fracture S22.080A Rib fractures S22.49XA Weakness R53.1 Osteoarthritis of right hip M16.11 Chronic right hip pain M25.551; G89.29 Hypomagnesemia E83.42 Hypertension I10 Seizure R56.9 Closed head injury S09.90XA Hx of subdural hematoma Z86.79 GERD (gastroesophageal reflux disease) K21.9 Anxiety and depression F41.9; F32.A Left hip pain M25.552 Acute respiratory failure with hypoxia J96.01 Fever R50.9 Metabolic encephalopathy G93.41 Tobacco abuse Z72.0
[2022-10-25] MEDS: LIDOCAINE 5% 1 PATCH TD SCH (19:58)
[2022-10-26] MEDS: ENOXAPARIN INJ 40 MG/0.4 ML SYR SQ SCH (08:34)
[2022-10-26] MEDS: ACETAMINOPHEN 500 MG TAB PO SCH ×3 (08:34→20:39)
[2022-10-26] MEDS: THIAMINE HCL 100 MG TAB PO SCH ×2 (08:35→20:38)
[2022-10-26] MEDS: FOLIC ACID 1 MG TAB PO SCH (08:35)
[2022-10-26] MEDS: NICOTINE 21 MG/24 HR TDSY TD SCH (08:35)
[2022-10-26] MEDS: PANTOprazole 40 MG TAB PO SCH (08:35)
[2022-10-26] MEDS: lamoTRIgine 100 MG TAB PO SCH ×2 (08:36→20:38)
[2022-10-26] MEDS: MULTI VIT W/MINERALS LIQUID 15 ML UDP NG SCH (08:36)
[2022-10-26] MEDS: ESCITALOPRAM OXALATE 20 MG TAB PO SCH (08:37)
--- NOTE | 2022-10-26 19:58 | Hospitalist Progress Note ---
Date of Service October 26, 2022 Assessment & Plan (1) Alcohol use: Plan: With severe withdrawal and DTs for much of this stay. s/p admission to ICU for Precedex infusion & supportive care. completed phenobarbital taper as well. DTs resolved have social work discuss with her options for her alcoholism PT advising rehab OT eval pending (2) Delirium tremens: Plan: as above resolved (3) Fall: Plan: multiple falls at home pre-admission likely 2nd to etoh intoxication in setting of chronic hip pain and advanced OA of various joints PT/OT when able injuries from her falls -- T12 compression fracture, multiple old/subacute rib fractures b/l cont scheduled tylenol for pain add celebrex for pain as well poor candidate for tramadol or other narcotics (4) T12 compression fracture: Plan: cont tylenol 1gm TID add celebrex 100mg BID cont lidoderm patches TLSO brace when up and walking PT, OT evals; PT recommending rehab recent 25-OH vit D level wnl (5) Rib fractures: Plan: subacute left anterior 4th and the right anterior 7th ribs. 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 Additional healed rib fractures are seen bilaterally on imaging earlier this admission no rib pain reported by patient today. (6) Weakness: Plan: 2nd to #2 and prolonged hospital stay PT, OT (7) Osteoarthritis of right hip: Plan: was to have right THR soon but this will be delayed due to this prolonged hospitalization (8) Chronic right hip pain: Plan: 2nd to advanced OA (9) Hypomagnesemia: Plan: Replaced resolved (10) Hypertension: Plan: on Losartan-HCTZ 100mg-12.5mg daily and atenolol 50mg BID at home all meds on hold and BPs acceptable without the above anti-hypertensives cont to monitor carefully (11) Seizure: Plan: history of such cont Lamictal cont seizure precautions no seizures while here (12) Closed head injury: Plan: CT head negative on admission CT cervical spine w/o fractures CT t-spine (as seen on CT chest) with T12 compression fracture (13) Hx of subdural hematoma: Plan: 2020 (s/p fall) required surgery/evacuation by report (14) GERD (gastroesophageal reflux disease): Plan: continue PPI (15) Anxiety and depression: Plan: Cont escitalopram. Cont lamictal. (16) Left hip pain: Plan: 2nd fall pre-admission replacement in 2020 in [place] hardware intact on recent imaging (17) Acute respiratory failure with hypoxia: Plan: Resolved (18) Fever: Plan: 10/13/22 none since no evidence of any infectious process (19) Metabolic encephalopathy: Plan: 2nd DTs cannot exclude Wernicke's although B1 level was wnl mental status normal today cont supportive care cont additional thiamine supplementation cont B12 supplementation (20) Tobacco abuse: Plan: cont nicoderm patch (21) Insomnia: Plan: try melatonin 3mg HS + hydroxyzine 25mg HS poor candidate for ambien, lunesta, etc if above meds not helpful try trazodone Plan DVT prophylaxis-Lovenox pt's brother updated by phone yesterday PM remove jesus needs rehab moving forward for severe deconditioning Admission and Anticipated Discharge Date Admission Date: October 10, 2022 Subjective patient sitting in chair comfortably wearing back brace reports on/off back pain today no further diarrhea eating well she states she would rather not attend rehab, but "will go if I have to" she was very tearful today - she realizes that she was very sick from the etoh withdrawal she realizes she needs to quit/abstain from etoh asks for something for sleep reports chronic insomnia at home - can't fall asleep, can't stay asleep Review of Systems Review of Systems: GI - no abd pain, diarrhea, N/V CV - no cp pulm - no dyspnea Physical Exam Physical Exam: gen - NAD, tearful today however neck - no JVD mouth - MMM heart - RRR, s1 s2, no murmur lungs - CTA b/l, decreased BS bases abd - soft, NT, BS+ ext - no edema, pulses 2+ b/l neuro - strength 5/5 x 4 exts; speech clear/fluent psych - tearful, but a/o x 3 today ; no signs of DTs/ etoh withdrawal Results & Data Results & Data Vital Signs (Past 12 Hours) Vital Signs Temp Pulse Resp BP Pulse Ox O2 Del Method 10/26/22 18:47 36.4 C L 73 18 129/74 96 Room Air 10/26/22 15:21 36.6 C 71 18 136/72 96 Room Air 10/26/22 11:16 36.6 C 86 18 135/82 96 Room Air PG Care Time/CCT Total # of Minutes Spent Total Time Spent with Patient: Total time spent is greater than 50% in coordination of care (as documented) at patient's floor/unit and/or counseling patient: Coding Level of Care Code 17641 SUB INP/OBS CARE 2/35MIN Diagnoses Alcohol use Z78.9 Delirium tremens F10.931 Fall W19.XXXA T12 compression fracture S22.080A Rib fractures S22.49XA Weakness R53.1 Osteoarthritis of right hip M16.11 Chronic right hip pain M25.551; G89.29 Hypomagnesemia E83.42 Hypertension I10 Seizure R56.9 Closed head injury S09.90XA Hx of subdural hematoma Z86.79 GERD (gastroesophageal reflux disease) K21.9 Anxiety and depression F41.9; F32.A Left hip pain M25.552 Acute respiratory failure with hypoxia J96.01 Fever R50.9 Metabolic encephalopathy G93.41 Tobacco abuse Z72.0 Insomnia G47.00
[2022-10-26] MEDS: LIDOCAINE 5% 1 PATCH TD SCH (20:33)
[2022-10-26] MEDS: MELATONIN 3 MG TAB PO SCH (20:37)
[2022-10-26] MEDS: CELECOXIB 100 MG CAP PO SCH (20:37)
[2022-10-26] MEDS: hydrOXYzine HCl 25 MG TAB PO SCH (20:37)
[2022-10-27 06:19] LABS: Hematocrit (blood only) 33.4 % (37.0-47.0); Hemoglobin 11.2 g/dl (12.0-16.0); Mean Corpuscular Hemoglobin 30.8 pg (25.0-34.0); Mean Corpuscular Hgb Conc 33.5 g/dL (32.0-36.0); Mean Corpuscular Volume 91.8 fL (80.0-100.0); Mean Platelet Volume 9.5 fL (9.4-12.4); Platelet Count 321 K/uL (130-400); RDW Coefficient of Variation 13.2 % (11.5-14.5); RDW Standard Deviation 44.6 fL (36.4-46.3); Red Blood Count 3.64 M/uL (4.20-5.40); White Blood Count 5.06 K/ul (4.8-10.8)
[2022-10-27 06:39] LABS: BUN Creatinine Ratio 27.6 (10-20); Creatinine Clr Calc Pharmacy 66.9 ml/min; Est GFR (African American) 93.4 ml/min; Est GFR (Non-African American) 80.6 ml/min
[2022-10-27] MEDS: THIAMINE HCL 100 MG TAB PO SCH ×2 (08:33→20:41)
[2022-10-27] MEDS: lamoTRIgine 100 MG TAB PO SCH ×2 (08:33→20:41)
[2022-10-27] MEDS: CELECOXIB 100 MG CAP PO SCH ×2 (08:33→20:40)
[2022-10-27] MEDS: ENOXAPARIN INJ 40 MG/0.4 ML SYR SQ SCH (08:34)
[2022-10-27] MEDS: FOLIC ACID 1 MG TAB PO SCH (08:34)
[2022-10-27] MEDS: ESCITALOPRAM OXALATE 20 MG TAB PO SCH (08:34)
[2022-10-27] MEDS: CYANOCOBALAMIN (B-12) 500 MCG TABLET PO SCH (08:34)
[2022-10-27] MEDS: PANTOprazole 40 MG TAB PO SCH (08:34)
[2022-10-27] MEDS: ACETAMINOPHEN 500 MG TAB PO SCH ×3 (08:34→20:40)
[2022-10-27] MEDS: NICOTINE 21 MG/24 HR TDSY TD SCH (08:34)
[2022-10-27] MEDS: CEROVITE ADV FORMULA TAB PO SCH (08:34)
--- NOTE | 2022-10-27 16:13 | Hospitalist Progress Note ---
Date of Service October 27, 2022 Assessment & Plan (1) Alcohol use: Plan: With severe withdrawal and DTs for much of this stay. s/p admission to ICU for Precedex infusion & supportive care. completed phenobarbital taper as well. DTs and etoh withdrawal fully resolved patient has no interest in etoh inpatient rehab also non-committal to outpatient Rx options (2) Delirium tremens: Plan: as above resolved (3) Fall: Plan: multiple falls at home pre-admission likely 2nd to etoh intoxication in setting of chronic hip pain and advanced OA of various joints PT/OT when able injuries from her falls -- T12 compression fracture, multiple old/subacute rib fractures b/l cont scheduled tylenol for pain cont celebrex poor candidate for tramadol or other narcotics (4) T12 compression fracture: Plan: cont tylenol 1gm TID cont celebrex 100mg BID cont lidoderm patches TLSO brace when up and walking PT, OT evals; PT recommending rehab -- patient not terribly keen on such; would rather return home with outpatient or home therapies recent 25-OH vit D level wnl (5) Rib fractures: Plan: subacute left anterior 4th and the right anterior 7th ribs. 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 Additional healed rib fractures are seen bilaterally on imaging earlier this admission no rib pain at this time (6) Weakness: Plan: 2nd to #2 and prolonged hospital stay PT, OT (7) Osteoarthritis of right hip: Plan: was to have right THR soon but this will be delayed due to this prolonged hospitalization (8) Chronic right hip pain: Plan: 2nd to advanced OA (9) Hypomagnesemia: Plan: Replaced resolved (10) Hypertension: Plan: on Losartan-HCTZ 100mg-12.5mg daily and atenolol 50mg BID at home all meds on hold and BPs acceptable without the above anti-hypertensives cont to monitor carefully and resume small dose of atenolol as needed (11) Seizure: Plan: history of such cont Lamictal cont seizure precautions no seizures while here (12) Closed head injury: Plan: CT head negative on admission CT cervical spine w/o fractures CT t-spine (as seen on CT chest) with T12 compression fracture (13) Hx of subdural hematoma: Plan: 2020 (s/p fall) required surgery/evacuation by report (14) GERD (gastroesophageal reflux disease): Plan: continue PPI (15) Anxiety and depression: Plan: Cont escitalopram. Cont lamictal. (16) Left hip pain: Plan: 2nd fall pre-admission replacement in 2019 in [place] hardware intact on recent imaging (17) Acute respiratory failure with hypoxia: Plan: Resolved (18) Fever: Plan: 10/13/22 none since no evidence of any infectious process (19) Metabolic encephalopathy: Plan: 2nd DTs cannot exclude Wernicke's although B1 level was wnl mental status again normal today cont supportive care cont additional thiamine supplementation cont B12 supplementation (20) Tobacco abuse: Plan: cont nicoderm patch (21) Insomnia: Plan: cont melatonin 3mg HS + hydroxyzine 25mg HS poor candidate for ambien, lunesta, etc Plan DVT prophylaxis-Lovenox d/c tele - move to med/surg medically ready for d/c -- suspect patient will ultimately want to return home although her family would like for her to go to rehab she is a/o x 3 and has capacity to make her own decisions, however Admission and Anticipated Discharge Date Admission Date: October 10, 2022 Subjective tele stable overnight she feels well she did well with PT today her back feels good without much pain using TLSO brace without difficulty eating well no further diarrhea she is not highly interested in rehab - either for deconditioning or alcohol she had attended inpatient etoh rehab in [facility] in the past and has no interest in going back to such a facility Review of Systems Review of Systems: gen - feeling good; no fatigue; rested very well last pm cv - no cp pulm - no dyspnea GI - no pain/N/V Physical Exam Physical Exam: gen - NAD, looks very good today neck - no JVD mouth - MMM heart - RRR, s1 s2, no murmur lungs - CTA b/l abd - soft, NT, BS+ ext - no edema, pulses 2+ b/l Results & Data Results & Data Vital Signs (Past 12 Hours) Vital Signs Temp Pulse Pulse Resp BP Pulse Ox O2 Del Method 10/27/22 15:41 36.7 C 74 18 131/67 97 Room Air 10/27/22 11:45 36.7 C 78 18 142/69 H 95 Room Air 10/27/22 07:57 36.7 C 66 18 173/87 H 98 Room Air 10/27/22 07:17 68 PG Care Time/CCT Total # of Minutes Spent Total Time Spent with Patient: Total time spent is greater than 50% in coordination of care (as documented) at patient's floor/unit and/or counseling patient: Coding Level of Care Code 15603 SUB INP/OBS CARE 2/35MIN Diagnoses Alcohol use Z78.9 Delirium tremens F10.931 Fall W19.XXXA T12 compression fracture S22.080A Rib fractures S22.49XA Weakness R53.1 Osteoarthritis of right hip M16.11 Chronic right hip pain M25.551; G89.29 Hypomagnesemia E83.42 Hypertension I10 Seizure R56.9 Closed head injury S09.90XA Hx of subdural hematoma Z86.79 GERD (gastroesophageal reflux disease) K21.9 Anxiety and depression F41.9; F32.A Left hip pain M25.552 Acute respiratory failure with hypoxia J96.01 Fever R50.9 Metabolic encephalopathy G93.41 Tobacco abuse Z72.0 Insomnia G47.00
[2022-10-27] MEDS: LIDOCAINE 5% 1 PATCH TD SCH (19:55)
[2022-10-27] MEDS: MELATONIN 3 MG TAB PO SCH (20:41)
[2022-10-27] MEDS: hydrOXYzine HCl 25 MG TAB PO SCH (20:41)
[2022-10-28] MEDS: lamoTRIgine 100 MG TAB PO SCH ×2 (08:37→20:11)
[2022-10-28] MEDS: CELECOXIB 100 MG CAP PO SCH ×2 (08:38→20:10)
[2022-10-28] MEDS: THIAMINE HCL 100 MG TAB PO SCH ×2 (08:38→20:11)
[2022-10-28] MEDS: PANTOprazole 40 MG TAB PO SCH (08:39)
[2022-10-28] MEDS: FOLIC ACID 1 MG TAB PO SCH (08:39)
[2022-10-28] MEDS: CYANOCOBALAMIN (B-12) 500 MCG TABLET PO SCH (08:39)
[2022-10-28] MEDS: CEROVITE ADV FORMULA TAB PO SCH (08:40)
[2022-10-28] MEDS: NICOTINE 21 MG/24 HR TDSY TD SCH (08:40)
[2022-10-28] MEDS: ESCITALOPRAM OXALATE 20 MG TAB PO SCH (08:40)
[2022-10-28] MEDS: ENOXAPARIN INJ 40 MG/0.4 ML SYR SQ SCH (08:43)
[2022-10-28] MEDS: ACETAMINOPHEN 500 MG TAB PO SCH ×3 (08:48→20:10)
[2022-10-28] MEDS: ATENOLOL 25 MG TABLET PO SCH (10:25)
[2022-10-28] MEDS: LIDOCAINE 5% 1 PATCH TD SCH (20:09)
[2022-10-28] MEDS: MELATONIN 3 MG TAB PO SCH (20:11)
[2022-10-28] MEDS: hydrOXYzine HCl 25 MG TAB PO SCH (20:11)
[2022-10-29] MEDS: lamoTRIgine 100 MG TAB PO SCH ×2 (09:02→20:52)
[2022-10-29] MEDS: CELECOXIB 100 MG CAP PO SCH ×2 (09:02→20:51)
[2022-10-29] MEDS: PANTOprazole 40 MG TAB PO SCH (09:02)
[2022-10-29] MEDS: CYANOCOBALAMIN (B-12) 500 MCG TABLET PO SCH (09:04)
[2022-10-29] MEDS: CEROVITE ADV FORMULA TAB PO SCH (09:04)
[2022-10-29] MEDS: THIAMINE HCL 100 MG TAB PO SCH ×2 (09:04→20:51)
[2022-10-29] MEDS: FOLIC ACID 1 MG TAB PO SCH (09:05)
[2022-10-29] MEDS: ESCITALOPRAM OXALATE 20 MG TAB PO SCH (09:05)
[2022-10-29] MEDS: NICOTINE 21 MG/24 HR TDSY TD SCH (09:08)
[2022-10-29] MEDS: ATENOLOL 25 MG TABLET PO SCH (09:14)
[2022-10-29] MEDS: ACETAMINOPHEN 500 MG TAB PO SCH ×3 (09:16→20:51)
[2022-10-29] MEDS: ENOXAPARIN INJ 40 MG/0.4 ML SYR SQ SCH (09:16)
--- NOTE | 2022-10-29 09:30 | Hospitalist Progress Note ---
Date of Service October 28, 2022 Assessment & Plan (1) Alcohol use: Plan: With severe withdrawal and DTs for much of this stay. s/p admission to ICU for Precedex infusion, phenobarb taper, & supportive care. DTs and etoh withdrawal resolved patient has no interest in etoh inpatient rehab also non-committal to outpatient Rx options (2) Delirium tremens: Plan: as above resolved (3) Fall: Plan: multiple falls at home pre-admission likely 2nd to etoh intoxication in setting of chronic hip pain and advanced OA of various joints cont PT/OT here then rehab at SNF post-d/c injuries from her falls -- T12 compression fracture, multiple old/subacute rib fractures b/l cont scheduled tylenol for pain cont celebrex BID - consider short-term increase to 200mg BID for a few days, if needed poor candidate for tramadol or other narcotics if she ends up going home due to concern for etoh abuse (4) T12 compression fracture: Plan: cont tylenol 1gm TID cont celebrex 100mg BID cont lidoderm patches TLSO brace when up and walking PT, OT evals; PT recommending rehab - patient agreeable to such recent 25-OH vit D level wnl (5) Rib fractures: Plan: subacute left anterior 4th and the right anterior 7th ribs. 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 Additional healed rib fractures are seen bilaterally on imaging earlier this admission no rib pain at this time (6) Weakness: Plan: 2nd to #2 and prolonged hospital stay PT, OT (7) Osteoarthritis of right hip: Plan: was to have right THR soon but this will be delayed due to this prolonged hospitalization (8) Chronic right hip pain: Plan: 2nd to advanced OA (9) Hypomagnesemia: Plan: Replaced resolved (10) Hypertension: Plan: was on Losartan-HCTZ 100mg-12.5mg daily and atenolol 50mg BID at home all meds had been on hold and BPs were acceptable but now BPs rising start atenolol 25mg daily trend BPs (11) Seizure: Plan: history of such cont Lamictal cont seizure precautions no seizures while here (12) Closed head injury: Plan: CT head negative on admission CT cervical spine w/o fractures CT t-spine (as seen on CT chest) with T12 compression fracture (13) Hx of subdural hematoma: Plan: 2020 (s/p fall) required surgery/evacuation by report (14) GERD (gastroesophageal reflux disease): Plan: continue PPI (15) Anxiety and depression: Plan: Cont escitalopram. Cont lamictal. (16) Left hip pain: Plan: 2nd fall pre-admission replacement in 2019 in [place] hardware intact on recent imaging (17) Acute respiratory failure with hypoxia: Plan: Resolved (18) Fever: Plan: 10/13/22 none since no evidence of any infectious process (19) Metabolic encephalopathy: Plan: 2nd DTs resolved (20) Tobacco abuse: Plan: cont nicoderm patch (21) Insomnia: Plan: cont melatonin 3mg HS + hydroxyzine 25mg HS poor candidate for ambien, lunesta, etc the above combo of meds is working nicely Plan DVT prophylaxis-Lovenox dispo - SNF for rehab early this week Admission and Anticipated Discharge Date Admission Date: October 10, 2022 Subjective patient feeling well no new complaints she has decided she is going to go to rehab after discharge she did some walking in the hallway - now her right hip is bothering her back pain - controlled using TLSO brace Review of Systems Review of Systems: cv - no chest pain pulm - no BARKLEY GI - no abd pain, N/V psych - slept well again overnight Physical Exam Physical Exam: gen - NAD, looks great neck - no JVD mouth - MMM heart - RRR, s1 s2, no murmur lungs - CTA b/l abd - soft, NT, BS+ ext - no edema, pulses 2+ b/l psych - normal affect, smiling at times Results & Data Results & Data Vital Signs (Past 12 Hours) Vital Signs Temp Pulse Resp BP Pulse Ox O2 Del Method 10/29/22 09:11 58 L 121/71 10/29/22 07:27 36.5 C 62 16 120/73 95 Room Air 10/28/22 22:06 36.4 C 76 16 137/71 96 Room Air PG Care Time/CCT Total # of Minutes Spent Total Time Spent with Patient: Total time spent is greater than 50% in coordination of care (as documented) at patient's floor/unit and/or counseling patient: Coding Level of Care Code 63913 SUB INP/OBS CARE 07/26MIN Diagnoses Alcohol use Z78.9 Delirium tremens F10.931 Fall W19.XXXA T12 compression fracture S22.080A Rib fractures S22.49XA Weakness R53.1 Osteoarthritis of right hip M16.11 Chronic right hip pain M25.551; G89.29 Hypomagnesemia E83.42 Hypertension I10 Seizure R56.9 Closed head injury S09.90XA Hx of subdural hematoma Z86.79 GERD (gastroesophageal reflux disease) K21.9 Anxiety and depression F41.9; F32.A Left hip pain M25.552 Acute respiratory failure with hypoxia J96.01 Fever R50.9 Metabolic encephalopathy G93.41 Tobacco abuse Z72.0 Insomnia G47.00
--- NOTE | 2022-10-29 14:21 | Hospitalist Progress Note ---
Date of Service October 29, 2022 Assessment & Plan (1) Alcohol use: Plan: With severe withdrawal and DTs earlier this admission. RESOLVED. s/p admission to ICU for Precedex infusion, phenobarb taper, & supportive care. patient has no interest in etoh inpatient rehab also non-committal to outpatient Rx options will cont to encourage her to consider outpatient treatment (2) Delirium tremens: Plan: as above resolved (3) Fall: Plan: multiple falls at home pre-admission likely 2nd to etoh intoxication in setting of chronic hip pain and advanced OA of various joints cont PT/OT here then rehab at SNF post-d/c injuries from her falls -- T12 compression fracture, multiple old/subacute rib fractures b/l cont scheduled tylenol for pain cont celebrex BID poor candidate for tramadol or other narcotics if she ends up going home due to concern for etoh abuse (4) T12 compression fracture: Plan: cont tylenol 1gm TID cont celebrex 100mg BID cont lidoderm patches TLSO brace when up and walking PT, OT evals; PT recommending rehab - patient agreeable to such recent 25-OH vit D level wnl (5) Rib fractures: Plan: subacute left anterior 4th and the right anterior 7th ribs. 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 Additional healed rib fractures are seen bilaterally on imaging earlier this admission no rib pain at this time (6) Weakness: Plan: 2nd to #2 and prolonged hospital stay PT, OT improved (7) Osteoarthritis of right hip: Plan: was to have right THR soon but this will be delayed due to this prolonged hospitalization (8) Chronic right hip pain: Plan: 2nd to advanced OA controlled with tylenol + celebrex (9) Hypomagnesemia: Plan: Replaced resolved (10) Hypertension: Plan: was on Losartan-HCTZ 100mg-12.5mg daily and atenolol 50mg BID at home prior to admission all meds had been on hold and BPs were acceptable but then BPs began rising restarted atenolol 25mg daily 10/28 control adequate (11) Seizure: Plan: history of such cont Lamictal cont seizure precautions no seizures while here (12) Closed head injury: Plan: CT head negative on admission CT cervical spine w/o fractures CT t-spine (as seen on CT chest) with T12 compression fracture (13) Hx of subdural hematoma: Plan: 2020 (s/p fall) required surgery/evacuation by report (14) GERD (gastroesophageal reflux disease): Plan: continue PPI (15) Anxiety and depression: Plan: Cont escitalopram. Cont lamictal. (16) Left hip pain: Plan: 2nd fall pre-admission replacement in 2019 in [place] hardware intact on recent imaging (17) Acute respiratory failure with hypoxia: Plan: Resolved (18) Fever: Plan: 10/13/22 none since no evidence of any infectious process (19) Metabolic encephalopathy: Plan: 2nd DTs resolved (20) Tobacco abuse: Plan: cont nicoderm patch (21) Insomnia: Plan: cont melatonin 3mg HS + hydroxyzine 25mg HS poor candidate for ambien, lunesta, etc the above combo of meds cont to work well Plan DVT prophylaxis-Lovenox dispo - SNF for rehab early this week Admission and Anticipated Discharge Date Admission Date: October 10, 2022 Subjective no new complaints feels good back is not bothering her today R hip feels ok today moving bowels but no diarrhea eating very well still interested in rehab Review of Systems Review of Systems: cv - no chest pain pulm - no dyspnea GI - no abd pain Physical Exam Physical Exam: gen - NAD, looks well, lying in bed reading a book neck - no JVD mouth - MMM heart - RRR, s1 s2, 1/6 NIKUNJ LSB lungs - CTA b/l abd - soft, NT, BS+ ext - no edema, pulses 2+ b/l psych - normal affect, a/o x 3 Results & Data Results & Data Vital Signs (Past 12 Hours) Vital Signs Temp Pulse Resp BP Pulse Ox O2 Del Method 10/29/22 09:11 58 L 121/71 10/29/22 07:27 36.5 C 62 16 120/73 95 Room Air PG Care Time/CCT Total # of Minutes Spent Total Time Spent with Patient: Total time spent is greater than 50% in coordination of care (as documented) at patient's floor/unit and/or counseling patient: Coding Level of Care Code 23877 SUB INP/OBS CARE 07/26MIN Diagnoses Alcohol use Z78.9 Delirium tremens F10.931 Fall W19.XXXA T12 compression fracture S22.080A Rib fractures S22.49XA Weakness R53.1 Osteoarthritis of right hip M16.11 Chronic right hip pain M25.551; G89.29 Hypomagnesemia E83.42 Hypertension I10 Seizure R56.9 Closed head injury S09.90XA Hx of subdural hematoma Z86.79 GERD (gastroesophageal reflux disease) K21.9 Anxiety and depression F41.9; F32.A Left hip pain M25.552 Acute respiratory failure with hypoxia J96.01 Fever R50.9 Metabolic encephalopathy G93.41 Tobacco abuse Z72.0 Insomnia G47.00
[2022-10-29] MEDS: hydrOXYzine HCl 25 MG TAB PO SCH (20:51)
[2022-10-29] MEDS: MELATONIN 3 MG TAB PO SCH (20:51)
[2022-10-29] MEDS: LIDOCAINE 5% 1 PATCH TD SCH (20:53)
[2022-10-30] MEDS: CEROVITE ADV FORMULA TAB PO SCH (07:43)
[2022-10-30] MEDS: ATENOLOL 25 MG TABLET PO SCH (07:43)
[2022-10-30] MEDS: lamoTRIgine 100 MG TAB PO SCH ×2 (07:43→21:00)
[2022-10-30] MEDS: ESCITALOPRAM OXALATE 20 MG TAB PO SCH (07:43)
[2022-10-30] MEDS: PANTOprazole 40 MG TAB PO SCH (07:44)
[2022-10-30] MEDS: THIAMINE HCL 100 MG TAB PO SCH ×2 (07:44→21:02)
[2022-10-30] MEDS: FOLIC ACID 1 MG TAB PO SCH (07:44)
[2022-10-30] MEDS: CELECOXIB 100 MG CAP PO SCH ×2 (07:44→20:59)
[2022-10-30] MEDS: CYANOCOBALAMIN (B-12) 500 MCG TABLET PO SCH (07:44)
[2022-10-30] MEDS: NICOTINE 21 MG/24 HR TDSY TD SCH (07:44)
[2022-10-30] MEDS: ENOXAPARIN INJ 40 MG/0.4 ML SYR SQ SCH (07:45)
[2022-10-30] MEDS: ACETAMINOPHEN 500 MG TAB PO SCH ×3 (07:46→20:59)
[2022-10-30 07:55] LABS: BUN Creatinine Ratio 29.1 (10-20); Calcium 9.9 mg/dl (8.6-10.3); Creatinine Clr Calc Pharmacy 54.1 ml/min; Est GFR (African American) 80.5 ml/min; Est GFR (Non-African American) 69.4 ml/min; Potassium 4.7 mmol/L (3.5-5.1)
[2022-10-30 15:01] LABS: Appearance Urine Clear (Clear); Bilirubin Urine Negative (Negative); Blood Urine Negative (Negative); Color Urine Yellow; Glucose Urine UA Negative (Negative); Ketones Urine Trace (Negative); Leukocyte Esterase Urine Negative (Negative); Nitrite Urine Negative (Negative); Protein Urine Negative (Negative); Urobilinogen Urine Negative (Negative); pH Urine 5.5 (4.5-7.5)
--- NOTE | 2022-10-30 20:07 | Hospitalist Progress Note ---
Date of Service October 30, 2022 Assessment & Plan (1) Alcohol use: Plan: With severe withdrawal and DTs earlier this admission. RESOLVED. s/p admission to ICU for Precedex infusion, phenobarb taper, & supportive care. patient has no interest in etoh inpatient rehab also non-committal to outpatient Rx options will cont to encourage her to consider outpatient treatment (2) Delirium tremens: Plan: as above resolved (3) Fall: Plan: multiple falls at home pre-admission likely 2nd to etoh intoxication in setting of chronic hip pain and advanced OA of various joints cont PT/OT here patient requests home PT/OT - social work to arrange injuries from her falls -- T12 compression fracture, multiple old/subacute rib fractures b/l cont scheduled tylenol for pain cont celebrex BID due to concern for ongoing etoh use at home would - 1. NOT send home with narcotics of any kind 2. perhaps 2 weeks of celebrex then d/c 3. PPI once daily if celebrex is given (4) T12 compression fracture: Plan: cont tylenol 1gm TID cont celebrex 100mg BID cont lidoderm patches TLSO brace when up and walking recent 25-OH vit D level wnl arrange home PT/OT at this point does not need rehab (5) Rib fractures: Plan: subacute left anterior 4th and the right anterior 7th ribs. 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 Additional healed rib fractures are seen bilaterally on imaging earlier this admission no rib pain at this time (6) Weakness: Plan: 2nd to #2 and prolonged hospital stay resolved arrange home PT, OT (7) Osteoarthritis of right hip: Plan: was to have right THR soon but this will be delayed due to this prolonged hospitalization patient has f/u established with Dr Grider - [facility] - on November 10 appt info added to d/c instrucitons (8) Chronic right hip pain: Plan: 2nd to advanced OA controlled with tylenol + celebrex (9) Hypomagnesemia: Plan: Replaced resolved (10) Hypertension: Plan: was on Losartan-HCTZ 100mg-12.5mg daily and atenolol 50mg BID at home prior to admission all meds had been on hold and BPs were acceptable but then BPs began rising restarted atenolol 25mg daily 10/28 control adequate still add back additional meds (would go with losartan by itself) if necessary (11) Seizure: Plan: history of such cont Lamictal cont seizure precautions no seizures while here (12) Closed head injury: Plan: CT head negative on admission CT cervical spine w/o fractures CT t-spine (as seen on CT chest) with T12 compression fracture (13) Hx of subdural hematoma: Plan: 2020 (s/p fall) required surgery/evacuation by report (14) GERD (gastroesophageal reflux disease): Plan: continue PPI (15) Anxiety and depression: Plan: Cont escitalopram. Cont lamictal. (16) Left hip pain: Plan: 2nd fall pre-admission replacement in 2019 in [place] hardware intact on recent imaging (17) Acute respiratory failure with hypoxia: Plan: Resolved (18) Fever: Plan: 10/13/22 none since no evidence of any infectious process (19) Metabolic encephalopathy: Plan: 2nd DTs resolved (20) Tobacco abuse: Plan: cont nicoderm patch (21) Insomnia: Plan: cont melatonin 3mg HS + hydroxyzine 25mg HS poor candidate for ambien, lunesta, etc the above combo of meds cont to work well would prescribe hydroxyzine at discharge (22) Nocturia: Plan: ua checked - not suspicious for UTI but culture sent to be complete glucose on AM labs today wnl thus hyperglycemia not the cause monitor Plan DVT prophylaxis-Lovenox dispo - home with home PT/OT social work spoke with pt's family family to transport home on 10/31/22 Admission and Anticipated Discharge Date Admission Date: October 10, 2022 Subjective pt states she didn't sleep well last pm blames her poor sleep on urinary frequency/nocturia last pm was going every hour on the hour no dysuria no foul-smelling urine she has decided she wants to return home she worked with PT today and did very well - PT also agrees she is strong enough to safely return home does not have her keys for her apartment, however, and needs to get up with her brother who lives locally to get a ride home Review of Systems Review of Systems: musculo - right hip pain, but no back pain cv - no cp pulm - no BARKLEY GI - no abd pain Physical Exam Physical Exam: gen - NAD, looks great, wearing her TLSO brace neck - no JVD mouth - MMM heart - RRR, s1 s2, 1/6 NIKUNJ LSB lungs - CTA b/l abd - soft, NT, BS+, ND ext - no edema, pulses 2+ b/l psych - normal affect, a/o x 3 Results & Data Results & Data Vital Signs (Past 12 Hours) Vital Signs Temp Pulse Resp BP Pulse Ox O2 Del Method 10/30/22 15:35 36.7 C 62 16 136/76 95 Room Air Laboratory Results Laboratory Results - last 24 hr 10/30/22 10/30/22 06:56 14:40 Sodium 140 Potassium 4.7 Chloride 106 Carbon Dioxide 30 Anion Gap 4 BUN 25 H Creatinine 0.86 Est Cr Clr Drug Dosing 54.1 Est GFR ( Amer) 80.5 Est GFR (Non-Af Amer) 69.4 BUN/Creatinine Ratio 29.1 H Glucose 85 Calcium 9.9 Urine Color Yellow Urine Appearance Clear Urine pH 5.5 Ur Specific [place] 1.020 Urine Protein Negative Urine Glucose (UA) Negative Urine Ketones Trace H Urine Blood Negative Urine Nitrite Negative Urine Bilirubin Negative Urine Urobilinogen Negative Ur Leukocyte Esterase Negative PG Care Time/CCT Total # of Minutes Spent Total Time Spent with Patient: Total time spent is greater than 50% in coordination of care (as documented) at patient's floor/unit and/or counseling patient: Coding Level of Care Code 03295 SUB INP/OBS CARE 2/35MIN Diagnoses Alcohol use Z78.9 Delirium tremens F10.931 Fall W19.XXXA T12 compression fracture S22.080A Rib fractures S22.49XA Weakness R53.1 Osteoarthritis of right hip M16.11 Chronic right hip pain M25.551; G89.29 Hypomagnesemia E83.42 Hypertension I10 Seizure R56.9 Closed head injury S09.90XA Hx of subdural hematoma Z86.79 GERD (gastroesophageal reflux disease) K21.9 Anxiety and depression F41.9; F32.A Left hip pain M25.552 Acute respiratory failure with hypoxia J96.01 Fever R50.9 Metabolic encephalopathy G93.41 Tobacco abuse Z72.0 Insomnia G47.00 Nocturia R35.1
[2022-10-30] MEDS: LIDOCAINE 5% 1 PATCH TD SCH (20:54)
[2022-10-30] MEDS: MELATONIN 3 MG TAB PO SCH (20:59)
[2022-10-30] MEDS: hydrOXYzine HCl 25 MG TAB PO SCH (21:05)
[2022-10-31] MEDS: FOLIC ACID 1 MG TAB PO SCH (08:27)
[2022-10-31] MEDS: lamoTRIgine 100 MG TAB PO SCH (08:27)
[2022-10-31] MEDS: ATENOLOL 25 MG TABLET PO SCH (08:27)
[2022-10-31] MEDS: PANTOprazole 40 MG TAB PO SCH (08:28)
[2022-10-31] MEDS: CELECOXIB 100 MG CAP PO SCH (08:28)
[2022-10-31] MEDS: ESCITALOPRAM OXALATE 20 MG TAB PO SCH (08:28)
[2022-10-31] MEDS: CEROVITE ADV FORMULA TAB PO SCH (08:28)
[2022-10-31] MEDS: THIAMINE HCL 100 MG TAB PO SCH (08:28)
[2022-10-31] MEDS: CYANOCOBALAMIN (B-12) 500 MCG TABLET PO SCH (08:28)
[2022-10-31] MEDS: ENOXAPARIN INJ 40 MG/0.4 ML SYR SQ SCH (08:30)
[2022-10-31] MEDS: NICOTINE 21 MG/24 HR TDSY TD SCH (08:30)
[2022-10-31] MEDS: ACETAMINOPHEN 500 MG TAB PO SCH ×2 (08:32→13:21)
--- NOTE | 2022-10-31 13:50 | Discharge Summary ---
Date of Service October 31, 2022 Admission HPI Per Admitting Provider 67yo female with PMHx significant for HTN, Seizure, prior craniotomy/evacuation of hematoma, anxiety/depression, GERD presented after fall at home with associated vomiting and striking the back of her head. Of note, has been seeing orthopedics and recent imaging for severe osteoarthritis for her right hip and supposed to have upcoming surgery for repair with Dr Grider this upcoming week. Patient evaluated in B9, actively attempting to get out of bed, tremulous and agitated but alert to person, knows in hospital, year 2022. Denies having any lightheaded/dizziness/syncope/BARKLEY prior to fall at present. Lab at bedside to draw labs -- overdose labs ordered/ammonia/b1/b12/folate. States tylenol/ibuprofen have done nothing for her pain and she has been using alcohol for pain control, reportedly last drink day before yesterday. Did not take any medications this morning. Denied any prior history of withdrawal seizures and reports last seizure was in 2000. She reports falling backwards but exact etiology is unknown. She denies any recent fevers/chills, chest pain, shortness of breath, abdominal pain, nausea or vomiting (however reported vomiting to ER providers/given zofran). She appears disheveled/unkept, reports working up for hip repair with Dr Grider this upcoming week. She states she has been ambulating with a walker at home. Currently able to move all extremities, follow commands. No focal deficits at present. Asked RN to provide patient with 1mg Ativan IV x 1 now, will order AWSS for active withdrawal. Will admit to monitored bed to observe for any DTs, pain control/PT/OT consultations and electrolyte replacement and further investigation of falls. ER Course: BP low on admit, given 500cc NSS by ER staff, zofran 4mg IV x 1. CT head/cervical spine negative. CT abdomen/pelvis without acute intra-abdominal injury, but does note compression fracture of T12 vertebral body as well as additional rib fractures of various chronicity. CXR without acute chest disease/consolidative process. WBC 7.6k, hgb 13.5, electrolytes acceptable, anion gap slightly elevated to 13, suspected from alcohol use. Mag low at 1.6. CK elevated to 218, ALP 123. TB wnl 0.5. Lipase 5. Procal <0.05. TSH 0.870 COVID testing negative. UA ordered but not yet obtained. Principal Diagnosis delirium tremens Discharge Exam gen - NAD, looks great, wearing her TLSO brace neck - no JVD mouth - MMM heart - RRR, s1 s2, 1/6 NIKUNJ LSB lungs - CTA b/l abd - soft, NT, BS+, ND ext - no edema, pulses 2+ b/l psych - normal affect, a/o x 3 Discharge Data Allergies Allergy/AdvReac Type Severity Reaction Status Date / Time No Known Allergies Allergy Verified 10/10/22 11:00 Consultations 10/10/22 10:12 ED Decision to Admit Stat 10/10/22 14:44 Consult Orthopedic Surgery Routine 10/11/22 08:02 Consult Design Teacher Stat Ordered Studies 10/10/22 08:27 CT abd pelvis wo con Stat CT cervical spine wo con Stat CT head/brain wo con Stat 10/10/22 12:37 CT chest diagnostic wo con Stat 10/19/22 07:51 MR brain wo/w con Routine Hospital Course (1) Alcohol use: With severe withdrawal and DTs earlier this admission. RESOLVED. s/p admission to ICU for Precedex infusion, phenobarb taper, & supportive care. patient has no interest in etoh inpatient rehab also non-committal to outpatient Rx options will cont to encourage her to consider outpatient treatment (2) Delirium tremens: as above resolved (3) Fall: multiple falls at home pre-admission likely 2nd to etoh intoxication in setting of chronic hip pain and advanced OA of various joints cont PT/OT here patient requests home PT/OT - social work to arrange injuries from her falls -- T12 compression fracture, multiple old/subacute rib fractures b/l cont scheduled tylenol for pain cont celebrex BID due to concern for ongoing etoh use at home would - 1. NOT send home with narcotics of any kind 2. perhaps 2 weeks of celebrex then d/c 3. PPI will be prescribed (4) T12 compression fracture: cont tylenol 1gm TID cont celebrex 100mg BID cont lidoderm patches TLSO brace when up and walking will also order calcitonin spray Patient may also benefit a DEXA scan recent 25-OH vit D level wnl arrange home PT/OT at this point does not need rehab (5) Rib fractures: subacute left anterior 4th and the right anterior 7th ribs. 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 Additional healed rib fractures are seen bilaterally on imaging earlier this admission no rib pain at this time (6) Weakness: 2nd to #2 and prolonged hospital stay resolved arrange home PT, OT (7) Osteoarthritis of right hip: was to have right THR soon but this will be delayed due to this prolonged hospitalization patient has f/u established with Dr Grider - [facility] - on November 10 appt info added to d/c instrucitons (8) Chronic right hip pain: 2nd to advanced OA controlled with tylenol + celebrex (9) Hypomagnesemia: Replaced resolved (10) Hypertension: was on Losartan-HCTZ 100mg-12.5mg daily and atenolol 50mg BID at home prior to admission all meds had been on hold and BPs were acceptable but then BPs began rising restarted atenolol 25mg daily 10/28 control adequate still will hold further BP meds at discharge. (11) Seizure: history of such cont Lamictal cont seizure precautions no seizures while here (12) Closed head injury: CT head negative on admission CT cervical spine w/o fractures CT t-spine (as seen on CT chest) with T12 compression fracture (13) Hx of subdural hematoma: 2020 (s/p fall) required surgery/evacuation by report (14) GERD (gastroesophageal reflux disease): continue PPI (15) Anxiety and depression: Cont escitalopram. Cont lamictal. (16) Left hip pain: 2nd fall pre-admission replacement in 2019 in [place] hardware intact on recent imaging (17) Acute respiratory failure with hypoxia: Resolved (18) Fever: 10/13/22 none since no evidence of any infectious process (19) Metabolic encephalopathy: 2nd DTs resolved (20) Tobacco abuse: cont nicoderm patch (21) Insomnia: cont melatonin 3mg HS + hydroxyzine 25mg HS poor candidate for ambien, lunesta, etc the above combo of meds cont to work well (22) Nocturia: ua checked - not suspicious for UTI but culture sent to be complete Plan DVT prophylaxis-Lovenox dispo - home with home PT/OT Total Time Total Time Spent Total Time Spent (In Minutes): 32 Discharge Plan Discharge Items Patient Disposition: Home - Home Health Services Reason For Visit: FALL, T12 COMPRESSION FRACTURE, ALCOHOL USE/POSSIB Discharge Diagnosis: T12 compression fracture Activity: Resume your previous activity Non-emergency contact: Primary Care Provider Call non-emergency contact if: you have any medication questions Follow-up/Referrals: Ashley Kay PA-C [Primary Care Provider] - 11/07/22 1:25 pm (5-7 days ) Abran Grider MD [Physician] - 11/10/22 1:30 pm (follow-up for right hip arthritis ) Diet: Heart Healthy Addtl Attending Provider Instructions: due to concern for ongoing Alcohol use at home: will recommend celebrex (for 2 weeks) and proton pump imhibitors. continue tylenol 1gm TID continue celebrex 100mg BID continue lidoderm patches TLSO brace when up and walking Calcitonin spray once daily for further pain relief Only one spray per day, and alternate nostrils each day. do not spray in both nostrils on same day. This can provide pain relief from back in a few weeks. will recommend continue home health. Recommend followup with PCP in 1-2 weeks. Please abstain from drinking alcohol as this could lead to further injury, liver failure and . Addtl Cutter Banana Room Provider Instructions: Once discharge please contact our office at [phone] to schedule an appointment Dr. Grider to discuss surgical intervention for the right hip. Pending Studies at Discharge: No Stand-Alone Forms: [facility], Smoking Cessation Medications and DC Order Prescriptions: New atenolol 25 mg Tablet 25 mg PO QAM Qty: 30 0RF nicotine [Nicoderm CQ] 21 mg/24 hr Patch 24 Hour 21 mg transdermal QAM Qty: 30 0RF acetaminophen [Tylenol] 325 mg tablet 650 mg PO Q6H 14 Days Qty: 112 0RF Rx Instructions: Caution with alcohol usage as this can cause toxic liver injury will continue for 2 weeks. lidocaine 5 % Adhesive Patch,Medicated 1 patch transdermal Q24H Qty: 14 0RF Rx Instructions: On for 12 hours and then off for 12 hours. celecoxib [Celebrex] 100 mg Capsule 100 mg PO BID Qty: 28 0RF thiamine HCl (vitamin B1) 100 mg Tablet 200 mg PO BID Qty: 60 0RF cyanocobalamin (vitamin B-12) 500 mcg Tablet 1,000 mcg PO QAM Qty: 30 0RF folic acid 1 mg Tablet 1 mg PO QAM Qty: 30 0RF calcitonin (salmon) 200 unit/actuation spray,non-aerosol 1 spray intranasal (ALT) DAILY Qty: 3.7 0RF Rx Instructions: Only one spray per day. Alternate nostril on the next day. melatonin 3 mg Tablet 3 mg PO HS Qty: 30 0RF hydroxyzine HCl 25 mg Tablet 25 mg PO HS Qty: 30 0RF Rx Instructions: Do not mix with alcohol Continued lamotrigine 150 mg Tablet 150 mg PO BID omeprazole 40 mg Capsule,Delayed Release(Dr/Ec) 40 mg PO QAM escitalopram oxalate [Lexapro] 20 mg Tablet 20 mg PO QAM eszopiclone [Lunesta] 2 mg Tablet 2 mg PO HS Discontinued atenolol 50 mg Tablet 50 mg PO BID losartan-hydrochlorothiazide 100-12.5 mg Tablet 1 tab PO QAM Discharge Orders: Discharge Order (Routine); Ordered 10/31/22 Ordered By: Dayday Roberto Admission Data Admit Date/Time: 10/10/22 11:02 Attending Provider: Dayday Roberto Admit Provider: Rivas Bella Primary Care Provider: Ashley Kay Other Providers: Flora Aponte ; [facility] ; [facility], ; Rivas Bella ; Abran Grider ; Yunior Hoang Other Interventions: Discharge Summary Assessment (RN) Last Done: 10/31/22 13:49 Coding Level of Care Code 99243 INP/OBS DISCH >30 MIN Diagnoses Alcohol use Z78.9 Delirium tremens F10.931 Fall W19.XXXA T12 compression fracture S22.080A Rib fractures S22.49XA Weakness R53.1 Osteoarthritis of right hip M16.11 Chronic right hip pain M25.551; G89.29 Hypomagnesemia E83.42 Hypertension I10 Seizure R56.9 Closed head injury S09.90XA Hx of subdural hematoma Z86.79 GERD (gastroesophageal reflux disease) K21.9 Anxiety and depression F41.9; F32.A Left hip pain M25.552 Acute respiratory failure with hypoxia J96.01 Fever R50.9 Metabolic encephalopathy G93.41 Tobacco abuse Z72.0 Insomnia G47.00 Nocturia R35.1
== END 2022-10-31 16:02 | disposition home health service (06) | DRG 896 ==
LOC: ED 07:54 → SUATTDRO 11:02 → 2S 11:02 → 1E 10-11 09:11 → 2S 10-22 01:08 → 3N 10-27 18:29

== ENCOUNTER 2022-12-14 07:00 | Observation (INO) ==
--- NOTE | 2022-10-04 14:01 | PAT Medication Instructions ---
Medication Instructions Date of Service October 04, 2022 Home Medications atenolol 50 mg tablet 50 mg PO BID escitalopram oxalate 20 mg tablet (Lexapro) 20 mg PO QAM eszopiclone 2 mg tablet (Lunesta) 2 mg PO HS lamotrigine 150 mg tablet 150 mg PO BID losartan 100 mg-hydrochlorothiazide 12.5 mg tablet 1 tab PO QAM omeprazole 40 mg capsule,delayed release 40 mg PO QAM DO NOT take the morning of surgery losartan 100 mg-hydrochlorothiazide 12.5 mg tablet 1 tab PO QAM Take morning of surgery With a small sip of water, OTHERWISE NOTHING TO EAT OR DRINK AFTER MIDNIGHT: atenolol 50 mg tablet 50 mg PO BID escitalopram oxalate 20 mg tablet (Lexapro) 20 mg PO QAM lamotrigine 150 mg tablet 150 mg PO BID omeprazole 40 mg capsule,delayed release 40 mg PO QAM Take evening before surgery atenolol 50 mg tablet 50 mg PO BID eszopiclone 2 mg tablet (Lunesta) 2 mg PO HS lamotrigine 150 mg tablet 150 mg PO BID Other Notes If you have any questions please call us at [phone] or [phone] or [phone] or [phone]
--- NOTE | 2022-10-04 15:43 | History & Physical Report ---
Date of Service October 04, 2022 Assessment & Plan (1) Osteoarthritis of right hip: Plan: Plan: Patient is scheduled to undergo this procedure at the [facility] with a 23-hour observation admission with Dr. Grider on September. Risks and complications of the procedure such as: Infection, bleeding, pain, scarring, nerve blood vessel damage, weakness, wound problems, stiffness, incomplete relief of symptoms, hardware failure, hardware loosening, wear, fracture, tendon or ligament injury, dislocation, leg length inequality, blood clots, Embolism, heart attack, stroke and were explained to the patient at her visit today. Informed consent to perform the procedure was obtained. Patient also understands risks of proceeding with surgical intervention during the COVID-19 pandemic. Currently she is asymptomatic and has not been in contact with anyone positive for the virus recently. Patient has an appointment to meet with anesthesia tomorrow and while there will obtain PT/INR, blood type and screen, urinalysis, urine culture and sensitivity, and a nasal culture for MRSA. Patient is EKG, CBC with differential, complete metabolic panel and hemoglobin A1c are all up-to-date. Patient will also need preoperative medical clearance from their primary care provider. She is scheduled to see him on October 09 at 3:25 PM. Patient states that she plans on doing in-home physical therapy for the first 1 to 2 weeks postoperatively with [facility] home care. Patient is not sure if she will be able to do outpatient physical therapy because she lives alone and will not be able to drive for 6 weeks following surgery. Patient will need a walker, raised toilet seat, shower chair and a hip kit. During today's visit we reviewed the total hip packet as well as precautions. We discussed discharge planning from the hospital. I provided paperwork to obtain a handicap placard for their vehicle. We discussed lectures offered by [facility] in regards to joint replacement surgery via Zoom. I advised the patient that upon discharge from hospital we will prescribe a narcotic pain medication and anti-inflammatory. Patient will also be on an 81 mg aspirin twice daily for blood clot prevention. I did provide the patient with a prescription for some tramadol tablets to use for pain control preoperatively. Patient will be scheduled for 2-week postoperative follow-up visit with myself on October 24 at 2:15 PM. Patient verbalizes understanding of all information provided during today's visit. She thanks for the care that she received. If she has questions or concerns that should arise prior to her surgery, she will contact clinic. This chart was completed utilizing [employer]™ voice recognition software. Grammatical errors, random word insertions, pronoun errors, and in complete se ntences are an occasional consequence of the system. Any questions or concerns about the content, text, or information contained within the body of this dictation should be addressed directly to the physician for clarification. History of Present Illness Chief Complaint: Chief Complaint: Right hip pain Primary Care Provider: Ashley Kay History of Present Illness (including history relevant to procedure): This 59-year-old female presents to the clinic today for preoperative history and physical. Patient is complains of persistent right-sided hip pain localized to her groin area for the past year. She states that it is limiting her range of motion in the hip and presenting just like the arthritis in her left hip. Patient states she had left hip replaced in [place] back in 2019. Patient recently moved to the area in early July and has been following with Dr. Grider for her arthritis. She is electing to proceed with surgical intervention. Review Of Systems: A 12 point review of systems is performed and is unremarkable except for those things stated in the HPI and past medical history. Past Medical History: Problems: Right hip pain Tremor Depression, major Insomnia Epilepsy Chronic GERD Hypertension Tobacco user Abnormal physical evaluation History of heart murmur Anxierty Obesity Procedure History Procedure Procedure Date Comments Subdural hematoma - 2019 TOTAL HIP ARTHROPLASTY - 2020 Left hip Colonoscopy Salpingoectomy 2017 Allergies and Sensitivities: No Known Medication Allergies Current Home Meds: (Last Updated 10/04 14:21) atenolol (atenolol 50 mg oral tablet) 50 mg PO bid escitalopram (escitalopram 20 mg oral tablet) 20 mg PO Daily eszopiclone (Lunesta 2 mg oral tablet) 2 mg PO qhs PRN: as needed for sleep hydroCHLOROthiazide-losartan (hydroCHLOROthiazide-losartan 12.5 mg-100 mg oral tablet) 1 tab PO Daily lamoTRIgine (lamoTRIgine 150 mg oral tablet) 150 mg PO bid omeprazole (PriLOSEC 40 mg oral delayed release capsule) 40 mg PO Daily traMADol (traMADol 50 mg oral tablet) 50 mg PO q4h PRN: as needed for pain preop Allergies Allergy/AdvReac Type Severity Reaction Status Date / Time No Known Allergies Allergy Verified 10/04/22 10:18 Home Medications Medication Instructions Recorded Confirmed Type atenolol 50 mg tablet 50 mg PO BID 10/04/22 10/04/22 History escitalopram oxalate 20 mg tablet 20 mg PO QAM 10/04/22 10/04/22 History (Lexapro) eszopiclone 2 mg tablet (Lunesta) 2 mg PO HS 10/04/22 10/04/22 History lamotrigine 150 mg tablet 150 mg PO BID 10/04/22 10/04/22 History losartan 100 1 tab PO QAM 10/04/22 10/04/22 History mg-hydrochlorothiazide 12.5 mg tablet omeprazole 40 mg capsule,delayed 40 mg PO QAM 10/04/22 10/04/22 History release Past Med/Surg History Medical History (Updated 10/04/22 @ 15:43 by Aime Perdomo PA-C) Anxiety and depression Cardiac murmur Most recent echo faxed for by PAT area secretary [place] GERD (gastroesophageal reflux disease) Hx of subdural hematoma 2020 (s/p fall) Hypertension Osteoarthritis Seizure Grand mal, most recent 2000 Surgical History (Updated 10/04/22 @ 15:42 by Janie Toth) H/O craniotomy Hematoma evacuation (2020) History of colonoscopy History of esophagogastroduodenoscopy (EGD) History of laparoscopy History of total hip arthroplasty Left [place] teeth removed Family History (Updated 10/04/22 @ 10:31 by Sheron Sue RN) Other No family history of adverse response to anesthesia Social History Smoking Status: Current every day smoker Cigarettes Per Day: 1-2 CIG DAILY>ADVISED; Second Hand Exposure: Yes (IN THE PAST>15+ YEARS AGO); Hx Alcohol Use: Yes Alcohol type: wine Preferred Language: Burkinan Technical Buyer Required: No Beliefs That Will Affect Care: None Current Living Situation: Alone Feels Safe at Home: Yes Assistive Devices: Cane and Glasses Physical Exam Physical Exam: Physical Exam: (relevant to the procedure, including heart and lung evaluation) General: Alert and oriented x3 with proper grooming and hygiene Eyes: Pupils are equal and reactive to light with accommodation. Extraocular movements are intact Throat: Posterior oropharynx is clear with absence of edema, erythema or exudate. Dentition is appropriate. Cardiac: Regular rate and rhythm with a grade 3/6 holosystolic murmur heard best over the left lower sternal border Lungs: Clear to auscultation throughout with no wheezing, rales or rhonchi Abdomen: Obese, nondistended, nontender with NABS Extremities: Right hip: Flexion is limited to 90 degrees, external rotation to 50 degrees and internal rotation to 0 degrees. Patient experiences tenderness to palpation in the groin. Logroll test and straight leg raise test causes referred pain to the groin area. Stinchfield test is positive. Patient walks with a slight antalgic gait. She is neurovascularly intact in the right lower extremity. Neuro: Cranial nerves II through XII are intact with no motor or sensory deficit Skin: Normal in appearance with no open skin areas or discharge Results & Data Diagnostic Findings Studies (relevant to the procedure): X-rays done at the end of August of this year are reviewed. These show severe osteoarthritis of the right hip with complete obliteration of the joint space, subchondral cysts, and sclerosis. No fractures.
--- NOTE | 2022-10-05 15:37 | Anesthesiology Consultation ---
Date of Service October 05, 2022 Assessment & Plan (1) Encounter for pre-operative examination: - Outpatient joint assessment: Patient is currently scheduled for inpatient pathway. If re-evaluated pending system levels during current pandemic/surgeon requests outpatient pathway, patient is not recommended candidate for outpatient joint program from anesthesia standpoint. - Case discussed in detail with Dr. Paula who advised she is acceptable to proceed without further evaluation from his standpoint and he agrees she is not recommended outpatient joint candidate. Chart Review Chart Review: Acceptable Risk for Surgery and Patient seen in Pre Admission Testing Teaching & Discussion Pre-Anesthesia Teaching/Discussion Notes: Instructed NPO after midnight before surgery, except medications with 15 cc of water. Medication instructions provided according to the PAT guidelines. History Surgery Operation Date: 10/12/22 09:15 Proposed Procedures p Right Total Hip Arthroplasty - Abran Grider MD Height/Weight Height: 5 ft 5 in Weight: 68.039 kg Allergies Allergy/AdvReac Type Severity Reaction Status Date / Time No Known Allergies Allergy Verified 10/04/22 10:18 Medications Home Medications Medication Instructions Recorded Confirmed Last Taken atenolol 50 mg tablet 50 mg PO BID 10/04/22 10/04/22 Unknown escitalopram oxalate 20 mg tablet 20 mg PO QAM 10/04/22 10/04/22 Unknown (Lexapro) eszopiclone 2 mg tablet (Lunesta) 2 mg PO HS 10/04/22 10/04/22 Unknown lamotrigine 150 mg tablet 150 mg PO BID 10/04/22 10/04/22 Unknown losartan 100 1 tab PO QAM 10/04/22 10/04/22 Unknown mg-hydrochlorothiazide 12.5 mg tablet omeprazole 40 mg capsule,delayed 40 mg PO QAM 10/04/22 10/04/22 Unknown release Past Medical History Medical History (Updated 10/06/22 @ 10:47 by Arely Lam PA-C) Anxiety and depression GERD (gastroesophageal reflux disease) controlled, stable per pt History of blood transfusion pt denies, she plans to re-check her home records Hx of subdural hematoma 2020 (s/p fall) Hypertension controlled, stable per pt Mild aortic regurgitation Mild mitral regurgitation Mild pulmonary hypertension 30 mmHg Mild pulmonary valve regurgitation Mild tricuspid regurgitation Seizure Grand mal, most recent 2000 Patient denies h/o stroke, heart attack, heart failure, DM, or blood clots. Exercise / Class Metabolic Activity III < 4 Walking/Shop/Light housework (denies chest discomfort or shortness of breath with usual activities, ambulates with cane) Past Family History Family History Other No family history of adverse response to anesthesia Past Surgical History Surgical History H/O craniotomy Hematoma evacuation (2020) History of colonoscopy History of esophagogastroduodenoscopy (EGD) History of laparoscopy History of total hip arthroplasty Left [place] teeth removed Past Anesthesia History No Hx of Anesthesia Complications and No Family Hx of Anesthesia Complications History of PONV No Hx of PONV and No Hx of Motion Sickness Social History Smoking Status: Current every day smoker tobacco type: cigarettes Smoking cigarettes per day: 1-2 CIG DAILY>ADVISED Do You Dip or Chew Tobacco: No Hx Alcohol Use: Yes Alcohol type: wine alcohol intake frequency: a few times a month substance use type: does not use Review of Systems Patient denies chest pain, shortness of breath, snoring, witnessed apneas, fever, chills, cough, wheezing, or palpitations. Physical Exam Vital Signs Vitals BP 138/82 P 69 TEMP 98.2 SP02 96% on RA RESP 17 Physical Full cervical extension range of motion without pain TMD 3.5 finger breadths Mallampati Score 2 Dentition: front upper cap, denies chipped or loose teeth, implants or bridges Lungs: normal respiratory effort. Good air movement, clear throughout to auscultation, no adventitious breath sounds Cardiac: regular rate and rhythm, 2/6 systolic murmur noted Carotid arteries: negative bruit bilat Lab Results Anesthesia Preop Results Results Anesthesia Widget: WBC 6.58 K/ul (4.8-10.8) 10/05/22 Hgb 13.5 g/dl (12.0-16.0) 10/05/22 Hct 39.0 % (37.0-47.0) 10/05/22 Plt 197 K/uL (130-400) 10/05/22 Na 137 mmol/L (136-145) 10/05/22 K 3.6 mmol/L (3.5-5.1) 10/05/22 Cl 103 mmol/L (98-107) 10/05/22 CO2 26 mmol/L (21-32) 10/05/22 BUN 20 mg/dl (6-23) 10/05/22 Creat 0.91 mg/dl (0.6-1.2) 10/05/22 Glucose Level 134 mg/dl (70-99(Fasting)) H 10/05/22 PT 10.3 Seconds (9.0-12.0) 10/05/22 PTT 24.4 Seconds (21.0-31.0) 10/05/22 INR 1.0 (0.9-1.1) 10/05/22 TSH 2.143 uIu/ml (0.300-4.500) 09/26/22 HA1c 5.3 % (4.5-5.6) 09/26/22 Urine Color Yellow 10/05/22 Urine Appearance Clear (Clear) 10/05/22 Urine pH 7.0 (4.5-7.5) 10/05/22 Urine Specific [place] 1.020 (1.000-1.030) 10/05/22 Urine Protein Negative (Negative) 10/05/22 Urine Glucose (UA) Negative (Negative) 10/05/22 Urine Ketones Negative (Negative) 10/05/22 Urine Blood Negative (Negative) 10/05/22 Urine Nitrite Negative (Negative) 10/05/22 Urine Bilirubin Negative (Negative) 10/05/22 Urine Urobilinogen Negative (Negative) 10/05/22 Urine Leukocyte Esterase Negative (Negative) 10/05/22 Blood Type A Positive 10/05/22 Antibody Screen NEGATIVE 10/05/22 Testing Electrocardiogram Date: 10/05/22 NSR, rate 68 bpm Echocardiogram Date: 09/19/21 EF 50-55% Mild cLVH Mild aortic regurgitation Mild mitral regurgitation Mild tricuspid regurgitation Mild pulmonic regurgitation Mild pulmonary artery hypertension, RVSP 30 mmHg Stress Test Date: 10/27/21 Pharmacologic MPHR not reported Negative stress ecg for coronary artery ischemia EF 74% Other Testing CT lung 04/27/22 No active pulmonary disease Carotid doppler 10/10/21 Mild 1-15% stenosis of R ICA Mild 1-15% stenosis of L ICA COVID-19 Risk Screen Screening Information COVID-19 Screen Date: 10/05/22 Exposure 21 Days Family/Household +COVID Last 21 Days: No Exposure 10 Days Any COVID Exposure Last 10 Days: No Symptoms Last 10 Days Experienced COVID Sx Last 10 Days: No + COVID 0-90 Days COVID + in Last 0-90 Days: No
--- NOTE | 2022-12-06 13:42 | History & Physical Report ---
Date of Service December 06, 2022 Assessment & Plan (1) Osteoarthritis of right hip: Plan: PRE-OP Diagnosis: Right hip osteoarthritis Planned Procedure: Right total hip arthroplasty Plan: Patient is scheduled to undergo this procedure at the [facility] with a 23-hour observation admission with Dr. Grider on , December 14, 2022. Risks and complications of the procedure such as: Infection, bleeding, pain, scarring, nerve blood vessel damage, weakness, wound problems, stiffness, incomplete relief of symptoms, hardware failure, hardware loosening, wear, fracture, tendon or ligament injury, dislocation, leg length inequality, blood clots, Embolism, heart attack, stroke and were explained to the patient at her previous visit. Informed consent to perform the procedure was obtained. Patient also understands risks of proceeding with surgical intervention during the COVID-19 pandemic. Currently she is asymptomatic and has not been in contact with anyone positive for the virus recently. Patient has already met with PAT but will need updated CBC with differential, CMP PT/INR, blood type and screen, urinalysis, urine culture and sensitivity, and a nasal culture for MRSA. Patient is EKG is up-to-date. Patient will also need p reoperative medical clearance from their primary care provider Monet Kay. She is scheduled to see her on December 08. Patient states that she plans on doing in- home physical therapy for the first 1 to 2 weeks postoperatively with [facility]. Patient is not sure if she will be able to do outpatient physical therapy because she lives alone and will not be able to drive for 6 weeks following surgery. Patient will need a walker, raised toilet seat, shower chair and a hip kit. During today's visit we reviewed the total hip packet as well as precautions. We discussed discharge planning from the hospital. I provided paperwork to obtain a handicap placard for their vehicle. We discussed lectures offered by [facility] in regards to joint replacement surgery via Zoom. I advised the patient that upon discharge from hospital we will prescribe a narcotic pain medication and anti-inflammatory. Patient will also be on an 81 mg aspirin twice daily for blood clot prevention. Patient will be scheduled for 2-week postoperative follow-up visit with myself on December 27 @ 10:45. Patient verbalizes understanding of all information provided during today's visit. She thanks for the care that she received. If she has questions or concerns that should arise prior to her surgery, she will contact clinic. This chart was completed utilizing [employer] dictation voice recognition software. Grammatical errors, random word insertions, pronoun errors, and in complete sentences are an occasional consequence of the system. Any questions or concerns about the content, text, or information contained within the body of this dictation should be addressed directly to the physician for clarification. History of Present Illness Chief Complaint: Chief Complaint: Right hip pain Primary Care Provider: Ashley Kay History of Present Illness (including history relevant to procedure): This 67-year-old female presents to the clinic today for preoperative history and physical. Patient is complains of persistent right-sided hip pain localized to her groin area for the past year. She states that it is limiting her range of motion in the hip and presenting just like the arthritis in her left hip. Patient states she had left hip replaced in [place] back in 2019. Patient recently moved to the area in early July and has been following with Dr. Grider for her arthritis. She is electing to proceed with surgical intervention. Patient was initially scheduled to have the surgery performed on October 12, however she sustained a fall due to being intoxicated a few days before the scheduled procedure, experienced severe alcohol withdrawal and was admitted to the ICU for several days before discharge. She states that she has been not using alcohol since the time of the fall and has cut down to 4 cigarettes/day. I advised her that we will do a blood alcohol content on the morning of surgery before bringing her back to the operating room. Patient verbalizes understanding of this. Review Of Systems: A 12 point review of systems is performed and is unremarkable except for those things stated in the HPI and past medical history. Past Medical History: Problems: Pre-op exam Degenerative joint disease of right hip History of alcohol withdrawal syndrome Right hip pain Tremor Depression, major Insomnia Epilepsy Chronic GERD Hypertension Tobacco user Abnormal physical evaluation Procedure History Procedure Procedure Date Comments Subdural hematoma - 2019 TOTAL HIP ARTHROPLASTY - 2020 Left hip DEXA (dual energy X-ray absorptiometry) of spine 11/21/2022 - Femur Neck is 0.885 g/cm2 with T score of -1.1. Femur Total is 0.962 g/cm2 with T score of -0.4. Forearm Radius 33% is 0.661 g/cm2 with T score of -0.7. Z score of 0.5, this patient's BMD is considered within normal limits relative to their age. Even so, they may be considered osteopenic or osteoporotic, which is normal for this age Mammogram 11/21/2022 - Need additional imaging evaluation. CT of cervical spine 10/10/2022 - IMPRESSION:1. There is no evidence of fracture or subluxation involving the cervical spine.2. Osteopenia and spondylotic change as above. CT of head 10/10/2022 - IMPRESSION: There is no hemorrhage, mass effect, or evidence of acute territorial ischemia by CT criteria. CT of abdomen and pelvis 10/10/2022 - IMPRESSION:1. Compression fracture of the T12 vertebral body. There is a right posterior rib fracture which also appears acute. Additional rib fractures of various chronicity is are seen as above.2. Additional findings as above. No acute intra-abdominal injury is seen. Lumbar puncture 10/10/2022 Colonoscopy 2018 Allergies and Sensitivities: No Known Medication Allergies Current Home Meds: (Last Updated 12/05 13:39) atenolol (atenolol 25 mg oral tablet) 25 mg PO Daily calcitonin (Miacalcin Nasal 200 intl units/inh nasal spray) 1 spray intranasal Daily calcitonin (calcitonin 200 intl units/inh nasal spray) 1 spray intranasal Daily cyanocobalamin (cyanocobalamin 500 mcg oral tablet) 1,000 mcg PO Daily escitalopram (escitalopram 20 mg oral tablet) 20 mg PO Daily eszopiclone (Lunesta 2 mg oral tablet) 2 mg PO qhs PRN: as needed for sleep folic acid (folic acid 1 mg oral tablet) 1 mg PO Daily hydrOXYzine (hydrOXYzine hydrochloride 25 mg oral tablet) 25 mg PO qhs PRN: insomnia lamoTRIgine (lamoTRIgine 150 mg oral tablet) 150 mg PO bid losartan (losartan 50 mg oral tablet) 50 mg PO Daily omeprazole (PriLOSEC 40 mg oral delayed release capsule) 40 mg PO Daily thiamine (thiamine 100 mg oral tablet) 100 mg P0 daily Allergies Allergy/AdvReac Type Severity Reaction Status Date / Time No Known Allergies Allergy Verified 10/10/22 11:00 Home Medications Medication Instructions Recorded Confirmed Type escitalopram oxalate 20 mg tablet 20 mg PO QAM 10/04/22 12/05/22 History (Lexapro) eszopiclone 2 mg tablet (Lunesta) 2 mg PO HS PRN Sleep 10/04/22 12/05/22 History lamotrigine 150 mg tablet 150 mg PO BID 10/04/22 12/05/22 History omeprazole 40 mg capsule,delayed 40 mg PO QAM 10/04/22 12/05/22 History release acetaminophen 325 mg capsule 650 mg PO Q6H #120 caps 10/31/22 12/05/22 Rx (Tylenol) atenolol 25 mg tablet 25 mg PO DAILY #30 tabs 10/31/22 12/05/22 Rx calcitonin (salmon) 200 1 spray intranasal (ALT) DAILY 10/31/22 12/05/22 Rx unit/actuation nasal spray #3.7 mL celecoxib 100 mg capsule (Celebrex) 100 mg PO BID #28 caps 10/31/22 12/05/22 Rx cyanocobalamin (vitamin B-12) 1,000 mcg PO DAILY #30 caps 10/31/22 12/05/22 Rx 1,000 mcg capsule folic acid 1 mg tablet 1 mg PO DAILY #30 tabs 10/31/22 12/05/22 Rx hydroxyzine HCl 25 mg tablet 25 mg PO HS #28 tabs 10/31/22 12/05/22 Rx lidocaine 5 % topical patch See Rx Instructions topical 10/31/22 12/05/22 Rx .COMPLEX #15 ea melatonin 3 mg tablet 3 mg PO HS #30 tabs 10/31/22 12/05/22 Rx nicotine 21 mg/24 hr daily 21 mg transdermal QAM #30 ea 10/31/22 12/05/22 Rx transdermal patch (Nicoderm CQ) thiamine HCl (vitamin B1) 100 mg 200 mg PO BID #60 tabs 10/31/22 12/05/22 Rx tablet Past Med/Surg History Medical History Anxiety and depression GERD (gastroesophageal reflux disease) controlled, stable per pt History of alcohol withdrawal syndrome 09/2022 hospitalized at [facility] History of blood transfusion pt denies, she plans to re-check her home records History of recent fall 10/10/22 [facility] Hx of subdural hematoma 2020 (s/p fall) Hypertension controlled, stable per pt Mild aortic regurgitation Mild mitral regurgitation Mild pulmonary hypertension 30 mmHg Mild pulmonary valve regurgitation Mild tricuspid regurgitation Osteoarthritis of right hip Seizure Grand mal, most recent 2000 Surgical History H/O craniotomy Hematoma evacuation (2020) History of colonoscopy History of esophagogastroduodenoscopy (EGD) History of laparoscopy History of total hip arthroplasty Left [place] teeth removed Family History Other No family history of adverse response to anesthesia Social History Smoking Status: Current every day smoker Cigarettes Per Day: 4-5 per- advised; Second Hand Exposure: Yes (in the past); Do You Dip or Chew Tobacco: No; Hx Alcohol Use: No (states has not had any since hospitalized in September) Hx Substance Use: No Preferred Language: Greenlandic Industrial Servicer Required: No Beliefs That Will Affect Care: None Current Living Situation: Alone Feels Safe at Home: Yes Assistive Devices: Cane and Walker Review of Systems All systems reviewed & are unremarkable except as noted in Subjective Physical Exam Physical Exam: Physical Exam: (relevant to the procedure, including heart and lung evaluation) General: Alert and oriented x3 with proper grooming and hygiene Eyes: Pupils are equal and reactive to light with accommodation. Extraocular movements are intact Throat: Posterior oropharynx is clear with absence of edema, erythema or exudate. Dentition is appropriate. Cardiac: Regular rate and rhythm with a grade 3/6 holosystolic murmur heard best over the left lower sternal border Lungs: Clear to auscultation throughout with no wheezing, rales or rhonchi Abdomen: Obese, nondistended, nontender with NABS Extremities: Right hip: Flexion is limited to 90 degrees, external rotation to 50 degrees and internal rotation to 0 degrees. Patient experiences tenderness to palpation in the groin. Logroll test and straight leg raise test causes referred pain to the groin area. Stinchfield test is positive. Patient walks with a slight antalgic gait. She is neurovascularly intact in the right lower extremity. Neuro: Cranial nerves II through XII are intact with no motor or sensory deficit Skin: Normal in appearance with no open skin areas or discharge Results & Data Diagnostic Findings Studies (relevant to the procedure): X-rays done at the end of August of this year are reviewed. These show severe osteoarthritis of the right hip with comp lete obliteration of the joint space, subchondral cysts, and sclerosis. No fractures.
[~2022-12-14 07:00] MED LIST: ACETAMINOPHEN 500 MG TAB PO SCH; CeleBREX 200 MG CAP PO SCH; FAMOTIDINE 20 MG TAB PO SCH; LR 500ML BOLUS, THEN 15ML/HR IV SCH; LR 60ML/HR IV SCH; ROPIVACAINE 0.5% 5 MG/ML 30 ML VIAL ONE; ROPIVACAINE 0.5% HCL/PF 150 MG, BUPIVACAINE 0.75% MPF 20 ML, EPINEPHrine 0.15 MG, Ketor... INFIL SCH; Scopolamine 1 MG TDSY TD SCH; Scopolamine CHECK PATCH PLACEMENT SCH; TRANEXAMIC ACID 1,000 MG **IV Intra-op IV SCH; TRANEXAMIC ACID 1,000 MG **IV Pre-op IV SCH; ceFAZolin 2000MG 2,000 MG/15 ML SYR IV SCH; dexAMETHasone 4 MG TAB PO SCH; traMADol HCL 50 MG TABLET PO SCH
[2022-12-14] MEDS ORDERED: LIDOCAINE 2% 2 ML VIAL/AMP(20MG/ML) INFIL ONE (08:09)
[2022-12-14] MEDS ORDERED: PROPOFOL IV EMULSION 10 MG/ML 20 ML VIAL IV ONE ×2 (08:09→08:15)
[2022-12-14] MEDS ORDERED: MIDAZOLAM HCL 1 MG/ML 2ML VIAL ONE ×2 (08:10→08:11)
[2022-12-14] MEDS ORDERED: fentaNYL citrate PF 100 MCG/2 ML VIAL ONE ×2 (08:10→10:39)
[2022-12-14] MEDS ORDERED: ONDANSETRON INJ 2 MG/ML 2 ML VIAL ONE (08:10)
--- NOTE | 2022-12-14 08:28 | Anesthesiology Consultation ---
Date of Service December 14, 2022 Assessment & Plan (1) Encounter for pre-operative examination: Chart Review Chart Review: Acceptable Risk for Surgery History Surgery Operation Date: 10/12/22 09:00 Proposed Procedures p Right Total Hip Arthroplasty - Abran Grider MD Operation Date: 12/14/22 09:00 Proposed Procedures p Right Total Hip Arthroplasty - Abran Grider MD Height/Weight Height: 5 ft 5 in Weight: 72.9 kg Allergies Allergy/AdvReac Type Severity Reaction Status Date / Time No Known Allergies Allergy Verified 12/14/22 07:24 Medications Home Medications Medication Instructions Recorded Confirmed Last Taken escitalopram oxalate 20 mg tablet 20 mg PO QAM 10/04/22 12/14/22 12/13/22 11:00 (Lexapro) eszopiclone 2 mg tablet (Lunesta) 2 mg PO HS PRN Sleep 10/04/22 12/14/22 12/13/22 22:00 lamotrigine 150 mg tablet 150 mg PO BID 10/04/22 12/14/22 12/14/22 06:00 omeprazole 40 mg capsule,delayed 40 mg PO QAM 10/04/22 12/14/22 12/13/22 11:00 release acetaminophen 325 mg capsule 650 mg PO Q6H #120 caps 10/31/22 12/14/22 Unknown (Tylenol) atenolol 25 mg tablet 25 mg PO DAILY #30 tabs 10/31/22 12/14/22 12/13/22 11:00 calcitonin (salmon) 200 1 spray intranasal (ALT) DAILY 10/31/22 12/14/22 12/07/22 unit/actuation nasal spray #3.7 mL celecoxib 100 mg capsule (Celebrex) 100 mg PO BID #28 caps 10/31/22 12/14/22 Unknown cyanocobalamin (vitamin B-12) 1,000 mcg PO DAILY #30 caps 10/31/22 12/14/22 12/13/22 11:00 1,000 mcg capsule folic acid 1 mg tablet 1 mg PO DAILY #30 tabs 10/31/22 12/14/22 12/13/22 11:00 thiamine HCl (vitamin B1) 100 mg 200 mg PO BID #60 tabs 10/31/22 12/14/22 12/13/22 11:00 tablet carvedilol 3.125 mg tablet 3.125 mg PO BID 12/14/22 12/14/22 12/14/22 06:00 Active Medications Generic Name Dose Route Start Last Admin Trade Name Kosta PRN Reason Stop Dose Admin Acetaminophen 1,000 mg 12/14/22 06:00 12/14/22 07:57 Acetaminophen 500 Mg Tab PO 12/14/22 18:00 1,000 mg PREOP GISELE Administration Celecoxib 200 mg 12/14/22 06:00 12/14/22 07:56 Celebrex 200 Mg Cap PO 12/14/22 18:00 200 mg PREOP GISELE Administration Dexamethasone 8 mg 12/14/22 06:00 12/14/22 07:57 Dexamethasone 4 Mg Tab PO 12/14/22 18:00 8 mg PREOP GISELE Administration Famotidine 20 mg 12/14/22 06:00 12/14/22 07:56 Famotidine 20 Mg Tab PO 12/14/22 18:00 20 mg PREOP GISELE Administration Lactated Ringer's 1,000 mls @ 15 mls/hr 12/14/22 06:00 12/14/22 07:50 Lr IV 12/14/22 18:00 15 mls/hr .Q24H GISELE Administration Lactated Ringer's 1,000 mls @ 60 mls/hr 12/14/22 06:00 12/14/22 07:50 Lr IV 12/14/22 22:39 Not Given .[id number] GISELE Scopolamine 1 mg 12/14/22 06:00 12/14/22 07:57 Scopolamine 1 Mg Tdsy TD 12/14/22 18:00 1 mg PREOP GISELE Administration Tramadol HCl 50 mg 12/14/22 06:00 12/14/22 07:57 Tramadol Hcl 50 Mg Tablet PO 12/14/22 18:00 50 mg PREOP GISELE Administration NPO Date Last Intake of Fluids: 12/13/22 Time Last Intake of Fluids: 23:00 Date Last Intake of Solids: 12/13/22 Time Last Intake of Solids: 23:00 Past Medical History Medical History Anxiety and depression GERD (gastroesophageal reflux disease) controlled, stable per pt History of alcohol withdrawal syndrome 09/2022 hospitalized at [facility] History of blood transfusion pt denies, she plans to re-check her home records History of recent fall 10/10/22 [facility] Hx of subdural hematoma 2020 (s/p fall) Hypertension controlled, stable per pt Mild aortic regurgitation Mild mitral regurgitation Mild pulmonary hypertension 30 mmHg Mild pulmonary valve regurgitation Mild tricuspid regurgitation Osteoarthritis of right hip Seizure Grand mal, most recent 2000 Past Family History Family History Other No family history of adverse response to anesthesia Past Surgical History Surgical History H/O craniotomy Hematoma evacuation (2020) History of colonoscopy History of esophagogastroduodenoscopy (EGD) History of laparoscopy History of total hip arthroplasty Left [place] teeth removed Social History Smoking Status: Current every day smoker tobacco type: cigarettes Smoking cigarettes per day: 4-5 per- advised Do You Dip or Chew Tobacco: No Hx Alcohol Use: No (states has not had any since hospitalized in September) Alcohol type: wine and hard liquor alcohol intake frequency: 0-2 drinks per day Alcohol Intake Frequency Comment: hx alcohol abuse Hx Substance Use: No substance use type: does not use Physical Exam Vital Signs Last Vital Signs Temp 36.5 C 12/14/22 07:30 Pulse 79 12/14/22 07:30 Resp 20 12/14/22 07:30 BP 148/95 H 12/14/22 07:30 Pulse Ox 96 12/14/22 07:30 O2 Del Method Room Air 12/14/22 07:30 Testing Laboratory Results Blood Type A Positive 12/14/22 07:25 Antibody Screen NEGATIVE 12/14/22 07:25 Electrocardiogram Date: 10/18/22 Findings: + NSR @ (83) Echocardiogram Date: 10/11/22 EF: 60-65% LV Function: normal Other Findings: + LVH Valvular Disease: + no significant valvular disease
[2022-12-14] MEDS ORDERED: HYDROmorphone INJ 1 MG/ML SYRINGE IV PRN (08:31)
[2022-12-14] MEDS ORDERED: ePHEDrine sulfate 50 MG/ML AMP IV PRN (08:31)
[2022-12-14] MEDS ORDERED: ATROPINE SULFATE 0.1 MG/ML 10ML SYR IV PRN (08:31)
[2022-12-14] MEDS ORDERED: KETOROLAC 30 MG/ML VIAL IV PRN (08:31)
[2022-12-14] MEDS ORDERED: ONDANSETRON INJ 2 MG/ML 2 ML VIAL IV PRN ×2 (08:31→11:04)
--- NOTE | 2022-12-14 08:42 | History & Physical Bridge Note ---
Date of Service December 14, 2022 History & Physical Bridge Note I have examined the patient, reviewed the History & Physical and in the interval since the performance of the History & Physical I have noted the following changes of clinical significance: no changes noted. I spoke to her about doing a dual mobility liner for additional stability, and she agrees with this.
[2022-12-14] MEDS ORDERED: ORTHO JOINT ANESTHETIC ONE (08:50)
[2022-12-14] MEDS ORDERED: PHENYLEPHRINE 100MCG/ML 5ML SYR ONE (09:43)
--- NOTE | 2022-12-14 11:03 | Operative Report ---
Post Operative Report Pre & Post Diagnosis Operation Date: 12/14/22 09:00 Pre-Op Diagnosis: Right Hip Osteoarthritis Post-Op Diagnosis: Right Hip Osteoarthritis I identified the patient and participated in the time-out.: Yes Procedure Operation Date: 12/14/22 09:00 Actual Procedures p Right Total Hip Arthroplasty (Right) 22 modifier should be added due to patient's increased risk for complications - Abran Grider MD Surgeon Abran Grider MD Serology Technician KAMINI Perdomo PA-C. No resident or fellow was available to assist. Estimated Blood Loss 100 Findings Consistent with Post-Op Diagnosis Fluids 1000 cc Specimens right hip Anesthesia Type Spinal MAC Complications none Disposition Disposition: Recovery Room Indications 67-year-old female with right hip osteoarthritis refractory to conservative management. She has previously undergone a left total hip arthroplasty at another institution with a good result and desires to have the same procedure done on her right hip. She was actually on the operating room schedule about 2 months ago in September when she was admitted to the hospital and proceeded to go into delirium tremens from alcohol withdrawal. She was on a ventilator in the intensive care unit for at least 2 weeks. During this time she was completely noncommunicative and was often noted to be in the position but fortunately did not dislocate her left total hip. She was discharged home 3 weeks after initial admission. Since discharging home from the hospital she reports that she has not had an ounce of alcohol. She has been cleared by her primary care physician. I had a long discussion with her about the risks and benefits of surgery, alternatives to surgery, and expected outcomes. She understands that she is at increased risk for complications from surgery, especially if she relapses and begins drinking again. Her chronic alcohol use also places her at risk for malnourishment and problems with wound healing. After reviewing all of her options she elects to proceed with surgery. All questions were answered. Informed consent was signed. Description of Procedure Patient was identified in the preoperative holding area where the surgical site, right hip, was marked. A spinal anesthetic was placed, then the patient was brought back to the main operating room, placed in the operating table and moved into the lateral decubitus position. Axillary roll was placed. All bony prominences were padded. Perioperative antibiotics and tranexamic acid 1 gram IV were administered. Operative extremity was prepped and draped in the normal sterile fashion. Prior to incision a multidisciplinary timeout was called. All in the room were in agreement. We began by making an incision for a posterior approach to the hip. We dissected down through subcutaneous tissues to the level of the fascia. The fascia was incised in line with the incision. [place]arn[place] bow was placed. Fatty tissue was reflected posteriorly off the back of the greater trochanter to expose the piriformis and short external rotators of the hip. The piriformis and short external rotators were dissected off the posterior aspect of the hip. A box cut was made in the capsule. Inferior hip capsule was released off the femur. The femoral head was dislocated. The femoral neck cut was made at our preoperative template. The acetabulum was then exposed. The labrum was sharply excised. Contents of the cotyloid fossa were removed with electrocautery. We then began reaming at a size 8 mm less than our preoperative template. We reamed up by [address] the way up to a size 54 mm cup. This gave us good bleeding cancellus bone circumferentially. The acetabulum was then irrigated out and dried. The real [place] Gription cup was then impacted down into position with 45 degrees of lateral opening and 25 degrees of anteversion. A single cancellous bone screw was placed up into the ilium. Excellent fixation was obtained. with a metal shell for a dual mobility acetabular liner was then Appropriately positioned and impacted into place. We checked to ensure that the [place] taper had engaged which it had. Next we turned our attention to the femur. The lateral neck was removed with a box osteotome. Intramedullary guide was used followed by the lateralizing reamer. We then reamed up to a size 4 [place] stem. We then broached all the way up to a size 4. We began trialing with a high offset neck and a +5 head. Hip was reduced. Leg lengths were symmetric. The hip was stable in extension and external rotation, and stable in the sleeper position. At 90 degrees of hip flexion the hip could be internally rotated 55 degrees before levering out of the cup. I was very happy with the stability exam. Therefore the hip was dislocated and the femoral trial was removed. The femoral canal was irrigated and dried. The real size 4 high offset [place] femoral stem was opened up. This was impacted down into position. It sat at the same level as the femoral trial. Therefore the dual mobility femoral head was assembled on the back table. The outer diameter polyethylene liner was 47 mm with an inner diameter of 28 mm. The inner diameter head was Biolox delta ceramic 28 mm +5 offset. The dual mobility head was then gently impacted down onto the trunnion. The hip was atraumatically reduced. Another 1 gram of IV tranexamic acid was started prior to closure. The wound was irrigated out with sterile Betadine solution. The periarticular injection cocktail was then placed. The short external rotators, piriformis, and posterior capsule were repaired through drill holes in the greater trochanter using #2 Vicryl. The fascia was run with a looped #1 PDS. The subcutaneous layer was closed with #1 PDS. The dermal layer was closed with 2-0 Vicryl. Zip line was used for the skin followed by a Silverlon dressing. A compressive dressing was then placed. The patient was then rolled supine. Leg lengths were rechecked and were symmetric. An abduction pillow was placed. Sedation was lifted and the patient was transferred to the recovery room in stable condition. Summary of implants: Depuy [place] Gription Acetabular Shell Sector Cup, 54 mm outer diameter [place] Cancellous bone screw, 6.5 x 30 mm [place] hole eliminator. 54 x 47 metal dual mobility liner. 47 x 28 bipolar polyethylene liner Biolox delta 28 mm diameter femoral head with +5 offset DePuy [place] Femoral stem with [place], 12/14 taper, size 4 high offset Postoperative course: Patient will be admitted to the hospital from the recovery room. Patient will be weightbearing as tolerated with posterior hip precautions. She will use a walker for the next 6 weeks for fall precautions. Protein shakes will be encouraged given her risk for malnourishment. Aspirin for DVT prophylaxis I attest to the content of the Intraoperative Record and any orders documented therein. Any exceptions are noted below.
[2022-12-14] MEDS ORDERED: ALUMINUM/MAGNESIUM SUSP 30 ML UDC PO PRN (11:04)
[2022-12-14] MEDS ORDERED: MAGNESIUM HYDROXIDE SUSP 30 ML UDC PO PRN (11:04)
[2022-12-14] MEDS ORDERED: diphenhydrAMINE 50 MG/ML VIAL IV PRN (11:04)
[2022-12-14] MEDS ORDERED: bisacodyL 10 MG SUPP PR PRN (11:04)
[2022-12-14] MEDS ORDERED: NALOXONE HCL 0.4 MG/1 ML VIAL/CARP IV PRN (11:04)
[2022-12-14] MEDS ORDERED: METOCLOPRAMIDE HCL INJ 5 MG/ML 2 ML VIAL IV PRN (11:04)
--- NOTE | 2022-12-14 11:04 | Operative Report ---
Post Operative Report Pre & Post Diagnosis Operation Date: 12/14/22 09:00 Pre-Op Diagnosis: Right Hip Osteoarthritis Post-Op Diagnosis: Right Hip Osteoarthritis I identified the patient and participated in the time-out.: Yes Procedure Operation Date: 12/14/22 09:00 Actual Procedures p Right Total Hip Arthroplasty(Right) - Abran Grider MD Surgeon Abran Griedr MD [facility] KAMINI Perdomo PA-C. No resident or fellow was available to assist. Estimated Blood Loss 100 Findings Consistent with Post-Op Diagnosis Specimens femoral head Description of Procedure I was present during the entire case assisting with positioning, prepping, draping, wound retraction, wound closure, dressing and abduction pillow placement. No fellow present. Please see Dr. Grider procedure note for specifics of the case. I attest to the content of the Intraoperative Record and any orders documented therein. Any exceptions are noted below.
[2022-12-14] MEDS ORDERED: ESZOPICLONE 1 MG TAB PO PRN (11:16)
--- NOTE | 2022-12-14 11:26 | XRay Report ---
XR pelvis 1-2V routine HISTORY: 67 years-old Female In PACU - Post Surgical right hip arthroplasty COMPARISON: 12/05/2022 TECHNIQUE: AP view of the chest FINDINGS: Bilateral hip arthroplasties. Soft tissue swelling with expected deep tissue air surrounding the righ t hip. No acute fracture, dislocation or unexpected opaque foreign body. IMPRESSION: Right hip arthroplasty with expected postoperative changes. ACT 112: Negative or not required by law. The above report was generated using voice recognition software. It may contain grammatical, syntax o r spelling errors. Electronically signed by: Yung Rodriguez M.D. 12/14/2022 11:25 AM
--- NOTE | 2022-12-14 12:57 | Anesthesiology Progress Note ---
Date of Service December 14, 2022 Anesthesia Post Procedure Vital Signs Vital Signs: Temp Pulse Pulse Resp BP Pulse Ox O2 Del Method 12/14/22 12:45 36.6 C 98 H 16 132/69 98 Nasal Cannula 12/14/22 12:47 Nasal Cannula 12/14/22 12:25 69 15 104/57 L 97 Nasal Cannula 12/14/22 12:15 63 15 103/60 96 Nasal Cannula 12/14/22 12:05 36.4 C L 62 14 105/61 97 Nasal Cannula 12/14/22 11:55 62 15 93/68 L 96 Nasal Cannula 12/14/22 11:45 60 14 115/71 98 Nasal Cannula 12/14/22 11:35 36.1 C L 69 15 109/70 98 Nasal Cannula 12/14/22 11:25 67 15 109/65 96 Oxymask 12/14/22 11:15 66 15 130/77 98 Oxymask 12/14/22 11:04 36 C L 75 14 100/73 97 Oxymask 12/14/22 07:30 Room Air 12/14/22 07:30 36.5 C 79 20 148/95 H 96 Room Air O2 Flow Rate 12/14/22 12:45 2 12/14/22 12:47 2 12/14/22 12:25 2 12/14/22 12:15 2 12/14/22 12:05 2 12/14/22 11:55 2 12/14/22 11:45 2 12/14/22 11:35 2 12/14/22 11:25 4 12/14/22 11:15 6 12/14/22 11:04 8 12/14/22 07:30 12/14/22 07:30 Pain Intensity Right Hip: Pain Intensity: 2 Transfer of Care Handoff Completed per policy Notes Mental Status: alert / awake / arousable Patient Amnestic to Procedure: Yes Nausea / Vomiting: adequately controlled Pain: adequately controlled Airway Patency, RR, SpO2: stable & adequate BP & HR: stable & adequate Hydration State: stable & adequate Neuraxial Anesthesia: was administered and sensory block is resolving Anesthetic Complications: no major complications apparent
[2022-12-14] MEDS: SODIUM CHLORIDE 0.9% 1000ML 1,000 ML IV SCH ×2 (13:11→23:24)
[2022-12-14] MEDS: ACETAMINOPHEN 500 MG TAB PO SCH ×2 (14:27→22:34)
[2022-12-14] MEDS: KETOROLAC TROMETHAMINE 15 MG/ML VIAL IV SCH ×2 (14:28→20:26)
[2022-12-14] MEDS: Scopolamine CHECK PATCH PLACEMENT SCH (15:45)
[2022-12-14] MEDS: ceFAZolin 2000MG 2,000 MG/15 ML SYR IV SCH (15:48)
[2022-12-14] MEDS: traMADol HCL 50 MG TABLET PO PRN ×2 (15:48→20:34)
[2022-12-14] MEDS ORDERED: TRANEXAMIC ACID / 0.7% NACL 1,000 MG/100 ML BAG IV SCH (17:15)
[2022-12-14] MEDS: HYDROmorphone INJ 0.5 MG/0.5 ML SYR IV PRN ×2 (18:46→22:34)
[2022-12-14] MEDS: lamoTRIgine 100 MG TAB PO SCH (20:25)
[2022-12-14] MEDS: THIAMINE HCL 100 MG TAB PO SCH (20:26)
[2022-12-14] MEDS: DOCUSATE SODIUM 100 MG CAP PO SCH (20:27)
[2022-12-14] MEDS: carvediloL 3.125 MG TAB PO SCH (20:45)
[2022-12-14] MEDS ORDERED: CELECOXIB 100 MG CAP PO SCH (21:00)
[2022-12-14] MEDS ORDERED: SENNA 8.6 MG TAB PO SCH (21:00)
[2022-12-15] MEDS: traMADol HCL 50 MG TABLET PO PRN ×4 (01:50→15:02)
[2022-12-15] MEDS: KETOROLAC TROMETHAMINE 15 MG/ML VIAL IV SCH ×2 (01:52→08:01)
[2022-12-15] MEDS: ceFAZolin 2000MG 2,000 MG/15 ML SYR IV SCH (01:55)
[2022-12-15] MEDS: Scopolamine CHECK PATCH PLACEMENT SCH ×3 (02:03→14:11)
[2022-12-15] MEDS: HYDROmorphone INJ 0.5 MG/0.5 ML SYR IV PRN ×2 (03:31→08:09)
[2022-12-15] MEDS: ACETAMINOPHEN 500 MG TAB PO SCH ×2 (05:39→13:17)
[2022-12-15 06:54] LABS: Basophils # (auto) 0.02 K/uL (0-0.2); Basophils % (auto) 0.2 %; Eosinophils # (auto) 0.01 K/uL (0-0.50); Eosinophils % (auto) 0.1 %; Hematocrit (blood only) 27.8 % (37.0-47.0); Hemoglobin 9.6 g/dl (12.0-16.0); Immature Granulocytes # (auto) 0.05 K/uL (0.01-0.20); Immature Granulocytes % (auto) 0.4 %; Lymphocytes # (auto) 1.06 K/uL (1.2-3.4); Lymphocytes % (auto) 9.2 %; Mean Corpuscular Hemoglobin 30.8 pg (25.0-34.0); Mean Corpuscular Hgb Conc 34.5 g/dL (32.0-36.0); Mean Corpuscular Volume 89.1 fL (80.0-100.0); Mean Platelet Volume 9.7 fL (9.4-12.4); Monocytes # (auto) 0.72 K/uL (0.11-0.59); Monocytes % (auto) 6.2 %; Neutrophils # (auto) 9.69 K/uL (1.40-6.50); Neutrophils % (auto) 83.9 %; Platelet Count 158 K/uL (130-400); RDW Coefficient of Variation 12.2 % (11.5-14.5); RDW Standard Deviation 39.1 fL (36.4-46.3); Red Blood Count 3.12 M/uL (4.20-5.40); White Blood Count 11.55 K/ul (4.8-10.8)
[2022-12-15 07:15] LABS: BUN Creatinine Ratio 25.2 (10-20); Calcium 9.4 mg/dl (8.6-10.3); Creatinine Clr Calc Pharmacy 52.3 ml/min; Est GFR (African American) 64.7 ml/min; Est GFR (Non-African American) 55.8 ml/min; Potassium 4.4 mmol/L (3.5-5.1)
[2022-12-15] MEDS ORDERED: dexAMETHasone 4 MG TAB PO SCH (08:00)
[2022-12-15] MEDS ORDERED: PANTOprazole 40 MG TAB PO SCH (09:00)
[2022-12-15] MEDS ORDERED: FOLIC ACID 1 MG TAB PO SCH (09:00)
[2022-12-15] MEDS ORDERED: CYANOCOBALAMIN (B-12) 500 MCG TABLET PO SCH (09:00)
[2022-12-15] MEDS ORDERED: MULTIVITAMIN TAB PO SCH (09:00)
[2022-12-15] MEDS ORDERED: CALCITONIN SALMON NA 200 IU/AC 3.7 ML BTL SCH (09:00)
[2022-12-15] MEDS ORDERED: ASPIRIN 81 MG ECTAB PO SCH (09:00)
[2022-12-15] MEDS ORDERED: ESCITALOPRAM OXALATE 20 MG TAB PO SCH (09:00)
[2022-12-15] MEDS ORDERED: ATENOLOL 25 MG TABLET PO SCH (09:00)
--- NOTE | 2022-12-15 09:45 | Orthopedic Progress Note ---
Date of Service December 15, 2022 Assessment & Plan (1) Status post total hip replacement, right: Plan: Total hip precautions reviewed Weightbearing as tolerated with walker assistance. Abduction pillow use x6 weeks Walker use x6 weeks DVT prophylaxis with ERICK stockings and aspirin Pain control with p.o. medication Keep Silverlon dressing in place PT/OT Follow-up at [facility] as previously scheduled. Plan is to discharge home later today within home physical therapy for the first 2 weeks postoperatively. With questions contact our clinic at [phone] Admission and Anticipated Discharge Date Admission Date: December 14, 2022 Subjective This 67-year-old female is day 1 status post right total hip arthroplasty. She is doing very well. She states that she is planning on going home and doing in- home physical therapy while there. Patient states she lives alone but does live in a "senior facility." And has a great program support assistant there. She states that her pain is well controlled with the p.o. pain medication she was given. She denies chest pain, shortness of breath, fever, chills, sweats, numbness or tingling in the right lower extremity. She also denies nausea, vomiting, diarrhea or difficulty voiding. Review of Systems Review of Systems: All systems reviewed & are unremarkable except as noted in Subjective Physical Exam Physical Exam: Right hip: Outer dressing was removed. Silverlon dressing was saturated but not leaking, however I decided to change it out. I remove the Silverlon and the zipper line was still intact. There is no active bleeding. Site was lightly cleansed with a saline wipe, patted dry with a sterile 4 x 4 and a new Silverlon was applied. Patient is able to perform active straight leg raise test. She is able to actively dorsi and plantarflex her foot without issue. She does experience some "twinge E" type pain with passive hip flexion to 90 degrees and with light passive internal and external rotation. Logroll test causes no discomfort. Patient's quad strength is 3+ out of 5. She is neurovascularly intact in right lower extremity. Results & Data Vital Signs (Past 12 Hours) Vital Signs Temp Pulse Resp BP Pulse Ox O2 Del Method 12/15/22 05:47 36.5 C 74 16 144/74 H 96 Room Air 12/15/22 02:03 36.6 C 77 18 147/83 H 96 Room Air 12/14/22 22:43 36.6 C 87 16 154/92 H 96 Room Air Diagnostic Findings Laboratory Results WBC 11.55 K/ul (4.8-10.8) H 12/15/22 06:35 RBC 3.12 M/uL (4.20-5.40) L 12/15/22 06:35 Hgb 9.6 g/dl (12.0-16.0) L 12/15/22 06:35 Hct 27.8 % (37.0-47.0) L 12/15/22 06:35 MCV 89.1 fL (80.0-100.0) 12/15/22 06:35 MCH 30.8 pg (25.0-34.0) 12/15/22 06:35 MCHC 34.5 g/dL (32.0-36.0) 12/15/22 06:35 RDW Std Deviation 39.1 fL (36.4-46.3) 12/15/22 06:35 RDW Coeff of [place] 12.2 % (11.5-14.5) 12/15/22 06:35 Plt Count 158 K/uL (130-400) 12/15/22 06:35 MPV 9.7 fL (9.4-12.4) 12/15/22 06:35 Immature Gran % (Auto) 0.4 % 12/15/22 06:35 Neut % (Auto) 83.9 % 12/15/22 06:35 Lymph % (Auto) 9.2 % 12/15/22 06:35 [place] % (Auto) 6.2 % 12/15/22 06:35 Eos % (Auto) 0.1 % 12/15/22 06:35 Baso % (Auto) 0.2 % 12/15/22 06:35 Neut # (Auto) 9.69 K/uL (1.40-6.50) H 12/15/22 06:35 Lymph # (Auto) 1.06 K/uL (1.2-3.4) L 12/15/22 06:35 [place] # (Auto) 0.72 K/uL (0.11-0.59) H 12/15/22 06:35 Eos # (Auto) 0.01 K/uL (0-0.50) 12/15/22 06:35 Baso # (Auto) 0.02 K/uL (0-0.2) 12/15/22 06:35 Immature Gran # (Auto) 0.05 K/uL (0.01-0.20) 12/15/22 06:35 Sodium 133 mmol/L (136-145) L 12/15/22 06:35 Potassium 4.4 mmol/L (3.5-5.1) 12/15/22 06:35 Chloride 105 mmol/L (98-107) 12/15/22 06:35 Carbon Dioxide 23 mmol/L (21-32) 12/15/22 06:35 Anion Gap 5 (3-11) 12/15/22 06:35 BUN 26 mg/dl (6-23) H 12/15/22 06:35 Creatinine 1.03 mg/dl (0.6-1.2) 12/15/22 06:35 Est Cr Clr Drug Dosing 52.3 ml/min 12/15/22 06:35 Est GFR ( Amer) 64.7 ml/min 12/15/22 06:35 Est GFR (Non-Af Amer) 55.8 ml/min 12/15/22 06:35 BUN/Creatinine Ratio 25.2 (10-20) H 12/15/22 06:35 Glucose 113 mg/dl (70-99(Fasting)) H 12/15/22 06:35 Calcium 9.4 mg/dl (8.6-10.3) 12/15/22 06:35 Ethyl Alcohol mg/dL < 10.0 mg/dl (<10.0) 12/14/22 09:12 SARS-CoV-2, RNA, NAAT NEGATIVE (NEGATIVE) 12/14/22 Unknown Blood Type A Positive 12/14/22 07:25 Antibody Screen NEGATIVE 12/14/22 07:25 Impressions Pelvis X-Ray 12/14/22 11:04 XR pelvis 1-2V routine HISTORY: 67 years-old Female In PACU - Post Surgical right hip arthroplasty COMPARISON: 12/05/2022 TECHNIQUE: AP view of the chest FINDINGS: Bilateral hip arthroplasties. Soft tissue swelling with expected deep tissue air surrounding the right hip. No acute fracture, dislocation or unexpected opaque foreign body. IMPRESSION: Right hip arthroplasty with expected postoperative changes. ACT 112: Negative or not required by law. The above report was generated using voice recognition software. It may contain grammatical, syntax or spelling errors. Electronically signed by: Yung Rodriguez M.D. 12/14/2022 11:25 AM
--- NOTE | 2022-12-15 09:52 | Discharge Summary ---
Date of Service December 15, 2022 Admission HPI Per Admitting Provider History of Present Illness (including history relevant to procedure): This 67-year-old female presents to the clinic today for preoperative history and physical. Patient is complains of persistent right-sided hip pain localized to her groin area for the past year. She states that it is limiting her range of motion in the hip and presenting just like the arthritis in her left hip. Patient states she had left hip replaced in [place] back in 2019. Patient recently moved to the area in early July and has been following with Dr. Grider for her arthritis. She is electing to proceed with surgical intervention. Patient was initially scheduled to have the surgery performed on October 12, however she sustained a fall due to being intoxicated a few days before the scheduled procedure, experienced severe alcohol withdrawal and was admitted to the ICU for several days before discharge. She states that she has been not using alcohol since the time of the fall and has cut down to 4 cigarettes/day. I advised her that we will do a blood alcohol content on the morning of surgery before bringing her back to the operating room. Patient verbalizes understanding of this. Review Of Systems: A 12 point review of systems is performed and is unremarkable except for those things stated in the HPI and past medical history. Past Medical History: Problems: Pre-op exam Degenerative joint disease of right hip History of alcohol withdrawal syndrome Right hip pain Tremor Depression, major Insomnia Epilepsy Chronic GERD Hypertension Tobacco user Abnormal physical evaluation Procedure History Procedure Procedure Date Comments Subdural hematoma - 2019 TOTAL HIP ARTHROPLASTY - 2020 Left hip DEXA (dual energy X-ray absorptiometry) of spine 11/21/2022 - Femur Neck is 0.885 g/cm2 with T score of -1.1. Femur Total is 0.962 g/cm2 with T score of -0.4. Forearm Radius 33% is 0.661 g/cm2 with T score of -0.7. Z score of 0.5, this patient's BMD is considered within normal limits relative to their age. Even so, they may be considered osteopenic or osteoporotic, which is normal for this age Mammogram 11/21/2022 - Need additional imaging evaluation. CT of cervical spine 10/10/2022 - IMPRESSION:1. There is no evidence of fracture or subluxation involving the cervical spine.2. Osteopenia and spondylotic change as above. CT of head 10/10/2022 - IMPRESSION: There is no hemorrhage, mass effect, or evidence of acute territorial ischemia by CT criteria. CT of abdomen and pelvis 10/10/2022 - IMPRESSION:1. Compression fracture of the T12 vertebral body. There is a right posterior rib fracture which also appears acute. Additional rib fractures of various chronicity is are seen as above.2. Additional findings as above. No acute intra-abdominal injury is seen. Lumbar puncture 10/10/2022 Colonoscopy 2018 Allergies and Sensitivities: No Known Medication Allergies Current Home Meds: (Last Updated 12/05 13:39) atenolol (atenolol 25 mg oral tablet) 25 mg PO Daily calcitonin (Miacalcin Nasal 200 intl units/inh nasal spray) 1 spray intranasal Daily calcitonin (calcitonin 200 intl units/inh nasal spray) 1 spray intranasal Daily cyanocobalamin (cyanocobalamin 500 mcg oral tablet) 1,000 mcg PO Daily escitalopram (escitalopram 20 mg oral tablet) 20 mg PO Daily eszopiclone (Lunesta 2 mg oral tablet) 2 mg PO qhs PRN: as needed for sleep folic acid (folic acid 1 mg oral tablet) 1 mg PO Daily hydrOXYzine (hydrOXYzine hydrochloride 25 mg oral tablet) 25 mg PO qhs PRN: insomnia lamoTRIgine (lamoTRIgine 150 mg oral tablet) 150 mg PO bid losartan (losartan 50 mg oral tablet) 50 mg PO Daily omeprazole (PriLOSEC 40 mg oral delayed release capsule) 40 mg PO Daily thiamine (thiamine 100 mg oral tablet) 100 mg P0 daily Admission Exam Per Admitting Provider Physical Exam: (relevant to the procedure, including heart and lung evaluation) General: Alert and oriented x3 with proper grooming and hygiene Eyes: Pupils are equal and reactive to light with accommodation. Extraocular movements are intact Throat: Posterior oropharynx is clear with absence of edema, erythema or exudate. Dentition is appropriate. Cardiac: Regular rate and rhythm with a grade 3/6 holosystolic murmur heard best over the left lower sternal border Lungs: Clear to auscultation throughout with no wheezing, rales or rhonchi Abdomen: Obese, nondistended, nontender with NABS Extremities: Right hip: Flexion is limited to 90 degrees, external rotation to 50 degrees and internal rotation to 0 degrees. Patient experiences tenderness to palpation in the groin. Logroll test and straight leg raise test causes referred pain to the groin area. Stinchfield test is positive. Patient walks with a slight antalgic gait. She is neurovascularly intact in the right lower extremity. Neuro: Cranial nerves II through XII are intact with no motor or sensory deficit Skin: Normal in appearance with no open skin areas or discharge Principal Diagnosis Status post right total hip arthroplasty Discharge Exam Right hip: Outer dressing was removed. Silverlon dressing was saturated but not leaking, however I decided to change it out. I remove the Silverlon and the zipper line was still intact. There is no active bleeding. Site was lightly cleansed with a saline wipe, patted dry with a sterile 4 x 4 and a new Silverlon was applied. Patient is able to perform active straight leg raise test. She is able to actively dorsi and plantarflex her foot without issue. She does experience some "twinge E" type pain with passive hip flexion to 90 degrees and with light passive internal and external rotation. Logroll test causes no d iscomfort. Patient's quad strength is 3+ out of 5. She is neurovascularly intact in right lower extremity. Discharge Data Allergies Allergy/AdvReac Type Severity Reaction Status Date / Time No Known Allergies Allergy Verified 12/14/22 07:24 Procedures Performed Operation Date: 12/14/22 09:00 Actual Procedures p Right Total Hip Arthroplasty(Right) - Abran Grider MD Hospital Course (1) Status post total hip replacement, right: Patient had an uneventful overnight stay following right total hip arthroplasty. We will plan on discharging her home today with in-home physical therapy for the first 2 weeks as long as she passes the PT/OT protocol. We will follow-up with her in the office in 2 weeks. Total hip precautions reviewed Weightbearing as tolerated with walker assistance. Abduction pillow use x6 weeks Walker use x6 weeks DVT prophylaxis with ERICK stockings and aspirin Pain control with p.o. medication Keep Silverlon dressing in place PT/OT Follow-up at [facility] orthopedics as previously scheduled. Plan is to discharge home later today within home physical therapy for the first 2 weeks postoperatively. With questions contact our clinic at [phone] Total Time Total Time Spent Total Time Spent (In Minutes): 20 minutes Discharge Plan Discharge Items Patient Disposition: Home - Home Health Services Reason For Visit: Right Hip Osteoarthritis Discharge Diagnosis: Right Hip Osteoarthritis Lifting: None Bathing: Keep incision dry Bathing Comment: May shower tomorrow Sexual Activity: Wait until after follow-up appointment Exercise/Sports: Wait until after follow-up appointment Driving/Machine Use: No driving until cleared by health specialist Weightbearing: Right weightbearing Weightbearing Comment: as tolerated with walker assistance for next 6 weeks. Non-emergency contact: Surgeon Call non-emergency contact if: you have any medication questions, your pain is worsening, your temperature is above 101.5 and your wound pain has increased Follow-up/Referrals: Ashley Kay PA-C [Primary Care Provider] - Diet: Regular Addtl Attending Provider Instructions: Post-operative Instructions Dear Patient and Family/Friends, Before you are discharged from the hospital, it is important to know what to expect when you get home after surgery. To that end, we have created this sheet of discharge instructions which covers many commonly asked questions. Make sure you go through this sheet in its entirety with your nurse before you are discharged. Please note that we will go over the specifics of your surgery and recovery when you return for your first post-operative visit. Sincerely, Dr. Grider Medications 1. Aspirin 81 mg: take 1 tab twice daily for 30 days post operatively for blood clot prevention. Please purchase. 2. Tramadol 50 mg: take 1-2 tabs every 4-6 hours as needed for pain control. This will be sent to your pharmacy. 3. Celebrex 100 mg: take your normal twice daily dose for relief of pain and inflammation. 4. Extra Strength Tylenol 500 mg: take 2 tabs every 6-8 hours as needed for additional pain relief. Please purchase. Pain Expect to be in a fair amount of pain after surgery. Remember, our goal is not to eliminate your pain, but to make it tolerable. It is a good idea to stay ahead of your pain by taking the medications you were prescribed once you get home. Typically, the pain starts improving 3-7 days after surgery. You should start weaning off the narcotic pain medication (oxycodone, hydrocodone, hydromorphone, morphine) as soon as your pain improves. Please call our office if your pain is not adequately controlled. Ice Ice your operative site at least 5 times a day for 15-30 minutes at a time. Make sure you have a thin cloth between the ice or cooling unit and your skin to prevent black bite. This is especially important if you received a nerve block. Continue icing your operative site for the first 5-7 days after surgery, then as needed. Diet/Nausea/Vomiting Start by drinking clear liquids and eating crackers. If you can tolerate this, then you may resume your normal diet. If you feel nauseated or vomit, take Zofran/ondansetron (if prescribed). Please call our office if you have intractable nausea or vomiting, or, if after hours, you may go to the Emergency Room for help. Constipation Constipation is a common side effect of narcotic pain medication. If you have not had a bowel movement within 2 days after surgery, we recommend purchasing an over the counter laxative such as Milk of Magnesia, Dulcolax, or Miralax from a local pharmacy, and taking it as instructed. Call our clinic if any questions. Nerve block The anesthesia team sometimes places a nerve block to help with post-operative pain control. This results in significant numbness and inability to move the extremity. The nerve block usually wears off in 8-12 hours, but sometimes can last up to 24 hours. Please call our office if you are still unable to move your extremity after 24 hours, unless you received a pain pump to take home. Nerve blocks typically wear off quickly, so start taking pain medication as soon as you start feeling soreness near your surgical site. Weight bearing and Range of Motion. Do not bear any weight through your operative extremity immediately after surgery. If you had upper extremity surgery, do not lift anything with that arm. If you are in a knee brace, keep it locked in place until your follow-up. We will discuss your weight bearing, range of motion, and lifting restrictions in detail at your first post-operative appointment. Continuous Passive Motion (CPM) Machine If you were prescribed a CPM machine, it will start after your first post-operat félix appointment, at which time we will give you instructions on the range of motion settings and duration of treatment Physical therapy You will be given a prescription for physical therapy or occupational therapy at your first post-operative appointment. Typically, patients start therapy within 1 week of surgery Wound care and showering We will inspect your wound at your first post-operative visit, and may do a dressing change at that time. Most patients will be in a water-proof dressing that is removed 14 days after surgery. It is normal to see some dried blood on the dressing. Do not remove your dressing, paper strips or sutures yourself unless you are given permission. Showering is allowed the day after surgery. Do not scrub or remove any dressings. The wound should not be submerged underwater (i.e. in a bathtub or pool) until 4 weeks after surgery ERICK stockings If you were given white stockings, these are to be worn at all times except to shower (on both legs) for the first 2 weeks after surgery. Driving You may not drive while taking narcotic pain medication or while in a cast, splint, sling or brace. You, the patient, need to make the final determination about when you are safe to drive, however, the earliest you may consider driving after surgery is below: Hand/Wrist/Elbow Surgery: 3 days Shoulder Surgery: 2 weeks Hip,/Knee/Ankle Surgery: 4 weeks Fracture repair: 6 weeks Return to Work Your return to work depends on what surgery was done and what type of work you do. Please bring any paperwork your employer needs completed to your first post-operative visit. Also, bring a description of your job duties, as this helps us to understand what risks you may face at work. Travel Avoid long distance travel (greater than 1 hour) in airplanes and cars for the first 6 weeks after surgery. If you must travel, you need to have a Doppler ultrasound done before you travel to rule out a blood clot in your legs. Follow-up You should have a follow-up appointment already scheduled 1-2 days after surgery. If not, please contact our office to make this appointment before you leave the hospital. When to call the office It is normal to have swelling and bruising in the limb that was operated on. This will improve with time. It is also normal to have fevers for the first 2 days after surgery. Reasons you should call your doctor include: Uncontrolled pain; Nausea, vomiting, or constipation that does not improve with medication; Fevers over 101.5, chills, sweats; Drainage or bleeding from the wound; Foul odor; Spreading areas of redness; Any other concerns Pending Studies at Discharge: No Stand-Alone Forms: [facility] Medications and DC Order Prescriptions: New celecoxib [Celebrex] 200 mg Capsule 200 mg PO BID 30 Days Qty: 60 1RF aspirin 81 mg Tablet,Delayed Release (Dr/Ec) 81 mg PO BID 30 Days Qty: 60 0RF tramadol 50 mg Tablet 50 - 100 mg PO Q4H PRN (Reason: Post op pain relief) Qty: 28 0RF acetaminophen [Tylenol Extra Strength] 500 mg Tablet 1,000 mg PO Q8 30 Days Qty: 180 0RF Continued lamotrigine 150 mg Tablet 150 mg PO BID omeprazole 40 mg Capsule,Delayed Release(Dr/Ec) 40 mg PO QAM escitalopram oxalate [Lexapro] 20 mg Tablet 20 mg PO QAM eszopiclone [Lunesta] 2 mg Tablet 2 mg PO HS PRN (Reason: Sleep) carvedilol 3.125 mg Tablet 3.125 mg PO BID Rx Instructions: must administer with a meal/food atenolol 25 mg tablet 25 mg PO DAILY Qty: 30 0RF calcitonin (salmon) 200 unit/actuation spray,non-aerosol 1 spray intranasal (ALT) DAILY Qty: 3.7 0RF Rx Instructions: alternate nostril, only one spray per day. Do not spray both nostrils on same day. cyanocobalamin (vitamin B-12) 1,000 mcg capsule 1,000 mcg PO DAILY Qty: 30 0RF folic acid 1 mg tablet 1 mg PO DAILY Qty: 30 0RF thiamine HCl (vitamin B1) 100 mg Tablet 200 mg PO BID Qty: 60 0RF Discontinued acetaminophen [Tylenol] 325 mg capsule 650 mg PO Q6H Qty: 120 0RF Rx Instructions: Do not mix acetaminophen with alcohol celecoxib [Celebrex] 100 mg capsule 100 mg PO BID Qty: 28 0RF Admission Data Admit Date/Time: 12/14/22 11:04 Attending Provider: Abran Grider Admit Provider: Abran Grider Primary Care Provider: Ashley Kay Other Providers: [employer]
[2022-12-15] MEDS: DOCUSATE SODIUM 100 MG CAP PO SCH (09:57)
[2022-12-15] MEDS: lamoTRIgine 100 MG TAB PO SCH (09:57)
[2022-12-15] MEDS: THIAMINE HCL 100 MG TAB PO SCH (09:58)
[2022-12-15] MEDS: carvediloL 3.125 MG TAB PO SCH (09:59)
--- NOTE | 2022-12-15 13:17 | Hospitalist Consultation ---
Date of Consultation December 15, 2022 Assessment & Plan (1) Confusion: -At this time the patient's confusion is most likely due to her recent narcotic use and possibly hospital acquired delirium -Patient denies any recent alcohol use after her discharge last month, no focal neuro defects to suggest stroke, no seizure-like activity, no signs of acute alcohol withdrawal -Has been having transient lapses in attention but easy to re-direct -Has been afebrile with stable vitals so less likely to be infection, no significant leukocytosis on am labs -Hgb dropped to 9.6 this am from 13 on 12/08, could also be contributing -Will obtain LFT's with ammonia and UA -Advised her nurse to remove her scopolamine patch and to reduce her narcotic dosing -Do not think that she needs a CT head at this time as she has no focal neuro defects -Continue re-direction as needed -Spoke with the primary team, they are in agreement with the patient staying overnight -Will order am labs and follow up tomorrow -Medicine will continue to follow -Thank you for allowing us to participate in the care of this patient, reach out with any questions or concerns Plan The patient was discussed with Dr. Bella at the time of the admission History of Present Illness Reason for Consultation: Confusion; Post-op Day 1 S/P [facility]THA Requesting Physician: Abran Grider MD Attending Physician: Dr. Rivas Bella History of Present Illness Zora is a 67yo female with PMHx significant for HTN, Seizure, prior craniotomy/evacuation of hematoma, anxiety/depression, GERD, and alcohol abuse with recent admission to [facility] for DT's/severe withdrawal who presented to the [facility] OR on 12/14/22 for Right Total Hip Arthroplastywith Dr. Grider. Per the operative report from 12/14, anesthesia was listed as "Spinal MAC", EBL was listed as 100 cc, and there were no reported intraoperative complications. Vitals were reviewed and have been stable. Labs from today are significant for a leukocytosis of 11 with left shift of 9, hgb of 9.6 (down from 13 as of 12/05/22), sodium of 133, BUN of 26, glucose of 113. Speaking with the patient's nurse, he explains that the patient started to get confused overnight, after receiving a dose of IV dilaudid. She had another dose of 0.5 mg IV dilaudid this am around 0730 and a dose of tramadol around 11 am. At the the time of the exam the patient was sitting in bed in no acute distress. She states that she was more confused earlier, "but it's starting to clear up". She tells me "I think it was the pain medication". When asked about recent alcohol use, she tells me that she has not had a drink since her discharge last month after her long hospitalization for severe alcohol withdrawal. When speaking with her she will have intermittent moments of confusion but is easy to re-direct. She tells me that she spoke with her brother on the phone this am and he told her that she wasn't acting right. She lives alone but states that her family will be helping to take care of her. She denies recent fever, chills, headache, changes in vision, hearing, taste, and smell, chest pain, SOB, abd pain, nausea, voting, diarrhea, dysuria, hematuria, melena, and recent falls or trauma. I explained that I think she should stay overnight to ensure her confusion resolves, she is in agreement with the plan. Please refer to Dr. Bella's attestation for any changes to the treatment plan Allergies Allergy/AdvReac Type Severity Reaction Status Date / Time No Known Allergies Allergy Verified 12/14/22 07:24 Home Medications Medication Instructions Recorded Confirmed Type escitalopram oxalate 20 mg tablet 20 mg PO QAM 10/04/22 12/14/22 History (Lexapro) eszopiclone 2 mg tablet (Lunesta) 2 mg PO HS PRN Sleep 10/04/22 12/14/22 History lamotrigine 150 mg tablet 150 mg PO BID 10/04/22 12/14/22 History omeprazole 40 mg capsule,delayed 40 mg PO QAM 10/04/22 12/14/22 History release atenolol 25 mg tablet 25 mg PO DAILY #30 tabs 10/31/22 12/14/22 Rx calcitonin (salmon) 200 1 spray intranasal (ALT) DAILY 10/31/22 12/14/22 Rx unit/actuation nasal spray #3.7 mL cyanocobalamin (vitamin B-12) 1,000 mcg PO DAILY #30 caps 10/31/22 12/14/22 Rx 1,000 mcg capsule folic acid 1 mg tablet 1 mg PO DAILY #30 tabs 10/31/22 12/14/22 Rx thiamine HCl (vitamin B1) 100 mg 200 mg PO BID #60 tabs 10/31/22 12/14/22 Rx tablet carvedilol 3.125 mg tablet 3.125 mg PO BID 12/14/22 12/14/22 History acetaminophen 500 mg tablet 1,000 mg PO Q8 Pain control 30 12/15/22 Rx (Tylenol Extra Strength) days #180 tabs aspirin 81 mg tablet,delayed 81 mg PO BID DVT prophylaxis 30 12/15/22 Rx release days #60 tabs celecoxib 200 mg capsule (Celebrex) 200 mg PO BID Post op 12/15/22 Rx pain/inflammation relief 30 days #60 caps tramadol 50 mg tablet 50 - 100 mg PO Q4H PRN Post op 12/15/22 Rx pain relief #28 tabs Patient History Medical History Anxiety and depression GERD (gastroesophageal reflux disease) controlled, stable per pt History of alcohol withdrawal syndrome 09/2022 hospitalized at [facility] History of blood transfusion pt denies, she plans to re-check her home records History of recent fall 10/10/22 [facility] Hx of subdural hematoma 2020 (s/p fall) Hypertension controlled, stable per pt Mild aortic regurgitation Mild mitral regurgitation Mild pulmonary hypertension 30 mmHg Mild pulmonary valve regurgitation Mild tricuspid regurgitation Osteoarthritis of right hip Seizure Grand mal, most recent 2000 Surgical History H/O craniotomy Hematoma evacuation (2020) History of colonoscopy History of esophagogastroduodenoscopy (EGD) History of laparoscopy History of total hip arthroplasty Left [place] teeth removed Family History Other No family history of adverse response to anesthesia Social History Smoking Status: Current every day smoker Cigarettes Per Day: 4-5 per- advised; Second Hand Exposure: Yes (in the past); Do You Dip or Chew Tobacco: No; Tobacco Cessation Education Requested by Patient: No Hx Alcohol Use: No (states has not had any since hospitalized in September) Hx Substance Use: No Preferred Language: Trinidadian Communication Ability: Effective Game Programer Required: No Beliefs That Will Affect Care: None Current Living Situation: Alone Other Information That Helps Us Care for You: No Feels Safe at Home: Yes Safety Concerns: Feels Safe At This Time Assistive Devices: Cane and Walker Physical Exam Physical Exam: Physical Exam: General: In no acute distress, stated age, non-toxic appearing HEENT: Normocephalic, atraumatic, no scleral icterus, pupils around round, symmetrical, and reactive to light, moist mucus membranes, trachea midline, no thyromegaly Chest/Pulm: No respiratory distress, symmetrical chest expansion, clear breath sounds throughout Cardiac: RRR, no murmurs noted Abdomen: Negative for ascites and bruising, normoactive bowel sounds, soft, non-tender to palpation throughout Musculoskeletal: Currently with bandage over the right hip replacement site without signs of infection, Extremities: Radial, dorsalis pedis, and posterior tibial pulses are intact and symmetrical, no edema noted in the BL LE's Skin: As described above Neuro: Alert and oriented to person, place, thought it was 12/13, confused on month, no focal defects, CN II-XII tested and intact, no ataxia or intention tremor for cerbellar testing but loses focus during the exam, no tremors noted Psych: Pleasantly confused at the time of the exam Results & Data Results & Data Vital Signs (Past 12 Hours) Vital Signs Temp Pulse Resp BP Pulse Ox O2 Del Method 12/15/22 11:33 36.5 C 74 16 144/74 H 96 12/15/22 05:47 36.5 C 74 16 144/74 H 96 Room Air 12/15/22 02:03 36.6 C 77 18 147/83 H 96 Room Air Laboratory Results Abnormal lab results 12/15/22 12/15/22 Range/Units 06:35 06:35 WBC 11.55 H (4.8-10.8) K/ul RBC 3.12 L (4.20-5.40) M/uL Hgb 9.6 L (12.0-16.0) g/dl Hct 27.8 L (37.0-47.0) % Neut # (Auto) 9.69 H (1.40-6.50) K/uL Lymph # (Auto) 1.06 L (1.2-3.4) K/uL Jerome # (Auto) 0.72 H (0.11-0.59) K/uL Sodium 133 L (136-145) mmol/L BUN 26 H (6-23) mg/dl BUN/Creatinine Ratio 25.2 H (10-20) Glucose 113 H (70-99(Fasting)) mg/dl Diagnostic Findings Pelvis X-Ray 12/14/22 11:04 XR pelvis 1-2V routine HISTORY: 67 years-old Female In PACU - Post Surgical right hip arthroplasty COMPARISON: 12/05/2022 TECHNIQUE: AP view of the chest FINDINGS: Bilateral hip arthroplasties. Soft tissue swelling with expected deep tissue air surrounding the right hip. No acute fracture, dislocation or unexpected opaque foreign body. IMPRESSION: Right hip arthroplasty with expected postoperative changes. ACT 112: Negative or not required by law. The above report was generated using voice recognition software. It may contain grammatical, syntax or spelling errors. Electronically signed by: Yung Rodriguez M.D. 12/14/2022 11:25 AM PG Care Time/CCT Total # of Minutes Spent Total Time Spent with Patient: Total time spent is greater than 50% in coordination of care (as documented) at patient's floor/unit and/or counseling patient: Coding [place] [address] IN/OBS CONSULT LVL 5,80M Patient Type Established History Comprehensive Exam Comprehensive Medical Decision Making High Complexity Diagnoses Confusion R41.0
[2022-12-15 14:53] LABS: Albumin Level 3.7 gm/dl (3.4-5.0); Bilirubin,Total 0.3 mg/dl (0.2-1.0); Total Protein 5.9 gm/dl (6.0-8.3)
[2022-12-15 16:30] LABS: Appearance Urine Clear (Clear); Bilirubin Urine Negative (Negative); Blood Urine Negative (Negative); Color Urine Yellow; Glucose Urine UA Negative (Negative); Ketones Urine Negative (Negative); Leukocyte Esterase Urine Negative (Negative); Nitrite Urine Negative (Negative); Protein Urine Negative (Negative); Specific Gravity Urine 1.007 (1.000-1.030); Urobilinogen Urine Negative (Negative); pH Urine 5.5 (4.5-7.5)
[2022-12-15] MEDS ORDERED: CeleBREX 200 MG CAP PO SCH (21:00)
== END 2022-12-15 18:49 | disposition left against medical advice (07) ==
LOC: 3E 07:00 → ASU 07:00 → UNDODISOB 12-15 11:35